=== PATIENT | male | born 1975 | race Caucasian/White ===

== ENCOUNTER 2018-12-12 09:39 | Outpatient (CLI) | payer BC, SELFPAY ==
--- NOTE | 2018-12-12 09:17 | DI.RAD_ITS ---
SYMPTOM/DIAGNOSIS: HAND INJURY RIGHT HAND: Three views. No priors. No acute or healing fracture or dislocation is identified. There is a deformity of the terminal tuft of the right ring finger which appears old. Soft tissues are unremarkable. IMPRESSION: No acute abnormality.
== END 2018-12-12 09:59 ==
PROVIDERS: Visit Provider Physician Assistant
DX: S69.91XA Unspecified injury of right wrist, hand and finger(s), initial encounter (principal)
CPT/HCPCS: 73130

== ENCOUNTER 2020-02-24 11:40 | Emergency (ER) | payer BC, SELFPAY ==
[2020-02-24 11:43] VITALS: BP 135/76; PULSE 77; RESP 20; TEMP 37; O2SAT 98
--- NOTE | 2020-02-24 11:45 | DI.CT_ITS ---
EXAM: CT RENAL COLIC WO CLINICAL HISTORY: L flank pain, hematuria. TECHNIQUE: Imaging Protocol: Axial computed tomography images with coronal and sagittal reformatted images were created and reviewed. CONTRAST MATERIAL: Noncontrast COMPARISON: CT RENAL COLIC WO CONTRAST from 05/07/2014 CT ABD PELVIS WITH CONTRAST from 09/10/2016 CT CTA THORAX from 08/03/2017 FINDINGS: ABDOMEN: Lung Bases: 7 millimeter nodule at the right lung base. This was not present on the previous exams. Liver: Normal density. No measurable mass. Gallbladder and biliary tract: No radiodense calculus or dilation. Pancreas: Normal density, no abnormal calcifications or inflammatory process. Spleen: Normal. Kidneys: Normal size, contour and axis. There is a 4 millimeter calculus in the mid left ureter causi ng moderate hydronephrosis. There is mild perinephric stranding. There is stranding around the left ureter. Additional nonobstructing stones are noted in the mid and lower pole of the left kidney. T iny stones are visible in the right kidney which are nonobstructing. No masses seen. Adrenal glands: No masses seen. Abdominal Aorta: Abdominal portion non-dilated. PELVIS: Bladder: Symmetric distention, no gross wall thickening. Bowel: No obstruction or bowel wall thickening. Diverticulosis of the descending and sigmoid colon. No evidence of diverticulitis. Normal quantity of stool. Peritoneal cavity: No ascites, collection or mesenteric inflammatory response. Bones: Within normal limits. Small bilateral fatty containing inguinal hernias. IMPRESSION: 1. Moderate left hydronephrosis secondary to a 4 millimeter stone in the mid left ureter. There is stranding around the kidney and ureter consistent with forniceal rupture. Additional nonobstructing stones are also seen. 2. 7 millimeter nodule at the right lung base which appears new when compared with the previous exam . A six-month follow-up chest CT is recommended. RADIATION DOSE DELIVERED: 875.04mGy.cm Total DLP DATA REPOSITORY: All CT scans at this facility are submitted to the National Radiology Data Registry (NRDR) Dose Index Registry (DIR) with the [employer] (ACR). RADIATION OPTIMIZATION: All CT scans at this facility use at least one of these dose optimization te chniques: automated exposure control; mA and/or kV adjustment per patient size (includes targeted exa ms where dose is matched to clinical indication); or iterative reconstruction.
--- NOTE | 2020-02-24 11:51 | ED.GENADUL_ITS ---
Discharge Plan Disposition Patient Disposition: HOME Condition: Improving Discharge Details Clinical Impression: Renal colic on left side Primary Care Provider: Mellissa Christine ED Provider: David Copeland Home Meds and New Rx's Prescriptions: New tamsulosin [Flomax] 0.4 mg capsule 0.4 mg PO DAILY 5 Days Qty: 5 RF: 0 oxycodone-acetaminophen [Percocet] 5-325 mg tablet 1 tab PO TID PRN (Reason: pain) Qty: 7 RF: 0 Discharge Instructions Instructions: Renal Colic (ED) Additional Instructions: Tylenol and/or ibuprofen as needed for pain. May use Percocet as prescribed, as needed for severe or breakthrough pain. Do not take additional Tylenol at the same time as this medication as it does contain Tylenol. Take Flomax as prescribed. We have asked care management to arrange a follow-up for you in urology clinic. Strain your urine. Return to develop a fever, intolerable pain, or any other acute concerns. As discussed, your CT did have an incidental finding of a 7 mm right lower lobe nodule of the lungs. This should be followed over time by Dr. Christine, who may access the final radiology reading. Medical Decision Making 44-year-old male states he has had previous kidney stones, awoken at 530 this morning with the abrupt onset of left flank pain and hematuria. No fever. He has been vomiting at home. He arrives afebrile but in distress. Most consistent with renal colic, would also consider pyelonephritis or urinary tract infection. IV access established, urinalysis and blood work obtained. Patient given fluids, antiemetic, ketorolac. He is referred for CT images. Patient improved with medications. CBC shows a white count of 10, hematocrit 44, platelets 267. Chemistries note sodium 135, potassium 4.0, chloride May 9, bicarb 25, BUN 22, creatinine 1.4. Liver functions unremarkable.Note of mild increase in BUN and creatinine. Urinalysis with blood, no evidence of infection. CT reveals 4.2 mm mid left ureteral calculus with proximal dilatation. Note of 7.4 mm nodule in the right lower lung lobe. Patient proved following Flomax, fluids, ketorolac. Will discharge home with small amount of narcotic which he has tolerated in the past and for which he was consented today. We will ask acute care occupational therapist to arrange a follow-up for him in urology clinic. Lab Data Lab results reviewed: Yes I reviewed the patient's lab results. Labs: Laboratory Results - last 24 hr 02/24/20 02/24/20 02/24/20 12:00 12:00 14:10 WBC 10.85 H RBC 5.10 Hgb 14.8 Hct 44.6 MCV 87.5 MCH 29.0 MCHC 33.2 RDW 12.8 Plt Count 267 MPV 10.2 Immature Gran % 0.3 Neutrophils % 91.7 Lymphocytes % 5.2 Monocytes % 2.6 Eosinophils % 0.0 Basophils % 0.2 Nucleated RBC % 0 Absolute Neutrophils 9.95 H Absolute Lymphocytes 0.56 L Absolute Monocytes 0.28 Absolute Eosinophils 0.00 Absolute Basophils 0.02 Sodium 135 L Potassium 4.0 Chloride 99 Carbon Dioxide 25.5 Anion Gap 10.5 BUN 22 H Creatinine 1.47 H Estimated GFR/1.73 m2 51.80 Glucose 132 H Calcium 9.0 Total Bilirubin 0.5 AST 22 ALT 41 Alkaline Phosphatase 77 Total Protein 7.6 Albumin 4.3 Urine Color Yellow Urine Clarity Sl cloudy Urine pH 6.5 Ur Specific [place] 1.015 Urine Protein 30 H Urine Ketones 15 H Urine Blood Large H Urine Nitrite Negative Urine Bilirubin Negative Urine Urobilinogen 0.2 Ur Leukocyte Esterase Negative Urine RBC 10-20 H Urine WBC 0-2 Ur Epithelial Cells Rare Urine Crystals Negative Urine Bacteria Rare Urine Casts Negative Urine Mucus Moderate Ur Culture Indicated? No Urine Glucose Negative HPI General Mode of arrival: ambulatory . Date/Time Provider Initiated Documentation: 02/24/20 11:41 . Limitations to Documentation: no limitations . Information obtained by: patient . History of Present Illness 44 year old M presents to the emergency department with the chief complaint of Left flank pain at 5:30 AM, described as severe and similar to prior episodes, Quality is described as stabbing, and is localized to the back and left. Patient abdomen. Patient started experiencing this hour(s) and it has been constant. No relieving factors improve symptom(s), No exacerbating factors reported . Patient notes other (Hematuria); denies fever/chills. Patient did receive the following treatments prior to arrival, none Related Data Home Medications Medication Instructions Recorded Confirmed oxycodone-acetaminophen [Percocet] 1 tab PO TID PRN #7 tab 02/24/20 tamsulosin [Flomax] 0.4 mg PO DAILY 5 Days #5 cap 02/24/20 Previous Rx's Medication Instructions Recorded oxycodone-acetaminophen [Percocet] 1 tab PO TID PRN #7 tab 02/24/20 tamsulosin [Flomax] 0.4 mg PO DAILY 5 Days #5 cap 02/24/20 Allergies Allergy/AdvReac Type Severity Reaction Status Date / Time hydromorphone [From Dilaudid] Allergy Intermediate Cardiac Unverified 02/24/20 11:46 Dysrythmia General Stated Complaint: FlankPain MARK: 3 Review of Systems Narrative: 6 systems reviewed and otherwise negative [facility] Social History Smoking/Tobacco Use Status: Never Drug use: Never Substance use type: does not use Do you feel safe at home: Yes Do you feel safe in your relationship?: Yes Exam Narrative Exam Narrative: GEN: awake, alert, oriented 3. Pleasant, well groomed, interactive. HEAD: Normocephalic, atraumatic ENT: Mucous membranes moist, oropharynx unremarkable, External ear exam unremarkable EYES: PERRL, EOMI NECK: Full ROM, no RHONDA, no menigismus CHEST/RESP: Nontender, clear to auscultation bilateral, no wheeze/rhonchi/rales CARDIOVASCULAR: RRR, no murmur, rub raven. 2+ Rad pulse bilateral ABDOMEN: Soft, minimal left lower quadrant tenderness, no mass. +Bowel sounds. Left flank minimal tenderness to percussion EXT: Full ROM, no edema, no rash Neuro: Grossly normal neurologic exam, conversant, interactive. Psych: Speech fluent, thoughts congruent, affect normal Course Vital Signs Vital signs: Vital Signs Temperature 37.0 C 02/24/20 11:43 Pulse 77 02/24/20 11:43 Respiratory Rate 02/24/20 11:43 Blood Pressure 135/76 02/24/20 11:43 Pulse Oximetry 98 02/24/20 11:43 Temperature 37.0 C 02/24/20 11:43 Temperature Source Skin 02/24/20 11:43 Pulse 77 02/24/20 11:43 Respiratory Rate 20 02/24/20 11:43 Blood Pressure 135/76 02/24/20 11:43 Blood Pressure Position Sitting 02/24/20 11:43 Pulse Oximetry 98 02/24/20 11:43 Oxygen Delivery Method Room Air 02/24/20 11:43 Oxygen Flow Rate 0 02/24/20 11:43 Pain Level 10 02/24/20 11:43
[2020-02-24] MEDS: Normal Saline 1,000 ML 1000 ML IV (12:08)
[2020-02-24] MEDS: Ondansetron 4 MG/2 ML VIAL IVP (12:08)
[2020-02-24] MEDS: Ketorolac 30 MG/ML VIAL IVP (12:08)
[2020-02-24] MEDS: Normal Saline Flush 10 ML SYR IVP (12:08)
[2020-02-24 12:11] LABS: Abs Immature Grans 0.03 10^3/uL (0.0-0.06); Absolute Basophil Count 0.02 10^3/uL (0.0-0.2); Absolute Lymphocyte Count 0.56 10^3/uL (1.2-3.4); Absolute Monocyte Count 0.28 10^3/uL (0.1-0.8); Basophils % 0.2; HCT 44.6 % (40.0-50.0); HGB 14.8 g/dL (13.5-17.5); Immature Grans % 0.3; Lymphocytes % 5.2; MCHC 33.2 % (32.0-36.0); MCV 87.5 fL (80-95); MPV 10.2 fL (8.0-11.0); Monocytes % 2.6; Neutrophils % 91.7; Nucleated RBC 0 %; Platelet Count 267 10^3/uL (130-400); RDW 12.8 % (11.8-14.1); RDW-SD 40.9 fL; WBC 10.85 10^3/uL (4.4-10.8)
[2020-02-24 12:13] LABS: Absolute Neutrophil Count 9.95 10^3/uL (1.2-6.7)
[2020-02-24 12:26] LABS: ALT 41 U/L (16-63); AST 22 U/L (15-37); Albumin 4.3 g/dL (3.4-5.0); Alkaline Phosphatase 77 U/L (46-116); Anion Gap 10.5 mmol/L (3-11); BUN 22 mg/dL (7-18); Bilirubin, Total 0.5 mg/dL (0.2-1.0); CO2 25.5 mmol/L (21.0-32.0); CREATININE 1.47 mg/dL (0.70-1.30); Chloride 99 mmol/L (98-107); Glucose 132 mg/dL (74-106); Sodium 135 mmol/L (136-145); Total Protein 7.6 g/dL (6.4-8.2)
--- NOTE | 2020-02-24 12:47 | DI.VRAD_ITS ---
PROCEDURE INFORMATION: Exam: CT Abdomen And Pelvis Without Contrast Exam date and time: 02/24/2020 12:23 PM Age: 44 years old Clinical indication: Other: L flank pain, hematuria TECHNIQUE: Imaging protocol: Computed tomography of the abdomen and pelvis without contrast. COMPARISON: CT ABD PELVIS WITH CONTRAST 09/10/2016 8:34 AM FINDINGS: Lungs: 7.4 mm nodule in the right lower lobe was not present on the prior study.. Left basilar atelectasis Liver: Normal. No mass. Gallbladder and bile ducts: Normal. No calcified stones. No ductal dilation. Pancreas: Normal. No ductal dilation. Spleen: Normal. No splenomegaly. Adrenals: Normal. No mass. Kidneys and ureters: 4.2 millimeter mid LEFT ureteral calculus causes dilatation of LEFT collecting system and LEFT ureter. The LEFT kidney is edematous and there is significant LEFT perirenal stranding. Inflammatory changes around the proximal left ureter and in the left perinephric space may indicate ruptured fornix. Nonobstructing left renal calculi Stomach and bowel: posterior gastric diverticulum measures 2.2 cm. Series 2, image 17 Diverticulosis of the rectosigmoid. No jessi diverticulitis. Appendix: Normal appendix Intraperitoneal space: Unremarkable. No free air. No significant fluid collection. Vasculature: Unremarkable. No abdominal aortic aneurysm. Lymph nodes: Unremarkable. No enlarged lymph nodes. Urinary bladder: Unremarkable as visualized. Reproductive: Unremarkable as visualized. Bones/joints: Unremarkable. No acute fracture. Soft tissues: Unremarkable. IMPRESSION: 1. 4.2 millimeter mid LEFT ureteral calculus causes dilatation of LEFT collecting system and LEFT ureter. The LEFT kidney is edematous and there is significant LEFT perirenal stranding. Inflammatory changes around the proximal left ureter and in the left perinephric space may indicate ruptured fornix. 2. 7.4 mm nodule in the right lower lobe was NOT present on the prior study.. Dictated and Authenticated by: Eli An MD. Ordering:CARSON Hernandez MD
[2020-02-24] MEDS: Tamsulosin 0.4 MG CAPCR PO (13:40)
--- NOTE | 2020-02-24 14:10 | NUR.NOTE ---
[facility]erral [facility]Nursing Note:
[2020-02-24 14:18] LABS: Bilirubin Negative (Negative); Blood Large (Negative); Clarity Sl Cloudy (Clear); Glucose Negative (Negative); Ketones 15 mg/dL (Negative); Leukocyte Esterase Negative (Negative); Nitrite Negative (Negative); Specific Gravity 1.015 (1.005-1.025); Urobilinogen 0.2 EU/dL (Up TO 0.2); pH 6.5 (5-8)
[2020-02-24 14:25] LABS: Bacteria Rare HPF (Negative); C & S Indicated? No; Casts Negative LPF (Negative); Crystals Negative HPF (Negative); Epithelial Cells Rare HPF (Negative); Mucus Moderate (Negative); WBC 0-2 HPF (0-5)
== END 2020-02-24 14:38 | disposition home or self-care (01) ==
PROVIDERS: Emergency Provider Emergency Medicine
DX: N23 Unspecified renal colic (principal); N20.2 Calculus of kidney with calculus of ureter; R91.1 Solitary pulmonary nodule; Z87.442 Personal history of urinary calculi
CPT/HCPCS: 36415; 80053; 96361; 96374; 96375; 99284; 74176; 81003; 81015; 85025; J1885; J2405

== ENCOUNTER 2020-03-04 00:44 | Outpatient (CLI) | payer BC, SELFPAY ==
--- NOTE | 2020-03-04 | DI.CT_ITS ---
EXAM: CT CHEST W CLINICAL HISTORY: RLL PULMONARY NODULE ON CT 02/24/20 TECHNIQUE: COMPARISON: CT CTA THORAX from 08/03/[address] RENAL COLIC WO from 02/24/2020 FINDINGS: CT examination of the chest was performed with bolus infusion of 100 cc of Omnipaque 350. Images obt ained through the upper abdomen show unremarkable appearance of visualized portions the liver, spleen , pancreas adrenals, and kidneys. Gallbladder and bile ducts are CT normal. There is no mediastinal or hilar adenopathy. Thoracic aorta and major branches appear intact. No ev idence of pulmonary embolic disease. Tracheobronchial tree appears intact. There are multiple new intrapulmonary nodules which were not present on prior CT of 08/03/2017. A 7 millimeter nodule noted on CT of February 26 2020 is again seen. This measures about 8 millimeter s in diameter on today's examination. The largest intrapulmonary nodule is a 12 millimeter in diamet er nodule of the left upper lobe which appears to have a number of small satellite nodules. No pleur al effusion seen. No focal pulmonary consolidation. IMPRESSION: Multiple new pulmonary nodules, the findings are suspicious for metastatic disease. Other etiologies including infectious process not excluded on the basis of this examination. Please correlate clinic ally. PET/CT or tissue sampling may be considered if there is no obvious clinical explanation for th aline findings. RADIATION DOSE DELIVERED: 618.6mGy.cm Total DLP
[2020-03-04] MEDS: Normal Saline - Diluent 50 ML VIAL IV (13:49)
[2020-03-04] MEDS: Normal Saline Flush 10 ML SYR IVP (13:50)
[2020-03-04] MEDS: Omnipaque 350 MG/ML 100 ML BTL 70 ML IJ (13:50)
== END 2020-03-04 01:04 ==
PROVIDERS: Visit Provider Family Medicine
DX: R91.8 Other nonspecific abnormal finding of lung field (principal)
CPT/HCPCS: 71260; J3490

== ENCOUNTER 2020-05-06 07:51 | Emergency (ER) | payer BC, SELFPAY ==
[2020-05-06 07:55] VITALS: BP 129/89; PULSE 85; RESP 16; TEMP 36.2; O2SAT 96
[2020-05-06 08:01] LABS: Bilirubin Negative (Negative); Blood Large (Negative); Clarity Sl Cloudy (Clear); Glucose Negative (Negative); Ketones Negative (Negative); Leukocyte Esterase Negative (Negative); Nitrite Negative (Negative); Specific Gravity >= 1.030 (1.005-1.025); Urobilinogen 0.2 EU/dL (Up TO 0.2); pH 5.5 (5-8)
--- NOTE | 2020-05-06 08:05 | ED.GENADUL_ITS ---
Discharge Plan Disposition Patient Disposition: HOME Condition: Stable Discharge Details Clinical Impression: Hydronephrosis with ureteral calculus Primary Care Provider: Mellissa Christine ED Provider: Anisa Pool Home Meds and New Rx's Prescriptions: New tamsulosin 0.4 mg capsule 0.4 mg PO DAILY 7 Days Qty: 7 RF: 0 ketorolac 10 mg tablet 10 mg PO TID PRN (Reason: pain) 5 Days Qty: 15 RF: 0 Discharge Instructions Instructions: Kidney Stones (ED) Additional Instructions: Strain all urine. Take medications as directed. Return to the ED for any continued vomiting, fever, inability to urinate or any concerns. Follow-up with urology within 3 to 5 days. Follow up with primary care provider in 3-5 days. Return to ED sooner if any worsening or concerns. Increase oral fluids. Please take Tylenol or Ibuprofen with food every 4-6 hours as needed for pain and swelling. Stand Alone Forms: Work Release Referrals: Alexi Malone MD [ [facility]] - Mellissa Christine MD [Primary Care Provider] - Discharge Data Discharge Date/Time-TO BE ENTERED AT DEPARTURE: 05/06/20 10:14 Medical Decision Making 44-year-old male presents to the ED with complaint of left flank pain. He has known kidney stones states that his pain is gotten worse over the last 1 to 2 weeks. Associated symptoms include vomiting and colicky type pain. He reports urinary hesitancy. He denies any fever or diarrhea. No abdominal pain. Work-up ordered including CBC, CMP, urinalysis, CT renal colic. Exam(s) a CT:CT renal colic wo EXAM: CT RENAL COLIC WO INDICATION: Left flank pain. COMPARISON: CT CT RENAL COLIC WO from 02/24/2020 TECHNIQUE: CT examination was performed without contrast administration. FINDINGS: Images obtained through the lung bases show a 7 millimeter in diameter right lower lobe lung nodule, this was noted on prior CT examinations of January and February 2019, this may be minimally increased in size since the prior examination when it was measured at 6 to 7 millimeters. Visualized portions of the liver and spleen appear intact. Visualized portions of the pancreas are unremarkable. Gallbladder and bile ducts are CT normal. Abdominal aorta is of normal diameter. No significant abdominal wall hernia. No significant abdominal or pelvic adenopathy. There is a subcutaneous gas collection lying along the deep fascia of the left flank, please correlate clinically. No free intraperitoneal air. Adrenals appear normal bilaterally. The kidneys both contain multiple small nonobstructing calculi. No right hydronephrosis or ureterolithiasis. On the left there is moderate hydronephrosis and hydroureter to the level of the distal 3rd of the ureter where there is an obstructing 6 millimeter in diameter calculus. The urinary bladder is nearly empty. IMPRESSION: 6 millimeter in diameter obstructing distal left ureteral stone. Bilateral nonobstructing renal calculi. 7 millimeter right lower lobe lung nodule, indeterminate, please see prior chest CT of February 2019, malignancy not excluded. Unexplained subcutaneous gas collection in the deep subcutaneous fat the left flank. Please correlate clinically. Spoke with patient again patient reports that he had some lung nodules removed approximately 2 weeks ago at [facility] which would explain the subcutaneous tissue noted on the CT exam. Discussed CT results with him he verbalizes understanding. He had been seeing Dr. Rose at [facility] for urology. He is agreeable to try to get an appointment with Dr. Malone. Patient was given a disc of his CT exam in case he has to follow-up with [facility]. Patient was given a strainer, tamsulosin and Toradol was prescribed. Discussed strict return instructions, verbalized understanding. Patient was much more comfortable and hemodynamically stable upon discharge. This text was generated using [employer]asteSpaceation system, please disregard any oddities of phrase or misspellings. HPI General Mode of arrival: ambulatory . Date/Time Provider Initiated Documentation: 05/06/20 08:01 . Limitations to Documentation: no limitations . Information obtained by: patient . HPI Narrative: 44-year-old male presents to the ED with chief complaint of left flank pain. He has known kidney stones. Positive vomiting increased pain. He did take 2 tramadol this morning prior to arrival. He denies any fever or diarrhea. Related Data Home Medications Medication Instructions Recorded Confirmed ketorolac 10 mg PO TID PRN 5 Days #15 tab 05/06/20 tamsulosin 0.4 mg PO DAILY 7 Days #7 cap 05/06/20 Previous Rx's Medication Instructions Recorded ketorolac 10 mg PO TID PRN 5 Days #15 tab 05/06/20 tamsulosin 0.4 mg PO DAILY 7 Days #7 cap 05/06/20 Allergies Allergy/AdvReac Type Severity Reaction Status Date / Time hydromorphone [From Dilaudid] Allergy Intermediate Cardiac Unverified 05/06/20 07:58 Dysrythmia General Stated Complaint: FlankPain MARK: 3 Review of Systems Narrative: Constitutional: Negative for weight loss, alert and oriented, well groomed, normal body habitus, appears comfortable. HEENT: Denies trauma, headaches, blurry vision, nasal discharge, sore throat, trouble swallowing. Chest: Denies chest pain, palpitations, irregular rhythm, hypertension. Respiratory: Denies Shortness of breath, cough, hemoptysis. GI: Denies abdominal pain, diarrhea, constipation. Positive nausea vomiting. : Denies dysuria, hematuria, positive flank pain rectal bleeding. Neuro: Denies dizziness, blurry vision, weakness, syncope, headache or facial numbness. Hematologic: Denies easy bruising, intolerance to heat or cold, hair loss. [facility] Social History Smoking/Tobacco Use Status: Never Smoking risk assessment performed?: Yes Alcohol Intake: never Drug use: Never Substance use type: does not use Do you feel safe at home: Yes Do you feel safe in your relationship?: Yes Exam Narrative Exam Narrative: Constitutional: Alert and oriented x3. Appears stated age. Normal body habitus. Head: Normocephalic, no trauma. Eyes: Pupils PERRLA, Red reflex noted, EOM's intact. Eyelids symmetrical without lesions, discharge, or swelling. ENT: Bilateral TM's WNL, External ear normal to inspection, no mastoid TTP, swelling, or erythema, Nasal turbinates WNL, no nasal discharge. Normal dentition, Posterior pharynx WNL, no exudate. Chest: RRR, Normal S1, S2, distal pulses intact. Resp: Lungs clear to auscultation bilaterally, no wheezes, rales, or rhonchi. Musculoskeletal: Normal gait, 5/5 strength to all four extremities. Skin: No suspicious rashes or lesions. Capillary refill less than 2 sec. Neurologic: Cranial nerves II-XII intact. Alert and oriented x 3. DTR's intact. Hematologic/Lymphatic: No ecchymosis, no lymphadenopathy. Course Vital Signs Vital signs: Vital Signs Temperature 36.2 C L 05/06/20 07:55 Pulse 85 05/06/20 07:55 Respiratory Rate 16 05/06/20 07:55 Blood Pressure 129/89 05/06/20 07:55 Pulse Oximetry 96 05/06/20 07:55 Temperature 36.2 C L 05/06/20 07:55 Pulse 85 05/06/20 07:55 Respiratory Rate 16 05/06/20 07:55 Respiratory Effort Non-Labored 05/06/20 07:55 Blood Pressure 129/89 05/06/20 07:55 Blood Pressure Position Sitting 05/06/20 07:55 Pulse Oximetry 96 05/06/20 07:55 Oxygen Delivery Method Room Air 05/06/20 07:55 Oxygen Flow Rate 0 05/06/20 07:55 Pain Level 10 05/06/20 07:55
[2020-05-06 08:13] LABS: Bacteria Few HPF (Negative); Crystals Few Calcium Oxalate HPF (Negative); Epithelial Cells Negative HPF (Negative); Mucus Negative (Negative); Other Cells Negative (Negative); RBC >50 HPF (0-2); WBC 0-2 HPF (0-5)
[2020-05-06 08:14] LABS: C & S Indicated? No; Casts Negative LPF (Negative)
[2020-05-06] MEDS: Ketorolac 30 MG/ML VIAL IVP (08:16)
[2020-05-06] MEDS: Ondansetron 4 MG/2 ML VIAL IVP (08:16)
[2020-05-06] MEDS: Normal Saline 1,000 ML 1000 ML IV (08:19)
[2020-05-06 08:32] LABS: Abs Immature Grans 0.04 10^3/uL (0.0-0.06); Absolute Basophil Count 0.02 10^3/uL (0.0-0.2); Absolute Eosinophil Count 0.01 10^3/uL (0.0-0.7); Absolute Lymphocyte Count 0.89 10^3/uL (1.2-3.4); Absolute Neutrophil Count 8.72 10^3/uL (1.2-6.7); Basophils % 0.2; Eosinophils % 0.1; HCT 43.2 % (40.0-50.0); HGB 14.4 g/dL (13.5-17.5); Immature Grans % 0.4; Lymphocytes % 8.8; MCH 29.6 pg (27.0-33.0); MCHC 33.3 % (32.0-36.0); MCV 88.7 fL (80-95); Neutrophils % 86.5; Nucleated RBC 0 %; Platelet Count 315 10^3/uL (130-400); RBC 4.87 10^6/uL (4.36-5.78); RDW 12.9 % (11.8-14.1); RDW-SD 42.3 fL; WBC 10.08 10^3/uL (4.4-10.8)
[2020-05-06 08:48] LABS: ALT 60 U/L (16-63); AST 19 U/L (15-37); Albumin 4.2 g/dL (3.4-5.0); Alkaline Phosphatase 146 U/L (46-116); Anion Gap 9.3 mmol/L (3-11); BUN 18 mg/dL (7-18); Bilirubin, Total 0.2 mg/dL (0.2-1.0); CO2 25.7 mmol/L (21.0-32.0); Calcium 9.2 mg/dL (8.5-10.1); Chloride 103 mmol/L (98-107); Glucose 140 mg/dL (74-106); Potassium 4.3 mmol/L (3.5-5.1); Sodium 138 mmol/L (136-145); Total Protein 7.7 g/dL (6.4-8.2)
--- NOTE | 2020-05-06 09:18 | DI.CT_ITS ---
EXAM: CT RENAL COLIC WO INDICATION: Left flank pain. COMPARISON: CT CT RENAL COLIC WO from 02/24/2020 TECHNIQUE: CT examination was performed without contrast administration. FINDINGS: Images obtained through the lung bases show a 7 millimeter in diameter right lower lobe lung nodule, this was noted on prior CT examinations of January and February 2019, this may be minimally increas ed in size since the prior examination when it was measured at 6 to 7 millimeters. Visualized portions of the liver and spleen appear intact. Visualized portions of the pancreas are unremarkable. Gallbladder and bile ducts are CT normal. Abdominal aorta is of normal diameter. No significant abdominal wall hernia. No significant abdominal or pelvic adenopathy. There is a subcutaneous gas collection lying along the deep fascia of the left flank, please correlat e clinically. No free intraperitoneal air. Adrenals appear normal bilaterally. The kidneys both contain multiple small nonobstructing calculi. No right hydronephrosis or ureteroli thiasis. On the left there is moderate hydronephrosis and hydroureter to the level of the distal 3rd of the ur eter where there is an obstructing 6 millimeter in diameter calculus. The urinary bladder is nearly empty. IMPRESSION: 6 millimeter in diameter obstructing distal left ureteral stone. Bilateral nonobstructing renal calculi. 7 millimeter right lower lobe lung nodule, indeterminate, please see prior chest CT of February 2019, malignancy not excluded. Unexplained subcutaneous gas collection in the deep subcutaneous fat the left flank. Please correlat e clinically. RADIATION DOSE DELIVERED: 821.63mGy.cm Total DLP 821.63mGy.cm Total DLP
[2020-05-06 09:54] VITALS: BP 117/74; PULSE 74; RESP 16; TEMP 36.6; O2SAT 96
--- NOTE | 2020-05-06 09:59 | NUR.NOTE ---
Nursing Note: Referral faxed to [facility] for follow up. Naye Dalton
[2020-05-06 10:04] VITALS: BP 117/74; PULSE 74; RESP 16; TEMP 36.6; O2SAT 96
== END 2020-05-06 10:14 | disposition home or self-care (01) ==
PROVIDERS: Emergency Provider Registered Nurse Emergency
DX: N13.2 Hydronephrosis with renal and ureteral calculous obstruction (principal); N13.4 Hydroureter; Z87.442 Personal history of urinary calculi
CPT/HCPCS: 36415; 80053; 96361; 96374; 96375; 99284; 74176; 81003; 81015; 85025; J1885; J2405

== ENCOUNTER 2022-07-05 00:52 | Outpatient (CLI) | payer BC, SELFPAY ==
--- NOTE | 2022-07-05 08:00 | ETT_ITS ---
APPROVED REPORT Exam: Exercise Treadmill Patient Location: Out-Patient Room/Bed: Stress Nurse: Zayda Menezes RN Ordering Provider:CLAYTON BETTE, Contact Number: [phone] BMI: 30.50 Baseline Rhythm: Sinus Rhythm Indications: Atypical chest pain, Family history of CAD Medical History Medical History: hydronephrosis w/ uteral calculi, lung nodule removal, family history of cardiac dis ease Cardiac Medications: None Allergies: Hydromorphone Cardiac Risk Factors: +Family history Previous Cardiac Procedures: None Pretest Chest Pain Characteristics: Baseline - pt reports 1 month of left chest discomfort that feels like a pulled muscle. He states its noticible at times and not at all other times. At worst it i s a 5-6/10 and wakes him at night. Today he said its noticable Exercise History: Indeterminate Physical Disabilities: None Lung Sounds: Clear Heart Sounds: Regular Stress Test Details Test: Exercise stress testing was performed using a Pito protocol. Rest Stress HR Resting HR Supine: 66 bpm Max Heart Rate (APMHR): 173 bpm Resting HR Standin bpm Target HR (85% APMHR): 147 bpm Max HR Achieved: 164 bpm % of APMHR: 95 Recovery HR: 94 bpm HR response to stress: Normal HR response to stress BP Resting BP Supine: 120/78 mmHg Resting BP Standin/82 mmHg Max BP: 172/78 mmHg Recovery BP: 126/68 mmHg BP response to stress: Normal blood pressure response to stress. ECG Resting ECG: Sinus Rhythm Ectopy: None Stress ECG: Sinus Tachycardia ST Change: No significant ST segment changes noted Recovery ECG: Sinus Rhythm Recovery ST Change: No significant ST segment changes noted Recovery Arrhythmia: 1 PVC Clinical Reason for Termination: Fatigue Stress Symptoms: General Fatigue Exercise duration: 9 min39 sec Highest Stage Reached: Stage 4: 4.2 mph at 16% grade. Exercise capacity: 11.24 METs Angina Score: Non-Limiting Jama Treadmill Score: 4.8 Rate Pressure Product: 12112 Stress ECG Conclusion 1. Resting electrocardiogram showed vertical axis, RSR prime V1 and V2 2. Patient exercised on the Pito protocol completed a workload of 11.24 METS 3. Normal heart rate and blood pressure response to exercise. Patient achieved 95% of predicted hear t rate for age 4. There was no electrocardiographic evidence of myocardial ischemia 5. There were no significant dysrhythmias Jama Treadmill Score is 4.8 which is Moderate risk. Stress Test Summary STAGE Time (mins) Speed (mph) Grade (%) HR BP SpO2 SYMPTOMS METS Supine 66 120/78 Standing 81 118/82 1 3 1.7 10 113 138/78 4.5 2 6 2.5 12 128 150/70 7 3 9 3.4 14 145 160/72 10 4 12 4.2 16 162 13 1 min recovery 135 172/78 3 min recovery 102 148/70 6 min recovery 94 126/68 Pt came for stress for atypical chest pain and family history of CAD. Pt appeared somewhate anxious a nd pt reports at baseline hes had 1 month of left chest discomfort that feels like a pulled muscle (this discomfort is on the same side as his lung nodule removal surgery was on). It is under the left breast area and over to the left lateral chest. He states its noticible at times and not at all ot her times. At worst it is a 5-6/10 and wakes him at night. Today he said its noticable but at time of discharge the discomfort was gone.
== END 2022-07-05 01:12 ==
LOC: DI 00:53
PROVIDERS: Visit Provider Physician Assistant
DX: R07.89 Other chest pain (principal); Z82.49 Family history of ischemic heart disease and other diseases of the circulatory system
CPT/HCPCS: 93017

== ENCOUNTER 2022-07-05 16:20 | Outpatient (REF) | payer BC, SELFPAY ==
[2022-07-05 15:43] LABS: HCT 44.7 % (40.0-50.0); HGB 15.3 g/dL (13.5-17.5); MCHC 34.2 % (32.0-36.0); MCV 88 fL (80-95); MPV 11.1 fL (8.0-11.0); Platelet Count 259 10^3/uL (130-400); WBC 4.54 10^3/uL (4.4-10.8)
[2022-07-05 16:05] LABS: ALT 48 U/L (16-63); AST 22 U/L (15-37); Albumin 4.5 g/dL (3.4-5.0); Alkaline Phosphatase 84 U/L (46-116); Anion Gap 7.8 mmol/L (3-11); BUN 20 mg/dL (7-18); Bilirubin, Total 0.4 mg/dL (0.2-1.0); CO2 27.2 mmol/L (21.0-32.0); Calcium 9.5 mg/dL (8.5-10.1); Calculated LDL 133 mg/dL (<100); Chloride 106 mmol/L (98-107); Cholesterol 200 mg/dL (<200); Estimated GFR 93.42 (mL/min/1.73m2); Glucose 106 mg/dL (74-106); HDL Cholesterol 43 mg/dL (40-60); Potassium 4.6 mmol/L (3.5-5.1); Sodium 141 mmol/L (136-145); TSH 1.18 uIU/mL (0.36-3.74); Total Protein 7.4 g/dL (6.4-8.2); Triglyceride 124 mg/dL (<150)
[2022-07-05 16:36] LABS: FREE T4 0.81 ng/dL (0.76-1.46)
== END 2022-07-05 16:21 | disposition home or self-care (01) ==
LOC: NCHCN 16:20
PROVIDERS: Visit Provider Physician Assistant
DX: R07.89 Other chest pain (principal)
CPT/HCPCS: 80053; 80061; 85027; 84439; 84443

== ENCOUNTER 2023-01-05 00:57 | Outpatient (CLI) | payer BC, SELFPAY ==
--- NOTE | 2023-01-05 10:02 | DI.RAD_ITS ---
Exam(s) XR CHEST 2V PA LATERAL EXAM: XR CHEST 2V PA LATERAL CLINICAL HISTORY: COUGH, R05.8 TECHNIQUE: 2D digital imaging was performed. COMPARISON: CT CT CHEST W from 03/04/2020 FINDINGS: HEART: Normal size. Aorta: Not dilated. PULMONARY VASCULATURE: Normal. LUNGS: Clear. PLEURAL SPACE: No pleural effusion or pneumothorax. BONE:Unremarkable for age. Hardware lower cervical spine. IMPRESSION: No acute abnormality. DATA REPOSITORY: RADIATION DOSE DELIVERED:
== END 2023-01-05 01:17 ==
LOC: DI 00:58
PROVIDERS: PCP Physician Assistant; Visit Provider Physician Assistant
DX: R05.8 Other specified cough (principal)
CPT/HCPCS: 71046

== ENCOUNTER 2024-06-07 11:08 | Outpatient (REF) | payer BC, SELFPAY ==
--- OUTSIDE RECORDS SUMMARY | 2024-06-07 11:10 | XMS_ITS | Clinical Summary ---
Author Organization [facility] Address [facility] [place] [address] Care Team Providers Care Training And Development Assistant Name Role Phone Meghana Torres MD Primary Care Provider [phone] Allergies Active Allergy Reactions Criticality Noted Date Comments Hydromorphone 03/19/2020 It stopped my heart at [facility] Vegetable Derived 03/19/2020 Carrots, apples, chick peas, tree nuts Medications Medication Sig Dispensed Refills Start Date End Date Status EPINEPHrine (EPIPEN) 0.3 mg/0.3 mL (1:1,000) Auto-Injector Inject 0.3 mg into the muscle once. Active diphenhydrAMINE (BENADRYL) 25 mg CapsuleIndications :Allergic reaction to food,Oral allergy syndrome, subsequent encounter Take 2 capsules by mouth as needed for Itching. 30 capsule 0 04/22/2015 Active Additional Information Patient not taking.Reported on 05/07/2020 Active Problems Problem Noted Date Diagnosed Date Lung nodule, multiple 04/16/2020 Pulmonary nodules 03/19/2020 Nephrolithiasis 03/19/2020 Testicular mass 03/19/2020 Overview (03/19/2020): Worked up by [facility], s/p biopsy per patient, benign process per patient Colon polyp 03/19/2020 Allergy to food 04/18/2015 Immunizations Name Administration Dates Next Due Influenza Quadrivalent, Preservative Free 2019 Social History Tobacco Use Types Packs/Day Years Used Date Smoking Tobacco: Never Smokeless Tobacco: Never Alcohol Use Standard Drinks/Week Comments Not Currently 0 (1 standard drink = 0.6 oz pur e alcohol) quit drinking 7 years ago Sex and Gender Information Value Date Recorded Sex Assigned at Not on file Gender Identity Not on file Sexual Orientation Not on file Last Filed Vital Signs Vital Sign Reading Time Taken Comments Blood Pressure 144/89 06/10/2021 11:16 AM EST Pulse 70 06/10/2021 11:16 AM EST Temperature 36.1 ??C (97 ??F) 06/10/2021 11:16 AM EST Respiratory Rate 16 06/10/2021 11:16 AM EST Oxygen Saturation 99% 06/10/2021 11:16 AM EST Inhaled Oxygen Concentration - - Weight 87.7 kg (193 lb 6.4 oz) 06/10/2021 11:16 AM EST Height 172 cm (5' 7.72) 06/10/2021 11:16 AM EST Body Mass Index 29.65 06/10/2021 11:16 AM EST Plan of Treatment Health Maintenance Due Date Last Done Comments CT Colonography 1974 Colonoscopy 1974 Colorectal Cancer Screening 1974 FIT DNA 1974 FIT 1974 Sigmoidoscopy (10 year) with FIT yearly 1974 Sigmoidoscopy 1974 Lipid Screening 1992 Hepatitis B vaccine (0-59 yrs) (1) 1993 Tetanus/Diphtheria/Pertussis Vaccines (1 - Tdap) 12/28 Diabetes Screening (HgbA1C or Glucose) 03/19/2023 Covid-19 Vaccine ( - season) 2024 Influenza (Flu) vaccine (1 o f 1 - Influenza standard series) 01/29/2024 03/19/2020 HIV screen Completed 05/07/2020 Hepatitis C Screening Completed 05/07/2020 Procedures Procedure Name Priority Date/Time Associated Diagnosis Comments HC HIV SCREEN, 4TH GENERATION Routine 05/07/2020 10:14 AM EST Lung nodule, multiple HC VENIPUNCTURE Routine 05/07/2020 10:14 AM EST Lung nodule, multiple COMPREHENSIVE METABOLIC PANEL Routine 03/19/2020 5:25 PM EDT Pulmonary nodules from Last 3 Months or Most Recently Relevant to Health Maintenance Results * Hepatitis C Antibody (05/07/2020 10:14 AM EST) Hepatitis C Antibody Negative Negative [facility] Blood specimen (specimen) 05/07/2020 10:14 AM EST 05/07/2020 10:23 AM EST Narrative Resulting Agency Comment Spec In Lab David Kong MD CHEMISTRY ORDERAB LES Performing Organization Address [facility] Co de Phone Number [facility] [place] [address] * HIV Screen, 4th Generation ([facility]/CGP/APD/[facility]) (05/07/2020 10:14 AM EST) HIV Ab/Ag Screen Negative Negative [facility] Comment: This 4th Generation HIV test screens for the presence of the HIV-1 p24 antigen as well as antibodies reactive against HIV-1 and HIV-2. A negative screen does not rule out an acute HIV infection. If acute HIV infection is suspected, testing should be repeated in 2 - 3 weeks or HIV nucleic acid testing performed. Blood specimen (specimen) 05/07/2020 10:14 AM EST 05/07/2020 10:23 AM EST Narrative Resulting Agency Comment Spec In Lab David Kong MD CHEMISTRY ORDERAB LES Performing Organization Address [facility] Co de Phone Number [facility] [place] [address] * Comprehensive metabolic panel (non-fasting) (03/19/2020 5:25 PM EDT) Glucose 96 65 - 199 mg/dL [facility] Comment:Diabetes: >=200 mg/d L plus symptoms Blood Urea Nitrogen 17 10 - 20 mg/dL [facility] Creatinine 1.04 0.80 - 1.50 mg/dL [facility] Sodium 142 135 - 145 mmol/L [facility] Potassium 4.6 3.5 - 5.0 mmol/L [facility] Comment: Please note: ??Patients with WBC >100,000 may have falsely elevated Potassium levels. ??For accurate Potassium quantification in these patients send serum separator tube (gold top) for subsequent determinations. ??Contact the Clinical Chemistry Laboratory if there are any questions. Chloride 105 98 - 107 mmol/L [facility] Carbon Dioxide 26 22 - 31 mmol/L [facility] Anion Gap 11 5 - 15 mmol/L [facility] Calcium 9.8 8.5 - 10.5 mg/dL [facility] Protein, Total 7.0 6.1 - 8.0 gm/dL [facility] Albumin 4.7 3.2 - 5.2 gm/dL [facility] Aspartate Aminotransferase 21 0 - 39 unit/L [facility] Alanine Aminotransferase 29 0 - 55 unit/L [facility] Alkaline Phosphatase 91 40 - 130 unit/L [facility] Bilirubin, Total 0.2 0.2 - 1.3 mg/dL [facility] Est Glomerular Filtration Rate 86 >=60 mL/min/1. 73 m?? [facility] Comment: The eGFR was calculated using the CKD-EPI equation. As with all creatinine based estimates of kidney function, eGFR values calculated with the CKD-EPI equation are not accurate in patients with acute kidney failure, extremes of body mass or the acutely ill. http://[employer]/[facility] eGFR 100 >=60 mL/min/1. 73 m?? [facility] Comment: The eGFR was calculated using the CKD-EPI equation. As with all creatinine based estimates of kidney function, eGFR values calculated with the CKD-EPI equation are not accurate in patients with acute kidney failure, extremes of body mass or the acutely ill. http://[employer]/[facility] Blood specimen (specimen) 03/19/2020 5:25 PM EDT 03/19/2020 5:43 PM EDT Narrative Resulting Agency Comment Spec In Lab García Zamora MD CHEMISTRY ORDERABLES [facility] [place] [place] [address] from Last 3 Months or Most Recently Relevant to Health Maintenance Advance Directives * Attempt Cardiopulmonary Resuscitation - Inpatient (Latest Code Status on File) Date Activated Date Inactivated Comments 04/16/2020 7:15 PM 04/17/2020 8:55 PM Question Answer Comments Code Status decision made by: Patient Care Teams Training And Development Assistant Relationship Specialty Start Date End Date Meghana Torres MD [address] [place] [address] PCP - General Family Medicine 03/04/20
--- OUTSIDE RECORDS SUMMARY | 2024-06-07 11:10 | XMS_ITS | Encounter Summary ---
Author Organization [facility] [place] [address] Care Team Providers Care Chain Person Name Role Phone Meghana Torres MD Primary Care Provider [phone] Reason for Referral * Diagnostic Test (Routine) - Closed Specialty Diagnoses / Procedures Referred By Contnorma watkins Referred To Contact Radiology Diagnoses Histoplasmosis Procedures CT Chest wo Contrast (Generic) Laura Connolly [facility] [place] [address] [facility] [place] [address] Referral ID Status Reason Start Date Expiration Date V isits Requested Visits Authorized [id number] Closed Specialty Service Requested 06/09/2020 08/07/2021 1 1 Reason for Visit * Diagnostic Test (Routine) - Closed Specialty Diagnoses / Procedures Referred By Contnorma watkins Referred To Contact Radiology Diagnoses Histoplasmosis Procedures CT Chest wo Contrast (Generic) Laura Connolly [facility] [place] [address] [facility] [place] [address] Referral ID Status Reason Start Date Expiration Date V isits Requested Visits Authorized [id number] Closed Specialty Service Requested 06/09/2020 08/07/2021 1 1 Encounter Details Date Type Department Care Team (Latest Contact Info) Description 06/10/2021 9:00 AM EST - 06/10/2021 11:59 PM EST Hospital [place] [address] David Kong MD [facility] [place] [address] Histoplasmosis Discharge Disposition: Home Social History Tobacco Use Types Packs/Day Years Used Date Smoking Tobacco: Never Smokeless Tobacco: Never Alcohol Use Standard Drinks/Week Comments Not Currently 0 (1 standard drink = 0.6 oz pur e alcohol) quit drinking 7 years ago Sex and Gender Information Value Date Recorded Sex Assigned at Not on file Gender Identity Not on file Sexual Orientation Not on file documented as of this encounter Medications at Time of Discharge Medication Sig Dispensed Refills Start Date End Date diphenhydrAMINE (BENADRYL) 25 mg CapsuleIndications:Evens rgic reaction to food,Oral allergy syndrome, subsequent encounter Take 2 capsules by mouth as needed for Itching. 30 capsule 0 04/22/2015 EPINEPHrine (EPIPEN) 0.3 mg/0.3 mL (1:1,000) Auto-Injector Inject 0.3 mg into the muscle once. documented as of this encounter Plan of Treatment Not on file documented as of this encounter Procedures Procedure Name Priority Date/Time Associated Diagnosis Comments CT CHEST WO CONTRAST (GENERIC) Routine 06/10/2021 9:13 AM EST Histoplasmosis documented in this encounter Results * CT Chest wo Contrast (Generic) (06/10/2021 9:13 AM EST) Anatomical Region Laterality Modality Chest Computed Tomogra phy 06/10/2021 9:30 AM EST Impressions 06/10/2021 10:54 AM EST 1. ??Stable bilateral pulmonary nodules as described above. No new or enlarging pulmonary nodules. 2. ??Stable postsurgical changes in the left upper lobe at sites of prior wedge resection. I have personally reviewed the image(s) and the resident's interpretation and agree with the findings, Jorge Santana MD at 06/10/2021 10:54 AM Thank you for letting us participate in the care of this patient. ??If you are a health care provider and have any questions regarding this report, please contact the number below. ??For patients who have questions please contact the health caretaker grounds that requested your imaging first. ? Electronically signed by: Jorge Santana MD, [facility] ([phone]), at 06/10/2021 10:54 AM Narrative 06/10/2021 10:54 AM EST EXAMINATION: CT CHEST WO CONTRAST (GENERIC) CLINICAL HISTORY: Histoplasmosis hx of pulmonary Histoplasmosis s/p treatment. Off therapy for 6mo. Please compare lung nodules to prior CT TECHNIQUE: 2.5 mm thick axial contiguous sections were obtained through the chest via helical acquisition without intravenous contrast administration. Thin-section 1.25mm reconstructions as well as coronal and sagittal reformatted images were generated. COMPARISON: Chest CT 09/10/2020 and 06/11/2020 and 03/04/2020 FINDINGS: Pulmonary parenchyma: Status post left upper lobe wedge resection with stable postoperative changes anteriorly and posteriorly along the fissure. Multiple unchanged bilateral pulmonary nodules: * ??Unchanged left upper lobe adjacent small subcentimeter nodules (series 4 images 55 and 56), measuring 7 mm and 8 mm respectively. * ??Unchanged 6 mm right upper lobe pulmonary nodule (series 4 image 22) * ??Unchanged 3 mm right upper lobe pulmonary nodule (series 4 image 36) * ??Unchanged 6 mm right lower lobe pulmonary nodule (series 4 image 108) No new pulmonary nodules or consolidation. Airways: Normal Pleura: No pleural effusion or pneumothorax Lymph nodes: Within limits of noncontrast study, no enlarged lymph nodes. Stable 9 mm short axis lower paratracheal and AP window lymph nodes. Heart, pericardium, and great vessels: The heart is normal in size. No pericardial effusion. Nonaneurysmal thoracic aorta. Other mediastinal structures: No significant findings. Lower neck: No significant findings. Upper abdomen: Unchanged small posterior gastric diverticulum. Body wall soft tissues: No significant findings. Skeletal structures: There is a well-circumscribed lucent lesion along the inferior aspect of the lateral left fifth rib best seen on sagittal series 602 image 1:15), unchanged compared to prior studies, favored to represent reactive osseous changes adjacent to vascular structures. Partial visualized ACDF hardware of the low cervical spine. No suspicious osseous lesions. Procedure Note Jorge Santana MD - 06/10/2021 EXAMINATION: CT CHEST WO CONTRAST (GENERIC) CLINICAL HISTORY: Histoplasmosis hx of pulmonary Histoplasmosis s/p treatment. Off therapy for 6mo.Please compare lung nodules to prior CT TECHNIQUE: 2.5 mm thick axial contiguous sections were obtained throughthe chest via helical acquisition without intravenous contrastadministration. Thin-section 1.25mm reconstructions as well as coronal and sagittalreformatted images were generated. COMPARISON: Chest CT 09/10/2020 and 06/11/2020 and 03/04/2020 FINDINGS: Pulmonary parenchyma: Status post left upper lobe wedge resection withstable postoperative changes anteriorly and posteriorly along the fissure. Multiple unchanged bilateral pulmonary nodules: * Unchanged left upper lobe adjacent small subcentimeter nodules (series4 images 55 and 56), measuring 7 mm and 8 mm respectively. * Unchanged 6 mm right upper lobe pulmonary nodule (series 4 image 22) * Unchanged 3 mm right upper lobe pulmonary nodule (series 4 image 36) * Unchanged 6 mm right lower lobe pulmonary nodule (series 4 image 108) No new pulmonary nodules or consolidation. Airways: Normal Pleura: No pleural effusion or pneumothorax Lymph nodes: Within limits of noncontrast study, no enlarged lymph nodes.Stable 9 mm short axis lower paratracheal and AP window lymph nodes. Heart, pericardium, and great vessels: The heart is normal in size. No pericardial effusion. Nonaneurysmal thoracic aorta. Other mediastinal structures: No significant findings. Lower neck: No significant findings. Upper abdomen: Unchanged small posterior gastric diverticulum. Body wall soft tissues: No significant findings. Skeletal structures: There is a well-circumscribed lucent lesion alongthe inferior aspect of the lateral left fifth rib best seen on sagittal [id number] image 1:15), unchanged compared to prior studies, favored to representreactive osseous changes adjacent to vascular structures. Partial visualized ACDF hardware of the low cervical spine. No suspicious osseous lesions. IMPRESSION 1. Stable bilateral pulmonary nodules as described above. No new orenlarging pulmonary nodules. 2. Stable postsurgical changes in the left upper lobe at sites of priorwedge resection. I have personally reviewed the image(s) and the resident's interpretationand agree with the findings, Jorge Santana MD at 06/10/2021 10:54 AM Thank you for letting us participate in the care of this patient. If youare a health care provider and have any questions regarding this report,please contact the number below. For patients who have questions please contactthe health caretaker grounds that requested your imaging first. Electronically signed by: Jorge Santana MD, [facility]([phone]), at 06/10/2021 10:54 AM David Kong MD IMG CT ORDERABLES documented in this encounter Visit Diagnoses Diagnosis Histoplasmosis Histoplasmosis, unspecified without mention of manifestation documented in this encounter Care Teams Chain Person Relationship Specialty Start Date End Date Meghana Torres MD [address] [place] [id number] PCP - General Family Medicine 03/04/20 documented as of this encounter
--- OUTSIDE RECORDS SUMMARY | 2024-06-07 11:11 | XMS_ITS | Encounter Summary ---
Author Organization [facility] Address [facility] [place] [address] Care Team Providers Care Assembler Musical Instruments Name Role Phone Meghana Torres MD Primary Care Provider [phone] Encounter Details Date Type Department Care Team (Latest Contact Info) Description 05/02/2020 12:52 PM EST - 05/02/2020 11:59 PM [facility] Hospital Encounter XRay at [address] [place] [address] Jim Suarez MD [address] [place] [address] Pulmonary nodules; Lung nodule, multiple Discharge Disposition: Home Social History Tobacco Use [...] Date End Date diphenhydrAMINE (BENADRYL) 25 mg CapsuleIndications:All ergic reaction to food,Oral allergy syndrome, subsequent encounter Take 2 capsules by mouth as needed for Itching. 30 capsule 0 04/22/2015 EPINEPHrine (EPIPEN) 0.3 mg/0.3 mL (1:1,000) Auto-Injector Inject 0.3 mg into the muscle once. oxyCODONE (Roxicodone) 5 mg Tablet Take 1 tablet by mouth every 8 hours as needed for Pain. 7 tablet 04/17/2020 05/07/2020 documented as of this encounter Plan of Treatment Not on file documented as of this encounter Procedures Procedure Name Priority Date/Time Associated Diagnosis Comments XR CHEST PA AND LATERAL Routine 05/02/2020 1:02 PM EST Pulmonary nodules Lung nodule, multiple documented in this encounter Results * XR Chest PA & Lateral (Generic) (05/02/2020 1:02 PM EST) Anatomical Region Laterality Modality Chest N/A Digital Radiogra phy Impressions 05/02/2020 2:55 PM EST Resolved left apical pneumothorax. Decreased subcutaneous emphysema. No new cardiopulmonary findings. Multiple pulmonary nodules are better evaluated on PET/CT 03/19/2020. I have personally reviewed the image(s) and the resident's interpretation and agree with the findings, Magi Dougherty MD at 05/02/2020 2:55 PM Thank you for letting us participate in the care of this patient. For questions regarding this report, please contact the number below. ? Narrative 05/02/2020 2:55 PM EST EXAMINATION: XR CHEST PA AND LATERAL (GENERIC) CLINICAL HISTORY: 2 week f/u for 44 year old male s/p flex bronch, EBUS with biopsy, L VATS, JAIRON wedge resection x2 TECHNIQUE: PA and lateral views of the chest COMPARISON: 04/17/2020 FINDINGS: Stable positioning of cervical spine hardware. Unchanged appearance of left upper lobe suture lines. No pneumothorax. The cardiomediastinal silhouette, pleura, allen and pulmonary vasculature are normal. Decreased subcutaneous emphysema. No interval osseous process. Procedure Note Magi Prather MD - 05/02/2020 EXAMINATION: XR CHEST PA AND LATERAL (GENERIC) CLINICAL HISTORY: 2 week f/u for 44 year old male s/p flex bronch, EBUSwith biopsy, L VATS, JAIRON wedge resection x2 TECHNIQUE: PA and lateral views of the chest COMPARISON: 04/17/2020 FINDINGS: Stable positioning of cervical spine hardware. Unchanged appearance ofleft upper lobe suture lines. No pneumothorax. The cardiomediastinalsilhouette, pleura, allen and pulmonary vasculature are normal. Decreasedsubcutaneous emphysema. No interval osseous process. IMPRESSION Resolved left apical pneumothorax. Decreased subcutaneous emphysema. Nonew cardiopulmonary findings. Multiple pulmonary nodules are better evaluated on PET/CT 03/19/2020. I have personally reviewed the image(s) and the resident's interpretationand agree with the findings, Magi Dougherty MD at 05/02/2020 2:55PM Thank you for letting us participate in the care of this patient. Forquestions regarding this report, please contact the number below. Electronically signed by: Magi Dougherty MD, [facility] ([phone]), at 05/02/2020 2:55 PM Jim Suarez MD IMG DX ORDERABLES documented in this encounter Visit Diagnoses Diagnosis Pulmonary nodules Other nonspecific abnormal finding of lung field Lung nodule, multiple Other nonspecific abnormal finding of lung field documented in this encounter Additional Health Concerns Infection Onset Date Last Indicated Resolved Time Tuberculosis Comment:Per ID Fellow Dr. Connolly, the patient does not have TB. 04/16/2020 04/16/2020 06/12/2020 7:5 7 AM EST documented as of this encounter Care Teams Assembler Musical Instruments Relationship Specialty Start Date End Date Meghana Torres MD [address] [place] [address] PCP - General Family Medicine 03/04/20 documented as of this encounter
--- OUTSIDE RECORDS SUMMARY | 2024-06-07 11:11 | XMS_ITS | Encounter Summary ---
[place] [address] Care Team Providers Care Craniologist Name Role Phone Meghana Torres MD Primary Care Provider [phone] Reason for Referral * Diagnostic Test (Routine) - Closed Specialty Diagnoses / Procedures Referred By Contac t Referred To Contact Radiology Diagnoses Lung nodule, multiple Procedures CT Chest wo Contrast (Generic) David Kong MD [facility] [address] [facility] [place] [address] Referral ID Status Reason Start Date Expiration Date V isits Requested Visits Authorized [id number] Closed Specialty Service Requested 06/10/2020 12/06/2020 1 1 Reason for Visit * Diagnostic Test (Routine) - Closed Specialty Diagnoses / Procedures Referred By Contac t Referred To Contact Radiology Diagnoses Lung nodule, multiple Procedures CT Chest wo Contrast (Generic) David Kong MD [facility] [address] [facility] [place] [address] Referral ID Status Reason Start Date Expiration Date V isits Requested Visits Authorized [id number] Closed Specialty Service Requested 06/10/2020 12/06/2020 1 1 Encounter Details Date Type Department Care Team (Latest Contact Info) Description 06/11/2020 8:45 AM EST - 06/11/2020 11:59 PM EST Hospital Encounter CT Scan at [facility] [place] [address] David Kong MD [facility] [place] [address] Lung nodule, multiple Discharge Disposition: Home Social [...] Inject 0.3 mg into the muscle once. 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 05/06/2020 09/10/2020 ketorolac (Toradol) 10 mg Tablet Take 10 mg by mouth daily as needed. 05/06/2020 09/10/2020 documented as of this encounter Plan of Treatment Not on file documented as of this encounter Procedures Procedure Name Priority Date/Time Associated Diagnosis Comments CT CHEST WO CONTRAST (GENERIC) Routine 06/11/2020 8:57 AM EST Lung nodule, multiple documented in this encounter Results * CT Chest wo Contrast (Generic) (06/11/2020 8:57 AM EST) Anatomical Region Laterality Modality Chest Computed Tomogra phy Impressions 06/11/2020 11:33 AM EST 1. ??Status post left upper lobe wedge resections. 2. ??Stable to slightly decreased size of the remaining pulmonary nodules. No new nodules. I have personally reviewed the image(s) and the resident's interpretation and agree with the findings, Barber Lipscomb MD at 06/11/2020 11:33 AM Thank you for letting us participate in the care of this patient. For questions regarding this report, please contact the number below. ? Narrative 06/11/2020 11:33 AM EST EXAMINATION: CT CHEST WO CONTRAST (GENERIC) CLINICAL HISTORY: Lung nodule, < 6mm, low cancer risk, follow up exam HRCT - low radiation dose f/u lung nodules. Further information obtained from the chart: Biopsy results from left upper lobe wedge resection are consistent with necrotizing and hyalinizing granulomatous inflammation. TECHNIQUE: 2.5mm thick axial contiguous sections were obtained through the chest via helical acquisition without intravenous contrast administration. Thin-section reconstructions as well as coronal and sagittal reformatted images were generated. COMPARISON: CT chest 03/04/2020, PET CT 03/19/2020 FINDINGS: Pulmonary parenchyma: Patient is status post left upper lobe wedge resections with removal of 2 previously seen left upper lobe nodules. Remainder of the recently seen pulmonary nodules are stable to slightly decreased in size; for example a stable 7 mm pulmonary nodules in the right upper and right lower lobes (series 4, image 26 and 114) while adjacent medial left upper lobe nodules have slightly decreased in size now measuring 9 mm and 8 mm (series 4, image 50) from 11 mm and 10 mm previously. No new pulmonary nodules. Airways: Central and segmental airways are patent. Pleura: No effusion or pneumothorax. Lymph nodes: Decreased size of left AP window lymph node, now measuring 8 mm in short axis from 10 mm previously. No pathologically enlarged mediastinal, hilar, or axillary lymph nodes. Heart, pericardium, and great vessels: Normal cardiac size. No pericardial effusion. Nonaneurysmal thoracic aorta. Other mediastinal structures: No significant findings. Lower neck: No significant findings. Upper abdomen: Redemonstrated posterior gastric wall diverticulum (series 3, image 120). There is an incompletely imaged 4 mm left renal calculus. Body wall soft tissues: No significant findings. Skeletal structures: No suspicious osseous lesions. Incompletely imaged ACDF hardware in the lower cervical spine. Procedure Note Barber Lipscomb MD - 06/11/2020 EXAMINATION: CT CHEST WO CONTRAST (GENERIC) CLINICAL HISTORY: Lung nodule, < 6mm, low cancer risk, follow up exam HRCT - low radiation dose f/u lung nodules. Further information obtained from the chart: Biopsy results from leftupper lobe wedge resection are consistent with necrotizing and hyalinizinggranulomatous inflammation. TECHNIQUE: 2.5mm thick axial contiguous sections were obtained through thechest via helical acquisition without intravenous contrast administration. Thin-section reconstructions as well as coronal and sagittal reformattedimages were generated. COMPARISON: CT chest 03/04/2020, PET CT 03/19/2020 FINDINGS: Pulmonary parenchyma: Patient is status post left upper lobe wedgeresections with removal of 2 previously seen left upper lobe nodules. Remainder ofthe recently seen pulmonary nodules are stable to slightly decreased in size;for example a stable 7 mm pulmonary nodules in the right upper and right lowerlobes (series 4, image 26 and 114) while adjacent medial left upper lobe noduleshave slightly decreased in size now measuring 9 mm and 8 mm (series 4, image50) from 11 mm and 10 mm previously. No new pulmonary nodules. Airways: Central and segmental airways are patent. Pleura: No effusion or pneumothorax. Lymph nodes: Decreased size of left AP window lymph node, now measuring 8mm in short axis from 10 mm previously. No pathologically enlarged mediastinal,hilar, or axillary lymph nodes. Heart, pericardium, and great vessels: Normal cardiac size. Nopericardial effusion. Nonaneurysmal thoracic aorta. Other mediastinal structures: No significant findings. Lower neck: No significant findings. Upper abdomen: Redemonstrated posterior gastric wall diverticulum (series3, image 120). There is an incompletely imaged 4 mm left renal calculus. Body wall soft tissues: No significant findings. Skeletal structures: No suspicious osseous lesions. Incompletely imagedACDF hardware in the lower cervical spine. IMPRESSION 1. Status post left upper lobe wedge resections. 2. Stable to slightly decreased size of the remaining pulmonary nodules.No new nodules. I have personally reviewed the image(s) and the resident's interpretationand agree with the findings, Barber Lipscomb MD at 06/11/2020 11:33 AM Thank you for letting us participate in the care of this patient. Forquestions regarding this report, please contact the number below. David Kong MD IMG CT ORDERABLES documented in this encounter Visit Diagnoses Diagnosis Lung nodule, multiple Other nonspecific abnormal finding of lung field documented in this encounter Additional Health Concerns Infection Onset Date Last Indicated Resolved Time Tuberculosis Comment:Per ID Fellow Dr. Connolly, the patient does not have TB. 04/16/2020 04/16/2020 06/12/2020 7:5 7 AM EST documented as of this encounter Care Teams Craniologist Relationship Specialty Start Date End Date Meghana Torres MD [address] [place] [address] PCP - General Family Medicine 03/04/20 documented as of this encounter
--- OUTSIDE RECORDS SUMMARY | 2024-06-07 11:11 | XMS_ITS | Encounter Summary ---
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 He is doing well, no changes. His pain has improved, still intermittent spasms but not anything requiring medication. Heis due to have a CT and ID FU 09/08/2020, I will review that scan and documentation with Dr. Suarez and contact patient if needed. He does not have any issues that need attention at this time. documented in this encounter Plan of Treatment Not on file documented as of this encounter Visit Diagnoses Not on filedocumented in this encounter Care Teams Hospice Art Therapist Relationship Specialty Start Date End Date Meghana Torres MD [address] [place] [address] PCP - General Family Medicine 03/04/20 documented as of this encounter
--- OUTSIDE RECORDS SUMMARY | 2024-06-07 11:11 | XMS_ITS | Encounter Summary ---
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 Role Phone Meghana Torres MD Primary Care Provider [phone] Reason for Visit * Auth/Cert Specialty Diagnoses / Procedures Referred By Stuart watkins Referred To Contact Diagnoses Multiple lung nodules Procedures PRO THORACOSCOPY WITH THERAPEUTIC WEDGE RESECTION INITIAL UNILAT PRO THORACOSCOPY WITH THERAPEUTIC WEDGE RESECTION ADDL RESECTION PRO [facility] EBUS GUIDED SAMPL 3/> NODE STATION/STRUX PRO REMOVE THOR LYMPH NODES RAD REGNL @THORACOSCOPY, SURG; W/THERAPEUTIC WEDGE RESECTION, INIT UNILATERAL (WRVU 14.5) @THORACOSCOPY, SURG; W/THERAPEUTIC WEDGE RESC, EA ADD RESC, IPSILATERAL (WRVU 3) BRONCH, W ENDOBRONCHIAL ULTRASOUND (EBUS) GUIDED SAMPLING, 3+ NODES (WRVU 5.21) @LYMPHADENECTOMY,THORACIC ,REGIONAL,INCL. MEDIASTINAL,PERITRACHEAL NODES (WRVU 4.12) Referral ID Status Reason Start Date Expiration Date Visits Re quested Visits Authorized [id number] 1 1 Encounter Details Date Type Department Care Team (Latest Contact Info) Description 04/16/2020 1:45 PM EST - 04/17/2020 6:15 PM EST Hospital Encounter [place] [id number] Jim Horton MD [address] [place] [id number] Pulmonary nodules; Lung nodule, multiple Discharge Disposition: [...] on file documented as of this encounter Last Filed Vital Signs Vital Sign Reading Time Taken Comments Blood Pressure 124/93 04/17/2020 3:00 PM EST patient moving around Pulse 74 04/17/2020 3:00 PM EST Temperature 36.6 ??C (97.9 ??F) 04/17/2020 3 :00 PM EST Respiratory Rate 17 04/17/2020 3:00 PM EST Oxygen Saturation 97% 04/17/2020 3:0 0 PM EST Inhaled Oxygen Concentration - - Weight 80.3 kg (177 lb 0.5 oz) 04/16/2020 2:07 PM EST Height 168.9 cm (5' 6.5) 04/16/2020 2: 07 PM EST Body Mass Index 28.15 04/16/2020 2:07 PM EST documented in this encounter Discharge Summaries * Cristian Jeffries MD - 04/17/2020 4:56 PM EST Images from the original note were not included. Department of Thoracic Surgery - Discharge Summary Patient Name: Donald Dean Patient Age: 44 y.o. Birthdate: 1975 Admit date: 04/16/2020 Discharge date: 04/17/20 4:56 PM Attending Physician: Jim Horton MD Discharge Diagnoses (Hospital Problems) and Secondary Diagnoses (Chronic Problems): Active Hospital Problems Diagnosis ??? Pulmonary nodules ??? Lung nodule, multiple Resolved Hospital Problems No resolved problems to display. Active Non-Hospital Problems Diagnosis ??? Nephrolithiasis ??? Testicular mass Worked up by [facility], s/p biopsy per patient, benign process per patient ??? Colon polyp ??? Allergy to food Operations/Major Procedures: Operations: Case Date: 04/16/2020 Surgeon: Surgeon(s) and Role: * Jim Horton MD - Primary * Meño Wilson MD - Resident Procedure: Procedure(s) with comments: @THORACOSCOPY, SURG; W/THERAPEUTIC WEDGE RESECTION, INIT UNILATERAL (WRVU 14.5) - JAIRON near fissure @THORACOSCOPY, SURG; W/THERAPEUTIC WEDGE RESC, EA ADD RESC, IPSILATERAL (WRVU 3) - JAIRON near apex BRONCH, W ENDOBRONCHIAL ULTRASOUND (EBUS) GUIDED SAMPLING, 3+ NODES (WRVU 5.21) - Sampling of bilateral hilar nodes @LYMPHADENECTOMY,THORACIC ,REGIONAL,INCL. MEDIASTINAL,PERITRACHEAL NODES (WRVU 4.12) - Paraaortic lymph node NERVE BLOCK, INTERCOSTAL NERVE, MULTIPLE (WRVU 1.68) BRONCHOSCOPY, RIGID OR FLEXIBLE, WITH BRONCHIAL ALVEOLAR LAVAGE (WRVU 2.88) Other Major Procedures: none History of Presentation: Mr. Dean is a 44-year-old male who presents to me with a past medical history of kidney stones and cervical neck fusion who was found to have multiple lung nodules on his CT scan and work-up for his kidney stones. He states that he underwent a CT scan when he had his last kidney stone. This required a CT scan of his lower abdomen which got some cuts of his lung. On the cuts of the lung they did appreciate some lung nodules and he ended up getting a full CT scan of the chest. He then got a PET scan the next week which demonstrated avidity of the nodules and it was in the setting that he wasreferred for consultation. Hospital Course: Donald Dean was admitted to [facility] on 04/16/2020 via the Same Day Program. He was brought to the operating room on 04/16/[address] Jim Hortonperformed surgery as described above. He tolerated the procedure well and was brought to the Post Anesthesia Care Unit for recovery. After a brief period of time he was transferred to the floor for continued rehabilitation. The left chest tube was discontinued on post operative day # 1. A chest Xray after this demonstrated removal of left-sided chest tube and unchanged minimal left apical pneumothorax. Infectious Disease was consulted on postoperative day 1 given the appearance of noncaseating, necrotizing granulomas. His lower respiratory culture initially grew GPRs, GNRs, and GPCs. Infectious Disease recommended obtaining an induced sputum culture to be tested with GenXpert for Mycobacterium, which returned negative. Several serum and urine antigen and antibody tests were also sent including Histoplasma, Blastomyces, Cryptococcus, and Coccidioides. By postoperative day # 1 he had met all criteria for discharge to home. Pain was controlled on oral medications. He had walked 5 minutes. He was tolerating a regular diet. He will follow-up with Dr. Horton in two weeks with a chest X-ray, andwill follow-up as an outpatient in the Infectious Disease clinic. Vital signs: Vital Signs Temp: 36.6 ??C (97.9 ??F) Temp src: Oral Heart Rate from SpO2: 74 bpm Heart Rate: 74 Heart Rate Source: Monitor Resp: 17 BP: (Abnormal) 124/93(patient moving around) MAP (NBP): 71 mmHg BP Method: Automatic Patient Position: Lying SpO2: 97 % O2 Flow Rate (L/min): 0 L/min O2 Device: None (Room air) Admission Wt: 80.3 kg Last Wt: Wt Readings from Last 3 Encounters: 04/16/20 80.3 kg (177 lb 0.5 oz) 04/04/20 80.3 kg (177 lb) 03/19/20 84.2 kg (185 lb 10 oz) Pertinent physical exam findings prior to discharge: General: resting comfortably, no acute distress HEENT: normocephalic, atraumatic CVS: regular rate Pulm: non-labored breathing on RA. Left chest tube dressing site c/d/i without hematoma or strike-through. Multiple left chest and back incisions c/d/i without hematoma or strike-through. Abd: soft, non tender, non distended Ext: warm and well perfused Neuro: no focal deficits Important Lab Data: Lab Results Component Value Date WBC 5.2 03/19/2020 HGB 14.6 03/19/2020 HCT 42.8 03/19/2020 MCV 89.0 03/19/2020 Lab Results Component Value Date NA 142 03/19/2020 K 4.6 03/19/2020 CL 105 03/19/2020 CO2 26 03/19/2020 Lab Results Component Value Date CREATININE 1.04 03/19/2020 Lab Results Component Value Date BUN 17 03/19/2020 No results found for: PREALBUMIN No results for input(s): PT, PTT, INR in the last 168 hours. Studies: CXR 04/17/20 (post pull): Left-sided chest tube removed. Minimal left apical pneumothorax is unchanged. CXR 04/17/20: Small left apical pneumothorax. Pending Studies and Lab Data: The patient will need the following 9 tests completed on: 04/07/2020 1. AFB culture Lymph Node 6. AFB culture Bronchial Alveolar Lavage 2. AFB culture Bronchial Alveolar Lavage 7. AFB culture 3. AFB culture 8. Histoplasma Antigen, Urine 4. Coccidioides Antibodies 9. Blastomyces Antibody 5. AFB culture Diagnosis: Authorizing Provider: Jim Horton MD, Cristian Jeffries MD Discharge Conditions/Prognosis: Stable Discharge to: Home Discharge Medications: Your Medications New Medications Dose Details oxyCODONE 5 mg Tab Commonly known as: Roxicodone Take 1 tablet by mouth every 6 hours as needed for Pain. 5 mg Quantity: 7 tablet Refills: 0 Continued medications, unchanged Dose Details diphenhydrAMINE 25 mg Cap Commonly known as: Benadryl Take 2 capsules by mouth as needed for Itching. 50 mg Quantity: 30 capsule Refills: 0 EPINEPHrine 0.3 mg/0.3 mL Atin Inject 0.3 mg into the muscle once. 0.3 mg Refills: 0 Updated Allergies/ADRs: Allergies Allergen Reactions ??? Dilaudid [Hydromorphone] It stopped my heart at [facility] ??? Vegetable Derived Carrots, apples, chick peas, tree nuts Instructions Given to Patient at Discharge: Patient Instructions Call if you have a fever of greater than 101 degrees, shaking chills, develop redness or drainage from your incision site(s), or if you have questions. During normal business hours, Tuesday- Tuesday 8:00 a.m.-5:00 p.m., please call to speak to a nurse in the Thoracic Clinic at [phone]. After hours or on weekends or holidays please call: [phone] and ask to speak to the Thoracic Surgeon director of special education. Exercise & Activity Level: As you recover from surgery exercise at least 30 minutes a day. Thiscan be broken up into several times a day to achieve this goal at first, but you will be able to work up to doing all 30 minutes at once. Walking, treadmill, stationary bike, elliptical machine or there stationary exercise equipment is appropriate. Take your incentive spirometer home with you. You should use this every hour while awake, 10 times each. This helps you to exercise your respiratory muscles and to breathe deeply. Taking purposeful deep breaths can be just as effective. Do not lift more than 10 pounds for 6-8 weeks (nothing heavier than a gallon of milk). Don???t exhaust yourself. Rest between activities as you recover from your procedure. Diet: You should follow a regular, healthy diet. Driving: No driving for 1 week or while taking narcotic pain medication. Shower/Bath: You may shower daily starting 2 days (Tuesday) after chest tube removal, no bathing or swimming until your follow-up appointment. Incision care: Wash your incision(s) daily with soap and rinse well, pat dry. Assess for any signs of infection such as increased redness, pain, warmth or drainage. If you had a chest tube, you may remove the dressing over the chest tube site in 2 days (Tuesday) after the chest tube was removed and leave it open to the air if it is not draining. Otherwise change the dressing twice a day and as needed. The dressing may remain off once there is no drainage. If you have steri-strips over an incision site, these will remain in place for 7-10 days. You may shower with them, and they will fall off naturally in 7-10 days. If they do not fall off by 10 days, you may remove them. Pain: Pain after surgery is normal. The goal is for you to be able to tolerate pain so you can complete your daily activities. You may notice a burning or numbness on the side of your incision that may include your breast area. This should improve over time but there may be areas that remain numb. You may use a heating pad set on low or medium, over your incision to help relax the muscles in the area and decrease discomfort. Please take your medication as prescribed. If you are not having good pain control, please call and speak to the nurse in the Thoracic Clinic or the Thoracic Surgeon director of special education after hours. Please take over the counter Tylenol (1000 mg) and Ibuprofen (600 mg) together every 6 hours, as instructed, for baseline pain coverage. Do not exceed recommended dosages. Take the Oxycodone, as prescribed, for pain not controlled by the Tylenol and Ibuprofen. We are unable to refill narcotics after 5 pm or on weekends or holidays. If you need more pain medication please call us before you run out of pills. Please allow 3 days for us to mail a refill for pain medication to you. Narcotic medication is intended for your use only. Do not share with others. If you are given a prescription for narcotics please keep these in a safe place and dispose of properly when you no longerneed these pills. No flowsheet data found. Donald Dean is being prescribed a prescription opioid for the treatment of acute post-operativepain related to surgery. Donald Dean has been advised to take the smallest dose possible to control their pain and as their pain improves to take smaller doses and increase the time between doses. In addition to this medication, non-opioid medications have been prescribed for adjunct treatment of their pain. Non-pharmacological treatment such as ice, elevation and activity modification have been recommended as appropriate. The Acute Opioid Therapy Informed Consent form has been completed and sent to medical records for scanning to chart. Please take your medication exactly as prescribed. Read all instructions that come with your medication. ?? Using narcotic pain medication (such as oxycodone, hydromorphone (Dilaudid), morphine, fentanyl,or tramadol) may cause addiction. While addiction is more common in people with a personal or family history of addiction, it can occur in anyone. ?? Taking more than the prescribed amount of medication or using with alcohol or other drugs can cause you to stop breathing resulting in coma, brain damage, or . ?? Opioids (oxycodone, hydromorphone/Dilaudid, morphine, fentanyl, tramadol) can slow reaction time, cause drowsiness, or cloud judgement. It is unsafe for you to drive or operate heavy machinery while taking this medication. ?? Opioids (oxycodone, hydromorphone/Dilaudid, morphine, fentanyl, tramadol) are at risk of being diverted by anyone with access to your home. Opioids should be stored in a safe and secure place, such as a locked cabinet or safe. ?? Unused opioids (oxycodone, hydromorphone/Dilaudid, morphine, fentanyl, tramadol) should be disposed of according to the label or patient information. If there are no specific instructions, medications may be returned to a take- back location or mixed with a small amount of water and an undesirable waste substance such as coffee grounds or cat litter. Sleep: Try to establish normal sleep patterns. Long naps during the day may make it hard for you tosleep at night. Use the pain medication at bedtime for the first week at home if needed. Bowel Movements: After surgery, your bowel movements may not be regular for you, but you should be able to get back to your daily routine quickly. Please make sure to take the stool softeners or mildlaxatives as prescribed to get back to your normal routine. If you do not have a bowel movement formore than 2 days, please call the office. Follow up appointments: You will see Dr Horton in 2 weeks with a chest Xray within one hour of the appointment. A letter will be mailed to you confirming your appointment information. No future appointments. General Instructions None Opioid PDMP 04/07/2020 [place] PDMP Query Date 04/17/2020 [place] PDMP Query Date 04/17/2020 [place] PDMP Query Date 04/17/2020 Donald Dean is being prescribed a prescription opioid for the treatment of acute post-operativepain related to surgery. Donald Dean has been advised to take the smallest dose possible to control their pain and as their pain improves to take smaller doses and increase the time between doses. In addition to this medication, non-opioid medications have been prescribed for adjunct treatment of their pain. Non-pharmacological treatment such as ice, elevation and activity modification have been recommended as appropriate. The Acute Opioid Therapy Informed Consent form has been completed and sent to medical records for scanning to chart. Future Appointments and Orders Future Orders Complete By Expires XR Chest PA & Lateral (Generic) [[id number] Custom] 05/01/2020 05/17/2020 Process Instructions: Scheduling Instructions: Questions: Where will study be performed?: [facility] Radiology Portable exam?: Reason for exam and clinical history: 2 week f/u for 44 year old male s/p flex bronch, EBUS with biopsy, L VATS, JAIRON wedge resection x2 Clinical information / yanez questions: Stat read required?: Date of injury if applicable: Requested Time: Provider Contact Information: Primary Care Provider: Meghana Torres MD [phone] Discharge References/Attachments: Discharge References/Attachments None For questions regarding this document or issues relating to this hospitalization on the Thoracic Surgery Service, please contact Dr. Horton's office at . Signed: Cristian Jeffries MD 04/17/2020 Thoracic Surgery [facility] CC: PCP: Meghana Torres MD Referring: Meghana Torres Md [address] [place] [id number] Associated attestation - Jim Horton MD - 04/20/2020 10:49 PM EST I have seen the patient and reviewed the resident's above history and I agree with the details as written. The assessment and plan were formulated in discussion with me and I agree with them as documented. Plan: Seen by me. Will follow-up with ID with antibiotic plan pending results. Jim Horton MD Thoracic Surgery documented in this encounter Discharge Instructions * Patient Instructions* PushmatahaJen moscosoraTACOS - 04/17/2020 8:33 AM EST Call if you have a fever of greater than 101 degrees, shaking chills, develop redness or drainage from your incision site(s), or if you have questions. During normal business hours, Tuesday- Tuesday 8:00 a.m.-5:00 p.m., please call to speak to a nurse in the Thoracic Clinic at [phone]. After hours or on weekends or holidays please call: [phone] and ask to speak to the Thoracic Surgeon on c all. Exercise & Activity Level: As you recover from surgery exercise at least 30 minutes a day. Thiscan be broken up into several times a day to achieve this goal at first, but you will be able to work up to doing all 30 minutes at once. Walking, treadmill, stationary bike, elliptical machine or there stationary exercise equipment is appropriate. Take your incentive spirometer home with you. You should use this every hour while awake, 10 times each. This helps you to exercise your respiratory muscles and to breathe deeply. Taking purposeful deep breaths can be just as effective. Do not lift more than 10 pounds for 6-8 weeks (nothing heavier than a gallon of milk). Don???t exhaust yourself. Rest between activities as you recover from your procedure. Diet: You should follow a regular, healthy diet. Driving: No driving for 1 week or while taking narcotic pain medication. Shower/Bath: You may shower daily starting 2 days (Tuesday) after chest tube removal, no bathing or swimming until your follow-up appointment. Incision care: Wash your incision(s) daily with soap and rinse well, pat dry. Assess for any signs of infection such as increased redness, pain, warmth or drainage. If you had a chest tube, you may remove the dressing over the chest tube site in 2 days (Tuesday) after the chest tube was removed and leave it open to the air if it is not draining. Otherwise change the dressing twice a day and as needed. The dressing may remain off once there is no drainage. If you have steri-strips over an incision site, these will remain in place for 7-10 days. You may shower with them, and they will fall off naturally in 7-10 days. If they do not fall off by 10 days, you may remove them. Pain: Pain after surgery is normal. The goal is for you to be able to tolerate pain so you can complete your daily activities. You may notice a burning or numbness on the side of your incision that may include your breast area. This should improve over time but there may be areas that remain numb. You may use a heating pad set on low or medium, over your incision to help relax the muscles in the area and decrease discomfort. Please take your medication as prescribed. If you are not having good pain control, please call and speak to the nurse in the Thoracic Clinic or the Thoracic Surgeon director of special education after hours. Please take over the counter Tylenol (1000 mg) and Ibuprofen (600 mg) together every 6 hours, as instructed, for baseline pain coverage. Do not exceed recommended dosages. Take the Oxycodone, as prescribed, for pain not controlled by the Tylenol and Ibuprofen. We are unable to refill narcotics after 5 pm or on weekends or holidays. If you need more pain medication please call us before you run out of pills. Please allow 3 days for us to mail a refill for pain medication to you. Narcotic medication is intended for your use only. Do not share with others. If you are given a prescription for narcotics please keep these in a safe place and dispose of properly when you no longerneed these pills. No flowsheet data found. Donald Dean is being prescribed a prescription opioid for the treatment of acute post-operativepain related to surgery. Donald Dean has been advised to take the smallest dose possible to control their pain and as their pain improves to take smaller doses and increase the time between doses. In addition to this medication, non-opioid medications have been prescribed for adjunct treatment of their pain. Non-pharmacological treatment such as ice, elevation and activity modification have been recommended as appropriate. The Acute Opioid Therapy Informed Consent form has been completed and sent to medical records for scanning to chart. Please take your medication exactly as prescribed. Read all instructions that come with your medication. ?? Using narcotic pain medication (such as oxycodone, hydromorphone (Dilaudid), morphine, fentanyl,or tramadol) may cause addiction. While addiction is more common in people with a personal or family history of addiction, it can occur in anyone. ?? Taking more than the prescribed amount of medication or using with alcohol or other drugs can cause you to stop breathing resulting in coma, brain damage, or . ?? Opioids (oxycodone, hydromorphone/Dilaudid, morphine, fentanyl, tramadol) can slow reaction time, cause drowsiness, or cloud judgement. It is unsafe for you to drive or operate heavy machinery while taking this medication. ?? Opioids (oxycodone, hydromorphone/Dilaudid, morphine, fentanyl, tramadol) are at risk of being diverted by anyone with access to your home. Opioids should be stored in a safe and secure place, such as a locked cabinet or safe. ?? Unused opioids (oxycodone, hydromorphone/Dilaudid, morphine, fentanyl, tramadol) should be disposed of according to the label or patient information. If there are no specific instructions, medications may be returned to a take- back location or mixed with a small amount of water and an undesirable waste substance such as coffee grounds or cat litter. Sleep: Try to establish normal sleep patterns. Long naps during the day may make it hard for you tosleep at night. Use the pain medication at bedtime for the first week at home if needed. Bowel Movements: After surgery, your bowel movements may not be regular for you, but you should be able to get back to your daily routine quickly. Please make sure to take the stool softeners or mildlaxatives as prescribed to get back to your normal routine. If you do not have a bowel movement formore than 2 days, please call the office. Follow up appointments: You will see Dr Horton in 2 weeks with a chest Xray within one hour of the appointment. A letter will be mailed to you confirming your appointment information. No future appointments. documented in this encounter Medications at Time of Discharge [...] 04/17/2020 05/07/2020 documented as of this encounter Progress Notes * Janice Bear RN - 04/17/2020 5:14 PM EST Patient Name: Donald Dean Patient Age: 44 y.o. Birthdate: 1975 Admit date: 04/16/2020 Attending Physician: Jim Horton MD Donald Dean is a 44 y.o. male pt AXOX4 w/ VSS on RA. Pt had CT removed at start of shift and went to chest Xray. Pt had c/o pain in left back and around CT insertion site. Pt treated w/ scheduledmeds. MD aware. MD at bedside to assess. Dressing all remained CDI. Pt able to make needs known. Pt ambulating independently. Pt tolerating meals. Meds given per JUL. Assessment as documented. Sputum, urine and blood samples sent to lab. No other acute changes. IVs removed prior to d/c. Pt d/c'dto home w/ all personal belongings via private vehicle w/ significant other. AVS reviewed at bedside w/ no further changes. * Alvarez Aleman, - 04/17/2020 12:01 AM EST Surgery Post Op Check Donald Dean is a 44 y.o. male status post bronch with bilateral BAL, EBUS, L VATS wedge resection. Subjective: No nausea/vomiting, chest pain, SOB, pain well controlled, offers no complaints Objective: Temp: [36.2 ??C (97.2 ??F)-36.7 ??C (98.1 ??F)] Heart Rate: [63-89] Resp: [14-20] BP: (114-164)/(62-87) SpO2: [93 %-100 %] Heart Rate from SpO2: [64 bpm-90 bpm] I/O last 3 completed shifts: In: 1100 [I.V.:1100] Out: 50 [Blood:50] I/O this shift: In: 300 [P.O.:300] Out: 1377 [Urine:1350; Other:27] Physical Exam General: resting comfortably, no acute distress HEENT: normocephalic, atraumatic CVS: regular rate Pulm: non-labored breathing on RA, L CT to -20 suction, ss output, no airleak noted, multiple incisions noted in the L chest cdi. Abd: soft, non tender, non distended Ext: warm and well perfused Neuro: no focal deficits Assessment/Plan: Donald Dean is a 44 y.o. male status post bilateral BAL, EBUS, L VATS wedge resection. He is currently in stable condition and recovering well. The incisions is cdi - pain well controlled - hemodynamically stable - patient going to void soon, follow up Alvarez Aleman DO, PGY-1 04/17/20 documented in this encounter H&P Notes * Cristian Jeffries MD - 04/16/2020 10:58 AM EST Thoracic Surgery Preop NAME: Donald Dean DATE: 04/16/20 SURGEON: JIM HORTON PROCEDURE: Flexible bronchoscopy, endobronchial ultrasound with biopsy, left VATS, left upper lobe wedge resection x2, possible lower lobe resection, and mediastinal lymph node dissection BRIEF HISTORY: Donald Dean is a 44 y.o. male never smoker with a history of kidney stones and cervical neck fusion found to have multiple lung nodules on CT chest in February 2020. These lung nodules were noted during a CT scan obtained for workup of nephrolithiasis. PET scan was significant formultiple pulmonary nodules, several of which are mildly hypermetabolic, and increased activity in mediastinal and hilar lymph nodes. He reports occasional issues with shortness of breath and weight loss (8 pounds down to 177 lbs), and has not had any nausea, vomiting, and night sweats. The patient reports no interval change. There has been no interval medical illness or hospitalizations. Questions have been addressed. Smoking HX: Social History Tobacco Use Smoking Status Never Smoker Smokeless Tobacco Never Used PMH: Patient Active Problem List Diagnosis Date Noted ??? Pulmonary nodules 03/19/2020 ??? Nephrolithiasis 03/19/2020 ??? Testicular mass 03/19/2020 ??? Colon polyp 03/19/2020 ??? Allergy to food 04/18/2015 PSH: History reviewed. No pertinent surgical history. Colonoscopy performed in [facility]. Neck fusion. MEDS: No current facility-administered medications on file prior to encounter. Current Outpatient Medications on File Prior to Encounter Medication Sig Dispense Refill ??? diphenhydrAMINE (BENADRYL) 25 mg Capsule Take 2 capsules by mouth as needed for Itching. 30 capsule 0 ??? EPINEPHrine (EPIPEN) 0.3 mg/0.3 mL (1:1,000) Auto-Injector Inject 0.3 mg into the muscle once. ALL: Allergies Allergen Reactions ??? Dilaudid [Hydromorphone] It stopped my heart at [facility] ??? Vegetable Derived Carrots, apples, chick peas, tree nuts Physical Exam Patient Vitals for the past 24 hrs: Temp Pulse Resp BP SpO2 O2 Device 04/16/20 1413 37.8 ??C (100 ??F) 70 16 137/81 99 % RA General Appearance: Alert, cooperative, no distress, appears stated age HEENT: PERRL, MMM, non-icteric Neck: Supple, symmetrical, trachea midline, no adenopathy; thyroid: not enlarged, symmetric, no tenderness/mass/nodules; no carotid bruit or JVD Lungs: Clear to auscultation bilaterally, respirations unlabored, no appreciable wheezes, crackles or ronchi. Heart: Regular rate and rhythm, S1 and S2 normal, No appreciable murmurs, rub, or gallop Abdomen: Soft, non-tender, bowel sounds normo-active in all four quadrants, no masses, no organomegaly Extremities: Extremities normal, no cyanosis, clubbing. No obvious edema Neurologic: A+Ox3, cranial nerves II-XII grossly intact Musculoskeletal: 5/5 throughout with normal gait LABS: Lab Results Component Value Date WBC 5.2 03/19/2020 RBC 4.81 03/19/2020 HGB 14.6 03/19/2020 HCT 42.8 03/19/2020 MCV 89.0 03/19/2020 MCH 30.4 03/19/2020 MCHC 34.1 03/19/2020 PLATELET 274 03/19/2020 RDWCV 13.1 03/19/2020 Lab Results Component Value Date/Time NA 142 03/19/2020 05:25 PM K 4.6 03/19/2020 05:25 PM CL 105 03/19/2020 05:25 PM CO2 26 03/19/2020 05:25 PM BUN 17 03/19/2020 05:25 PM CREATININE 1.04 03/19/2020 05:25 PM EKG: (04/04/2020): Sinus bradycardia. AR 138, QRS 102, QT 416. CT: (03/04/2020): Multiple new pulmonary nodule, the findings are suspicious for metastatic disease. Other etiologiesincluding infectious process are not excluded on the basis of this examination. Please correlate clinically. PET: (04/06/2020): Multiple pulmonary nodules are present, several of which are mildly hypermetabolic. There is also increased activity in lymph nodes in the mediastinum and allen. Although metastatic disease is possible, an inflammatory process such as granulomatous disease should also be considered. PFTs: (03/19/2020): FVC 5.28 (117%); FEV1 4.10 (113%); DLCO 26.86 (99%); DLCO/VA 4.06 (88%) MED/CARD CLEARANCE/MIBI/VQ SCAN CONSENT: Yes/EMR - Yes Assessment/Plan: Donald Dean is a 44 y.o. male presenting today for planned flexible bronchoscopy, endobronchial ultrasound with biopsy, left VATS, left upper lobe wedge resection x2, possible lower lobe resection, and mediastinal lymph node dissection, due to multiple hypermetabolic pulmonary nodules on PET, the larges of which is seen in the left upper lobe. Consent signed and confirmed in chart. Questions addressed. Will proceed with planned surgery. Cristian Jeffries MD 04/16/2020 Thoracic Surgery Service Pager [phone] Associated attestation - Jim Horton MD - 04/20/2020 10:48 PM EST I have seen the patient and reviewed the resident's above history and I agree with the details as written. The assessment and plan were formulated in discussion with me and I agree with them as documented. Pertinent History: 44y/o male with multiple lung nodules concerning for an inflammatory condition vs malignancy Pertinent Exam: Young male, slightly nervous, Breathing non-labored, RRR. Major issues addressed: Operative plan: EBUS and JAIRON Wedge resection x 2. Plan: Will proceed to OR. Consent signed. Jim Horton MD Thoracic Surgery documented in this encounter Miscellaneous Notes * Op Note - Jim Horton MD - 04/17/2020 6:15 PM EST [facility] Operative Note Patient Name: Donald Dean : [id number] MR#: [id number] Case Date: 04/16/2020 Surgeon: Surgeon(s) and Role: * Jim Horton MD - Primary * Meño Wilson MD - Resident Preoperative diagnosis: Multiple lung nodules Postoperative diagnosis: Multiple lung nodules Procedure(s) (LRB): @THORACOSCOPY, SURG; W/THERAPEUTIC WEDGE RESECTION, INIT UNILATERAL (WRVU 14.5) (Left) @THORACOSCOPY, SURG; W/THERAPEUTIC WEDGE RESC, EA ADD RESC, IPSILATERAL (WRVU 3) (Left) BRONCH, W ENDOBRONCHIAL ULTRASOUND (EBUS) GUIDED SAMPLING, 3+ NODES (WRVU 5.21) (N/A) @LYMPHADENECTOMY,THORACIC ,REGIONAL,INCL. MEDIASTINAL,PERITRACHEAL NODES (WRVU 4.12) (Left) NERVE BLOCK, INTERCOSTAL NERVE, MULTIPLE (WRVU 1.68) (Left) BRONCHOSCOPY, RIGID OR FLEXIBLE, WITH BRONCHIAL ALVEOLAR LAVAGE (WRVU 2.88) (N/A) Anesthesia: General Estimated Blood Loss: 50 mL Specimens removed during surgery: Order Name Source Comment Collection Info Order Time CYTOPATHOLOGY NON-GYNECOLOGICAL Level 10L OR 22 [id number] 04/16/2020 3:50 PM Pertinent clinical data and significant therapy: Multiple lung nodules Clinical impression: Multiple lung nodules Procedure Type: EBUS guided FNA Specimen Type: Lymph Node Description and source of specimen: Level 10L CYTOPATHOLOGY NON-GYNECOLOGICAL Level 10R OR 22 [id number] 04/16/2020 4:17 PM Pertinent clinical data and significant therapy: Multiple lung nodules Clinical impression: Multiple lung nodules Procedure Type: EBUS guided FNA Specimen Type: Lymph Node Description and source of specimen: Level 10R CYTOPATHOLOGY NON-GYNECOLOGICAL Level 7 OR 22 [id number] 04/16/2020 4:44 PM Pertinent clinical data and significant therapy: Multiple lung nodules Clinical impression: Multiple lung nodules Procedure Type: EBUS guided FNA Specimen Type: Lymph Node Description and source of specimen: Level 7 CYTOPATHOLOGY NON-GYNECOLOGICAL Level 4L OR 22 [id number] 04/16/2020 4:59 PM Pertinent clinical data and significant therapy: Multiple lung nodules Clinical impression: Multiple lung nodules Procedure Type: EBUS guided FNA Specimen Type: Lymph Node Description and source of specimen: Level 4L SPECIMEN TO PATHOLOGY Left upper lobe wedge - Diagnosis of lesion and margin- FROZEN OR 22 [id number] Multiple lung nodules Left upper lobe wedge- diagnosis of lesion and margin- FROZEN excision YES, Please perform frozen section No 04/16/2020 5:54 PM Number of tissue samples (in container) 1 Time specimen removed from patient: 5:53 PM SPECIMEN TO PATHOLOGY Left Upper Lobe resection #2 posterior region. for diagnosis lesion and margin Multiple lung nodules Left Upper Lobe resection #2 posterior region. for diagnosis lesion and margin excision YES, Please perform frozen section No 04/16/2020 6:17 PM Number of tissue samples (in container) 1 Time specimen removed from patient: 6:16 PM Biospecimen to store? No SPECIMEN TO PATHOLOGY AP WINDOW LYMPH NODE Multiple lung nodules AP Window Lymph Node excision YES, Please perform frozen section No 04/16/2020 6:34 PM Number of tissue samples (in container) 1 Time specimen removed from patient: 6:32 PM Drains: * No LDAs found * Surgical Closure: Primary Closure - skin incision is closed but with open spaces for wires, linnette, drains or other devices Disposition: awakened from anesthesia, extubated and taken to the recovery room in a stable condition, having suffered no apparent untoward event. Condition: doing well without problems (Please see the Surgical Encounter Summary for any Implant and Specimen details pertinent to this patient.) HPI/Surgical Indications: Donald Dean is a 44 y.o. male never smoker with a history of kidney stones and cervical neck fusion found to have multiple lung nodules on CT chest in February 2020. These lung nodules were noted during a CT scan obtained for workup of nephrolithiasis. PET scan was significant for multiple pulmonary nodules, several of which are mildly hypermetabolic, and increased activity in mediastinal and hilar lymph nodes. He reports occasional issues with shortness of breath and weight loss (8 pounds down to 177 lbs), and has not had any nausea, vomiting, and night sweats. ?? The patient reports no interval change. There has been no interval medical illness or hospitalizations. Questions have been addressed. Risks, benefits, and alternatives were explained. He agreed to proceed. Findings: Normal bronch, Bilateral BAL performed. Full staging of mediastinum performed (5 stations), sent for flow, culture and cytology. Two nodules on CT appreciated in JAIRON, prelim path, necrotizing granulomas. Procedure Description: Following informed consent, the patient was brought into the operating room and anesthesia pause was performed. After induction of general anesthesia and endotracheal intubation the patient was appropriately positioned. Following surgical pause I started with a diagnostic bronchoscopy. I achieved this by inserting the bronchoscope into the endotracheal tube. I first started by examining the distal trachea as well as the lisa and then started on the left side; there were no abnormalities appreciated. I explored the left upper lobe and the left lower lobe down to the subsegmental bronchi. I did not appreciate any abnormalities. There was a small amount of mucus which was suctioned out. I then turned my attention back to the lisa, examined this again thoroughly, and then examined the right upper lobe, right middle lobe, and right lower lobe, again all the way down to the subsegmental bronchi. Again we noticed a small amount of mucus in the middle and lower lobes which was suctioned through the bronchoscope revealing clean airways without any abnormalities. Once completing this Bilateral BALs were performed by instilling 100cc of saline into each lung and procuring the return in aLeukins trap. I removed the diagnostic bronchoscope and started the endobronchial ultrasound. The endoscopic bronchoscope was inserted first into the trachea and then down into the subsegmentalbronchi at station 10L. We were able to appreciate some large lymph nodes (i.e. they were greater than 1 cm in short axis). Once we were able to appreciate the node, using Doppler assistance to ensure that we were not looking at a vessel, we then inserted the covered needle into the bronchoscope once we were sure of our position and that we were indeed visualizing a lymph node we inserted the 22-gauge needle into the lymph node using ultrasound guidance. The stylet was removed, a pressurized syringe was placed with a stopcock, and I then proceeded with slow ultrasound-guided passes into the lymph node to obtain lymphoid tissue. I passed the needle approximately 10 times into the specimen. Once I was happy with the passes, I then turned off the suction, fully retracted the needle into the bronchoscope, and then remove the endoscopic bronchoscope and prepared to provide a specimen to pathology. Specifically in getting a specimen to pathology, the stylet was reinserted to create a slide for visualization, the remaining material in the needle was expressed with saline into a collection chamber, as well as the needle was aspirated with air to clean out any remaining contents. We then obtained a total of 4 more needle biopsies, one more to provide a slide for cytologic interpretation,one to provide direct material to the collection chamber for further cytology, one more for flow cytometry, and the last to create a third slide for cytologic interpretation as well as send specimen for microbiology and culture. This process was subsequently completed at the 4L station, station 7, station 4R, and station 10R. Again a total of approximately 5 biopsies were taken at each station with approximately 10 needle passes per station to appreciate the appropriate number of specimens for flow cytometry, microbiology,cytology, and collection solution to further spin down for further cytology analysis. While obtaining biopsies of each of the stations, I closely monitored the pressurized syringe to monitor for any aspiration of blood which was not appreciated. I also continued to closely monitor the bronchoscopicvisualization of the airways during the procedure and did not appreciate any significant intrabronchial bleeding. Note, none of the specimens revealed atypical cells consistent with carcinoma. All ofthese stations revealed lymphoid tissue. We elected to stop there and await results of pathology. We then took out the endoscopic bronchoscope, replaced the diagnostic bronchoscope and thoroughly evaluated all the bronchi of both the left and right lungs down to the subsegmental bronchi. I suctioned out any remaining mucus as well as any visible blood which there was scant presence in the bilateral segmental bronchi. I checked all of the puncture sites and did not appreciate any bleeding. We surveyed the lungs once again and found excellent hemostasis. At this point the bronchoscope was removed and the procedure concluded. We then moved onto the VATS portion. The patient was placed in the right lateral decubitus position with his left arm up. Following prepping and draping the patient in sterile fashion, a surgical pause was performed which confirmed the SCD prophylaxis, antibiotic plan, planned procedure, and expected needs. I then made a 1 cm incision1 cm inferior and 2 cm posterior to the tip of the clavicle. I dissected through the skin subcutaneous tissue and muscle until I was able to enter the chest. After achieving hemostasis a 10 mm camerawas inserted through the lateral port. We had good deflation of the lung. I could see the 2 nodulesof interest after I thoroughly examined the chest. The first nodule located posteriorly was resected using 3 staple fires of the Endo stapler. I was careful to make this a therapeutic wedge resectionto the best of my abilities in the case that if this was a cancer we would have sufficient margins.This was sent to pathology for frozen section. While that was being read, I then proceeded to examine the nodule appreciated at the fissure. Of note this nodule had multiple components that extended well beyond what we saw on the CT scan. I took a health and safety representative portion of this using the JAROD stapler and also sent this for frozen section. While I was waiting I then proceeded to perform the intercostal muscle blocks using 20 cc of Exparel and 2 cc aliquots to rib spaces 2 through 10. I then continue to look around the chest and I appreciated the AP window node also appreciated on the CT scan and PET scan. I proceeded to carefully remove this being careful to avoid the phrenic nerve along with the recurrent laryngeal nerve. I divided this in 2 separate portions of sending some of that for permanent sending some of it for flow cytometry and sending some of it for microbiology. Once we heard back from frozen section that these appear to be necrotizing granulomas, we then confirmed hemostasis at all of the port sites, placed 128 Mont[place]atian chest tube in the posterior position, watch the lung reexpand, and then closed each of the incisions using 0-Vicryl, 2-Vicryl, 4-Monocryl, Steri-Strips, gauze, and Medipore tape. The patient was then extubated in the operating room after emergence from general anesthesia, was transferred to a stretcher and taken to the recovery room in stable condition. There were no complications and the sponge and lap counts were correct ??2. Estimated blood loss was minimal. Infection Bundle used? N/A Attestation: Case Date: 04/16/2020 I was present and I participated during the entire procedure (does not need to include opening and closing). Jim Horton MD 04/20/2020 * Consult Note - Matthew Escobedo - 04/17/2020 9:13 AM EST Images from the original note were not included. INFECTIOUS DISEASE CONSULTATION NOTE Patient ID: Donald Dean Room: [address] Reason for Consult: Diagnostic Work-up Consulting Service: Thoracic Surgery Consulting Attending: Jim Horton MD Admission Date: 04/16/2020 History of Present Illness: Donald Dean is a 44-year-old male never-smoker with a past medical history of renal calculi and cervical neck fusion who recently underwent evaluation and treatment of new lung lesions that werenoted on the patient's CT A/P w/ contrast while undergoing evaluation for hematuria and flank pain suspicious for a renal calculi. The patient was originally evaluated for a suspected renal calculus 02/24/20 that demonstrated a 7.4mm RLL nodule. On recommended further work-up for this nodule the patient underwent a formal CT Chest w/ contrast 03/04/20 which demonstrated a growth of the identified nodule compared with previous scans (08/03/17) as well as the presence of new bilateral pulmonary nodules. The patient also received a PET/CT scan which demonstrated hypermetabolic lesions with increased activity in the mediastinum and allen suspicious for an inflammatory process more so than metastatic disease. The patient was then referred to Thoracic Surgery to obtain a more definitive diagnosis via lung biopsy. The patient was admitted to [facility] on 04[place]16 for his planned procedure with Thoracic Surgery. Of note the patient has only had a symptom of decreased exercise tolerance in the months preceding this hospitalization but had no productive cough, dyspnea at rest, or fevers/chills/night sweats. Following ad mission the patient received a lung biopsy that revealed necrotizing granulomas as well as a bronchoscopy with multiple cultures taken that have yet to show any growth to date. ID has been consulted for assistance with diagnostic work-up. Review of Systems: Pertinent positives and negatives noted in HPI. 14 point ROS otherwise negative Past Medical History: Past Medical History: Diagnosis Date ??? Motion sickness Past Surgical History: Past Surgical History: Procedure Laterality Date ? ? PRO [facility] EBUS GUIDED SAMPL 3/> NODE STATION/STRUX N/A 04/16/2020 BRONCH, W ENDOBRONCHIAL ULTRASOUND (EBUS) GUIDED SAMPLING, 3+ NODES (WRVU 5.21) performed by Jim Horton MD at [facility] MAIN OR ??? PRO BRONCHOSCOPY, DIAGNOSTIC W LAVAGE N/A 04/16/2020 BRONCHOSCOPY, RIGID OR FLEXIBLE, WITH BRONCHIAL ALVEOLAR LAVAGE (WRVU 2.88) performed by Jim Horton MD at [facility] MAIN OR ? ? PRO INJECTION ANES AGENT &/ STEROID INTERCOSTAL NERVE EA ADDL LEVEL Left 04/16/2020 NERVE BLOCK, INTERCOSTAL NERVE, MULTIPLE (WRVU 1.68) performed by Jim Horton MD at [facility] MAIN OR ??? PRO REMOVE THOR LYMPH NODES RAD REGNL Left 04/16/2020 @LYMPHADENECTOMY,THORACIC ,REGIONAL,INCL. MEDIASTINAL,PERITRACHEAL NODES (WRVU 4.12) performed by Jim Horton MD at [facility] MAIN OR ??? PRO THORACOSCOPY WITH THERAPEUTIC WEDGE RESECTION ADDL RESECTION Left 04/16/2020 @THORACOSCOPY, SURG; W/THERAPEUTIC WEDGE RESC, EA ADD RESC, IPSILATERAL (WRVU 3) performed by Jim Horton MD at [facility] MAIN OR ??? PRO THORACOSCOPY WITH THERAPEUTIC WEDGE RESECTION INITIAL UNILAT Left 04/16/2020 @THORACOSCOPY, SURG; W/THERAPEUTIC WEDGE RESECTION, INIT UNILATERAL (WRVU 14.5) performed by Jim Horton MD at [facility] MAIN OR Medications: ??? [] Sputum induction AND sodium chloride 3 % nebulizer solution 4 mL AND albuteroL (PROVENTIL) nebulizer solution 2.5 mg ??? sodium chloride 0.9 % (flush) flush 5 mL ??? sodium chloride 0.9 % (flush) flush 5-20 mL ??? EPINEPHrine injection solution ??? BUpivacaine (PF) (Marcaine) 0.5 % (5 mg/mL) injection ??? BUpivacaine liposome (PF) (EXPAREL) 1.3 % (13.3 mg/mL) injection for infiltration ??? sodium chloride 0.9 % (flush) flush 5 mL ??? sodium chloride 0.9 % (flush) flush 5-20 mL ??? lidocaine (XYLOCAINE) 10 mg/mL (1 %) injection 3 mg ??? senna (Senokot) tablet 17.2 mg ??? docusate sodium (Colace) capsule 100 mg ??? heparin (Porcine) subcutaneous injection 5,000 Units ??? acetaminophen (Tylenol) tablet 1,000 mg ??? oxyCODONE (Roxicodone) tablet 5 mg ??? ketorolac (Toradol) (15 mg/mL) injection 15 mg ??? ondansetron (ZOFRAN) injection 4 mg ??? amoxicillin-clavulanate (Augmentin) 875-125 mg per tablet 1 tablet ??? azithromycin (Zithromax) tablet 250 mg Allergies: Allergies Allergen Reactions ??? Dilaudid [Hydromorphone] It stopped my heart at [facility] ??? Vegetable Derived Carrots, apples, chick peas, tree nuts Immunizations: Current Immunizations Name Date INFLUENZA 03/19/2020 Family History: Non-contributory. Social History: Lives in [place], [place]. 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 Has been around [employer] for his entire life. No recent travel in the past 6 months or so, he has been working from home since January with consideration of the pandemic and a new lung pathology. 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 Traveled in June to [place] and experienced a flu-like illness upon his return. Travels yearly to [place] to [facility] hospital [facility] but abstained this year because of the pandemic. Has never travelled abroad to endemic TB areas. Has never been homeless or experienced incarceration.Denies tobacco and drug use, history of alcohol use. Physical Exam: Last value Range last 24 hrs Temperature Temp: 36.7 ??C (98.1 ??F) Temp: [36.2 ??C (97.2 ??F)-37.8 ??C (100 ??F)] Heart Rate Heart Rate: 71 Heart Rate: [63-89] Blood Pressure BP: 120/70 BP: (101-164)/(58-87) Respiratory Rate Resp: 16 Resp: [14-20] SpO2 SpO2: 95 % SpO2: [92 %-100 %] General appearance: Patient is alert oriented x3. No acute distress. Appropriate mood and affect. HEENT: Normal oral mucosa. No cervical lymphadenopathy. No jaundice. Trachea midline Lungs: Rhonchi auscultated in the left lower lung base. Otherwise no wheezing or stridor. Heart: Normal S1-S2. No rubs or gallops. No murmurs. Abdomen: Nontender .No guarding. No rigidity. Bowel sounds positive. Extremities: No pitting edema. Neuro: No focal neurological deficit. Cranial nerves grossly intact. Moves all limbs spontaneously. Lines/Tubes/Drains: PIV x1 Laboratory: No results for input(s): WBC, HGB, HCT, PLATELET in the last 168 hours. No results for input(s): NA, K, CL, CO2, BUN, CREATININE in the last 168 hours. No results for input(s): AST, ALT, ALKPHOS, BILITOT, BILIDIR in the last 168 hours. No results found for: CRP No results found for: SEDRATE No results found for: SPGRAVITYUA, PHUADIP, PROTEINUADIP, GLUCOSEU, KETONESUA, UROBILIUADIP, BLOODUADIP, NITRATEUA, LEUKOESTERUA, WBCUA, RBCUA, BILIRUBINUA Microbiology: Microbiology Results (Last 30 days) Procedure Component Value Units Date/Time Fungus culture [[id number]] Collected: 04/16/202018 Lab Status: Preliminary result Specimen: Lung Updated: 04/17/20 0811 Fungus Culture No Fungus isolated to date Calcofluor White Stain [[id number]] Collected: 04/16/202018 Lab Status: Final result Specimen: Lung Updated: 04/16/202324 Calcofluor Stain Calcofluor White Preparation: Negative Tissue culture [[id number]] Collected: 04/16/201914 Lab Status: Preliminary result Specimen: Lung Updated: 04/17/20 0836 Tissue Culture No growth to date. Gram Stain -- Moderate Neutrophils No microorganisms seen. Fungus culture [[id number]] Collected: 04/16/201914 Lab Status: Preliminary result Specimen: Lung Updated: 04/17/20 0811 Fungus Culture No Fungus isolated to date Tissue culture [[id number]] Collected: 04/16/201914 Lab Status: Preliminary result Specimen: Lung Updated: 04/17/20 0836 Tissue Culture No growth to date. Gram Stain -- Moderate Neutrophils No microorganisms seen. Fungus culture [[id number]] Collected: 04/16/201914 Lab Status: Preliminary result Specimen: Lung Updated: 04/17/20 0811 Fungus Culture No Fungus isolated to date Tissue Culture, Aerobic & Anaerobic Lung [[id number]] Collected: 04/16/201838 Lab Status: In process Specimen: Lung Updated: 04/17/20 0842 Tissue culture [[id number]] Collected: 04/16/201838 Lab Status: Preliminary result Specimen: Lung Updated: 04/17/20 0842 Tissue Culture No growth to date. Gram Stain -- Few Neutrophils seen No microorganisms seen. Lower Respiratory Culture Bronchial Alveolar Lavage [[id number]] (Abnormal) Collected: 04/16/201734 Lab Status: Preliminary result Specimen: Bronchial Alveolar Lavage Updated: 04/16/202010 Gram Stain -- Few squamous epithelial cells seen Few Neutrophils seen Few Gram Positive Rods seen Rare Gram Negative Rods seen Rare Gram Positive Cocci seen Results called to and read back by [employer] Fungus culture Bronchial Alveolar Lavage [[id number]] Collected: 04/16/201734 Lab Status: Preliminary result Specimen: Bronchial Alveolar Lavage Updated: 04/17/20 0810 Fungus Culture No Fungus isolated to date Lower Respiratory Culture Bronchial Alveolar Lavage [[id number]] (Abnormal) Collected: 04/16/201734 Lab Status: Preliminary result Specimen: Bronchial Alveolar Lavage Updated: 04/16/202011 Gram Stain -- Few squamous epithelial cells seen Moderate Neutrophils Moderate Gram Positive Rods Few Gram Positive Cocci seen Few Gram Negative Rods seen Results called to and read back by [employer] Fungus culture Bronchial Alveolar Lavage [[id number]] Collected: 04/16/201734 Lab Status: Preliminary result Specimen: Bronchial Alveolar Lavage Updated: 04/17/20 0810 Fungus Culture No Fungus isolated to date Tissue Culture, Aerobic & Anaerobic Lymph Node [[id number]] Collected: 04/16/201614 Lab Status: In process Specimen: Lymph Node Updated: 04/17/20 0813 Fungus culture Lymph Node [[id number]] Collected: 04/16/201614 Lab Status: Preliminary result Specimen: Lymph Node Updated: 04/17/20 0810 Fungus Culture No Fungus isolated to date Tissue culture [[id number]] Collected: 04/16/201614 Lab Status: Preliminary result Specimen: Lymph Node Updated: 04/17/20 0813 Tissue Culture No growth to date. Gram Stain -- Few Neutrophils seen No microorganisms seen. COVID-19 PCR [[id number]] Collected: 04/13/20 1341 Lab Status: Final result Specimen: Nasopharyngeal Swab Updated: 04/13/202020 SARS-CoV-2 RNA Not Detected Comment: This result should be interpreted in combination with the clinical observations, patient history and epidemiological information in making a final diagnosis. For testing of asymptomatic individuals, assay performance characteristics and clinical utility have not been evaluated. Testing for SARS-CoV-2 (Severe acute respiratory syndrome coronavirus 2, formerly known as 2019 novel coronavirus or 2019-nCoV) to aid in the diagnosis of COVID-19 is performed using the Interventional Imaging m SARS-CoV-2 Assay as authorized by the FDA Emergency Use Authorization (EUA). This EUA assay is intended for In-vitro Diagnostic (IVD) use with respiratory specimens such as nasopharyngeal swabs collected from individuals during the acute phase of infection. This assay is performed based on the instructions for use provided by [employer] and additional guidance provided by CDC and FDA. Testing is performed in the [facility] within the Department of Pathology and Laboratory Medicine at [facility], certified under the Clinical Laboratory Improvement Amendments of 1988 (CLIA), 42 U.S.C. 263a, to perform high complexity tests. Assay performance has been verified according to clinical laboratory regulatory requirements for use with specimens collected from individuals suspected of COVID-19. Test results are provided above. A result of ???Not Detected?? indicates that the viral RNA target is not present above the limit of detection, but does not preclude SARS-CoV-2 infection. False negative results may occur if a specimen is improperly collected, transported or handled; if amplification inhibitors are present; or if inadequate numbers of viral particles are present in the specimen. When a diagnostic test is negative, the possibility of a false negative result should be considered in the context of a patient???s recent exposures and the presence of clinical signs and symptoms consistent with COVID-19. A result of ???Detected?? indicates that RNA from SARS-CoV-2 was detected and the patient is infected. As required or requested by public health authorities, positive specimens may be sent for additional testing. Positive and negative predictive values for this test are highly dependent on disease prevalence. A result of ???Invalid?? indicates that neither the viral RNA targets nor the internal control target was detected. An invalid result suggests the presence of inhibitors. Recollection and re-testing is recommended in the case of an invalid result. CDC COVID-19 criteria for testing on human specimens and clinical management guidance information are available at the CDC Coronavirus Disease 2019 (COVID-19) webpage under ???Information for Healthcare Professionals?? (https://www.cdc.gov/coronavirus/2019-ncov/hcp/index.html) Additional information about this and other EUA tests can be found in provider and patient fact sheets at the following FDA website: https://www.fda.gov/medical-devices/nykuhiyhvlq-gvtkewp-7144-ufvdz-01-gdydrsigl- gxt-hfhsrzeielkyxj-secganp-devices/frywo-abqyvqybnnl-fzrl SARS-Cov-2 RNA Source [employer] DEVELOPER Swab Current Antimicrobial Therapy: Augmentin 875-125mg BID Past Antimicrobial Therapies (during this admission): Azithromycin Cefazolin Radiology/Studies/Procedures: Results for orders placed or performed during the hospital encounter of 04/16/20 XR Chest PA & Lateral (Generic) (Exam End: 04/17/2020 4:45 AM) Narrative EXAMINATION: XR CHEST PA AND LATERAL (GENERIC) CLINICAL HISTORY: POD1 JAIRON wedge resection x2 TECHNIQUE: PA and lateral views of the chest COMPARISON: Chest CT 03/04/2020 FINDINGS: Left chest tube tip projects over the left lung apex. There are faint streaky opacities which project over the left midlung. Surgical chain suture projects over the left mid to upper lung. No focal consolidation. The pulmonary vascular markings are normal. There is a small left apical pneumothorax. No right-sided pneumothorax. No pleural effusions. Normal size of the cardiomediastinal silhouette and bilateral allen. ACDF hardware projects over the low cervical spine. There is subcutaneous gas within the left chest wall. Impression Small left apical pneumothorax. Thank you for letting us participate in the care of this patient. For questions regarding this report, please contact the number below. Electronically signed by: Jorge Santana MD, [facility] ([phone]), at 04/17/2020 6:12 AM XR Chest PA & Lateral (Generic) (Exam End: 04/17/2020 9:36 AM) Narrative EXAMINATION: XR CHEST PA AND LATERAL (GENERIC) CLINICAL HISTORY: s/p Left VATs, wedge resction, CT removal, please eval for changes/ptx/effusion TECHNIQUE: PA and lateral views of the chest COMPARISON: April 17, 2020 4:42 AM FINDINGS: The previously present left-sided chest tube has been removed. There is a minimal left apical pneumothorax. Left-sided subcutaneous emphysema is present. The heart is normal in size and mediastinum has normal contour. Both costophrenic angles are sharp. No acute osseous pathology is seen. There is a fixation plate in the lower cervical spine. Impression Left-sided chest tube removed. Minimal left apical pneumothorax is unchanged. Thank you for letting us participate in the care of this patient. For questions regarding this report, please contact the number below. 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 So far cultures following bronchoscopy are NGTD. Differential is broad at this time but infectious causes include histoplasmosis, blastomycosis, coccidiomycosis or a fast-growing mycobacterium. Our suspicion for tuberculosis at this time is low with consideration of the patient's lack of TB risk factors. However, a sputum sample evaluated by GeneXpert would be able to rule out this possibility. Otherwise, please consider non-infectious causes of necrotizing granulomas including sarcoidsosis, silicosis, etc. Recommendations: - Induced sputum sample to send for GeneXpert immediately. Please send before 1pm for results todayby 3pm. - No need for Airborne precautions at this time. This was confirmed with both the public health department as well as our departmental mycobacterial expert. He has no TB risk factors. - Further work-up including: Histoplasma urine antigen, Blastomyces urine antigen, Cryptococcus serum antigen, and Coccidioides serum complement fixation antibody. - No antibiotics needed at this time. Please f/u cultures and path and we recommend culture-directed antibiotics depending on growth. - No need to limit exposures once home beyond the standing [id number]-mgmc orders due to COVID-19. This patient was discussed with ID attending Dr. Kong. Recommendations discussed with primary treating team. Thank you very much for this interesting consult and allowing me to participate in this patient's care. The Infectious Disease consult service will continue to follow patient. Do not hesitate to page with any further questions or concerns. Matthew Escobedo M.D. Internal Medicine PGY-1 Pager: [phone] 04/17/2020 11:08 AM Associated attestation - David Kong MD - 04/17/2020 7:51 PM EST Attending Addendum: I have seen and examined the patient, reviewed the data and agree with the note by Dr. Connolly. Interesting finding of necrotizing granuloma on frozen section after surgery. No tuberculosis risk factors, but he does have some risk for either endemic fungal infection or nontuberculous mycobacterial infection. At this point we will need more information and he is clinically well and stable. I would like to have him follow-up in the infectious disease clinic so that we can discuss the findings after the cultures have time to cook and we await formal histopathology. * Plan of Care - Bethel Zhu RN - 04/17/2020 5:51 AM EST OUTCOME EVALUATION NOTE: OUTCOME SUMMARY: Pt A+Ox4. VSS, on RA. Pt came from PACU with CT to -20 low cont suction, no air leak present. 7cc total in CT atrium overnight, sanguinous fluid. Pt has intermittent cough, nonprod (covid neg). Pain controlled, up to BR with x1 assist. Xray complete for this morning (PA+Lat). Pt states he feels fairly well, walked several times around unit. PLAN MOVING FORWARD: Pain control. Mobilize. D/C planning. INDIVIDUALIZED FALL PREVENTION INTERVENTIONS: Patient-specific fall risk factors per assessment: [current deficits]: Post op. CT. Assistance [level of assistance required for transfers and ambulation]: SBA. Supervision [direct monitoring required during toileting and ADLs]: SBA. Surveillance [continuous indirect monitoring]: Hourly rounding. Patient-specific fall prevention interventions for sensory deficits provided, if applicable: Yes. Assistance with ADLs. CPG GOAL OUTCOME EVALUATION: * Brief Op Note - Meño Wilson - 04/16/2020 7:08 PM EST Brief Operative Note Patient Name: Donald Dean : [id number] MR#: [id number] Case Date: 04/16/2020 Surgeon: Surgeon(s) and Role: * Jim Horton MD - Primary * Meño Wilson MD - Resident Preoperative diagnosis: Multiple lung nodules Postoperative diagnosis: Multiple lung nodules Procedure(s) (LRB): @THORACOSCOPY, SURG; W/THERAPEUTIC WEDGE RESECTION, INIT UNILATERAL (WRVU 14.5) (Left) @THORACOSCOPY, SURG; W/THERAPEUTIC WEDGE RESC, EA ADD RESC, IPSILATERAL (WRVU 3) (Left) BRONCH, W ENDOBRONCHIAL ULTRASOUND (EBUS) GUIDED SAMPLING, 3+ NODES (WRVU 5.21) (N/A) @LYMPHADENECTOMY,THORACIC ,REGIONAL,INCL. MEDIASTINAL,PERITRACHEAL NODES (WRVU 4.12) (Left) NERVE BLOCK, INTERCOSTAL NERVE, MULTIPLE (WRVU 1.68) (Left) BRONCHOSCOPY, RIGID OR FLEXIBLE, WITH BRONCHIAL ALVEOLAR LAVAGE (WRVU 2.88) (N/A) Anesthesia: General Findings: Bronch with bilateral BAL, EBUS and bx 4L, 7, 10L, 10R stations with + lymph node samples. Left VATS wedge resection x2 of anterior and posterior RUL nodules -- frozen with necrotizing granulomas. AP window lymph node sent fresh. Complications: None apparent Estimated Blood Loss: 50 mL Specimens removed during surgery: Order Name Source Comment Collection Info Order Time CYTOPATHOLOGY NON-GYNECOLOGICAL Level 10L OR 22 [id number] 04/16/2020 3:50 PM Pertinent clinical data and significant therapy: Multiple lung nodules Clinical impression: Multiple lung nodules Procedure Type: EBUS guided FNA Specimen Type: Lymph Node Description and source of specimen: Level 10L CYTOPATHOLOGY NON-GYNECOLOGICAL Level 10R OR 22 [id number] 04/16/2020 4:17 PM Pertinent clinical data and significant therapy: Multiple lung nodules Clinical impression: Multiple lung nodules Procedure Type: EBUS guided FNA Specimen Type: Lymph Node Description and source of specimen: Level 10R CYTOPATHOLOGY NON-GYNECOLOGICAL Level 7 OR 04/16/2020 4:44 PM Pertinent clinical data and significant therapy: Multiple lung nodules Clinical impression: Multiple lung nodules Procedure Type: EBUS guided FNA Specimen Type: Lymph Node Description and source of specimen: Level 7 CYTOPATHOLOGY NON-GYNECOLOGICAL Level 4L OR 04/16/2020 4:59 PM Pertinent clinical data and significant therapy: Multiple lung nodules Clinical impression: Multiple lung nodules Procedure Type: EBUS guided FNA Specimen Type: Lymph Node Description and source of specimen: Level 4L SPECIMEN TO PATHOLOGY Left upper lobe wedge - Diagnosis of lesion and margin- FROZEN OR Multiple lung nodules Left upper lobe wedge- diagnosis of lesion and margin- FROZEN excision YES, Please perform frozen section No 04/16/2020 5:54 PM Number of tissue samples (in container) 1 Time specimen removed from patient: 5:53 PM SPECIMEN TO PATHOLOGY Left Upper Lobe resection #2 posterior region. for diagnosis lesion and margin Multiple lung nodules Left Upper Lobe resection #2 posterior region. for diagnosis lesion and margin excision YES, Please perform frozen section No 04/16/2020 6:17 PM Number of tissue samples (in container) 1 Time specimen removed from patient: 6:16 PM Biospecimen to store? No SPECIMEN TO PATHOLOGY AP WINDOW LYMPH NODE Multiple lung nodules AP Window Lymph Node excision YES, Please perform frozen section No 04/16/2020 6:34 PM Number of tissue samples (in container) 1 Time specimen removed from patient: 6:32 PM PATHOLOGY ORDER UPDATE 04/16/2020 7:03 PM Additional information: Correction Enter requested changes: does not want a frozen eD-H Order Id number [id number] Fluids: Intraprocedure Crystalloid Total None PRBCs: none (See Anesthesia Record/Report for Other Blood Products) Urine Output: (no urine output recorded) Drains: Left 28 [place]ian chest tube x1, - 20 suction, intermittent bubble air leak Disposition: awakened from anesthesia, extubated and taken to the recovery room in a stable condition, having suffered no apparent untoward event. Condition: doing well without problems (Please see the Surgical Encounter Summary for any Implant and Specimen details pertinent to this patient.) Infection Bundle used? No documented in this encounter Plan of Treatment Not on file documented as of this encounter Procedures Procedure Name Priority Date/Time Associated Diagnosis Comments HC PCH COCCIDIODES AB COMPF/IMMDIFF, RSCOC STAT 04/17/2020 12:34 PM EST HC PC BLASTOMYCES AB STAT 04/17/2020 12:34 PM EST HC VENIPUNCTURE STAT 04/17/2020 12:34 PM EST MISCELLANEOUS LAB REQUEST STAT 2019 11:45 AM EST [facility] TEST-[facility] Routine 04/17/2020 1 1:[address] [facility] HISTOPLASMA ANTIGEN STAT 04/17/2020 11:45 AM EST XM. TUBERCULOSIS COMPLEX/RIFAMPIN PCR Routine 04/17/2020 11:30 AM EST MISCELLANEOUS LAB REQUEST STAT 2019 11:30 AM EST AFB CULTURE Routine 04/17/2020 11:30 AM EST XR CHEST PA AND LATERAL Routine 04/17/20 20 9:36 AM EST XR CHEST PA AND LATERAL Routine 04/17/20 20 4:45 AM EST FUNGAL STAIN Routine 04/16/2020 8:19 PM EST FUNGUS CULTURE Routine 04/16/2020 8:19 PM EST AFB CULTURE Routine 04/16/2020 7:15 PM EST AFB CULTURE Routine 04/16/2020 7:15 PM EST TISSUE CULTURE Routine 04/16/2020 7:15 PM EST TISSUE CULTURE Routine 04/16/2020 7:15 PM EST FUNGUS CULTURE Routine 04/16/2020 7:15 PM EST FUNGUS CULTURE Routine 04/16/2020 7:15 PM EST IMMUNOPHENOTYPING FLOW CYTOMETRY (BLOOD) Routine 04/16/2020 6:39 PM EST FLOW CYTOMETRY REPORT Routine 04/16/2020 6:39 PM EST ANAEROBIC CULTURE Routine 04/16/2020 6:3 9 PM EST HC TISSUE CULTURE Routine 04/16/2020 6:3 9 PM EST TISSUE CULTURE Routine 04/16/2020 6:39 PM EST SPECIMEN TO PATHOLOGY STAT 04/16/2020 6:34 PM EST SPECIMEN TO PATHOLOGY STAT 04/16/2020 6:17 PM EST SURGICAL PATHOLOGY REPORT Routine 2019 5:54 PM EST SPECIMEN TO PATHOLOGY STAT 04/16/2020 5:54 PM EST BRONCHOSCOPY,RIGID OR FLEXIBLE,WITH BRONCHIAL ALVEOLAR LAVAGE Routine 04/16/2020 5:51 PM EST Pulmonary nodules NERVE BLOCK, INTERCOSTAL NERVE, MULTIPLE Routine 04/16/2020 5:51 PM EST Pulmonary nodules HC MYCOBACTERIA CULTURE Routine 04/16/20 20 5:35 PM EST HC MYCOBACTERIA CULTURE Routine 04/16/20 20 5:35 PM EST HC GRAM STAIN FOR BACTERIA Routine 04/16/2020 5:35 PM EST HC SPUTUM CULTURE Routine 04/16/2020 5:3 5 PM EST HC FUNGUS CULTURE, MISC SOURCE Routine 04/16/2020 5:35 PM EST HC FUNGUS CULTURE, MISC SOURCE Routine 04/16/2020 5:35 PM EST NON-PIPE OUT WORKER FINAL REPORT Routine 04/16/2020 4:59 PM EST CYTOPATHOLOGY NON-GYNECOLOGICAL Routine 04/16/2020 4:59 PM EST IMMUNOPHENOTYPING FLOW CYTOMETRY (BLOOD) Routine 04/16/2020 4:44 PM EST NON-PIPE OUT WORKER FINAL REPORT Routine 04/16/2020 4:44 PM EST CYTOPATHOLOGY NON-GYNECOLOGICAL Routine 04/16/2020 4:44 PM EST NON-PIPE OUT WORKER FINAL REPORT Routine 04/16/2020 4:17 PM EST CYTOPATHOLOGY NON-GYNECOLOGICAL Routine 04/16/2020 4:17 PM EST ANAEROBIC CULTURE Routine 04/16/2020 4:1 5 PM EST HC TISSUE CULTURE Routine 04/16/2020 4:1 5 PM EST HC MYCOBACTERIA CULTURE Routine 04/16/20 20 4:15 PM EST TISSUE CULTURE Routine 04/16/2020 4:15 PM EST HC FUNGUS CULTURE, MISC SOURCE Routine 04/16/2020 4:15 PM EST NON-PIPE OUT WORKER FINAL REPORT Routine 04/16/2020 3:51 PM EST CYTOPATHOLOGY NON-GYNECOLOGICAL Routine 04/16/2020 3:51 PM EST IMMUNOPHENOTYPING FLOW CYTOMETRY (BLOOD) Routine 04/16/2020 3:50 PM EST Bronchoscopy, Diagnostic W Lavage ([id number]) 04/16/2020 3:25 PM EST Pulmonary nodules Injection Anes Agent &/ Steroid Intercostal Nerve Ea Addl Level ([id number]) 04/16/2020 3:25 PM EST Pulmonary nodules Remove Thor Lymph Nodes Rad Regnl ([id number]) 04/16/2020 3:25 PM EST Pulmonary nodules [facility] Ebus Guided Sampl 3/> Node Station/Strux ([id number]) 04/16/2020 3:25 PM EST Pulmonary nodules Thoracoscopy With Therapeutic Wedge Resection Addl Resection 04/16/2020 3:25 PM EST Pulmonary nodules Thoracoscopy With Therapeutic Wedge Resection Initial Unilat 04/16/2020 3:25 PM EST Pulmonary nodules THORACOSCOPY, SURG; W/THERAPEUTIC WEDGE RESC, EA ADD RESC, IPSILATERAL Routine 04/16/2020 1:56 PM EST Pulmonary nodules THORACOSCOPY, SURG; W/THERAPEUTIC WEDGE RESECTION, INIT UNILATERAL Routine 04/16/2020 1:56 PM EST Pulmonary nodules BRONCH, W ENDOBRONCHIAL ULTRASOUND (EBUS) GUIDED SAMPLING, 3+ NODES Routine 04/16/2020 1:56 PM EST Pulmonary nodules LYMPHADENECTOMY,THORACIC ,REGIONAL,INCL MEDIASTINAL,PERITRACHEAL NODES Routine 04/16/2020 1:56 PM EST Pulmonary nodules documented in this encounter Results * XR [...] below. Electronically signed by: Magi Dougherty MD, [facility] ([phone]), at 05/02/2020 2:55 PM Jim Horton MD IMG DX ORDERABLES * Blastomyces Antibody (04/17/2020 12:34 PM EST) Blastomyces Immunodiffusion (MAY) Negative Negative [facility] Comment: A single negative immunodiffusion (ID) result does not exclude the diagnosis of blastomycosis. ??Repeat testing on a new sample in 7-14 days if clinically indicated. Test Performed by: [facility] [address] [place] [address] Junction Maker: Shekhar Beckham M.D. Ph.D.; CLIA# [id number] Blood specimen (specimen) 04/17/2020 12:34 PM EST 04/17/2020 2:19 PM EST Narrative Resulting Agency Comment Spec In Lab Jim Horton MD LAB SEND OUT ORDERAB LES [facility] [place] [address] * Coccidioides Antibodies (04/17/2020 12:34 PM EST) Coccidioides Ab Test ?Result ? Flag ??Unit ??RefValue ------- Coccidioides Ab, CompF/ImmDiff, S ??Coccidioides Ab, CompF, S ? Negative ? Negative ??Coccidioides, IgG, ImmDiff, S ? Negative ? Negative ??Coccidioides, IgM, ImmDiff, S ? Negative ? Negative ?A negative complement fixation and immunodiffusion ?(CompF/ImmDiff) result does not exclude the diagnosis of ?coccidioidomycos is. ??Repeat testing by CompF/ImmDiff in 2-3 ?weeks if clinically indicated. ?Test Performed by: ?[facility] ?[address] [place] [address] ?Junction Maker: Shekhar Beckham M.D. Ph.D.; IA# [id number] [facility] Blood specimen (specimen) 04/17/2020 12:34 PM EST 04/17/2020 2:19 PM EST Narrative Resulting Agency Comment Spec In Lab Jim Horton MD LAB SEND OUT ORDERAB LES Performing Organization Address [facility]/ZIP Co de Phone Number [facility] [place] [address] * Cryptococcal Antigen, Serum ([facility]/CGP/APD/NLH) (04/17/2020 12:34 PM EST) Cryptococcal Antigen Negative Negative [facility] Blood specimen (specimen) 04/17/2020 12:34 PM EST 04/17/2020 3:02 PM EST Narrative Resulting Agency Comment Spec In Lab Jim Horton MD IMMUNOLOGY ORDERABLE S Performing Organization Address [facility] Co de Phone Number [facility] [place] [address] * [facility] Holley Test-Holley (04/17/2020 11:45 AM EST) [facility] [facility] Test ?Result ?Flag ??Unit ?? RefValue --- MVista Blastomyces Ag, Urine ??Result: ? None Detected ? ng/mL ??Interpretation ?Negative ? --ADDITIONAL INFORMATION-------- ?Reference interval: None Detected ?Results reported as ng/mL in 0.2 - 14.7 ng/mL range ?Results above the limit of detection but below 0.2 ng/mL are ?reported as 'Positive, Below the Limit of Quantification' ?Results above 14.7 ng/mL are reported as 'Positive, Above ?the Limit of Quantification' ?This test was developed and its performance characteristics ?determined by [facility]. It has not been ?cleared or approved by the FDA; however, FDA clearance or ?approval is not currently required for clinical use. The ?results are not intended to be used as the sole means for ?clinical diagnosis or patient management decisions. ?Test Performed by: ?[facility] ?[address] ?[place] [address] [facility] Urine specimen (specimen) Urine / Unknown 04/17/2020 11:45 AM EST 04/18/2020 4:23 PM EST Narrative Resulting Agency Comment Spec In Lab Cristian Jeffries MD LAB SEND OUT ORD ERABLES [facility] [place] [address] * Miscellaneous Lab request (04/17/2020 11:45 AM EST) Label Request received in lab. [facility] Urine specimen (specimen) 04/17/2020 11:45 AM EST 04/17/2020 12:38 PM EST Narrative Resulting Agency Comment Spec In Lab Jim Horton MD LAB SEND OUT ORDERAB LES [facility] [place] [address] * Histoplasma Antigen, Urine (04/17/2020 11:45 AM EST) U Histoplasma Ag (MAY) Test ?Result ?Flag ??Unit ?? RefValue ------- Histoplasma Ag, U ??Histoplasma Ag Result ? Negative ? Negative ?No Histoplasma antigen detected. Repeat testing on a new ?sample if clinically indicated. ?This test was performed using the TrivieY Histoplasma ?capsulatum galactomannan EIA. ??Histoplasma Ag Value ?0.00 ?ng/mL ? ---REFERENCE VALUE ?0.00 - 0.10 = Negative ?0.11 - 1.10 = Indeterminate ?>=1.11 = Positive ? ---ADDITIONAL INFORMATION------- ?This test was developed and its performance characteristics ?determined by [facility] in a manner consistent with ?CLIA requirements. This test has not been cleared or ?approved by the U.S. Food and Drug Administration. ?Test Performed by: ?[facility] ?[address] [place] [address] ?Junction Maker: Shekhar Beckham M.D. Ph.D.; CLIA# [id number] [facility] Urine specimen (specimen) 04/17/2020 11:45 AM EST 04/18/2020 9:37 AM EST Narrative Resulting Agency Comment Spec In Lab Jim Horton MD LAB SEND OUT ORDERAB LES Performing Organization Address City/[facility] Co de Phone Number [facility] [place] [address] * AFB culture (04/17/2020 11:30 AM EST) Acid Fast Bacilli Culture No Acid Fast Bacilli isolated If active tuberculosis is suspected, the patient should be on AIRBORNE PRECAUTIONS. Call Infection Prevention for assistance if needed. [facility] Acid Fast Stain No Acid Fast Bacilli seen [facility] Sputum specimen obtained by sputum induction (specimen) 04/17/2020 11:30 AM EST 04/17/2020 12:39 PM EST Narrative Resulting Agency Comment Spec In Lab Cristian Jeffries MD MICROBIOLOGY - [facility] ORDERABLES Performing Organization Address [facility]/ZIP Co de Phone Number [facility] [place] [address] * M. tuberculosis complex/Rifampin PCR (04/17/2020 11:30 AM EST) MTBC PCR Not Detected Not Detected [facility] Rifampin PCR Not Applicable Not Detected [facility] MTBC/Rif PCR Interp The specimen did not contain M. tuberculosis complex (MTBC) organism or did not contain sufficient numbers of MTBC organisms for successful amplification. A negative test does not exclude the possibility of isolating MTBC from the respiratory sample. ??Assay must be used in conjunction with mycobacterial culture for maximum sensitivity and to recover the organism for further characterization and susceptibility testing. If you suspect pulmonary or laryngeal tuberculosis, then AIRBORNE PRECAUTIONS are required. Please consult with infection control prior to discontinuing precautions. No M. tuberculosis complex organism detected, therefore no results for rifampin resistance obtained. [facility] Sputum specimen obtained by sputum induction (specimen) Other / Unknown 04/17/2020 11:30 AM EST 04/17/2020 12:39 PM EST Narrative Resulting Agency Comment Spec In Lab Cristian Jeffries MD MICROBIOLOGY - G ENER[facility] ORDERABLES Performing Organization Address [facility] Co de Phone Number [facility] [place] [address] * Miscellaneous Lab request (04/17/2020 11:30 AM EST) Label Request received in lab. [facility] Specimen of unknown material (specimen) 04/17/2020 11:30 AM EST 04/17/2020 11:35 AM EST Narrative Resulting Agency Comment Spec In Lab Jim Horton MD LAB SEND OUT ORDERAB LES Performing Organization Address [facility] Co de Phone Number [facility] [place] [address] * XR Chest PA & Lateral (Generic) (04/17/2020 9:36 AM EST) Anatomical Region Laterality Modality Chest N/A Digital Radiogra phy Impressions 04/17/2020 9:42 AM EST Left-sided chest tube removed. Minimal left apical pneumothorax is unchanged. Thank you for letting us participate in the care of this patient. For questions regarding this report, please contact the number below. ? Electronically signed by: Elias Rodriguez MD, [facility] ([phone]), at 04/17/2020 9:42 AM Narrative 04/17/2020 9:42 AM EST EXAMINATION: XR CHEST PA AND LATERAL (GENERIC) CLINICAL HISTORY: s/p Left VATs, wedge resction, CT removal, please eval for changes/ptx/effusion TECHNIQUE: PA and lateral views of the chest COMPARISON: April 17, 2020 4:42 AM FINDINGS: The previously present left-sided chest tube has been removed. There is a minimal left apical pneumothorax. Left-sided subcutaneous emphysema is present. The heart is normal in size and mediastinum has normal contour. Both costophrenic angles are sharp. No acute osseous pathology is seen. There is a fixation plate in the lower cervical spine. Procedure Note Elias Rodriguez MD - 04/17/2020 EXAMINATION: XR CHEST PA AND LATERAL (GENERIC) CLINICAL HISTORY: s/p Left VATs, wedge resction, CT removal, please evalfor changes/ptx/effusion TECHNIQUE: PA and lateral views of the chest COMPARISON: April 17, 2020 4:42 AM FINDINGS: The previously present left-sided chest tube has been removed. There gisel minimal left apical pneumothorax. Left-sided subcutaneous emphysema ispresent. The heart is normal in size and mediastinum has normal contour. Both costophrenic angles are sharp. No acute osseous pathology is seen. Thereis a fixation plate in the lower cervical spine. IMPRESSION Left-sided chest tube removed. Minimal left apical pneumothorax is unchanged. Thank you for letting us participate in the care of this patient. Forquestions regarding this report, please contact the number below. Electronically signed by: Elias Rodriguez MD, [facility]([phone]), at 04/17/2020 9:42 AM Montse Soler APRN IMG DX ORDERABL ES * XR Chest PA & Lateral (Generic) (04/17/2020 4:45 AM EST) Anatomical Region Laterality Modality Chest N/A Digital Radiogra phy Impressions 04/17/2020 6:12 AM EST Small left apical pneumothorax. Thank you for letting us participate in the care of this patient. For questions regarding this report, please contact the number below. ? Electronically signed by: Jorge Santana MD, [facility] ([phone]), at 04/17/2020 6:12 AM Narrative 04/17/2020 6:12 AM EST EXAMINATION: XR CHEST PA AND LATERAL (GENERIC) CLINICAL HISTORY: POD1 JAIRON wedge resection x2 TECHNIQUE: PA and lateral views of the chest COMPARISON: Chest CT 03/04/2020 FINDINGS: Left chest tube tip projects over the left lung apex. There are faint streaky opacities which project over the left midlung. Surgical chain suture projects over the left mid to upper lung. No focal consolidation. The pulmonary vascular markings are normal. There is a small left apical pneumothorax. No right-sided pneumothorax. No pleural effusions. Normal size of the cardiomediastinal silhouette and bilateral allen. ACDF hardware projects over the low cervical spine. There is subcutaneous gas within the left chest wall. Procedure Note Jorge Santana MD - 04/17/2020 EXAMINATION: XR CHEST PA AND LATERAL (GENERIC) CLINICAL HISTORY: POD1 JAIRON wedge resection x2 TECHNIQUE: PA and lateral views of the chest COMPARISON: Chest CT 03/04/2020 FINDINGS: Left chest tube tip projects over the left lung apex. There are faintstreaky opacities which project over the left midlung. Surgical chain sutureprojects over the left mid to upper lung. No focal consolidation. The pulmonaryvascular markings are normal. There is a small left apical pneumothorax. Noright-sided pneumothorax. No pleural effusions. Normal size of the cardiomediastinal silhouette and bilateral allen. ACDF hardware projects over the lowcervical spine. There is subcutaneous gas within the left chest wall. IMPRESSION Small left apical pneumothorax. Thank you for letting us participate in the care of this patient. Forquestions regarding this report, please contact the number below. Electronically signed by: Jorge Santana MD, [facility]([phone]), at 04/17/2020 6:12 AM Jim Horton MD IMG DX ORDERABLES * Calcofluor White Stain (04/16/2020 8:19 PM EST) Calcofluor Stain Calcofluor White Preparation: Negative [facility] Specimen from lung (specimen) LUNG STRUCTURE / Unknown 04/16/2020 8:19 PM EST 04/16/2020 8:19 PM EST Comment:AP WINDOW LYMPH NODE Narrative Resulting Agency Comment Spec In Lab Jim Horton MD MICROBIOLOGY - GENER AL ORDERABLES Performing Organization Address [facility] Co de Phone Number [facility] [place] [address] * Fungus culture (04/16/2020 8:19 PM EST) Fungus Culture No Fungus isolated [facility] Specimen from lung (specimen) LUNG STRUCTURE / Unknown 04/16/2020 8:19 PM EST 04/16/2020 8:19 PM EST Comment:AP WINDOW LYMPH NODE Narrative Resulting Agency Comment Spec In Lab Jim Horton MD MICROBIOLOGY - GENER AL ORDERABLES Performing Organization Address [facility]/ZIP Co de Phone Number [facility] [place] [address] * Fungus culture (04/16/2020 7:15 PM EST) Fungus Culture No Fungus isolated [facility] Specimen from lung (specimen) 04/16/2020 7:15 PM EST 04/16/2020 7:22 PM EST Comment:#2 Narrative Resulting Agency Comment Spec In Lab Jim Horton MD MICROBIOLOGY - GENER AL ORDERABLES Performing Organization Address City/[facility] Co de Phone Number [facility] [place] [address] * Tissue culture (04/16/2020 7:15 PM EST) Tissue Culture No growth [facility] Gram Stain Moderate Neutrophils No microorganisms seen. [facility] Specimen from lung (specimen) 04/16/2020 7:15 PM EST 04/16/2020 7:22 PM EST Comment:#2 Narrative Resulting Agency Comment Spec In Lab Jim Horton MD MICROBIOLOGY - GENER AL ORDERABLES Performing Organization Address [facility] Co de Phone Number [facility] [place] [address] * AFB culture (04/16/2020 7:15 PM EST) Acid Fast Bacilli Culture No Acid Fast Bacilli isolated If active tuberculosis is suspected, the patient should be on AIRBORNE PRECAUTIONS. Call Infection Prevention for assistance if needed. [facility] Acid Fast Stain No Acid Fast Bacilli seen [facility] Specimen from lung (specimen) 04/16/2020 7:15 PM EST 04/16/2020 7:20 PM EST Comment:#2 Narrative Resulting Agency Comment Spec In Lab Jim Horton MD MICROBIOLOGY - GENER AL ORDERABLES Performing Organization Address City/[facility] Co de Phone Number [facility] [place] [address] * AFB culture (04/16/2020 7:15 PM EST) Acid Fast Bacilli Culture No Acid Fast Bacilli isolated If active tuberculosis is suspected, the patient should be on AIRBORNE PRECAUTIONS. Call Infection Prevention for assistance if needed. [facility] Acid Fast Stain No Acid Fast Bacilli seen [facility] Specimen from lung (specimen) 04/16/2020 7:15 PM EST 04/16/2020 7:18 PM EST Comment:#1 Narrative Resulting Agency Comment Spec In Lab Jim Horton MD MICROBIOLOGY - GENER AL ORDERABLES Performing Organization Address [facility] Co de Phone Number [facility] [place] [address] * Fungus culture (04/16/2020 7:15 PM EST) Fungus Culture No Fungus isolated [facility] Specimen from lung (specimen) 04/16/2020 7:15 PM EST 04/16/2020 7:16 PM EST Comment:#1 Narrative Resulting Agency Comment Spec In Lab Jim Horton MD MICROBIOLOGY - GENER AL ORDERABLES Performing Organization Address [facility] Co de Phone Number [facility] [place] [address] * Tissue culture (04/16/2020 7:15 PM EST) Tissue Culture No growth [facility] Gram Stain Moderate Neutrophils No microorganisms seen. [facility] Specimen from lung (specimen) 04/16/2020 7:15 PM EST 04/16/2020 7:15 PM EST Comment:#1 Narrative Resulting Agency Comment Spec In Lab Jim Horton MD MICROBIOLOGY - GENER AL ORDERABLES Performing Organization Address [facility] Co de Phone Number [facility] [place] [address] * Flow Cytometry Report (04/16/2020 6:39 PM EST) Flow Cytometry Report [id number] ? Location: [facility]; SS02; A The signing pathologist has (i) examined the relevant preparation(s) for the specimen(s) and (ii) rendered or confirmed the diagnosis(es). . ?Flow Cytometry DIAGNOSIS Lymph node, AP window, biopsy, flow cytometry: 1. No immunophenotypically abnormal T-cell or monoclonal B-cell population ?? identified. 2. No increased blast population present (see Discussion). PRELIMINARY FLOW CYTOMETRY REPORT; MORPHOLOGIC REVIEW PENDING. SEE SEPARATE REPORT FOR FINAL DIAGNOSIS. Electronically signed by: ??Jony ABRAHAM, Regi Spangler Verified: ??04/17/2020 ?Hematopathologist Performed at: ??-[facility] Dept. of Pathology, [place], [place] DISCUSSION The viability of cells in this lymph node biopsy specimen as assessed by 7-AAD exclusion is approximately 73%. The majority of lymphocytes in the specimen are CD3+ T-cells (64% of lymphocytes; 60% of total cells) with an appropriate mixture of mature CD4+ and CD8+ forms (CD4:CD8 ratio approximately 3.4) without aberrant loss or altered expression of carlos T-cell antigens. CD3-/CD56+ NK cells constitute 2% of lymphocytes (1% of total cells). CD19+ B-cells account for 38% of lymphocytes (36% of total cells) and express surface light chains in a polytypic pattern (kappa:lambda approximately 1.5), thus there is no jessi immunophenotypic evidence for involvement of the lymph node by a monoclonal B-cell lymphoproliferative neoplasm. No increased blast population is identified by CD45/ right angle light scatter gating, thus there is no evidence for acute leukemia. Although no immunophenotypically abnormal lymphocyte populations are identified, flow cytometry will not routinely identify non-hematopoietic cells, monoclonal T-cell populations or Hodgkin lymphoma and may miss some B-cell lymphomas, thus correlation with morphologic review, which is currently in progress and the results of which will be reported separately when available, will be required for definitive diagnosis. Flow analysis is an ancillary study. A definite diagnosis requires correlation with the morphologic features of this process and if necessary, correlation with other ancillary studies like immunohistochemistry, enzyme cytochemistry and/or cyto/ molecular genetics. This test was developed and its performance characteristics determined by the Clinical Flow Cytometry Laboratory at [facility]. It has not been cleared or approved by the U.S. Food and Drug Administration. ??The FDA has determined that such clearance or approval is not necessary. ??This test is used for clinical purposes. ??It should not be regarded as investigational or for research. This laboratory is certified under the Clinical Laboratory Improvement Act of 1988 (CLIA) as qualified to perform high complexity clinical laboratory testing. SPECIMEN PROCESSING [id number] Cells for immunophenotypic analysis were derived from lymph node. CD45 vs side scatter gating was utilized to identify a lymphoid analysis region that comprises approximately 95% of all cells. The following markers were assessed: CD2, CD3, CD4, CD5, CD7, CD8, CD10, CD19, CD45, CD56, kappa light chain, and lambda light chain. . CLINICAL INFORMATION 44 yo man with lung nodules, lymphadenopathy. Lymphoma panel requested. [facility] 04/16/2020 6:39 PM EST Jim Horton MD PATHOLOGY/CYTOLOGY O RDERABLES Performing Organization Address City/[facility]/ZIP Co de Phone Number [facility] [place] [address] * Immunophenotyping Flow Cytometry (04/16/2020 6:39 PM EST) Immunophenotyping Flow See Comment [facility] Comment: When completed by the Pathologist, the Flow Cytometry Report ([id number]) will display under the Pathology Results section within [facility]. Specimen of unknown material (specimen) 04/16/2020 6:39 PM EST 04/16/2020 7:46 PM EST Narrative Resulting Agency Comment Spec In Lab Jim Horton MD HEMATOLOGY ORDERABLE S Performing Organization Address City/[facility]/ZIP Co de Phone Number [facility] [place] [address] * Anaerobic Culture (04/16/2020 6:39 PM EST) Anaerobic Culture No anaerobic organisms isolated [facility] Specimen from lung (specimen) 04/16/2020 6:39 PM EST 04/16/2020 8:16 PM EST Comment:AP WINDOW LYMPH NODE Narrative Resulting Agency Comment Spec In Lab Jim Horton MD MICROBIOLOGY - GENER AL ORDERABLES Performing Organization Address [facility] Co de Phone Number [facility] [place] [address] * Tissue culture (04/16/2020 6:39 PM EST) Tissue Culture No growth [facility] Gram Stain Few Neutrophils seen No microorganisms seen. [facility] Specimen from lung (specimen) 04/16/2020 6:39 PM EST 04/16/2020 8:16 PM EST Comment:AP WINDOW LYMPH NODE Narrative Resulting Agency Comment Spec In Lab Jim Horton MD MICROBIOLOGY - GENER AL ORDERABLES Performing Organization Address [facility] Co de Phone Number [facility] [place] [address] * Specimen to Pathology (04/16/2020 6:34 PM EST) AP Specimen 04/16/2020 6:34 PM EST 04/16/2020 6:34 PM EST Narrative [facility] - 04/16/2020 6:34 PM EST Specimen requisition ordered. ??Separate Pathology report to follow Jim Horton MD PATHOLOGY/CYTOLOGY O RDERABLES Performing Organization Address [facility] Co de Phone Number [facility] [place] [address] * Specimen to Pathology (04/16/2020 6:17 PM EST) AP Specimen 04/16/2020 6:17 PM EST 04/16/2020 6:17 PM EST Narrative [facility] - 04/16/2020 6:17 PM EST Specimen requisition ordered. ??Separate Pathology report to follow Jim Horton MD PATHOLOGY/CYTOLOGY O RDERAODALYS [facility] [place] [address] * Surgical Pathology Report (04/16/2020 5:54 PM EST) Final Diagnosis [id number] ? Location: [facility]; The signing pathologist has (i) examined the relevant preparation(s) for the specimen(s) and (ii) rendered or confirmed the diagnosis(es). . ? Addendum ADDENDUM DISCUSSION The GMS slides are reviewed with Dr. Danya Sutton, clinical microbiology, who favors that the years forms are most compatible with histoplasma. 04/28/20 10:50 Electronically signed by: ??Esperanza Hayes MD Verified: ??04/28/2020 ?Pathologist Performed at: ??-[facility] Dept. of Pathology, [place], [place] ?Surgical Pathology DIAGNOSIS Corrected report A - Left upper lobe wedge, excision: Nodular necrotizing and hyalinizing granulomatous inflammation. (see Discussion) B - Left upper lobe wedge #2, posterior region, excision: Nodular necrotizing and hyalinizing granulomatous inflammation. (see Discussion) C - AP window lymph node, excision: Nodular necrotizing and hyalinizing granulomatous inflammation. (see Discussion) Electronically signed by: ??Esperanza Hayes MD Verified: ??04/28/2020 ?Pathologist Performed at: ??-[facility] Dept. of Pathology, [place], [place] DISCUSSION Corrected report The specialization of the yeast forms is removed from the discussion. ??No changes are made to the diagnosis. GMS positive round-oval yeast forms are identified with then necrotizing granulomas in the lung and AP window lymph node. Correlation with clinical microbiology studies is recommended. ADDITIONAL STUDIES Special stains are performed. ?? Block ? Stain ?Result ( Positive / Negative ) ??A2/B2/C1 ? GMS ? Positive for yeast forms (see Discussion) ? AFB ? Negative ??B1 ? GMS ? Negative ? AFB ? Negative SPECIMEN(S) SUBMITTED A - Left upper lobe wedge- diagnosis of lesion and margin- FROZEN, excision (1) B - Left Upper Lobe resection #2 posterior region. for diagnosis lesion and margin ??for frozen section , excision (1) c - AP ??Window Lymph Node, excision (1) CLINICAL INFORMATION Multiple lung nodules . SPECIMEN PROCESSING A - Labeled/Fixative: Left upper lobe wedge, fresh. Quantity/Size: ??Single, 4.5 x 1.3 x 0.6 cm. Tissue Description: Intact, wedge resection of lung. Pleural Surface: ??Purple and smooth. LESION ??Description: Solid round nodule. ??Size: 0.5 x 0.5 x 0.5 cm. ??Color: White. ??Consistency: Firm. ??Location: Parenchymal. ??Closest parenchymal margin: ??< 1 mm to staple line. Parenchyma: Brown and soft with no additional lesions identified. Sections/Processi ng: A portion of the nodule is submitted for culture. [employer] sections in 4 cassettes as follows: ?A1: ??En face margin for frozen section ?A2: ??Nodule for frozen section ?A3: ??Additional nodule ?A4: ??Rep. uninvolved parenchyma B - Labeled/Fixative: Left upper lobe resection #2 posterior region, fresh. Quantity/Size: ??Single, 7.5 x 1.7 x 1.4 cm. Tissue Description: Intact, wedge resection of lung. Pleural Surface: ??Purple and smooth with 8 mm focus of white polypoid distortion over the lesion. LESION ??Description: Solid irregular nodule. ??Size: 2.0 x 1.3 x 0.8 cm. ??Color: Silvestre-white. ??Consistency: Firm. ??Location: Parenchymal. ??Closest parenchymal margin: ??<1 mm to staple line. Parenchyma: Brown and soft. Sections/Processi ng: A portion of the nodule is submitted for culture. [employer] sections in 4 cassettes as follows: ?B1: ??En face margin for frozen section ?B2: ??Nodule for frozen section ?B3: ??Nodule with overlying white ovoid pleura, inked blue ?B4: ??[employer]ister uninvolved parenchyma C - Labeled/Fixative: AP window lymph node, fresh. Quantity/Size: Single, 1.3 x 1.0 x 0.4 cm. Tissue Description: Fragment of nhi tissue Sections/Processi ng: Submitted en toto ??in 1 cassette labeled C1. ??rlr ?Frozen Section FROZEN SECTION DIAGNOSIS _AFS1 Left upper lobe wedge ?Necrotizing granuloma. ?Margin is involved by granuloma ?Tissue submitted to Microbiology for TB, fungal and bacterial cultures 04/16/20 18:46 BFS1 Left upper lobe wedge #2; posterior region ?Necrotizing granuloma. ?Margin is involved by granuloma ?Tissue submitted to Microbiology for TB, fungal and bacterial cultures . FROZEN SECTION DIAGNOSIS 04/16/20 18:57 Electronically signed by: ??Joel Lim MD Verified: ??04/16/2020 ?Pathologist Performed at: ??-[facility] Dept. of Pathology, [place], [place] This intraoperative consultation should be interpreted as a preliminary diagnosis pending review of the entire specimen and special studies, if any. 04/28/2020 10:50 AM EST [facility] LYMPH NODE SPECIMEN / Unknown 04/16/2020 5:54 PM EST 04/16/2020 5:54 PM EST Frozen Specimen 04/16/2020 5 :54 PM EST 04/16/2020 5:54 PM EST LYMPH NODE SPECIMEN / Unknown 04/16/2020 5:54 PM EST 04/16/2020 5:54 PM EST Jim Horton MD PATHOLOGY/CYTOLOGY O RDERABLES Performing Organization Address [facility] [place] [address] * Specimen to Pathology (04/16/2020 5:54 PM EST) AP Specimen 04/16/2020 5:54 PM EST 04/16/2020 5:54 PM EST Narrative [facility] - 04/16/2020 5:54 PM EST Specimen requisition ordered. ??Separate Pathology report to follow Jim Horton MD PATHOLOGY/CYTOLOGY O RDERABLES Performing Organization Address [facility] de Phone Number [facility] [place] [address] * Fungus culture Bronchial Alveolar Lavage (04/16/2020 5:35 PM EST) Fungus Culture No Fungus isolated [facility] Bronchoalveolar lavage fluid specimen (specimen) 04/16/2020 5:35 PM EST 04/16/2020 6:17 PM EST Comment:LEFT LUNG BAL Narrative Resulting Agency Comment Spec In Lab Jim Horton MD MICROBIOLOGY - GENER AL ORDERABLES Performing Organization Address [facility] Co de Phone Number [facility] [place] [address] * (ABNORMAL) AFB culture Bronchial Alveolar Lavage (04/16/2020 5:35 PM EST) Acid Fast Bacilli Culture Mycobacteria engbaekii isolated after 10 days Identification performed by [facility] [place], [place]. (A) [facility] Acid Fast Stain No Acid Fast Bacilli seen(A) [facility] Organism Mycobacteria(A) [facility] Bronchoalveolar lavage fluid specimen (specimen) 04/16/2020 5:35 PM EST 04/16/2020 6:17 PM EST Comment:LEFT LUNG BAL Narrative Resulting Agency Comment Spec In Lab Jim Horton MD MICROBIOLOGY - GENER AL ORDERABLES Performing Organization Address [facility] [place] [address] * (ABNORMAL) Lower Respiratory Culture Bronchial Alveolar Lavage (04/16/2020 5:35 PM EST) Lower Respiratory Culture Many mixed bacterial morphotypes suggestive of normal upper respiratory sarai(A) [facility] Gram Stain Few squamous epithelial cells seen Moderate Neutrophils Moderate Gram Positive Rods Few Gram Positive Cocci seen Few Gram Negative Rods seen Results called to and read back by Ottoniel De Guzman (A) [facility] Organism Gram Positive Cocci(A) [facility] Organism Gram Negative Rods(A) [facility] Organism Gram Positive Rods(A) [facility] Bronchoalveolar lavage fluid specimen (specimen) 04/16/2020 5:35 PM EST 04/16/2020 6:17 PM EST Comment:LEFT LUNG BAL Narrative Resulting Agency Comment Spec In Lab Jim Horton MD MICROBIOLOGY - GENER AL ORDERABLES Performing Organization Address [facility] de Phone Number [facility] [place] [address] * AFB culture Bronchial Alveolar Lavage (04/16/2020 5:35 PM EST) Acid Fast Bacilli Culture No Acid Fast Bacilli isolated If active tuberculosis is suspected, the patient should be on [employer]. Call Infection Prevention for assistance if needed. [facility] Acid Fast Stain No Acid Fast Bacilli seen [facility] Bronchoalveolar lavage fluid specimen (specimen) 04/16/2020 5:35 PM EST 04/16/2020 6:18 PM EST Comment:RIGHT LUNG BAL Narrative Resulting Agency Comment Spec In Lab Jim Horton MD MICROBIOLOGY - GENER AL ORDERABLES Performing Organization Address City/[facility]/ZIP Co de Phone Number [facility] [place] [address] * (ABNORMAL) Fungus culture Bronchial Alveolar Lavage (04/16/2020 5:35 PM EST) Fungus Culture Rare Aspergillus glaucus(A) [facility] Organism Aspergillus glaucus(A) [facility] Bronchoalveolar lavage fluid specimen (specimen) 04/16/2020 5:35 PM EST 04/16/2020 6:18 PM EST Comment:RIGHT LUNG BAL Narrative Resulting Agency Comment Spec In Lab Jim Horton MD MICROBIOLOGY - GENER AL ORDERABLES Performing Organization Address [facility]/ZIP Co de Phone Number [facility] [place] [address] * (ABNORMAL) Lower Respiratory Culture Bronchial Alveolar Lavage (04/16/2020 5:35 PM EST) Lower Respiratory Culture Few mixed bacterial morphotypes suggestive of normal upper respiratory sarai(A) [facility] Gram Stain Few squamous epithelial cells seen Few Neutrophils seen Few Gram Positive Rods seen Rare Gram Negative Rods seen Rare Gram Positive Cocci seen Results called to and read back by Ottoniel De Guzman (A) [facility] Organism Gram Positive Rods(A) [facility] Organism Gram Negative Rods(A) [facility] Organism Gram Positive Cocci(A) [facility] Bronchoalveolar lavage fluid specimen (specimen) 04/16/2020 5:35 PM EST 04/16/2020 6:18 PM EST Comment:RIGHT LUNG BAL Narrative Resulting Agency Comment Spec In Lab Jim Horton MD MICROBIOLOGY - GENER AL ORDERABLES Performing Organization Address City/[facility]/ZIP Co de Phone Number [facility] [place] [address] * Non-Fire Crew Worker Final Report (04/16/2020 4:59 PM EST) Diagnosis Discussion [id number] ? Location: [facility]; 02; A The signing pathologist has (i) examined the relevant preparation(s) for the specimen(s) and (ii) rendered or confirmed the diagnosis(es). . ? Non-Fire Crew Worker Final DIAGNOSIS See Discussion Electronically signed by: ??Yogi ABRAHAM, Maciel Verified: ??04/18/2020 ?Pathologist Performed at: ??-[facility] Dept. of Pathology, [place], [place] DISCUSSION Lymph node, 4L (EBUS-guided FNA): Lymphoid tissue, predominantly small lymphocytes, consistent with focal lymph node sampling. Jewell respiratory epithelial cells and cartilage ?(likely procedural contaminant), are seen. No definite metastatic carcinoma seen. Clinical and radiologic correlation is recommended. CLINICAL INFORMATION Specimen Source : Lymph node, 4L (EBUS-guided FNA, assisted) Pertinent Clinical Data and Significant Therapy: Multiple lung nodules Clinical Impression : Multiple lung nodules Pertinent Radiologic Findings ??: (not provided) Gross Description: Received ??in Formalin approximately 50 mL total volume of ?? cloudy, red fluid, with clots. Total Preparation: Diff Quik 1; Pap Stain 1; Cell Block 1. 04/18/2020 9:03 AM EST [facility] LYMPH NODE SPECIMEN / Unknown 04/16/2020 4:59 PM EST 04/16/2020 4:59 PM EST Jim Horton MD PATHOLOGY/CYTOLOGY O RDERABLES [facility] [place] [address] * Cytopathology Non-Gynecological (04/16/2020 4:59 PM EST) AP Specimen 04/16/2020 4:59 PM EST 04/16/2020 4:59 PM EST Narrative [facility] - 04/16/2020 4:59 PM EST Specimen requisition ordered. ??Separate Pathology report to follow Jim Horton MD PATHOLOGY/CYTOLOGY O MONALISA [facility] [place] [address] * Non-Fire Crew Worker Final Report (04/16/2020 4:44 PM EST) Diagnosis Discussion [id number] ? Location: [facility]; The signing pathologist has (i) examined the relevant preparation(s) for the specimen(s) and (ii) rendered or confirmed the diagnosis(es). . ? Non-Fire Crew Worker Final DIAGNOSIS See Discussion Electronically signed by: ??Yogi ABRAHAM, Maciel Verified: ??04/18/2020 ?Pathologist Performed at: ??-[facility] Dept. of Pathology, [place], [place] DISCUSSION Lymph node, level 7 (EBUS-guided FNA): Lymphoid tissue, predominantly small lymphocytes, consistent with lymph node sampling. Jewell respiratory epithelial cells ?? (likely procedural contaminant), are seen. No definite metastatic carcinoma seen. Clinical and radiologic correlation is recommended. --- Immunohistochemistry Studies --- Interpretation: Immunostain for synaptophysin is negative. ? Immunohistochemical assays were performed (on paraffin-embedded cell block sections fixed in 10% neutral buffered formalin for 6-72 hours) using the polymer technique with appropriate controls. The sections are studied for synaptophysin. These immunohistochemical studies provide ancillary information and are used only in conjunction with standard diagnostic procedures. CLINICAL INFORMATION Specimen Source : Lymph node, level 7 (EBUS-guided FNA, assisted) Pertinent Clinical Data and Significant Therapy: Multiple lung nodules Clinical Impression : Multiple lung nodules Pertinent Radiologic Findings ??: (not provided) Gross Description: Received ??in Formalin approximately 50 mL total volume of ?? cloudy, pink fluid, with clots. Total Preparation: Diff Quik 1; Pap Stain 1; ??Cell Block 1. ?Flow Cytometry DIAGNOSIS Lymph node, level 7, FNA, flow cytometry: 1. No immunophenotypically abnormal T-cell or monoclonal B-cell population ?? identified. . DIAGNOSIS 2. No increased blast population present (see Discussion). PRELIMINARY FLOW CYTOMETRY REPORT; MORPHOLOGIC REVIEW PENDING. SEE SEPARATE REPORT FOR FINAL DIAGNOSIS. Electronically signed by: ??Jony ABRAHAM, Regi Spangler Verified: ??04/17/2020 ?Hematopathologist Performed at: ??-[facility] Dept. of Pathology, [place], [place] DISCUSSION The viability of cells in this lymph node FNA specimen as assessed by 7-AAD exclusion is approximately 37%. The majority of lymphocytes in the specimen are CD3+ T-cells (85% of lymphocytes; 22% of total cells) with a mixture of mature CD4+ and CD8+ forms (CD4:CD8 ratio approximately 5.5) without aberrant loss or altered expression of carlos T-cell antigens. CD3-/CD56+ NK cells constitute 1% of lymphocytes (<1% of total cells). Few CD19+ B-cells are present, accounting for 14% of lymphocytes (4% of total cells) but appear to express surface light chains in a polytypic pattern (kappa:lambda approximately 1.5), thus there is no jessi immunophenotypic evidence for involvement of the lymph node by a monoclonal B-cell lymphoproliferative neoplasm. No increased blast population is identified by CD45/ right angle light scatter gating, thus there is no evidence for acute leukemia. Although no immunophenotypically abnormal lymphocyte populations are identified, flow cytometry will not routinely identify non-hematopoietic cells, monoclonal T-cell populations or Hodgkin lymphoma and may miss some B-cell lymphomas, thus correlation with morphologic review, which is currently in progress and the results of which will be reported separately when available, will be required for definitive diagnosis. Flow analysis is an ancillary study. A definite diagnosis requires correlation with the morphologic features of this process and if necessary, correlation with other ancillary studies like immunohistochemistry, enzyme cytochemistry and/or cyto/ molecular genetics. This test was developed and its performance characteristics determined by the Clinical Flow Cytometry Laboratory at [facility]. It has not been cleared or approved by the U.S. Food and Drug Administration. ??The FDA has determined that such clearance or approval is not necessary. ??This test is used for clinical purposes. ??It should not be regarded as investigational or for research. This laboratory is certified under the Clinical Laboratory Improvement Act of 1988 (CLIA) as qualified to perform high complexity clinical laboratory testing. SPECIMEN PROCESSING [id number] Cells for immunophenotypic analysis were derived from level 7 lymph node. CD45 vs side scatter gating was utilized to identify a lymphoid analysis region that comprises approximately 26-37% of all cells. The following markers were assessed: CD2, CD3, CD4, CD5, CD7, CD8, CD10, CD19, CD45, CD56, kappa light chain, and lambda light chain. CLINICAL INFORMATION 44 yo man with multiple lung nodules, lymphadenopathy, lymphocytosis. 04/18/2020 8:56 AM EST [facility] LYMPH NODE SPECIMEN / Unknown 04/16/2020 4:44 PM EST 04/16/2020 4:44 PM EST Jim Horton MD PATHOLOGY/CYTOLOGY O RDERABLES Performing Organization Address City/[facility]/ZIP Co de Phone Number [facility] [place] [address] * Immunophenotyping Flow Cytometry (04/16/2020 4:44 PM EST) Immunophenotyping Flow See Comment [facility] Comment: When completed by the Pathologist, the Flow Cytometry Report ([id number]) will display under the Pathology Results section within [facility]. Specimen of unknown material (specimen) Other / Unknown 04/16/2020 4:44 PM EST 04/16/2020 6:18 PM EST Narrative Resulting Agency Comment Spec In Lab Jim Horton MD HEMATOLOGY ORDERABLE S Performing Organization Address City/[facility]/ZIP Co de Phone Number [facility] [place] [address] * Cytopathology Non-Gynecological (04/16/2020 4:44 PM EST) AP Specimen 04/16/2020 4:44 PM EST 04/16/2020 4:44 PM EST Narrative [facility] - 04/16/2020 4:44 PM EST Specimen requisition ordered. ??Separate Pathology report to follow Jim Horton MD PATHOLOGY/CYTOLOGY O RDERAODALYS [facility] [place] [address] * Non-Fire Crew Worker Final Report (04/16/2020 4:17 PM EST) Diagnosis Discussion [id number] ? Location: [facility]; The signing pathologist has (i) examined the relevant preparation(s) for the specimen(s) and (ii) rendered or confirmed the diagnosis(es). . ? Non-Fire Crew Worker Final DIAGNOSIS See Discussion Electronically signed by: ??Maciel Calix MD Verified: ??04/17/2020 ?Pathologist Performed at: ??-[facility] Dept. of Pathology, [place], [place] DISCUSSION Lymph node, 10R (EBUS-guided FNA): Scant lymphoid tissue, predominantly small lymphocytes, consistent with focal lymph node sampling. Jewell respiratory epithelial cells ?? (likely procedural contaminant), are seen. No definite metastatic carcinoma seen. Clinical and radiologic correlation is recommended. CLINICAL INFORMATION Specimen Source : Lymph node, 10R (EBUS-guided FNA, assisted) Pertinent Clinical Data and Significant Therapy: Multiple lung nodules Clinical Impression : Multiple lung nodules Pertinent Radiologic Findings ??: (not provided) Gross Description: Received ??in Formalin approximately 50 mL total volume of ?? cloudy, pink fluid, with clots. Total Preparation: Diff Quik 1; Pap Stain 1; Cell Block 1. 04/17/2020 4:12 PM EST [facility] LYMPH NODE SPECIMEN / Unknown 04/16/2020 4:17 PM EST 04/16/2020 4:17 PM EST Jim Horton MD PATHOLOGY/CYTOLOGY O RDERAODALYS Performing Organization Address [facility] Co de Phone Number [facility] [place] [address] * Cytopathology Non-Gynecological (04/16/2020 4:17 PM EST) AP Specimen 04/16/2020 4:17 PM EST 04/16/2020 4:17 PM EST Narrative [facility] - 04/16/2020 4:17 PM EST Specimen requisition ordered. ??Separate Pathology report to follow Jim Horton MD PATHOLOGY/CYTOLOGY O RDERAODALYS Performing Organization Address [facility] Co de Phone Number [facility] [place] [address] * Anaerobic Culture (04/16/2020 4:15 PM EST) Anaerobic Culture No anaerobic organisms isolated [facility] Lymph node tissue specimen (specimen) 04/16/2020 4:15 PM EST 04/16/2020 4:59 PM EST Comment:LEVEL 10L LYMPH NODE Narrative Resulting Agency Comment Spec In Lab Jim Horton MD MICROBIOLOGY - GENER AL ORDERABLES Performing Organization Address [facility] Co de Phone Number [facility] [place] [address] * (ABNORMAL) Tissue culture (04/16/2020 4:15 PM EST) Tissue Culture One colony of Streptococcus mitis group Streptococcus salivarius group isolated from broth culture. (A) [facility] Gram Stain Few Neutrophils seen No microorganisms seen. (A) [facility] Organism Streptococcus mitis group(A) [facility] Organism Streptococcus salivarius group(A) [facility] Lymph node tissue specimen (specimen) 04/16/2020 4:15 PM EST 04/16/2020 4:59 PM EST Comment:LEVEL 10L LYMPH NODE Narrative Resulting Agency Comment Spec In Lab Organism Antibiotic Method Susceptibility Streptococcus mitis group Ceftriaxone MINIMUM INHIBITORY CONCENTRATION 0.032: Sensitive Streptococcus mitis group Levofloxacin MINIMUM INHIBITORY CONCENTRATION 1: Sensitive Streptococcus mitis group Penicillin MINIMUM INHIBITORY CONCENTRATION 0.032: Sensitive Comment: Penicillin susceptible Streptococci species can be considered susceptible to Ampicillin, Ampicillin-Sulbactam, Amoxicillin, Amoxicillin-Clavulanate, Ceftriaxone and Meropenem. Streptococcus salivarius group Ceftriaxone MINIMUM INHIBITORY CONCENTRATION 0.032: Sensitive Streptococcus salivarius group Levofloxacin MINIMUM INHIBITORY CONCENTRATION 1: Sensitive Streptococcus salivarius group Penicillin MINIMUM INHIBITORY CONCENTRATION 0.064: Sensitive Comment: Penicillin susceptible Streptococci species can be considered susceptible to Ampicillin, Ampicillin-Sulbactam, Amoxicillin, Amoxicillin-Clavulanate, Ceftriaxone and Meropenem. Jim Horton MD MICROBIOLOGY - GENER AL ORDERABLES Performing Organization Address [facility]/ZIP Co de Phone Number [facility] [place] [address] * AFB culture Lymph Node (04/16/2020 4:15 PM EST) Acid Fast Bacilli Culture No Acid Fast Bacilli isolated [facility] Acid Fast Stain No Acid Fast Bacilli seen [facility] Lymph node tissue specimen (specimen) 04/16/2020 4:15 PM EST 04/16/2020 4:59 PM EST Comment:LEVEL 10L LYMPH NODE Narrative Resulting Agency Comment Spec In Lab Jim Horton MD MICROBIOLOGY - GENER AL ORDERABLES Performing Organization Address City/[facility]/ZIP Co de Phone Number [facility] [place] [address] * Fungus culture Lymph Node (04/16/2020 4:15 PM EST) Fungus Culture No Fungus isolated [facility] Lymph node tissue specimen (specimen) 04/16/2020 4:15 PM EST 04/16/2020 4:59 PM EST Comment:LEVEL 10L LYMPH NODE Narrative Resulting Agency Comment Spec In Lab Jim Horton MD MICROBIOLOGY - GENER AL ORDERABLES [facility] [place] [address] * Non-Fire Crew Worker Final Report (04/16/2020 3:51 PM EST) Diagnosis Discussion [id number] ? Location: [facility]; 02; The signing pathologist has (i) examined the relevant preparation(s) for the specimen(s) and (ii) rendered or confirmed the diagnosis(es). . ?Flow Cytometry DIAGNOSIS Lymph node, level 10L, FNA, flow cytometry: 1. No immunophenotypically abnormal T-cell population delineated. 2. Too few B-cells present for adequate assessment of clonality. 3. No increased blast population present (see Discussion). PRELIMINARY FLOW CYTOMETRY REPORT; MORPHOLOGIC REVIEW PENDING. SEE SEPARATE REPORT FOR FINAL DIAGNOSIS. Electronically signed by: ??Jony ABRAHAM, Regi Spangler Verified: ??04/17/2020 ?Hematopathologist Performed at: ??-[facility] Dept. of Pathology, [place], [place] DISCUSSION The viability of cells in this lymph node FNA specimen as assessed by 7-AAD exclusion is approximately 10%. The majority of viable lymphocytes in the specimen are CD3+ T- cells (91% of lymphocytes; 37% of total nucleated cells) with an appropriate mixture of mature CD4+ and CD8+ forms (CD4:CD8 ratio approximately 4.7) without aberrant antigen loss or expression. CD3-/CD56+ NK cells constitute 2% of lymphocytes (1% of total cells), but there are too few analyzable CD19+ B-cell events available for reliable assessment of clonality. ??Accordingly, correlation with morphologic review, the results of are reported separately, will be required for definitive diagnosis. Flow analysis is an ancillary study. A definite diagnosis requires correlation with the morphologic features of this process and if necessary, correlation with other ancillary studies like immunohistochemistry, enzyme cytochemistry and/or cyto/ molecular genetics. This test was developed and its performance characteristics determined by the Clinical Flow Cytometry Laboratory at [facility]. It has not been cleared or approved by the U.S. Food and Drug Administration. ??The FDA has determined that such clearance or approval is not necessary. ??This test is used for clinical purposes. ??It should not be regarded as investigational or for research. This laboratory is certified under the Clinical Laboratory Improvement Act of 1988 (CLIA) as qualified to perform high complexity clinical laboratory testing. SPECIMEN PROCESSING [id number] Cells for immunophenotypic analysis were derived from level 10L lymph node. CD45 vs side scatter gating was utilized to identify a lymphoid analysis region that comprises approximately 40-47% of all cells. The following markers were assessed: CD2, CD3, CD4, CD5, CD7, CD8, CD10, CD19, CD45, CD56, kappa light chain, and lambda light chain. CLINICAL INFORMATION 44 yo man with lung nodules, lymphadenopathy, lymphocytosis. . ? Non-Fire Crew Worker Final DIAGNOSIS See Discussion Electronically signed by: ??Maciel Calix MD Verified: ??04/17/2020 ?Pathologist Performed at: ??-[facility] Dept. of Pathology, [place], [place] DISCUSSION Lymph node, 10L (EBUS-guided FNA): Lymphoid tissue, predominantly small lymphocytes, ?consistent with l ymph node sampling. Jewell respiratory epithelial cells ?? (likely procedural contaminant), are seen. Negative for carcinoma. Please see also the concurrent flow cytometry analysis results. Clinical and radiologic correlation is recommended. CLINICAL INFORMATION Specimen Source : Lymph node, 10L (EBUS-guided FNA, assisted) Pertinent Clinical Data and Significant Therapy: Multiple lung nodules Clinical Impression : Multiple lung nodules Pertinent Radiologic Findings ??: (not provided) Gross Description: Received in Formalin approximately 50 mL total volume of cloudy, red fluid, with clots. Total Preparation: Diff Quik 1; Pap Stain 1; Cell Block 1. 04/17/2020 4:13 PM EST [facility] LYMPH NODE SPECIMEN / Unknown 04/16/2020 3:51 PM EST 04/16/2020 3:51 PM EST Jim Horton MD PATHOLOGY/CYTOLOGY O RDERAODALYS Performing Organization Address City/[facility]/ZIP Co de Phone Number [facility] [place] [address] * Cytopathology Non-Gynecological (04/16/2020 3:51 PM EST) AP Specimen 04/16/2020 3:51 PM EST 04/16/2020 3:51 PM EST Narrative [facility] - 04/16/2020 3:51 PM EST Specimen requisition ordered. ??Separate Pathology report to follow Jim Horton MD PATHOLOGY/CYTOLOGY O RDERABLES Performing Organization Address [facility] [place] Co de Phone Number [facility] [place] [address] * Immunophenotyping Flow Cytometry (04/16/2020 3:50 PM EST) Immunophenotyping Flow See Comment [facility] Comment: When completed by the Pathologist, the Flow Cytometry Report ([id number]) will display under the Pathology Results section within [facility]. Specimen of unknown material (specimen) Other / Unknown 04/16/2020 3:50 PM EST 04/16/2020 6:19 PM EST Narrative Resulting Agency Comment Spec In Lab Jim Horton MD HEMATOLOGY ORDERABLE S Performing Organization Address [facility]/ZIP Co de Phone Number [facility] [place] [address] documented in this encounter Visit Diagnoses Diagnosis Pulmonary nodules- Primary Other nonspecific abnormal finding of lung field Pulmonary nodules Other nonspecific abnormal finding of lung field Lung nodule, multiple Other nonspecific abnormal finding of lung field Lung nodule, multiple Other nonspecific abnormal finding of lung field Pulmonary nodules Other nonspecific abnormal finding of lung field Lung nodule, multiple Other nonspecific abnormal finding of lung field documented in this encounter Admitting Diagnoses Diagnosis Pulmonary nodules Other nonspecific abnormal finding of lung field Lung nodule, multiple Other nonspecific abnormal finding of lung field documented in this encounter Administered Medications Inactive Administered Medications - up to 3 most recent administrations Medication Order MAR Action Action Date Dose Rate Site acetaminophen (Tylenol) tablet 1,000 mg 1,000 mg, Oral, EVERY 6 HOURS SCHEDULED, First dose on Tue04/16/20 at 1945, Until Discontinued, Maximum dose of acetaminophen is 4000 mg from all sources in 24 hours. When ordered for pain, acetaminophen should be given even when other ordered pain medications are indicated., Recovery (Recovery-Hospital Unit), Routine Given 04/17/2020 5:54 PM EST 1,000 mg Given 04/17/2020 12:39 PM EST 1,000 mg Given 04/17/2020 5:09 AM EST 1,000 mg albuteroL (PROVENTIL) nebulizer solution 2.5 mg 2.5 mg, Nebulization, 2 TIMES DAILY PRN, Starting on Francisca 04/17/20 at 1033, Until Francisca 04/17/20 at 2050, Wheezing, Routine Given 04/17/2020 11:20 AM EST 2.5 mg amoxicillin-clavulanate (Augmentin) 875-125 mg per tablet 1 tablet 1 tablet, Oral, 2 TIMES DAILY, 14 doses, First dose on Tue04/16/20 at 2130, Last dose on Tue04/23/20 at 0900, Routine, Indication for (Active or Suspected): Pneumonia (Community) Given 04/17/2020 9:00 AM EST 1 tablet Given 04/16/2020 10:13 PM EST 1 tablet azithromycin (Zithromax) tablet 250 mg 250 mg, Oral, DAILY, 5 doses, First dose on Francisca 04/17/20 at 0900, Last dose on Tue04/21/20 at 0900, Routine, Indication for (Active or Suspected): Pneumonia (Community) Given 04/17/2020 8:57 AM EST 250 mg azithromycin (Zithromax) tablet 500 mg 500 mg, Oral, DAILY, 1 dose, First dose on Tue04/16/20 at 2130, Routine, Indication for (Active or Suspected): Pneumonia (Community) Given 04/16/2020 10:13 PM EST 500 mg docusate sodium (Colace) capsule 100 mg 100 mg, Oral, 3 TIMES DAILY, First dose on Tue04/16/20 at 2215, Until Discontinued, Routine Given 04/17/2020 3:00 PM EST 100 mg Given 04/17/2020 8:56 AM EST 100 mg Given 04/16/2020 10:13 PM EST 100 mg fentaNYL 50 mcg/mL multi-dose injection 12.5-25 mcg, Intravenous, EVERY 5 MIN PRN, Starting on Tue04/16/20 at 1906, Until Tue04/16/20 at 2117, Pain, Give 12.5 mcg every 5 minutes PRN for mild to moderate pain (1-5) Give 25 mcg every 5 minutes PRN for moderate to severe pain (6-10). Hold for respiratory rate less than 10 per minute. Maximum dose 250 mcg over one hour. If ordered with hydromorphone or morphine, give hydromorphone or morphine first and use fentanyl for breakthrough pain., PACU Recovery, Routine Given 04/16/2020 8:25 PM EST 2 5 mcg Given 04/16/2020 8:15 PM EST 25 mcg heparin (Porcine) subcutaneous injection 5,000 Units 5,000 Units, Subcutaneous, ONCE, 1 dose, On Tue04/16/20 at 1500, Routine Given 04/16/2020 2:43 PM EST 5,000 Units Right Lower Quadrant heparin (Porcine) subcutaneous injection 5,000 Units 5,000 Units, Subcutaneous, EVERY 8 HOURS SCHEDULED, First dose on Tue04/16/20 at 2215, Until Discontinued, Routine Given 04/17/2020 2:00 PM EST 5,000 Units Given 04/17/2020 5:10 AM EST 5,000 Units Given 04/16/2020 10:19 PM EST 5,000 Units ketorolac (Toradol) (15 mg/mL) injection 15 mg 15 mg, Intravenous, EVERY 8 HOURS SCHEDULED, 6 doses, First dose on Tue04/16/20 at 2200, Last dose on Tue04/18/20 at 1400, Recovery (Recovery-Hospital Unit), Routine Given 04/17/2020 1:28 PM EST 15 mg Given 04/17/2020 5:09 AM EST 15 mg Given 04/16/2020 10:19 PM EST 15 mg lactated ringers infusion 100 mL/hr, Intravenous, CONTINUOUS, Starting on Tue04/16/20 at 1500, Until Tue04/16/20 at 2118 New Bag 04/16/2020 3:00 PM EST 100 mL/hr 100 mL/hr lactated ringers infusion 1,000 mL, at 100 mL/hr, Intravenous, CONTINUOUS, Starting on Tue04/16/20 at 1945, Until Francisca 04/17/20 at 0544, Recovery (Recovery-Hospital Unit) [facility] 04/16/2020 8:19 PM EST 1,000 mLs 100 mL /hr lidocaine (XYLOCAINE) 10 mg/mL (1 %) injection 3 mg 3 mg (0.3 mL), Subcutaneous, ONCE PRN, 1 dose, Starting on Tue04/16/20 at 1437, Until Tue04/16/20 at 1500, for discomfort with PIV insertion, Routine Given 04/16/2020 3:00 PM EST 3 mg oxyCODONE (Roxicodone) tablet 5 mg 5 mg, Oral, EVERY 4 HOURS PRN, Starting on Tue04/16/20 at 1922, Until Francisca 04/17/20 at 2050, Pain, severe breaktghrough pain 5+, Recovery (Recovery-Hospital Unit), Routine Given 04/17/2020 12:08 AM EST 5 mg Given 04/16/2020 8:49 PM EST 5 mg sodium chloride 0.9 % (flush) flush 5 mL 5 mL, Intravenous, 2 TIMES DAILY, First dose on Tue04/16/20 at 2100, Until Discontinued, Routine sodium chloride 0.9 % (flush) flush 5 mL 5 mL, Intravenous, 2 TIMES DAILY, First dose on Tue04/16/20 at 2215, Until Discontinued, Recovery (Recovery-Hospital Unit), Routine Given 04/17/2020 9:00 AM EST 5 mLs sodium chloride 0.9 % (flush) flush 5-20 mL 5-20 mL, Intravenous, EVERY 1 MIN PRN, Starting on Tue04/16/20 at 1437, Until Francisca 04/17/20 at 205, flush, Flush pertains to all indwelling lines. Flush per protocol found in the job aid using the link provided on this medication record., Routine sodium chloride 3 % nebulizer solution 4 mL 4 mL, Nebulization, 2 TIMES DAILY, First dose on Tue04/17/20 at 1130, Until Discontinued, Routine documented in this encounter Active and Recently Administered Medications Times are shown in EST. Scheduled Medication Order 04/15/2020 04/16/2020 04/17/2020 acetaminophen (Tylenol) tablet 1,000 mg 1,000 mg, Oral, EVERY 6 HOURS SCHEDULED, First dose on Tue04/16/20 at 1945, Until Discontinued, Maximum dose of acetaminophen is 4000 mg from all sources in 24 hours. When ordered for pain, acetaminophen should be given even when other ordered pain medications are indicated., Recovery (Recovery-Hospital Unit), Routine 2049 (Given - Provider: Rhina Salamanca RN) 0008 (Given - Provider: Bethel Zhu RN)0509 (Given - Provider: Bethel Zhu RN)1239 (Given - Provider: Tata Batista LPN)1754 (Given - Provider: Tata Batista LPN) amoxicillin-clavulanate (Augmentin) 875-125 mg per tablet 1 tablet 1 tablet, Oral, 2 TIMES DAILY, 14 doses, First dose on Tue04/16/20 at 2130, Last dose on Tue04/23/20 at 0900, Routine, Indication for (Active or Suspected): Pneumonia (Community) 2213 (Given - Provider: Bethel Zhu RN) 0900 (Given - Provider: Tata Batista LPN) azithromycin (Zithromax) tablet 250 mg 250 mg, Oral, DAILY, 5 doses, First dose on Francisca 04/17/20 at 0900, Last dose on Tue04/21/20 at 0900, Routine, Indication for (Active or Suspected): Pneumonia (Community) 0857 (Given - Provid er: Tata Batista LPN) azithromycin (Zithromax) tablet 500 mg (COMPLETED) 500 mg, Oral, DAILY, 1 dose, First dose on Tue04/16/20 at 2130, Routine, Indication for (Active or Suspected): Pneumonia (Community) 2213 (Given - Provider: Bethel Zhu RN) ceFAZolin (Ancef) 2 g in dextrose 5% 100 mL infusion (COMPLETED) 2 g, Intravenous, ONCE, 1 dose, On Tue04/16/20 at 1500, Administer over 30 Minutes, Indication for (Active or Suspected): Skin/Skin Structure 1741 (Given - Provider: Nelia Hurtado CRNA) docusate sodium (Colace) capsule 100 mg 100 mg, Oral, 3 TIMES DAILY, First dose on Tue04/16/20 at 2215, Until Discontinued, Routine 2213 (Given - Provider: Bethel Zhu RN) 0856 (Given - Provider: Tata Batista LPN)1500 (Given - Provider: Tata Batista LPN) heparin (Porcine) subcutaneous injection 5,000 Units (COMPLETED) 5,000 Units, Subcutaneous, ONCE, 1 dose, On Tue04/16/20 at 1500, Routine 1443 (Given - Provider: Nishi Shepard RN) heparin (Porcine) subcutaneous injection 5,000 Units 5,000 Units, Subcutaneous, EVERY 8 HOURS SCHEDULED, First dose on Tue04/16/20 at 2215, Until Discontinued, Routine 2219 (Given - Provider: Bethel Zhu RN) 0510 (Given - Provider: Bethel Zhu RN)1400 (Given - Provider: Tata Batista LPN) ketorolac (Toradol) (15 mg/mL) injection 15 mg 15 mg, Intravenous, EVERY 8 HOURS SCHEDULED, 6 doses, First dose on Tue04/16/20 at 2200, Last dose on Tue04/18/20 at 1400, Recovery (Recovery-Hospital Unit), Routine 221 (Given - Provider: Bethel Zhu RN) 0509 (Given - Provider: Bethel Zhu RN)1328 (Given - Provider: Janice Bear, JESSICA) senna (Senokot) tablet 17.2 mg 17.2 mg, Oral, EVERY EVENING, First dose on Tue04/17/20 at 1700, Until Discontinued, Routine 1700 (Due) sodium chloride 0.9 % (flush) flush 5 mL 5 mL, Intravenous, 2 TIMES DAILY, First dose on Tue04/16/20 at 2100, Until Discontinued, Routine 2100 (Not Given - Provider: Bethel Zhu RN - Reason: See comment - Comment: already infusing) 0900 (Not Given - Provider: Janice Bear RN - Reason: Patient/family refused) sodium chloride 0.9 % (flush) flush 5 mL 5 mL, Intravenous, 2 TIMES DAILY, First dose on Tue04/16/20 at 2215, Until Discontinued, Recovery (Recovery-Hospital Unit), Routine 2215 (Not Given - Provider: Bethel Zhu RN - Reason: See comment - Comment: already infusing) 0900 (Given - Provider: Janice Bear, JESSICA) sodium chloride 3 % nebulizer solution 4 mL(Linked Group 1) 4 mL, Nebulization, 2 TIMES DAILY, First dose on Francisca 04/17/20 at 1130, Until Discontinued, Routine 1130 (Not Given - Provider: Janice Bear, JESSICA - Reason: See comment - Comment: not needed at this time) Continuous Medication Order 04/15/2020 04/16/2020 04/17/2020 lactated ringers infusion (CANCELED) 100 mL/hr, Intravenous, CONTINUOUS, Starting on Tue04/16/20 at 1500, Until Tue04/16/20 at 2118 1500 (New Bag - Provider: Nishi Shepard, JESSICA)2017 (Not Given - Provider: Rhina Salamanca RN - Reason: See comment - Comment: see other administration) lactated ringers infusion 1,000 mL, at 100 mL/hr, Intravenous, CONTINUOUS, Starting on Tue04/16/20 at 1945, Until Tue04/17/20 at 0544, Recovery (Recovery-Hospital Unit) 2019 (New Bag - Provider: Rhina Salamanca RN) 0500 (Stopped - Provider: Bethel Zhu RN) PRN Medication Order 04/15/2020 04/16/2020 04/17/2020 albuteroL (PROVENTIL) nebulizer solution 2.5 mg(Linked Group 1) 2.5 mg, Nebulization, 2 TIMES DAILY PRN, Starting on Tue04/17/20 at 1033, Until Tue04/17/20 at 2050, Wheezing, Routine 1120 (Given - Provid er: Tata Adler RCP) BUpivacaine (PF) (Marcaine) 0.5 % (5 mg/mL) injection (CANCELED) ONCE PRN, Starting on Tue04/16/20 at 1856, Until Tue04/17/20 at 2049, Intra-Operative (Intra-Procedure), Routine 1856 (Given - Provider: Jim Horton MD - Comment: surgical site) BUpivacaine liposome (PF) (EXPAREL) 1.3 % (13.3 mg/mL) injection for infiltration (CANCELED) ONCE PRN, Starting on Tue04/16/20 at 1857, Until Francisca 04/17/20 at 2049, Intra-Operative (Intra-Procedure) 185 (Given - Provider: Jim Horton MD - Comment: surgical site) EPINEPHrine injection solution (CANCELED) ONCE PRN, Starting on Tue04/16/20 at 1714, Until Francisca 04/17/20 at 2049, Intra-Operative (Intra-Procedure), Routine 171 (Given - Provider: Jim Horton MD) fentaNYL 50 mcg/mL multi-dose injection (CANCELED) 12.5-25 mcg, Intravenous, EVERY 5 MIN PRN, Starting on Tue04/16/20 at 1906, Until Tue04/16/20 at 2116, Pain, Give 12.5 mcg every 5 minutes PRN for mild to moderate pain (1-5) Give 25 mcg every 5 minutes PRN for moderate to severe pain (6-10). Hold for respiratory rate less than 10 per minute. Maximum dose 250 mcg over one hour. If ordered with hydromorphone or morphine, give hydromorphone or morphine first and use fentanyl for breakthrough pain., PACU Recovery, Routine 2014 (Given - Provider: Rhina Salamanca, JESSICA)2024 (Given - Provider: Rhina Salamanca RN) lidocaine (XYLOCAINE) 10 mg/mL (1 %) injection 3 mg (COMPLETED) 3 mg (0.3 mL), Subcutaneous, ONCE PRN, 1 dose, Starting on Tue04/16/20 at 1437, Until Tue04/16/20 at 1500, for discomfort with PIV insertion, Routine 1500 (Given - Provider: Nishi Shepard RN) lidocaine (XYLOCAINE) 10 mg/mL (1 %) injection 3 mg 3 mg (0.3 mL), Subcutaneous, ONCE PRN, 1 dose, Starting on Tue04/16/20 at 2118, Until Francisca 04/17/20 at 2049, for discomfort with PIV insertion, Recovery (Recovery-Hospital Unit), Routine ondansetron (ZOFRAN) injection 4 mg 4 mg, Intravenous, EVERY 8 HOURS PRN, Starting on Tue04/16/20 at 2118, Until Francisca 04/17/20 at 2049, Nausea oxyCODONE (Roxicodone) tablet 5 mg 5 mg, Oral, EVERY 4 HOURS PRN, Starting on Tue04/16/20 at 1922, Until Tue04/17/20 at 2049, Pain, severe breaktghrough pain 5+, Recovery (Recovery-Hospital Unit), Routine 2048 (Given - Provider: Rhina Salamanca, RN) 0008 (Given - Provider: Bethel Zhu RN) sodium chloride 0.9 % (flush) flush 5-20 mL 5-20 mL, Intravenous, EVERY 1 MIN PRN, Starting on Tue04/16/20 at 1437, Until Tue04/17/20 at 2049, flush, Flush pertains to all indwelling lines. Flush per protocol found in the job aid using the link provided on this medication record., Routine sodium chloride 0.9 % (flush) flush 5-20 mL 5-20 mL, Intravenous, EVERY 1 MIN PRN, Starting on Tue04/16/20 at 2118, Until Tue04/17/20 at 2049, flush, Flush pertains to all indwelling lines. Flush per protocol found in the job aid using the link provided on this medication record., Recovery (Recovery-Hospital Unit), Routine Linked Groups Order Group 1: Sputum induction (CANCELED) STAT, DAILY, First occurrence on Tue04/17/20 at 1040, For 1 occurrence, Concern for tuberculosis, This order needs to include a medication order for Albuterol with a frequency of Q2 PRN and a sodium chloride 3% nebulizer solution order., Indications: Acid Fast Bacilli (AFB) And sodium chloride 3 % nebulizer solution 4 mLJump to med 4 mL, Nebulization, 2 TIMES DAILY, First dose on Tue04/17/20 at 1130, Until Discontinued, Routine And albuteroL (PROVENTIL) nebulizer solution 2.5 mgJump to med 2.5 mg, Nebulization, 2 TIMES DAILY PRN, Starting on Tue04/17/20 at 1033, Until Tue04/17/20 at 2049, Wheezing, Routine documented in this encounter Additional Health Concerns Infection Onset Date Last Indicated Resolved Time Rule Out Tuberculosis 04/17/2020 04/17/20202019 4:09 PM EST documented as of this encounter Care Teams [employer] Relationship Specialty Start Date End Date Brian, Meghana, MD [address] [place] [address] PCP - General Family Medicine 03/04/20 documented as of this encounter
--- OUTSIDE RECORDS SUMMARY | 2024-06-07 11:11 | XMS_ITS | Encounter Summary ---
[place] [address] Care Team Providers Care Dialer Name Role Phone Meghana Torres MD Primary Care Provider [phone] Reason for Visit * Auth/Cert Specialty Diagnoses / Procedures Referred By Stuart watkins Referred To Contact Diagnoses Multiple lung nodules Procedures PRO THORACOSCOPY WITH THERAPEUTIC WEDGE RESECTION INITIAL UNILAT PRO THORACOSCOPY WITH THERAPEUTIC WEDGE RESECTION ADDL RESECTION PRO [facility] EBUS GUIDED SAMPL 3/> NODE [...] Expiration Date Visits Re quested Visits Authorized [id number] 1 1 Encounter Details Date Type Department Care Team (Late st Contact Info) Description 04/16/2020 3:26 PM EST - 04/16/2020 5:54 PM EST Surgery [place] [id number] Jim Horton MD [address] [place] [phone] @THORACOSCOPY, SURG; W/THERAPEUTIC WEDGE RESECTION, INIT UNILATERAL (WRVU 14.5) Social History Tobacco Use Types Packs/Day Years [...] Sign Reading Time Taken Comments Blood Pressure 137/81 04/16/2020 2:13 PM EST Pulse 70 04/16/2020 2:13 PM EST Temperature 37.8 ??C (100 ??F) 04/16/2020 2:13 PM EST Respiratory Rate 16 04/16/2020 2:13 PM EST Oxygen Saturation 99% 04/16/2020 2:13 PM EST Inhaled Oxygen Concentration - - Weight 80.3 kg (177 lb 0.5 oz) 04/16/2020 2:07 P M EST Height 168.9 cm (5' 6.5) 04/16/2020 2:07 PM EST Body Mass Index 28.15 04/16/2020 [...] Nephrolithiasis ??? Testicular mass Worked up by [facility], s/p biopsy per patient, benign process [...] Hospital Course: Donald Dean was admitted to [facility] on 04/16/2020 via the Same Day Program. [...] Dilaudid [Hydromorphone] It stopped my heart at [facility] ??? Vegetable Derived Carrots, apples, chick peas, [...] a nurse in the Thoracic Clinic at [phone]. After hours or on weekends or holidays please call: [phone] and ask to speak to the Thoracic Surgeon data governance consultant. Exercise & Activity Level: As you recover [...] the Thoracic Clinic or the Thoracic Surgeon data governance consultant after hours. Please take over the counter [...] Expires XR Chest PA & Lateral (Generic) [[id number] Custom] 05/01/2020 05/17/2020 Process Instructions: Scheduling Instructions: Questions: Where will study be performed?: [facility] Radiology Portable exam?: Reason for exam and clinical history: 2 week f/u for 44 year old male s/p flex bronch, EBUS with biopsy, L VATS, JAIRON wedge resection x2 Clinical information / yanez questions: Stat read required?: Date of injury if applicable: Requested Time: Provider Contact Information: Primary Care Provider: Meghana Torres MD [phone] Discharge References/Attachments: Discharge References/Attachments None For questions regarding this document or issues relating to this hospitalization on the Thoracic Surgery Service, please contact Dr. Horton's office at . Signed: Cristian Jeffries MD 04/17/2020 Thoracic Surgery [facility] CC: PCP: Meghana Torres MD Referring: Meghana Torres Md [address] [place] [phone] Associated attestation - Jim Horton MD - [...] this encounter Discharge Instructions * Patient Instructions* Montse MontgomeryTACOS - 04/17/2020 8:33 AM EST Call if you have a fever of greater than 101 degrees, shaking chills, develop redness or drainage from your incision site(s), or if you have questions. During normal business hours, Tuesday- Tuesday 8:00 a.m.-5:00 p.m., please call to speak to a nurse in the Thoracic Clinic at [phone]. After hours or on weekends or holidays please call: [phone] and ask to speak to the Thoracic [...] the Thoracic Clinic or the Thoracic Surgeon data governance consultant after hours. Please take over the counter [...] No pertinent surgical history. Colonoscopy performed in [facility]. Neck fusion. MEDS: No current facility-administered [...] Dilaudid [Hydromorphone] It stopped my heart at [facility] ??? Vegetable Derived Carrots, apples, chick peas, [...] 03/19/2020 05:25 PM EKG: (04/04/2020): Sinus bradycardia. VT 138, QRS 102, QT 416. CT: (03/04/2020): [...] Jeffries MD 04/16/2020 Thoracic Surgery Service Pager [phone] Associated attestation - Jim Horton MD - [...] Horton MD - 04/17/2020 6:15 PM EST [facility] Operative Note Patient Name: Donald Dean : [id number] MR#: [id number] Case Date: 04/16/2020 Surgeon: Surgeon(s) and Role: [...] Time CYTOPATHOLOGY NON-GYNECOLOGICAL Level 10L OR 22 [id number] 04/16/2020 3:50 PM Pertinent clinical data and significant therapy: Multiple lung nodules Clinical impression: Multiple lung nodules Procedure Type: EBUS guided FNA Specimen Type: Lymph Node Description and source of specimen: Level 10L CYTOPATHOLOGY NON-GYNECOLOGICAL Level 10R OR 22 [id number] 04/16/2020 4:17 PM Pertinent clinical data and significant therapy: Multiple lung nodules Clinical impression: Multiple lung nodules Procedure Type: EBUS guided FNA Specimen Type: Lymph Node Description and source of specimen: Level 10R CYTOPATHOLOGY NON-GYNECOLOGICAL Level 7 OR 22 [id number] 04/16/2020 4:44 PM Pertinent clinical data and significant therapy: Multiple lung nodules Clinical impression: Multiple lung nodules Procedure Type: EBUS guided FNA Specimen Type: Lymph Node Description and source of specimen: Level 7 CYTOPATHOLOGY NON-GYNECOLOGICAL Level 4L OR 22 [id number] 04/16/2020 4:59 PM Pertinent clinical data and significant therapy: Multiple lung nodules Clinical impression: Multiple lung nodules Procedure Type: EBUS guided FNA Specimen Type: Lymph Node Description and source of specimen: Level 4L SPECIMEN TO PATHOLOGY Left upper lobe wedge - Diagnosis of lesion and margin- FROZEN OR 22 00412 Multiple lung nodules Left upper lobe wedge- [...] on the CT scan. I took a liability claims representative portion of this using the JAROD [...] all of the port sites, placed 128 Armenian chest tube in the posterior position, watch [...] CONSULTATION NOTE Patient ID: Donald Dean Room: [address] Reason for Consult: Diagnostic Work-up Consulting [...] lung biopsy. The patient was admitted to [facility] on 04/16 for his planned procedure with [...] History: Procedure Laterality Date ? ? PRO [facility] EBUS GUIDED SAMPL 3/> NODE STATION/STRUX N/A 04/16/2020 BRONCH, W ENDOBRONCHIAL ULTRASOUND (EBUS) GUIDED SAMPLING, 3+ NODES (WRVU 5.21) performed by Jim Horton MD at [facility] MAIN OR ??? PRO BRONCHOSCOPY, DIAGNOSTIC W LAVAGE N/A 04/16/2020 BRONCHOSCOPY, RIGID OR FLEXIBLE, WITH BRONCHIAL ALVEOLAR LAVAGE (WRVU 2.88) performed by Jim Horton MD at [facility] MAIN OR ? ? PRO INJECTION ANES AGENT &/ STEROID INTERCOSTAL NERVE EA ADDL LEVEL Left 04/16/2020 NERVE BLOCK, INTERCOSTAL NERVE, MULTIPLE (WRVU 1.68) performed by Jim Horton MD at [facility] MAIN OR ??? PRO REMOVE THOR LYMPH NODES RAD REGNL Left 04/16/2020 @LYMPHADENECTOMY,THORACIC ,REGIONAL,INCL. MEDIASTINAL,PERITRACHEAL NODES (WRVU 4.12) performed by Jim Horton MD at [facility] MAIN OR ??? PRO THORACOSCOPY WITH THERAPEUTIC WEDGE RESECTION ADDL RESECTION Left 04/16/2020 @THORACOSCOPY, SURG; W/THERAPEUTIC WEDGE RESC, EA ADD RESC, IPSILATERAL (WRVU 3) performed by Jim Horton MD at [facility] MAIN OR ??? PRO THORACOSCOPY WITH THERAPEUTIC WEDGE RESECTION INITIAL UNILAT Left 04/16/2020 @THORACOSCOPY, SURG; W/THERAPEUTIC WEDGE RESECTION, INIT UNILATERAL (WRVU 14.5) performed by Jim Horton MD at [facility] MAIN OR Medications: ??? [] Sputum induction [...] Dilaudid [Hydromorphone] It stopped my heart at [facility] ??? Vegetable Derived Carrots, apples, chick peas, tree nuts Immunizations: Current Immunizations Name Date INFLUENZA 03/19/2020 Family History: Non-contributory. Social History: Lives in [place], [place]. 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 Has been around [employer] for his entire life. No recent travel in the past 6 months or so, he has been working from home since January with consideration of the pandemic and a new lung pathology. 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 Traveled in June to [place] and experienced a flu-like illness upon his return. Travels yearly to [place] to [facility] but abstained this year because of the [...] Procedure Component Value Units Date/Time Fungus culture [[id number]] Collected: 04/16/202018 Lab Status: Preliminary result Specimen: Lung Updated: 04/17/20 0811 Fungus Culture No Fungus isolated to date Calcofluor White Stain [[id number]] Collected: 04/16/202018 Lab Status: Final result Specimen: Lung Updated: 04/16/202324 Calcofluor Stain Calcofluor White Preparation: Negative Tissue culture [[id number]] Collected: 04/16/201914 Lab Status: Preliminary result Specimen: Lung Updated: 04/17/20 0836 Tissue Culture No growth to date. Gram Stain -- Moderate Neutrophils No microorganisms seen. Fungus culture [[id number]] Collected: 04/16/201914 Lab Status: Preliminary result Specimen: Lung Updated: 04/17/20 0811 Fungus Culture No Fungus isolated to date Tissue culture [[id number]] Collected: 04/16/201914 Lab Status: Preliminary result Specimen: Lung Updated: 04/17/20 0836 Tissue Culture No growth to date. Gram Stain -- Moderate Neutrophils No microorganisms seen. Fungus culture [[id number]] Collected: 04/16/201914 Lab Status: Preliminary result Specimen: Lung Updated: 04/17/20 0811 Fungus Culture No Fungus isolated to date Tissue Culture, Aerobic & Anaerobic Lung [[id number]] Collected: 04/16/201838 Lab Status: In process Specimen: Lung Updated: 04/17/20 0842 Tissue culture [[id number]] Collected: 04/16/201838 Lab Status: Preliminary result Specimen: Lung Updated: 04/17/20 0842 Tissue Culture No growth to date. Gram Stain -- Few Neutrophils seen No microorganisms seen. Lower Respiratory Culture Bronchial Alveolar Lavage [[id number]] (Abnormal) Collected: 04/16/201734 Lab Status: Preliminary result Specimen: Bronchial Alveolar Lavage Updated: 04/16/202010 Gram Stain -- Few squamous epithelial cells seen Few Neutrophils seen Few Gram Positive Rods seen Rare Gram Negative Rods seen Rare Gram Positive Cocci seen Results called to and read back by CPM Braxis Fungus culture Bronchial Alveolar Lavage [[id number]] Collected: 04/16/201734 Lab Status: Preliminary result Specimen: Bronchial Alveolar Lavage Updated: 04/17/20 0810 Fungus Culture No Fungus isolated to date Lower Respiratory Culture Bronchial Alveolar Lavage [[id number]] (Abnormal) Collected: 04/16/201734 Lab Status: Preliminary result Specimen: Bronchial Alveolar Lavage Updated: 04/16/202011 Gram Stain -- Few squamous epithelial cells seen Moderate Neutrophils Moderate Gram Positive Rods Few Gram Positive Cocci seen Few Gram Negative Rods seen Results called to and read back by CPM Braxis Fungus culture Bronchial Alveolar Lavage [[id number]] Collected: 04/16/201734 Lab Status: Preliminary result Specimen: Bronchial Alveolar Lavage Updated: 04/17/20 0810 Fungus Culture No Fungus isolated to date Tissue Culture, Aerobic & Anaerobic Lymph Node [[id number]] Collected: 04/16/201614 Lab Status: In process Specimen: Lymph Node Updated: 04/17/20 0813 Fungus culture Lymph Node [[id number]] Collected: 04/16/201614 Lab Status: Preliminary result Specimen: Lymph Node Updated: 04/17/20 0810 Fungus Culture No Fungus isolated to date Tissue culture [[id number]] Collected: 04/16/201614 Lab Status: Preliminary result Specimen: Lymph Node Updated: 04/17/20 0813 Tissue Culture No growth to date. Gram Stain -- Few Neutrophils seen No microorganisms seen. COVID-19 PCR [[id number]] Collected: 04/13/20 1341 Lab Status: Final result [...] diagnosis of COVID-19 is performed using the [employer] SARS-CoV-2 Assay as authorized by the FDA Emergency Use Authorization (EUA). This EUA assay is intended for In-vitro Diagnostic (IVD) use with respiratory specimens such as nasopharyngeal swabs collected from individuals during the acute phase of infection. This assay is performed based on the instructions for use provided by [employer] and additional guidance provided by CDC and FDA. Testing is performed in the [facility] Laboratory within the Department of Pathology and Laboratory Medicine at [facility], certified under the Clinical Laboratory Improvement Amendments [...] fact sheets at the following FDA website: https://www.fda.gov/medical-devices/puvqidrzmhf-skusigh-7633-srbmm-09-ejtpgoszg- hzb-zutdtyhezpfwaf-tgxbbvr-devices/veaxw-qcvuvlprvho-ywwa SARS-Cov-2 RNA Source FITTER'S ASSISTANT Swab Current Antimicrobial Therapy: Augmentin 875-125mg BID [...] below. Electronically signed by: Jorge Santana MD, [facility] ([phone]), at 04/17/2020 6:12 AM XR Chest PA [...] below. Electronically signed by: Elias Rodriguez MD, [facility] ([phone]), at 04/17/2020 9:42 AM Impression: Donald Dean is a 44-year-old male who presented to [facility] w/ new lung lesions identified as necrotizing [...] limit exposures once home beyond the standing [id number] orders due to COVID-19. This patient was [...] Matthew Escobedo M.D. Internal Medicine PGY-1 Pager: [phone] 04/17/2020 11:08 AM Associated attestation - David [...] Operative Note Patient Name: Donald Dean : [id number] MR#: [id number] Case Date: 04/16/2020 Surgeon: Surgeon(s) and Role: [...] Time CYTOPATHOLOGY NON-GYNECOLOGICAL Level 10L OR 22 [id number] 04/16/2020 3:50 PM Pertinent clinical data and significant therapy: Multiple lung nodules Clinical impression: Multiple lung nodules Procedure Type: EBUS guided FNA Specimen Type: Lymph Node Description and source of specimen: Level 10L CYTOPATHOLOGY NON-GYNECOLOGICAL Level 10R OR 22 [id number] 04/16/2020 4:17 PM Pertinent clinical data and significant therapy: Multiple lung nodules Clinical impression: Multiple lung nodules Procedure Type: EBUS guided FNA Specimen Type: Lymph Node Description and source of specimen: Level 10R CYTOPATHOLOGY NON-GYNECOLOGICAL Level 7 OR 22 [id number] 04/16/2020 4:44 PM Pertinent clinical data and [...] want a frozen eD-H Order Id number [id number] Fluids: Intraprocedure Crystalloid Total None PRBCs: none (See Anesthesia Record/Report for Other Blood Products) Urine Output: (no urine output recorded) Drains: Left 28 Armenian chest tube x1, - 20 suction, intermittent [...] Name Priority Date/Time Associated Diagnosis Comments HC [facility] COCCIDIODES AB COMPF/IMMDIFF, RSCOC STAT 04/17/2020 12:34 PM EST HC [facility] BLASTOMYCES AB STAT 04/17/2020 12:34 PM EST HC VENIPUNCTURE STAT 04/17/2020 12:34 PM EST MISCELLANEOUS LAB REQUEST STAT 2019 11:45 AM EST [facility] HOLLEY TEST-HOLLEY Routine 04/17/2020 1 1:45 AM EST HC PC HISTOPLASMA ANTIGEN STAT 04/17/2020 11:45 AM EST XM. TUBERCULOSIS COMPLEX/RIFAMPIN PCR Routine 04/17/2020 11:30 AM EST MISCELLANEOUS LAB REQUEST STAT 2019 11:30 AM EST AFB CULTURE Routine 04/17/2020 11:30 AM EST XR CHEST PA AND LATERAL Routine 04/17/20 9:36 AM EST XR CHEST PA AND LATERAL Routine 04/17/20 4:45 AM EST FUNGAL STAIN Routine 04/16/2020 [...] MISC SOURCE Routine 04/16/2020 5:35 PM EST NON-SHINGLE WEAVER FINAL REPORT Routine 04/16/2020 4:59 PM EST CYTOPATHOLOGY NON-GYNECOLOGICAL Routine 04/16/2020 4:59 PM EST IMMUNOPHENOTYPING FLOW CYTOMETRY (BLOOD) Routine 04/16/2020 4:44 PM EST NON-SHINGLE WEAVER FINAL REPORT Routine 04/16/2020 4:44 PM EST CYTOPATHOLOGY NON-GYNECOLOGICAL Routine 04/16/2020 4:44 PM EST NON-SHINGLE WEAVER FINAL REPORT Routine 04/16/2020 4:17 PM EST CYTOPATHOLOGY NON-GYNECOLOGICAL Routine 04/16/2020 4:17 PM EST ANAEROBIC CULTURE Routine 04/16/2020 4:1 5 PM EST HC TISSUE CULTURE Routine 04/16/2020 4:1 5 PM EST HC MYCOBACTERIA CULTURE Routine 04/16/20 20 4:15 PM EST TISSUE CULTURE Routine 04/16/2020 4:15 PM EST HC FUNGUS CULTURE, MISC SOURCE Routine 04/16/2020 4:15 PM EST NON-SHINGLE WEAVER FINAL REPORT Routine 04/16/2020 3:51 PM EST CYTOPATHOLOGY NON-GYNECOLOGICAL Routine 04/16/2020 3:51 PM EST IMMUNOPHENOTYPING FLOW CYTOMETRY (BLOOD) Routine 04/16/2020 3:50 PM EST Bronchoscopy, Diagnostic W Lavage ([id number]) 04/16/2020 3:25 PM EST Pulmonary nodules Injection Anes Agent &/ Steroid Intercostal Nerve Ea Addl Level ([id number]) 04/16/2020 3:25 PM EST Pulmonary nodules Remove Thor Lymph Nodes Rad Regnl ([id number]) 04/16/2020 3:25 PM EST Pulmonary nodules [facility] Ebus Guided Sampl 3/> Node Station/Strux (26178) 04/16/2020 3:25 PM EST Pulmonary nodules Thoracoscopy [...] this report, please contact the number below. Jim Horton MD IMG DX ORDERABLES * Blastomyces Antibody (04/17/2020 12:34 PM EST) Blastomyces Immunodiffusion (MAY) Negative Negative [facility] Comment: A single negative immunodiffusion (ID) result does not exclude the diagnosis of blastomycosis. ??Repeat testing on a new sample in 7-14 days if clinically indicated. Test Performed by: [facility] [address] [place] [address] Assistant Professor Of Radiology: Shekhar Beckham M.D. Ph.D.; CLIA# [id number] Blood specimen (specimen) 04/17/2020 12:34 PM EST 04/17/2020 2:19 PM EST Narrative Resulting Agency Comment Spec In Lab Jim Horton MD LAB SEND OUT ORDERAB LES Performing Organization Address City/State/[facility] Co de Phone Number [facility] [place] [address] * Coccidioides Antibodies (04/17/2020 12:34 PM EST) [...] ?weeks if clinically indicated. ?Test Performed by: ?[facility] ?[address] [place] [address] ?Assistant Professor Of Radiology: Shekhar Beckham M.D. Ph.D.; CLIA# [id number] [facility] Blood specimen (specimen) 04/17/2020 12:34 PM EST 04/17/2020 2:19 PM EST Narrative Resulting Agency Comment Spec In Lab Jim Horton MD LAB SEND OUT ORDERAB LES Performing Organization Address [facility] Co de Phone Number [facility] [place] [phone] * Cryptococcal Antigen, Serum ([facility]/CGP/APD/NLH) (04/17/2020 12:34 PM EST) Cryptococcal Antigen Negative Negative [facility] Blood specimen (specimen) 04/17/2020 12:34 PM EST 04/17/2020 3:02 PM EST Narrative Resulting Agency Comment Spec In Lab Jim Horton MD IMMUNOLOGY ORDERABLE S Performing Organization Address [facility] de Phone Number [facility] [place] [address] * [facility] [place] Test-[place] (04/17/2020 11:45 AM EST) [facility] Test ?Result ?Flag ??Unit ?? RefValue --- [...] developed and its performance characteristics ?determined by [employer]. It has not been ?cleared or approved by the FDA; however, FDA clearance or ?approval is not currently required for clinical use. The ?results are not intended to be used as the sole means for ?clinical diagnosis or patient management decisions. ?Test Performed by: ?[employer] ?[address] ?[place] [address] [facility] Urine specimen (specimen) Urine / Unknown 04/17/2020 11:45 AM EST 04/18/2020 4:23 PM EST Narrative Resulting Agency Comment Spec In Lab Cristian Jeffries MD LAB SEND OUT ORD ERABLES [facility] [place] [address] * Miscellaneous Lab request (04/17/2020 11:45 AM EST) Label Request received in lab. [facility] Urine specimen (specimen) 04/17/2020 11:45 AM EST 04/17/2020 12:38 PM EST Narrative Resulting Agency Comment Spec In Lab Jim Horton MD LAB SEND OUT ORDERAB LES [facility] [place] [address] * Histoplasma Antigen, Urine (04/17/2020 11:45 AM EST) U Histoplasma Ag (MAY) Test ?Result ?Flag ??Unit ?? RefValue ------- Histoplasma Ag, U ??Histoplasma Ag Result ? Negative ? Negative ?No Histoplasma antigen detected. Repeat testing on a new ?sample if clinically indicated. ?This test was performed using the [employer] Histoplasma ?capsulatum galactomannan EIA. ??Histoplasma Ag Value ?0.00 ?ng/mL ? ---REFERENCE VALUE ?0.00 - 0.10 = Negative ?0.11 - 1.10 = Indeterminate ?>=1.11 = Positive ? ---ADDITIONAL INFORMATION------- ?This test was developed and its performance characteristics ?determined by [facility] in a manner consistent with ?CLIA requirements. This test has not been cleared or ?approved by the U.S. Food and Drug Administration. ?Test Performed by: ?[facility] [place] ?[address] [place] [address] ?Assistant Professor Of Radiology: Shekhar Beckham M.D. Ph.D.; CLIA# [id number] [facility] Urine specimen (specimen) 04/17/2020 11:45 AM EST 04/18/2020 9:37 AM EST Narrative Resulting Agency Comment Spec In Lab Jim Horton MD LAB SEND OUT ORDERAB LES Performing Organization Address [facility] Co de Phone Number [facility] [place] [address] * AFB culture (04/17/2020 11:30 AM EST) Acid Fast Bacilli Culture No Acid Fast Bacilli isolated If active tuberculosis is suspected, the patient should be on [employer]. Call Infection Prevention for assistance if needed. [facility] Acid Fast Stain No Acid Fast Bacilli seen [facility] Sputum specimen obtained by sputum induction (specimen) 04/17/2020 11:30 AM EST 04/17/2020 12:39 PM EST Narrative Resulting Agency Comment Spec In Lab Cristian Jeffries MD MICROBIOLOGY - G ENERAL ORDERABLES Performing Organization Address [facility] Co de Phone Number [facility] [place] [address] * M. tuberculosis complex/Rifampin PCR (04/17/2020 11:30 AM EST) MTBC PCR Not Detected Not Detected [facility] Rifampin PCR Not Applicable Not Detected [facility] MTBC/Rif PCR Interp The [...] therefore no results for rifampin resistance obtained. [facility] Sputum specimen obtained by sputum induction (specimen) Other / Unknown 04/17/2020 11:30 AM EST 04/17/2020 12:39 PM EST Narrative Resulting Agency Comment Spec In Lab Cristian Jeffries MD MICROBIOLOGY - G ENERAL ORDERABLES Performing Organization Address [facility] Co de Phone Number [facility] [place] [address] * Miscellaneous Lab request (04/17/2020 11:30 AM EST) Label Request received in lab. [facility] Specimen of unknown material (specimen) 04/17/2020 11:30 AM EST 04/17/2020 11:35 AM EST Narrative Resulting Agency Comment Spec In Lab Jim Horton MD LAB SEND OUT ORDERAB LES Performing Organization Address [facility] Co de Phone Number [facility] [place] [address] * XR Chest PA & Lateral (Generic) [...] ? Electronically signed by: Elias Rodriguez MD, [facility] ([phone]), at 04/17/2020 9:42 AM Narrative 04/17/2020 9:42 [...] below. Electronically signed by: Elias Rodriguez MD, [facility]([phone]), at 04/17/2020 9:42 AM Montse Valentina V, SOUND EFFECTS MANAGER IMG DX ORDERABL ES * XR Chest PA & Lateral (Generic) (04/17/2020 4:45 AM EST) Anatomical Region Laterality Modality Chest N/A Digital Radiogra phy Impressions 04/17/2020 6:12 AM EST Small left apical pneumothorax. Thank you for letting us participate in the care of this patient. For questions regarding this report, please contact the number below. ? Electronically signed by: Jorge Santana MD, [facility] ([phone]), at 04/17/2020 6:12 AM Narrative 04/17/2020 6:12 [...] below. Electronically signed by: Jorge Santana MD, [facility]([phone]), at 04/17/2020 6:12 AM Jim Horton MD IMG DX ORDERABLES * Calcofluor White Stain (04/16/2020 8:19 PM EST) Calcofluor Stain Calcofluor White Preparation: Negative [facility] Specimen from lung (specimen) LUNG STRUCTURE / Unknown 04/16/2020 8:19 PM EST 04/16/2020 8:19 PM EST Comment:AP WINDOW LYMPH NODE Narrative Resulting Agency Comment Spec In Lab Jim Horton MD MICROBIOLOGY - GENER AL ORDERABLES Performing Organization Address [facility] Co de Phone Number [facility] [place] [address] * Fungus culture (04/16/2020 8:19 PM EST) Fungus Culture No Fungus isolated [facility] Specimen from lung (specimen) LUNG STRUCTURE / Unknown 04/16/2020 8:19 PM EST 04/16/2020 8:19 PM EST Comment:AP WINDOW LYMPH NODE Narrative Resulting Agency Comment Spec In Lab Jim Horton MD MICROBIOLOGY - GENER AL ORDERABLES Performing Organization Address [facility]/ZIP Co de Phone Number [facility] [place] [address] * Fungus culture (04/16/2020 7:15 PM EST) Fungus Culture No Fungus isolated [facility] Specimen from lung (specimen) 04/16/2020 7:15 PM EST 04/16/2020 7:22 PM EST Comment:#2 Narrative Resulting Agency Comment Spec In Lab Jim Horton MD MICROBIOLOGY - GENER AL ORDERABLES Performing Organization Address City/[facility]/ZIP Co de Phone Number [facility] [place] [address] * Tissue culture (04/16/2020 7:15 PM EST) Tissue Culture No growth [facility] Gram Stain Moderate Neutrophils No microorganisms seen. [facility] Specimen from lung (specimen) 04/16/2020 7:15 PM EST 04/16/2020 7:22 PM EST Comment:#2 Narrative Resulting Agency Comment Spec In Lab Jim Horton MD MICROBIOLOGY - GENER AL ORDERABLES Performing Organization Address [facility] Co de Phone Number [facility] [place] [address] * AFB culture (04/16/2020 7:15 PM EST) Acid Fast Bacilli Culture No Acid Fast Bacilli isolated If active tuberculosis is suspected, the patient should be on AIRBORNE PRECAUTIONS. Call Infection Prevention for assistance if needed. [facility] Acid Fast Stain No Acid Fast Bacilli seen [facility] Specimen from lung (specimen) 04/16/2020 7:15 PM EST 04/16/2020 7:20 PM EST Comment:#2 Narrative Resulting Agency Comment Spec In Lab Jim Horton MD MICROBIOLOGY - GENER AL ORDERABLES Performing Organization Address City/[facility] Co de Phone Number [facility] [place] [address] * AFB culture (04/16/2020 7:15 PM EST) Acid Fast Bacilli Culture No Acid Fast Bacilli isolated If active tuberculosis is suspected, the patient should be on AIRBORNE PRECAUTIONS. Call Infection Prevention for assistance if needed. [facility] Acid Fast Stain No Acid Fast Bacilli seen [facility] Specimen from lung (specimen) 04/16/2020 7:15 PM EST 04/16/2020 7:18 PM EST Comment:#1 Narrative Resulting Agency Comment Spec In Lab Jim Horton MD MICROBIOLOGY - GENER AL ORDERABLES Performing Organization Address [facility] Co de Phone Number [facility] [place] [address] * Fungus culture (04/16/2020 7:15 PM EST) Fungus Culture No Fungus isolated [facility] Specimen from lung (specimen) 04/16/2020 7:15 PM EST 04/16/2020 7:16 PM EST Comment:#1 Narrative Resulting Agency Comment Spec In Lab Jim Horton MD MICROBIOLOGY - GENER AL ORDERABLES Performing Organization Address [facility] de Phone Number [facility] [place] [address] * Tissue culture (04/16/2020 7:15 PM EST) Tissue Culture No growth [facility] Gram Stain Moderate Neutrophils No microorganisms seen. [facility] Specimen from lung (specimen) 04/16/2020 7:15 PM EST 04/16/2020 7:15 PM EST Comment:#1 Narrative Resulting Agency Comment Spec In Lab Jim Horton MD MICROBIOLOGY - GENER AL ORDERABLES Performing Organization Address [facility] Co de Phone Number [facility] [place] [address] * Flow Cytometry Report (04/16/2020 6:39 PM EST) Flow Cytometry Report [id number] ? Location: [facility]; 02; A The signing pathologist [...] Regi Spangler Verified: ??04/17/2020 ?Hematopathologist Performed at: ??-[facility] Dept. of Pathology, [place], [place] DISCUSSION The viability of cells in [...] by the Clinical Flow Cytometry Laboratory at [facility]. It has not been cleared or approved [...] high complexity clinical laboratory testing. SPECIMEN PROCESSING [id number] Cells for immunophenotypic analysis were derived from [...] with lung nodules, lymphadenopathy. Lymphoma panel requested. [facility] 04/16/2020 6:39 PM EST Jim Horton MD PATHOLOGY/CYTOLOGY O RDERABLES Performing Organization Address City/[facility]/ZIP Co de Phone Number [facility] [place] [address] * Immunophenotyping Flow Cytometry (04/16/2020 6:39 PM EST) Immunophenotyping Flow See Comment [facility] Comment: When completed by the Pathologist, the Flow Cytometry Report ([id number]) will display under the Pathology Results section within [facility]. Specimen of unknown material (specimen) 04/16/2020 6:39 PM EST 04/16/2020 7:46 PM EST Narrative Resulting Agency Comment Spec In Lab Jim Horton MD HEMATOLOGY ORDERABLE S Performing Organization Address City/[facility]/ZIP Co de Phone Number [facility] [place] [address] * Anaerobic Culture (04/16/2020 6:39 PM EST) Anaerobic Culture No anaerobic organisms isolated [facility] Specimen from lung (specimen) 04/16/2020 6:39 PM EST 04/16/2020 8:16 PM EST Comment:AP WINDOW LYMPH NODE Narrative Resulting Agency Comment Spec In Lab Jim Horton MD MICROBIOLOGY - GENER AL ORDERABLES Performing Organization Address [facility]/ZIP Co de Phone Number [facility] [place] [address] * Tissue culture (04/16/2020 6:39 PM EST) Tissue Culture No growth [facility] Gram Stain Few Neutrophils seen No microorganisms seen. [facility] Specimen from lung (specimen) 04/16/2020 6:39 PM EST 04/16/2020 8:16 PM EST Comment:AP WINDOW LYMPH NODE Narrative Resulting Agency Comment Spec In Lab Jim Horton MD MICROBIOLOGY - GENER AL ORDERABLES Performing Organization Address [facility]/ZIP Co de Phone Number [facility] [place] [address] * Specimen to Pathology (04/16/2020 6:34 PM EST) AP Specimen 04/16/2020 6:34 PM EST 04/16/2020 6:34 PM EST Narrative [facility] - 04/16/2020 6:34 PM EST Specimen requisition ordered. ??Separate Pathology report to follow Jim Horton MD PATHOLOGY/CYTOLOGY O RDERABLES Performing Organization Address City/[facility]/ZIP Co de Phone Number [facility] [place] [address] * Specimen to Pathology (04/16/2020 6:17 PM EST) AP Specimen 04/16/2020 6:17 PM EST 04/16/2020 6:17 PM EST Narrative [facility] - 04/16/2020 6:17 PM EST Specimen requisition ordered. ??Separate Pathology report to follow Jim Horton MD PATHOLOGY/CYTOLOGY O RDERABLES [facility] [place] [address] * Surgical Pathology Report (04/16/2020 5:54 PM EST) Final Diagnosis [id number] ? Location: [facility]; [facility]; The signing pathologist has (i) examined the relevant preparation(s) for the specimen(s) and (ii) rendered or confirmed the diagnosis(es). . ? Addendum ADDENDUM DISCUSSION The GMS slides are reviewed with Dr. Danya Sutton, clinical microbiology, who favors that the years forms are most compatible with histoplasma. 04/28/20 10:50 Electronically signed by: ??Esperanza Hayes MD Verified: ??04/28/2020 ?Pathologist Performed at: ??-[facility] Dept. of Pathology, [place], [place] ?Surgical Pathology DIAGNOSIS Corrected report A [...] Hayes MD Verified: ??04/28/2020 ?Pathologist Performed at: ??-[facility] Dept. of Pathology, [place], [place] DISCUSSION Corrected report The specialization of [...] of the nodule is submitted for culture. Alarm Mechanic sections in 4 cassettes as follows: ?A1: [...] of the nodule is submitted for culture. Alarm Mechanic sections in 4 cassettes as follows: ?B1: ??En face margin for frozen section ?B2: ??Nodule for frozen section ?B3: ??Nodule with overlying white ovoid pleura, inked blue ?B4: ??Alarm Mechanic uninvolved parenchyma C - Labeled/Fixative: AP window [...] Lim MD Verified: ??04/16/2020 ?Pathologist Performed at: ??-[facility] Dept. of Pathology, [place], [place] This intraoperative consultation should be interpreted as a preliminary diagnosis pending review of the entire specimen and special studies, if any. 04/28/2020 10:50 AM [facility] LYMPH NODE SPECIMEN / Unknown 04/16/2020 5:54 PM EST 04/16/2020 5:54 PM EST Frozen Specimen 04/16/2020 5 :54 PM EST 04/16/2020 5:54 PM EST LYMPH NODE SPECIMEN / Unknown 04/16/2020 5:54 PM EST 04/16/2020 5:54 PM EST Jim Horton MD PATHOLOGY/CYTOLOGY O RDERABLES Performing Organization Address [facility] [place] [address] * Specimen to Pathology (04/16/2020 5:54 PM EST) AP Specimen 04/16/2020 5:54 PM EST 04/16/2020 5:54 PM EST Narrative [facility] - 04/16/2020 5:54 PM EST Specimen requisition ordered. ??Separate Pathology report to follow Jim Horton MD PATHOLOGY/CYTOLOGY O RDERABLES Performing Organization Address [facility] Co de Phone Number [facility] [place] [address] * Fungus culture Bronchial Alveolar Lavage (04/16/2020 5:35 PM EST) Fungus Culture No Fungus isolated [facility] Bronchoalveolar lavage fluid specimen (specimen) 04/16/2020 5:35 PM EST 04/16/2020 6:17 PM EST Comment:LEFT LUNG BAL Narrative Resulting Agency Comment Spec In Lab Jim Horton MD MICROBIOLOGY - GENER AL ORDERABLES Performing Organization Address [facility] Co de Phone Number [facility] [place] [address] * (ABNORMAL) AFB culture Bronchial Alveolar Lavage (04/16/2020 5:35 PM EST) Acid Fast Bacilli Culture Mycobacteria engbaekii isolated after 10 days Identification performed by [facility], [place], [place]. (A) [facility] Acid Fast Stain No Acid Fast Bacilli seen(A) [facility] Organism Mycobacteria(A) [facility] Bronchoalveolar lavage fluid specimen (specimen) 04/16/2020 5:35 PM EST 04/16/2020 6:17 PM EST Comment:LEFT LUNG BAL Narrative Resulting Agency Comment Spec In Lab Jim Horton MD MICROBIOLOGY - GENER AL ORDERABLES Performing Organization Address [facility] de Phone Number [facility] [place] [address] * (ABNORMAL) Lower Respiratory Culture Bronchial Alveolar Lavage (04/16/2020 5:35 PM EST) Lower Respiratory Culture Many mixed bacterial morphotypes suggestive of normal upper respiratory sarai(A) [facility] Gram Stain Few squamous epithelial cells seen Moderate Neutrophils Moderate Gram Positive Rods Few Gram Positive Cocci seen Few Gram Negative Rods seen Results called to and read back by Ottoniel De Guzman (A) [facility] Organism Gram Positive Cocci(A) [facility] Organism Gram Negative Rods(A) [facility] Organism Gram Positive Rods(A) [facility] Bronchoalveolar lavage fluid specimen (specimen) 04/16/2020 5:35 PM EST 04/16/2020 6:17 PM EST Comment:LEFT LUNG BAL Narrative Resulting Agency Comment Spec In Lab Jim Horton MD MICROBIOLOGY - GENER AL ORDERABLES Performing Organization Address [facility] de Phone Number [facility] [place] [address] * AFB culture Bronchial Alveolar Lavage (04/16/2020 5:35 PM EST) Acid Fast Bacilli Culture No Acid Fast Bacilli isolated If active tuberculosis is suspected, the patient should be on AIRBORNE PRECAUTIONS. Call Infection Prevention for assistance if needed. [facility] Acid Fast Stain No Acid Fast Bacilli seen [facility] Bronchoalveolar lavage fluid specimen (specimen) 04/16/2020 5:35 PM EST 04/16/2020 6:18 PM EST Comment:RIGHT LUNG BAL Narrative Resulting Agency Comment Spec In Lab Jim Horton MD MICROBIOLOGY - GENER AL ORDERABLES Performing Organization Address City/[facility]/ZIP Co de Phone Number [facility] [place] [address] * (ABNORMAL) Fungus culture Bronchial Alveolar Lavage (04/16/2020 5:35 PM EST) Fungus Culture Rare Aspergillus glaucus(A) [facility] Organism Aspergillus glaucus(A) [facility] Bronchoalveolar lavage fluid specimen (specimen) 04/16/2020 5:35 PM EST 04/16/2020 6:18 PM EST Comment:RIGHT LUNG BAL Narrative Resulting Agency Comment Spec In Lab Jim Horton MD MICROBIOLOGY - GENER AL ORDERABLES Performing Organization Address [facility]/ZIP Co de Phone Number [facility] [place] [address] * (ABNORMAL) Lower Respiratory Culture Bronchial Alveolar Lavage (04/16/2020 5:35 PM EST) Lower Respiratory Culture Few mixed bacterial morphotypes suggestive of normal upper respiratory sarai(A) [facility] Gram Stain Few squamous epithelial cells seen Few Neutrophils seen Few Gram Positive Rods seen Rare Gram Negative Rods seen Rare Gram Positive Cocci seen Results called to and read back by Ottoniel De Guzman (A) [facility] Organism Gram Positive Rods(A) [facility] Organism Gram Negative Rods(A) [facility] Organism Gram Positive Cocci(A) [facility] Bronchoalveolar lavage fluid specimen (specimen) 04/16/2020 5:35 PM EST 04/16/2020 6:18 PM EST Comment:RIGHT LUNG BAL Narrative Resulting Agency Comment Spec In Lab Jim Horton MD MICROBIOLOGY - GENER AL ORDERABLES Performing Organization Address City/[facility]/ZIP Co de Phone Number [facility] [place] [address] * Non-District Superintendent Final Report (04/16/2020 4:59 PM EST) Diagnosis Discussion [id number] ? Location: [facility]; 02; A The signing pathologist has (i) examined the relevant preparation(s) for the specimen(s) and (ii) rendered or confirmed the diagnosis(es). . ? Non-District Superintendent Final DIAGNOSIS See Discussion Electronically signed by: ??Yogi ABRAHAM, Maciel Verified: ??04/18/2020 ?Pathologist Performed at: ??-[facility] Dept. of Pathology, [place], [place] DISCUSSION Lymph node, 4L (EBUS-guided FNA): Lymphoid tissue, predominantly small lymphocytes, consistent with focal lymph node sampling. Mohawk respiratory epithelial cells and cartilage ?(likely procedural [...] Cell Block 1. 04/18/2020 9:03 AM EST [facility] LYMPH NODE SPECIMEN / Unknown 04/16/2020 4:59 PM EST 04/16/2020 4:59 PM EST Jim Horton MD PATHOLOGY/CYTOLOGY O RDERAODALYS [facility] [place] [address] * Cytopathology Non-Gynecological (04/16/2020 4:59 PM EST) AP Specimen 04/16/2020 4:59 PM EST 04/16/2020 4:59 PM EST Narrative [facility] - 04/16/2020 4:59 PM EST Specimen requisition ordered. ??Separate Pathology report to follow Jim Horton MD PATHOLOGY/CYTOLOGY Georgette SHELDON [facility] [place] [address] * Non-District Superintendent Final Report (04/16/2020 4:44 PM EST) Diagnosis Discussion [id number] ? Location: [facility]; [facility]; The signing pathologist has (i) examined the relevant preparation(s) for the specimen(s) and (ii) rendered or confirmed the diagnosis(es). . ? Non-District Superintendent Final DIAGNOSIS See Discussion Electronically signed by: ??Yogi ABRAHAM, Maciel Verified: ??04/18/2020 ?Pathologist Performed at: ??-[facility] Dept. of Pathology, [place], [place] DISCUSSION Lymph node, level 7 (EBUS-guided FNA): Lymphoid tissue, predominantly small lymphocytes, consistent with lymph node sampling. [place] respiratory epithelial cells ?? (likely procedural contaminant), [...] Regi Spangler Verified: ??04/17/2020 ?Hematopathologist Performed at: ??-[facility] Dept. of Pathology, [place], [place] DISCUSSION The viability of cells in [...] by the Clinical Flow Cytometry Laboratory at [facility]. It has not been cleared or approved [...] high complexity clinical laboratory testing. SPECIMEN PROCESSING [id number] Cells for immunophenotypic analysis were derived from [...] nodules, lymphadenopathy, lymphocytosis. 04/18/2020 8:56 AM EST [facility] LYMPH NODE SPECIMEN / Unknown 04/16/2020 4:44 PM EST 04/16/2020 4:44 PM EST Jim Horton MD PATHOLOGY/CYTOLOGY O RDERABLES Performing Organization Address City/[facility]/ZIP Co de Phone Number [facility] [place] [address] * Immunophenotyping Flow Cytometry (04/16/2020 4:44 PM EST) Immunophenotyping Flow See Comment [facility] Comment: When completed by the Pathologist, the Flow Cytometry Report ([id number]) will display under the Pathology Results section within [facility]. Specimen of unknown material (specimen) Other / Unknown 04/16/2020 4:44 PM EST 04/16/2020 6:18 PM EST Narrative Resulting Agency Comment Spec In Lab Jim Horton MD HEMATOLOGY ORDERABLE S Performing Organization Address City/[facility]/ZIP Co de Phone Number [facility] [place] [address] * Cytopathology Non-Gynecological (04/16/2020 4:44 PM EST) AP Specimen 04/16/2020 4:44 PM EST 04/16/2020 4:44 PM EST Narrative [facility] - 04/16/2020 4:44 PM EST Specimen requisition ordered. ??Separate Pathology report to follow Jim Horton MD PATHOLOGY/CYTOLOGY O RDERAODALYS [facility] [place] [address] * Non-District Superintendent Final Report (04/16/2020 4:17 PM EST) Diagnosis Discussion [id number] ? Location: [facility]; [facility]; The signing pathologist has (i) examined the relevant preparation(s) for the specimen(s) and (ii) rendered or confirmed the diagnosis(es). . ? Non-District Superintendent Final DIAGNOSIS See Discussion Electronically signed by: ??Yogi ABRAHAM, Maciel Verified: ??04/17/2020 ?Pathologist Performed at: ??-[facility] Dept. of Pathology, [place], [place] DISCUSSION Lymph node, 10R (EBUS-guided FNA): Scant lymphoid tissue, predominantly small lymphocytes, consistent with focal lymph node sampling. [place] respiratory epithelial cells ?? (likely procedural contaminant), [...] Cell Block 1. 04/17/2020 4:12 PM EST [facility] LYMPH NODE SPECIMEN / Unknown 04/16/2020 4:17 PM EST 04/16/2020 4:17 PM EST Jim Horton MD PATHOLOGY/CYTOLOGY O RDERABLES Performing Organization Address [facility] Co de Phone Number [facility] [place] [address] * Cytopathology Non-Gynecological (04/16/2020 4:17 PM EST) AP Specimen 04/16/2020 4:17 PM EST 04/16/2020 4:17 PM EST Narrative [facility] - 04/16/2020 4:17 PM EST Specimen requisition ordered. ??Separate Pathology report to follow Jim Horton MD PATHOLOGY/CYTOLOGY O RDERABLES Performing Organization Address [facility] Co de Phone Number [facility] [place] [address] * Anaerobic Culture (04/16/2020 4:15 PM EST) Anaerobic Culture No anaerobic organisms isolated [facility] Lymph node tissue specimen (specimen) 04/16/2020 4:15 PM EST 04/16/2020 4:59 PM EST Comment:LEVEL 10L LYMPH NODE Narrative Resulting Agency Comment Spec In Lab Jim Horton MD MICROBIOLOGY - GENER AL ORDERABLES Performing Organization Address [facility] Co de Phone Number [facility] [place] [address] * (ABNORMAL) Tissue culture (04/16/2020 4:15 PM EST) Tissue Culture One colony of Streptococcus mitis group Streptococcus salivarius group isolated from broth culture. (A) [facility] Gram Stain Few Neutrophils seen No microorganisms seen. (A) [facility] Organism Streptococcus mitis group(A) [facility] Organism Streptococcus salivarius group(A) [facility] Lymph node tissue specimen [...] - GENER AL ORDERABLES Performing Organization Address City/[facility]/ZIP Co de Phone Number [facility] [place] [address] * AFB culture Lymph Node (04/16/2020 4:15 PM EST) Acid Fast Bacilli Culture No Acid Fast Bacilli isolated [facility] Acid Fast Stain No Acid Fast Bacilli seen [facility] Lymph node tissue specimen (specimen) 04/16/2020 4:15 PM EST 04/16/2020 4:59 PM EST Comment:LEVEL 10L LYMPH NODE Narrative Resulting Agency Comment Spec In Lab Jim Horton MD MICROBIOLOGY - GENER AL ORDERABLES Performing Organization Address City/[facility]/ZIP Co de Phone Number [facility] [place] [address] * Fungus culture Lymph Node (04/16/2020 4:15 PM EST) Fungus Culture No Fungus isolated [facility] Lymph node tissue specimen (specimen) 04/16/2020 4:15 PM EST 04/16/2020 4:59 PM EST Comment:LEVEL 10L LYMPH NODE Narrative Resulting Agency Comment Spec In Lab Jim Horton MD MICROBIOLOGY - GENER AL ORDERABLES [facility] [place] [address] * Non-District Superintendent Final Report (04/16/2020 3:51 PM EST) Diagnosis Discussion [id number] ? Location: [facility]; [facility]; The signing pathologist has (i) examined the [...] Regi Spangler Verified: ??04/17/2020 ?Hematopathologist Performed at: ??-[facility] Dept. of Pathology, [place], [place] DISCUSSION The viability of cells in [...] by the Clinical Flow Cytometry Laboratory at [facility]. It has not been cleared or approved [...] high complexity clinical laboratory testing. SPECIMEN PROCESSING [id number] Cells for immunophenotypic analysis were derived from [...] with lung nodules, lymphadenopathy, lymphocytosis. . ? Non-District Superintendent Final DIAGNOSIS See Discussion Electronically signed by: ??Yogi ABRAHAM, Maciel Verified: ??04/17/2020 ?Pathologist Performed at: ??-[facility] Dept. of Pathology, [place], [place] DISCUSSION Lymph node, 10L (EBUS-guided FNA): Lymphoid tissue, predominantly small lymphocytes, ?consistent with l ymph node sampling. Mohawk respiratory epithelial cells ?? (likely procedural contaminant), [...] Cell Block 1. 04/17/2020 4:13 PM EST [facility] LYMPH NODE SPECIMEN / Unknown 04/16/2020 3:51 PM EST 04/16/2020 3:51 PM EST Jim Horton MD PATHOLOGY/CYTOLOGY O RDERAODALYS Performing Organization Address [facility]/ZIP Co de Phone Number [facility] [place] [address] * Cytopathology Non-Gynecological (04/16/2020 3:51 PM EST) AP Specimen 04/16/2020 3:51 PM EST 04/16/2020 3:51 PM EST Narrative [facility] - 04/16/2020 3:51 PM EST Specimen requisition ordered. ??Separate Pathology report to follow Jim Horton MD PATHOLOGY/CYTOLOGY O RDERABLES Performing Organization Address [facility] Co de Phone Number [facility] [place] [address] * Immunophenotyping Flow Cytometry (04/16/2020 3:50 PM EST) Immunophenotyping Flow See Comment [facility] Comment: When completed by the Pathologist, the Flow Cytometry Report ([id number]) will display under the Pathology Results section within [facility]. Specimen of unknown material (specimen) Other / Unknown 04/16/2020 3:50 PM EST 04/16/2020 6:19 PM EST Narrative Resulting Agency Comment Spec In Lab Jim Horton MD HEMATOLOGY ORDERABLE S Performing Organization Address City/[facility]/ZIP Co de Phone Number [facility] [place] [address] documented in this encounter Visit Diagnoses Diagnosis [...] 04/17/20 at 1033, Until Francisca 04/17/20 at 2049, Wheezing, Routine Given 04/17/2020 11:20 AM EST [...] Oral, DAILY, 5 doses, First dose on Tue04/17/20 at 0900, Last dose on Tue04/21/20 at 0900, Routine, Indication for (Active or Suspected): Pneumonia (Community) Given 04/17/2020 8:57 AM EST 250 mg BUpivacaine (PF) (Marcaine) 0.5 % (5 mg/mL) injection ONCE PRN, Starting on Tue04/16/20 at 1856, Until Francisca 04/17/20 at 2049, Intra-Operative (Intra-Procedure), Routine Given 04/16/2020 6:56 PM EST 30 mLs BUpivacaine liposome (PF) (EXPAREL) 1.3 % (13.3 mg/mL) injection for infiltration ONCE PRN, Starting on Tue04/16/20 at 1857, Until Tue04/17/20 at 205, Intra-Operative (Intra-Procedure) Given 04/16/2020 6:57 PM EST 20 mLs docusate sodium (Colace) capsule 100 mg 100 mg, Oral, 3 TIMES DAILY, First dose on Tue04/16/20 at 2215, Until Discontinued, Routine Given 04/17/2020 3:00 PM EST 100 mg Given 04/17/2020 8:56 AM EST 100 mg Given 04/16/2020 10:13 PM EST 100 mg EPINEPHrine injection solution ONCE PRN, Starting on Tue04/16/20 at 1714, Until Tue04/17/20 at 2049, Intra-Operative (Intra-Procedure), Routine Given 04/16/2020 5:14 PM EST 0.2 mg 19- Surgical Site heparin (Porcine) subcutaneous injection 5,000 Units 5,000 [...] Given 04/16/2020 10:19 PM EST 15 mg oxyCODONE (Roxicodone) tablet 5 mg 5 mg, Oral, EVERY 4 HOURS PRN, Starting on Tue04/16/20 at 1922, Until Francisca 04/17/20 at 2049, Pain, severe breaktghrough pain 5+, [...] Tue04/16/20 at 1437, Until Francisca 04/17/20 at 2050, flush, Flush pertains to all indwelling lines. [...] Indication for (Active or Suspected): Pneumonia (Community) 221 (Given - Provider: Bethel Zhu RN) ceFAZolin [...] on Tue04/16/20 at 2215, Until Discontinued, Routine 221 (Given - Provider: Bethel Zhu RN) 0856 [...] on Tue04/16/20 at 2215, Until Discontinued, Routine 221 (Given - Provider: Bethel Zhu RN) 0510 (Given - Provider: Bethel Zhu RN)1400 (Given - Provider: Tata Batista LPN) ketorolac (Toradol) (15 mg/mL) injection 15 mg 15 mg, Intravenous, EVERY 8 HOURS SCHEDULED, 6 doses, First dose on Tue04/16/20 at 2200, Last dose on Tue04/18/20 at 1400, Recovery (Recovery-Hospital Unit), Routine 2218 (Given - Provider: Bethel Zhu RN) 0509 (Given - Provider: Bethel Zhu RN)1328 (Given - Provider: Janice Bear, JESSICA) senna (Senokot) tablet 17.2 mg 17.2 mg, Oral, EVERY EVENING, First dose on Francisca 04/17/20 at 1700, Until Discontinued, Routine 1700 (Due) [...] already infusing) 0900 (Given - Provider: Janice Bear RN) sodium chloride 3 % nebulizer solution 4 mL(Linked Group 1) 4 mL, Nebulization, 2 TIMES DAILY, First dose on Tue04/17/20 at 1130, Until Discontinued, Routine 1130 (Not Given - Provider: Janice Bear RN - Reason: See comment - Comment: not needed at this time) Continuous Medication Order 04/15/2020 04/16/2020 04/17/2020 lactated ringers infusion (CANCELED) 100 mL/hr, Intravenous, CONTINUOUS, Starting on Tue04/16/20 at 1500, Until Tue04/16/20 at 2118 1500 (New Bag - Provider: Nishi Shepard RN)2017 (Not Given - Provider: Rhina Salamanca RN - Reason: See comment - Comment: see other administration) lactated ringers infusion 1,000 mL, at 100 mL/hr, Intravenous, CONTINUOUS, Starting on Tue04/16/20 at 1945, Until Francisca 04/17/20 at 0544, Recovery (Recovery-Hospital Unit) 2019 (New Bag - Provider: Rhina Salamanca RN) 0500 (Stopped - Provider: Bethel Zhu RN) PRN Medication Order 04/15/2020 04/16/2020 04/17/2020 albuteroL (PROVENTIL) nebulizer solution 2.5 mg(Linked Group 1) 2.5 mg, Nebulization, 2 TIMES DAILY PRN, Starting on Francisca 04/17/20 at 1033, Until Francisca 04/17/20 at 2050, Wheezing, Routine 1120 (Given - Provid er: Tata Adler RCP) BUpivacaine (PF) (Marcaine) 0.5 % (5 mg/mL) injection (CANCELED) ONCE PRN, Starting on Tue04/16/20 at 1856, Until Francisca 04/17/20 at 2049, Intra-Operative (Intra-Procedure), Routine 185 (Given - Provider: Jim Horton MD - Comment: surgical site) BUpivacaine liposome (PF) (EXPAREL) 1.3 % (13.3 mg/mL) injection for infiltration (CANCELED) ONCE PRN, Starting on Tue04/16/20 at 1857, Until Tue04/17/20 at 2049, Intra-Operative (Intra-Procedure) 185 (Given - Provider: Jim Horton MD - Comment: surgical site) EPINEPHrine injection solution (CANCELED) ONCE PRN, Starting on Tue04/16/20 at 1714, Until Tue04/17/20 at 2049, Intra-Operative (Intra-Procedure), Routine 171 (Given - Provider: Jim Horton MD) fentaNYL 50 mcg/mL multi-dose injection (CANCELED) 12.5-25 mcg, Intravenous, EVERY 5 MIN PRN, Starting on Tue04/16/20 at 1906, Until Tue04/16/20 at 211, Pain, Give 12.5 mcg every 5 minutes [...] Recovery, Routine 2014 (Given - Provider: Rhina Salamanca RN)2024 (Given - Provider: Rhina Salamanca RN) lidocaine [...] Tue04/16/20 at 1922, Until Francisca 04/17/20 at 2049, Pain, severe breaktghrough pain 5+, Recovery (Recovery-Hospital Unit), Routine 2048 (Given - Provider: Rhina Salamanca RN) 0008 (Given - Provider: Bethel Zhu RN) sodium chloride 0.9 % (flush) flush 5-20 mL 5-20 mL, Intravenous, EVERY 1 MIN PRN, Starting on Tue04/16/20 at 1437, Until Francisca 04/17/20 at 2049, flush, Flush pertains to all indwelling lines. Flush per protocol found in the job aid using the link provided on this medication record., Routine sodium chloride 0.9 % (flush) flush 5-20 mL 5-20 mL, Intravenous, EVERY 1 MIN PRN, Starting on Tue04/16/20 at 2118, Until Francisca 04/17/20 at 2049, flush, Flush pertains to all indwelling lines. Flush per protocol found in the job aid using the link provided on this medication record., Recovery (Recovery-Hospital Unit), Routine Linked Groups Order Group 1: Sputum induction (CANCELED) STAT, DAILY, First occurrence on Francisca 04/17/20 at 1040, For 1 occurrence, Concern for [...] Francisca 04/17/20 at 1130, Until Discontinued, Routine And albuteroL (PROVENTIL) nebulizer solution 2.5 mgJump to med 2.5 mg, Nebulization, 2 TIMES DAILY PRN, Starting on Francisca 04/17/20 at 1033, Until Francisca 04/17/20 at 2050, Wheezing, Routine documented in this encounter Additional Health Concerns Infection Onset Date Last Indicated Resolved Time Rule Out Tuberculosis 04/17/2020 04/17/20202019 4:09 PM EST documented as of this encounter Care Teams Dialer Relationship Specialty Start Date End Date Meghana Torres MD [address] [place] [address] PCP - General Family Medicine 03/04/20 documented as of this encounter
--- OUTSIDE RECORDS SUMMARY | 2024-06-07 11:11 | XMS_ITS | Encounter Summary ---
[place] [address] Care Team Providers Care Upholsterer Assembly Line Name Role Phone Meghana Torres MD Primary Care Provider [phone] Reason for Visit * Reason Comments Medication Refill Encounter Details Date Type Department Care Team (Late st Contact Info) Description 09/10/2020 Refill [place] [address] Laura Connolly, DO Histoplasmosis Social History Tobacco Use Types Packs/Day Years [...] on file documented as of this encounter Plan of Treatment Not on file documented as of this encounter Visit Diagnoses Diagnosis Histoplasmosis Histoplasmosis, unspecified without mention of manifestation documented in this encounter Care Teams Upholsterer Assembly Line Relationship Specialty Start Date End Date Meghana Torres MD [address] [place] [address] PCP - General Family Medicine 03/04/20 documented as of this encounter
--- OUTSIDE RECORDS SUMMARY | 2024-06-07 11:11 | XMS_ITS | Encounter Summary ---
Author Organization [facility] Address [facility] [place] [address] Care Team Providers Care Cigar Head Holer Name Role Phone Meghana Torres MD Primary Care Provider [phone] Encounter Details Date Type Department Care Team (Late st Contact Info) Description 04/18/2020 Notes [place] [address] Cristian Jeffries MD [facility] [place] [address] Social History Tobacco Use Types Packs/Day Years [...] on file documented as of this encounter Progress Notes * Cristian Jeffries MD - 04/18/2020 6:32 PM EST I spoke with Donald today and updated him on the laboratory results that have returned thus far fromhis infectious work-up. His cultures have remained with no growth to date after the bronchoscopy, and per the Infectious Disease recommendation on 04/17 there are no antibiotics needed at this time (with negative cultures). He continues to have left sided, dull chest pain exacerbated by cough that is moderately well-controlled on acetaminophen and oxycodone PRN. Donald notes that the oxycodone does make him drowsy. He also reports ongoing productive cough with sputum but denies SOB or limitation in activity. I advised him to call if his chest pain does not improve within 1-2 days. He is scheduled to follow-up in Thoracic Surgery clinic (Dr. Suarez) on 05/02 and in the Infectious Disease clinic (Dr. Kong) on 05/07. Cristian Jeffries MD documented in this encounter Plan of Treatment Not on file documented as of this encounter Visit Diagnoses Not on filedocumented in this encounter Care Teams Cigar Head Holer Relationship Specialty Start Date End Date Meghana Torres MD [address] [place] [address] PCP - General Family Medicine 03/04/20 documented as of this encounter
--- OUTSIDE RECORDS SUMMARY | 2024-06-07 11:11 | XMS_ITS | Encounter Summary ---
Author Organization [facility] [place] [address] Care Team Providers Care Atg Architect Name Role Phone Meghana Torres MD Primary Care Provider [phone] Encounter Details Date Type Department Care Team (Late st Contact Info) Description 04/21/2020 Notes [place] [address] Carolyn Duran PA [facility] [place] [address] Social History Tobacco Use Types Packs/Day Years [...] as of this encounter Progress Notes * Carolyn Duran PA - 04/21/2020 1:48 PM EST Donald Dean is a 44 y.o. male status post bilateral BAL, EBUS, L VATS wedge resection for b/l lung nodules, found to have necrotizing granulomas and, as of today, microbiology updated results of 10L LN to contain 1 colony of strep mitis and BAL with strep salivarius. Results discussed with ID, Dr. Laura Connolly with recommendations to hold off on abx treatment until he his seen in ID clinic (scheduled for 05/07/2020) or unless clinically indicated. Carolyn Duran PA-C 04/21/[address] [facility] documented in this encounter Plan of Treatment Not on file documented as of this encounter Visit Diagnoses Not on filedocumented in this encounter Care Teams Atg Architect Relationship Specialty Start Date End Date Meghana Torres MD [address] [place] [id number] PCP - General Family Medicine 03/04/20 documented as of this encounter
--- OUTSIDE RECORDS SUMMARY | 2024-06-07 11:11 | XMS_ITS | Encounter Summary ---
[place] [address] Care Team Providers Care Locate Technician Name Role Phone Meghana Torres MD Primary Care Provider [phone] Encounter Details Date Type Department Care Team (Late st Contact Info) Description 06/10/2021 11:30 AM EST Office [place] [id number] Laura Connolly, Histoplasmosis; Lung nodule, multiple; Granuloma present on biopsy of lung Social History Tobacco Use Types Packs/Day Years [...] Mass Index 29.65 06/10/2021 11:16 AM EST documented in this encounter Patient Instructions * Patient Instructions* Laura Connolly DO - 06/10/2021 11:30 AM EST Patients can schedule their COVID-19 vaccination and booster appointments using their [employer] (deja mi) account. Simply select Schedule an appointment from the menu, and then click the box that says COVID-19 Vaccine. If you do not have a [employer] account, you can call [phone]. Visit this website for more information: [email or web address] documented in this encounter Progress Notes * Laura Connolly DO - 06/10/2021 11:30 AM EST Images from the original note were not included. Subjective: Patient ID: Donald Dean is a 45 y.o. male here for follow-up of lung granuloma. He was last seen by Dr. Kong and I in 08/2020 where he completed 3 months of itraconazole for pulmonary histoplasmosis. He has been off therapy since then and is here for Follow Up visit and imaging HPI Donald Dean is a 44-year-old male who was incidentally found to have new lung lesions on CT A/P w/ contrast while undergoing evaluation for hematuria and flank pain suspicious for a renal calculi. The patient also received a PET/CT scan which demonstrated hypermetabolic lesions with increased activity in the mediastinum and allen.The patient was then referred to Thoracic Surgery to obtain a more definitive diagnosis via lung biopsy. He had a JAIRON wedge resection and LN biopsy done on 04/17/20. We were consulted after pathology noted necrotizing granuloma. GeneXpert was negative for TB and he was discharged. On previous ID clinic visit, it was noted that GMS stains positive for yeast, but cultures not growing any yeast and cryptococcal, Coccidioides, histoplasma studies were all negative. BAL noted some mixed sarai and AFB positive for Mycobacteria engbaekii. Final pathology was consistent with Histoplasmosis. He remained largely asymptomatic, however Follow Up CT scan showed persistent nodules and some PET evidence of increased activity in mediastinum and allen so we opted to initiate treatment with Itraconazole 200mg PO bid. He remained asymptomatic and clinically was doing well with CT chest showing stable pulmonary nodules with no evidence of cavitation or new lesions after 3 months of therapy so wedecided to discontinue itraconazole at that time and monitor clinically. He is got a repeat CT chest today to monitor the pulmonary nodules. He notes he has gained about 30 pounds in the past year, and has been having some shortness of breath with exertion. He also occasionally reports some central chest wall pain when seated but notes that this pain is not associated with exertion. 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 He traveled in August/September to [facility] went hunting in [place] in the fall, and also traveled to [place]. His shortness of breath started before these trips. He notes his father from a heart attack in his 60s, his mother had lung cancer diagnosed in her 60s, and his sister has had asthma her whole life. He has not had a general checkup with his primary care provider since before his surgery. Denies any new rashes, fevers, night sweats, cough, new neck stiffness, intractable headaches, nausea vomiting or diarrhea. He had an initial COVID vaccination with J&J, but has not yet received a booster shot. Review of Systems As in HPI, remainder systems are reviewed and are negative. Objective: Physical Exam In general: No acute distress Sclera anicteric Chest clear to auscultation bilaterally without rales rhonchi or wheeze Cardiovascular S1, S2, no murmurs rubs or gallops Abdomen: Bowel sounds present, soft nontender nondistended Extremities without significant cyanosis clubbing or edema Skin no rashes BAL culture is growing Mycobacteria engbaekii. Lymph Node tissue culture grew one coloy of Streptococcus mitis and Streptococcus salivarius from broth culture CT chest no contrast 06/10/21: IMPRESSION 1. Stable bilateral pulmonary nodules as described above. No new or enlarging pulmonary nodules. 2. Stable postsurgical changes in the left upper lobe at sites of prior wedge resection. CT chest no contrast 06/11/20 : IMPRESSION ?? 1. Status post left upper lobe wedge resections. 2. Stable to slightly decreased size of the remaining pulmonary nodules. No new Nodules. CT chest no contrast 09/10/20: 1. Stable bilateral scattered pulmonary nodules. 2. Stable subcentimeter short axis mediastinal lymph nodes. 3. No new pulmonary nodule or lymphadenopathy. 4. Stable morphology of left upper lobe wedge resection margins. 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 Cultures and serologic testing was negative for cryptcoccus, coccidioides, and histoplasma (indicating no disseminated disease). AFB culture. BAL noted AFB culture growing Mycobacteria engbaekii and normal respiratory sarai. One colony of Streptococcus mitis and Streptococcus salivarius from broth culture indicate likely contaminants. He completed 3 months of Itraconazole treatment in 08/2020. His repeat CT chest today reveals stable bilateral pulmonary nodules with no new or enlarging lesions. He does not display any clinical symptoms consistent with active histoplasma infection, and doesnot need to continue antifungal treatment at this time. He should follow-up with his primary care provider for work-up of noninfectious etiologies to his shortness of breath on exertion and intermittent chest wall pain. P: -No need for further antifungal treatment at this time. -Counseled on importance of COVID booster vaccination and provided information on how to schedule abooster shot. -He should follow-up with his primary care provider as needed All questions were answered and Patient is in agreement with the plan. Discussed case with Attending Physician, Dr. Dilan Connolly DO Infectious Diseases Fellow * David Kong MD - 06/10/2021 11:30 AM EST Attending Addendum: I have seen and examined the patient, reviewed the data and agree with the note by Dr. Connolly. documented in this encounter Plan of Treatment Not on file documented as of this encounter Visit Diagnoses Diagnosis Histoplasmosis Histoplasmosis, unspecified without mention of manifestation Lung nodule, multiple Other nonspecific abnormal finding of lung field Granuloma present on biopsy of lung documented in this encounter Care Teams Locate Technician Relationship Specialty Start Date End Date Meghana Torres MD [address] [place] [address] PCP - General Family Medicine 03/04/20 documented as of this encounter
--- OUTSIDE RECORDS SUMMARY | 2024-06-07 11:11 | XMS_ITS | Encounter Summary ---
[place] [address] Care Team Providers Care Manager Fire Name Role Phone Meghana Torres MD Primary Care Provider [phone] Reason for Referral * Diagnostic Test (Routine) - Closed Specialty Diagnoses / Procedures Referred By Stuart watkins Referred To Contact Radiology Diagnoses Histoplasmosis Procedures CT Chest wo Contrast (Generic) Laura Connolly DO [facility] [place] [address] [facility] [place] [address] Referral ID Status Reason Start Date Expiration Date V isits Requested Visits Authorized [id number] Closed Specialty Service Requested 06/09/2020 08/07/2021 1 1 Encounter Details Date Type Department Care Team (Late st Contact Info) Description 09/10/2020 11:30 AM EDT Office Visit [place] [address] Laura Connolly DO Histoplasmosis; Lung nodule, multiple; Granuloma present on biopsy of lung; Pulmonary mycobacteria Social History Tobacco Use Types Packs/Day Years [...] Sign Reading Time Taken Comments Blood Pressure 120/89 09/10/2020 11:20 AM EDT Pulse 56 09/10/2020 11:20 AM EDT Temperature 36.2 ??C (97.1 ??F) 09/10/2020 1 1:20 AM EDT Respiratory Rate 18 09/10/2020 11:2 0 AM EDT Oxygen Saturation 99% 09/10/2020 11: 20 AM EDT Inhaled Oxygen Concentration - - Weight 84.8 kg (186 lb 14.4 oz) 021 11:20 AM EDT Height 172 cm (5' 7.72) 09/10/2020 11: 20 AM EDT Body Mass Index 28.66 09/10/2020 11:20 AM EDT documented in this encounter Progress Notes * Laura Connolly, DO - 09/10/2020 11:30 AM EDT Images from the original note were not included. Subjective: Patient ID: Donald Dean is a 44 y.o. male here for follow-up of lung granuloma. He was last seen by Dr. Kong and I on 06/11/2020 where we initiated Itraconazole therapy for pulmonary histoplasmosis. He is here today for his 3 month Follow Up following repeat CT chest. HPI Donald Dean is a 44-year-old male [...] treatment with Itraconazole 200mg PO bid. He is now 3 months into therapy and he completed a Follow Up CT scan this AM. He denies any issues with taking the Itraconazole (aside from unfortunately, it's high cost). Denies nausea, vomiting, or diarrhea. Has not been having any bothersome pulmonary symptoms. No cough, congestion, hemoptysis, or pleuritic chest pain. Denies nay new rashes. He does not that sometimes he will get occasional raspiness or wheezing that self resolves. He notes he has been having this sincehis lung surgery. He has been able to keep up with his regular physical activities. He got the J&J vaccine this past Tuesday (the day before administration was halted). Denies any adverse events aside from sore arm and mild headache the following day which has now resolved. Review of Systems As in HPI, remainder [...] from broth culture CT chest no contrast 06/11/20 : IMPRESSION [...] from broth culture indicate likely contaminants. He currently remains asymptomatic and clinically is doing well. CT chest shows stable pulmonary nodules with no evidence of cavitation or new lesions. He is now 3 months into Itraconazole treatment. Considering he is largely asymptomatic with no new or worsening CT chest findings, can stop Itraconazole therapy now. Should there be any evidence or worsening disease in the future, he should be re-evaluated by ID. I communicated our plan with Thoracic Surgery RN P: - Stop Itraconazole - repeat CT ordered in 6 mo to monitor nodules while off treatment. I will cc Dr. Suarez on the results of the repeat scan. - Follow Up after CT scan to review findings. I provided him with a copy of his recent CT scan findings today. All questions were answered and Patient is in agreement with the plan. Discussed case with Attending Physician, Dr. iDlan Watkins. DO Cathleen Infectious Diseases Fellow * Janet Kong MD - 09/10/2020 11:30 AM EDT Attending Addendum: I have seen and examined the patient, reviewed the data and agree with the note by Dr. Connolly. documented in this encounter Miscellaneous Notes * Addendum Note - Janet Kong MD - 09/10/2020 11:30 AM EDTAddended by: JANET KONG on: 09/15/2020 12:34 PM Modules accepted: Level of Service documented in this encounter Plan of Treatment Not on file documented as of this encounter Results * CT Chest wo [...] who have questions please contact the health home care specialist that requested your imaging first. ? Narrative 06/10/2021 10:54 AM EST EXAMINATION: CT [...] left fifth rib best seen on sagittal [id number] image 1:15), unchanged compared to prior studies, [...] patients who have questions please contactthe health home care specialist that requested your imaging first. Janet Kong MD IMG CT ORDERABLES documented in this encounter Visit Diagnoses Diagnosis Histoplasmosis Histoplasmosis, unspecified without mention of manifestation Lung nodule, multiple Other nonspecific abnormal finding of lung field Granuloma present on biopsy of lung Pulmonary mycobacteria Pulmonary diseases due to other mycobacteria Histoplasmosis Histoplasmosis, unspecified without mention of manifestation documented in this encounter Care Teams Manager Fire Relationship Specialty Start Date End Date Meghana Torres MD [address] [place] [address] PCP - General Family Medicine 03/04/20 documented as of this encounter
--- OUTSIDE RECORDS SUMMARY | 2024-06-07 11:11 | XMS_ITS | Encounter Summary ---
[place] [address] Care Team Providers Care Box Person Name Role Phone Meghana Torres MD Primary Care Provider [phone] Encounter Details Date Type Department Care Team (Latest Contact Info) Description 07/22/2020 10:15 AM EST Laboratory Appointment Lab [address] [place] [id number] Granuloma present on biopsy of lung; Histoplasmosis Social History Tobacco Use Types Packs/Day [...] Procedure Name Priority Date/Time Associated Diagnosis Comments ITRACONAZOLE LEVEL Routine 07/22/2020 10 :30 AM EST MISCELLANEOUS LAB REQUEST Routine 07/22/2020 10:30 AM EST Granuloma present on biopsy of lung Histoplasmosis documented in this encounter Results * Itraconazole Level (07/22/2020 10:30 AM EST) Itraconazole Level (SEPTEMBER) 2.3 mcg/mL [facility] Comment: REFERENCE VALUE >0.5 (localized infection), >1.0 (systemic infection) Test Performed by: [facility] [place] [address] Lithographers Printer: Shekhar Beckham M.D. Ph.D.; CLIA# [id number] Hydroxyitraconazole Level (SEPTEMBER) 3.1 mcg/mL [facility] Comment: REFERENCE VALUE No therapeutic range established; activity and serum concentration are similar to parent drug. ADDITIONAL INFORMATION This test was developed and its performance characteristics determined by [facility] in a manner consistent with CLIA requirements. This test has not been cleared or approved by the U.S. Food and Drug Administration. Test Performed by: [facility] [place] [address] [employer] Printer: Shekhar Beckham M.D. Ph.D.; CLIA# [id number] Blood specimen (specimen) No Charge / Unknown 07/22/2020 10:30 AM EST 07/22/2020 12:47 PM EST Narrative Resulting Agency Comment Spec In Lab Laura Connolly DO LAB SEND OUT ORDERAB LES [facility] [address] [place] [address] * Miscellaneous Lab request (07/22/2020 10:30 AM EST) Label Request received in lab. [facility] Blood specimen (specimen) 07/22/2020 10:30 AM EST 07/22/2020 11:01 AM EST Narrative Resulting Agency Comment Spec In Lab David Kong MD LAB SEND OUT JEIMY GUTIERREZ [facility] [place] [address] documented in this encounter Visit Diagnoses Diagnosis Granuloma present on biopsy of lung Histoplasmosis Histoplasmosis, unspecified without mention of manifestation documented in this encounter Care Teams Box Person Relationship Specialty Start Date End Date Meghana Torres MD [address] [place] [address] PCP - General Family Medicine 03/04/20 documented as of this encounter
--- OUTSIDE RECORDS SUMMARY | 2024-06-07 11:11 | XMS_ITS | Encounter Summary ---
Author Organization [facility] [place] [address] Care Team Providers Care Career Developer Name Role Phone Meghana Torres MD Primary Care Provider [phone] Reason for Referral * Diagnostic Test (Routine) - Closed Specialty Diagnoses / Procedures Referred By Stuart watkins Referred To Contact Radiology Diagnoses Lung nodule, multiple Procedures CT Chest wo Contrast (Generic) Laura Connolly DO [facility] [place] [address] [facility] [place] [address] Referral ID Status Reason Start Date Expiration Date V isits Requested Visits Authorized [id number] Closed Specialty Service Requested 09/05/2020 03/03/2021 1 1 Encounter Details Date Type Department Care Team (Late st Contact Info) Description 06/11/2020 10:30 AM EST Office [place] [address] Laura Connolly DO Lung nodule, multiple; Granuloma present on biopsy of lung; Mycobacterial infection, non-TB; Pulmonary mycobacteria; Histoplasmosis Social History Tobacco Use Types Packs/Day [...] Sign Reading Time Taken Comments Blood Pressure 116/69 06/11/2020 10:20 AM EST Pulse 71 06/11/2020 10:20 AM EST Temperature 36.2 ??C (97.1 ??F) 06/11/2020 1 0:20 AM EST Respiratory Rate 18 06/11/2020 10:2 0 AM EST Oxygen Saturation 99% 06/11/2020 10: 20 AM EST Inhaled Oxygen Concentration - - Weight 84.2 kg (185 lb 11.2 oz) 021 10:20 AM EST Height 172 cm (5' 7.72) 06/11/2020 10: 20 AM EST Body Mass Index 28.47 06/11/2020 10:20 AM EST documented in this encounter Progress Notes * Laura Connolly, DO - 06/11/2020 10:30 AM EST Images from the original note were not included. Subjective: Patient ID: Donald Dean is a 44 y.o. male here for follow-up of lung granuloma. He was last seen by Dr. Kong on 05/07/20 HPI Donald Dean is a 44-year-old male [...] for TB and he was discharged. On last ID clinic visit, it was noted that GMS stains positive for yeast, but cultures not growing any yeast and cryptococcal, Coccidioides, histoplasma studies were all negative. BAL noted some mixed sarai and AFB positive for Mycobacteria engbaekii. Final pathology was consistent with Histoplasmosis. Since his last visit he notes no new symptoms. Denies cough, hemoptysis, SOB, fevers, night sweats,nausea, vomiting, or diarrhea. CT scan was repeated this AM Review of Systems As in HPI, remainder systems are reviewed and are negative. Objective: Physical Exam In general: No acute distress Sclera anicteric No palpable cervical lymphadenopathy Chest clear to auscultation bilaterally without rales rhonchi or wheeze Cardiovascular S1, S2, no murmurs rubs or gallops Abdomen: Bowel sounds present, soft nontender nondistended Extremities without significant cyanosis clubbing or edema Skin no rash, surgical scar is healing well. BAL culture is growing Mycobacteria engbaekii. Lymph Node tissue culture grew one coloy of Streptococcus mitis and Streptococcus salivarius from broth culture CT chest no contrast 06/11/20 : IMPRESSION ?? 1. Status post left upper lobe wedge resections. 2. Stable to slightly decreased size of the remaining pulmonary nodules. No new nodules. Assessment and Plan: # Necrotizing Pulmonary Granulomas [...] is doing well. CT chest shows stable to slightly decreased pulmonary nodules. Considering the nodules are persistent and there is some PET evidence of increased activity in mediastinum and allen, would recommend antifunal treatment targeted at Histoplasmosis. P: - treat with Itraconazole 200mg liquid PO q8h x 3 days (loading dose) then 200mg PO bid. Liquid formulatin should be taken on an empty stomach to maximize absorbtion. If need to switch to capsule, will need to take with full meal or with acidic beverage like soda and avoid acid suppressants to maximize absorbtion. - itraconazole level ordered to be done in one week - repeat CT ordered in 3 mo to monitor nodules while on treatment - Follow Up telehealth in 1-2mo to see if he is tolerating treatment well and if any symptoms arise Discussed case with Attending Physician, Dr. Dilan Connolly DO Infectious Diseases Fellow * David Kong MD - 06/11/2020 10:30 AM EST Attending Addendum: I have seen and examined the patient, reviewed the data and agree with the note by Dr. Connolly. Clinically and pathologically looks like histoplasma. Epi fits as well. Negative Ag and other testing are not inconsistent. Most immune competent persons will clear this, but given what PET looked like and that some lesions did not change. Would like to treat. Also, not clear if this could progressto fibrosing mediastinitis. We don;t know if treatment this early could prevent that outcome, but given low toxicity of treatment, may be worth it. Finding of aspergillus and mycobacteria from bronchonly likely represents contamination/colonization. We will follow. documented in this encounter Plan of Treatment Not on file documented as of this encounter Results * CT Chest wo Contrast (Generic) (09/10/2020 9:48 AM EDT) Anatomical Region Laterality Modality Chest Computed Tomogra phy Impressions 09/10/2020 10:28 AM EDT 1. ??Stable bilateral scattered pulmonary nodules. 2. ??Stable subcentimeter short axis mediastinal lymph nodes. 3. ??No new pulmonary nodule or lymphadenopathy. 4. ??Stable morphology of left upper lobe wedge resection margins. I have personally reviewed the image(s) and the resident's interpretation and agree with the findings, Candace Collado MD at 09/10/2020 10:28 AM Thank you for letting us participate in the care of this patient. ??If you are a health care provider and have any questions regarding this report, please contact the number below. ??For patients who have questions please contact the health family day carer that requested your imaging first. ? Narrative 09/10/2020 10:28 AM EDT EXAMINATION: CT CHEST WO CONTRAST (GENERIC) CLINICAL HISTORY: Histoplasmosis hx of pulmonary Histoplasmosis now on treatment. Please compare lung nodules to prior CT scan TECHNIQUE: 3.75mm thick axial contiguous sections were obtained through the chest via helical acquisition without intravenous contrast administration. Thin-section reconstructions as well as coronal and sagittal reformatted images were generated. COMPARISON: CT chest 06/11/2020 FINDINGS: Pulmonary parenchyma: Status post left upper lobe wedge resection with stable morphology at the resection margins. Stable size and number of scattered noncalcified solid pulmonary nodules in the left upper lobe (series 4 image 37), right upper lobe (series 4 image 16, 25), and right lower lobe (series 4 image 72). No new pulmonary nodules or consolidation. Airways: The large central airways are patent. There is unchanged mild bronchial wall thickening. Pleura: No pleural effusion. Lymph nodes:Stable paratracheal prevascular and AP window lymph nodes measuring up to 9 mm short axis. Heart, pericardium, and great vessels: Normal heart size. No pericardial effusion. Minimal coronary artery calcifications. Other mediastinal structures: Small amount of residual thymic tissue is present in the anterior mediastinum. Small left greater than right Bochdalek hernias. Lower neck: Symmetric thyroid lobes. Upper abdomen: Gastric fundal diverticulum with hyperdense material likely representing ingested contents2. Nonobstructing 6 mm left interpolar renal calculus. Body wall soft tissues: No significant findings. Skeletal structures: No acute fracture. No suspicious lesion. Anterior cervical fusion hardware is partially visualized in the lower cervical spine. Procedure Note Candace Collado MD - 09/10/2020 EXAMINATION: CT CHEST WO CONTRAST (GENERIC) CLINICAL HISTORY: Histoplasmosis hx of pulmonary Histoplasmosis now on treatment. Please compare lungnodules to prior CT scan TECHNIQUE: 3.75mm thick axial contiguous sections were obtained throughthe chest via helical acquisition without intravenous contrastadministration. Thin-section reconstructions as well as coronal and sagittal reformattedimages were generated. COMPARISON: CT chest 06/11/2020 FINDINGS: Pulmonary parenchyma: Status post left upper lobe wedge resection withstable morphology at the resection margins. Stable size and number of scattered noncalcified solid pulmonary nodules in the left upper lobe (series 4image 37), right upper lobe (series 4 image 16, 25), and right lower lobe (series 4image 72). No new pulmonary nodules or consolidation. Airways: The large central airways are patent. There is unchanged mildbronchial wall thickening. Pleura: No pleural effusion. Lymph nodes:Stable paratracheal prevascular and AP window lymph nodesmeasuring up to 9 mm short axis. Heart, pericardium, and great vessels: Normal heart size. No pericardial effusion. Minimal coronary artery calcifications. Other mediastinal structures: Small amount of residual thymic tissue ispresent in the anterior mediastinum. Small left greater than right Bochdalekhernias. Lower neck: Symmetric thyroid lobes. Upper abdomen: Gastric fundal diverticulum with hyperdense materiallikely representing ingested contents2. Nonobstructing 6 mm left interpolarrenal calculus. Body wall soft tissues: No significant findings. Skeletal structures: No acute fracture. No suspicious lesion. Anteriorcervical fusion hardware is partially visualized in the lower cervical spine. IMPRESSION 1. Stable bilateral scattered pulmonary nodules. 2. Stable subcentimeter short axis mediastinal lymph nodes. 3. No new pulmonary nodule or lymphadenopathy. 4. Stable morphology of left upper lobe wedge resection margins. I have personally reviewed the image(s) and the resident's interpretationand agree with the findings, Candace Collado MD at 09/10/2020 10:28 AM Thank you for letting us participate in the care of this patient. If youare a health care provider and have any questions regarding this report,please contact the number below. For patients who have questions please contactthe health family day carer that requested your imaging first. David Kong MD IMG CT ORDERABLES * Miscellaneous Lab request (07/22/2020 10:30 AM EST) Label Request received in lab. [facility] Blood specimen (specimen) 07/22/2020 10:30 AM EST 07/22/2020 11:01 AM EST Narrative Resulting Agency Comment Spec In Lab David Kong MD LAB SEND OUT JEIMY Maddox Organization Address City/State/ZIP Co de Phone Number [facility] [place] [address] documented in this encounter Visit Diagnoses Diagnosis Lung nodule, multiple Other nonspecific abnormal finding of lung field Granuloma present on biopsy of lung Mycobacterial infection, non-TB Unspecified diseases due to mycobacteria Pulmonary mycobacteria Pulmonary diseases due to other [...] documented as of this encounter Care Teams Career Developer Relationship Specialty Start Date End Date Meghana Torres MD [address] [place] [id number] PCP - General Family Medicine 03/04/20 documented as of this encounter
--- OUTSIDE RECORDS SUMMARY | 2024-06-07 11:11 | XMS_ITS | Encounter Summary ---
[place] [address] Care Team Providers Care Porcelain Finish Sprayer Name Role Phone Meghana Torres MD Primary Care Provider [phone] Reason for Visit * Reason Comments Follow-up Encounter Details Date Type Department Care Team (Late st Contact Info) Description 05/02/2020 1:30 PM EST Office Visit [place] [address] Jim Suarez MD [address] [place] [address] Pulmonary nodules Social History Tobacco Use Types Packs/Day Years [...] Sign Reading Time Taken Comments Blood Pressure 115/71 05/02/2020 1:14 PM EST Pulse 59 05/02/2020 1:14 PM EST Temperature 36.2 ??C (97.2 ??F) 05/02/2020 1 :14 PM EST Respiratory Rate 18 05/02/2020 1:14 PM EST Oxygen Saturation 99% 05/02/2020 1:1 4 PM EST Inhaled Oxygen Concentration - - Weight 81.9 kg (180 lb 9.6 oz) 05/02/20 20 1:14 PM EST With shoes Height 172 cm (5' 7.72) 05/02/2020 1:1 4 PM EST With shoes Body Mass Index 27.69 05/02/2020 1:14 PM EST documented in this encounter Patient Instructions * Patient Instructions* Марина Rodney RN - 05/02/2020 1:30 PM EST Thank you for visiting Dr. Suarez in clinic 05/02/20 We will call you in 3 months to check in on your status. Start gabapentin as discussed in clinic. ?? Exercise each day for 30 minutes or longer. Daily aerobic exercise for at least 30 minutes will help improve your endurance and improve the breathing capacity of your lungs. This means that you are breathing hard, your heart is beating fast and that you are sweating. Examples of this include walking, biking, swimming, and using a treadmill or stationary bike. Please call Thoracic surgery at with any questions or concerns. documented in this encounter Progress Notes * Montse Montgomery APRN - 05/02/2020 1:30 PM EST Thoracic Surgery Attending Outpatient Follow Up Note Jim Suarez MD [place] [address] FAX: Chief Complaint: Follow up bronch/EBUS, Left VATs wedge resection for necrotizing granuloma HPI: Donald Dean is a 44 y.o. male who is s/p bronch/EBUS, Left VATs wedge resection for necrotizing granuloma on 04/16/20. He presents today in follow up and reports soreness at his incision sites and skin sensitivity and pressure on his left anterior chest. He is not taking any medication forpain at this time. He has tried sleeping in his bed but coughs more with laying down so he has mostly been sleeping on the couch. He denies f/c/n/v/SOB/CP and is not smoking. He has been walking for exercise without feeling short of breath. Medications: Current Outpatient Medications on File Prior to Visit Medication Sig Dispense Refill ??? oxyCODONE (Roxicodone) 5 mg Tablet Take 1 tablet by mouth every 8 hours as needed for Pain. 7 tablet 0 ??? diphenhydrAMINE (BENADRYL) 25 mg Capsule Take 2 capsules by mouth as needed for Itching. 30 capsule 0 ??? EPINEPHrine (EPIPEN) 0.3 mg/0.3 mL (1:1,000) Auto-Injector Inject 0.3 mg into the muscle once. No current facility-administered medications on file prior to visit. Physical Exam: BP 115/71 (Patient Position: Sitting) Pulse 59 Temp 36.2 ??C (97.2 ??F) (Temporal) Resp 18 Ht 172 cm (5' 7.72) Comment: With shoes Wt 81.9 kg (180 lb 9.6 oz) Comment: With shoes SpO2 99% BMI 27.69 kg/m?? General Appearance: Alert, cooperative, no distress, appears stated age Nk: Supple, symmetrical, trachea midline, no adenopathy; thyroid: not enlarged, symmetric, no tenderness/mass/nodules Lungs: Clear to auscultation bilaterally, respirations unlabored, wheezes, crackles or ronchi. Heart: Regular rate and rhythm, S1 and S2 normal, murmur, rub, or gallop Abdomen: Soft, non-tender, bowel sounds active all four quadrants, no masses, no organomegaly Extremities: Extremities normal, atraumatic, no cyanosis or edema Wound/Incision: Well healing Left VATs Incisions without redness, swelling, or drainage Imaging: I have independently visualized the following studies: CXR (05/02/20): Resolved left apical pneumothorax. Decreased subcutaneous emphysema. No new cardiopulmonary findings. Multiple pulmonary nodules are better evaluated on PET/CT 03/19/2020. Micro: Level 10 LN aerobic/anaerobic culture (04/16/20): - One colony of Streptococcus mitis group, Streptococcus salivarius group isolated from broth culture. Left BAL AFB (04/16/20): Mycobacterium sp., not Mycobacterium tuberculosis isolated after 10 days. Identification to follow. Right BAL fungus culture (04/16/20): Rare Aspergillus glaucus Assessment: Donald Dean is a 44 y.o. male s/p bronchoscopy/EBUS and Left VATs wedge resection for necrotizing granulomas. He is currently recovering well with some post-operative nerve pain. Plan: 1. Follow up with ID as scheduled 2. 30 minutes of exercise daily at a minimum 3. Trial gabapentin 100 mg PO TID for neuropathic pain 4. RTC in 3 months for a status check 5. Call with any questions or concerns Montse Montgomery APRN 05/02/[address] [facility] * Jim Suarez MD - 05/02/2020 1:30 PM EST Thoracic Surgery Attending Outpatient Follow Up Note Jim Suarez MD [place] [address] FAX: Chief Complaint: Follow up bronch/EBUS, Left VATs wedge resection for necrotizing granuloma HPI: Donald Dean is a 44 y.o. male who is s/p bronch/EBUS, Left VATs wedge resection for necrotizing granuloma on 04/16/20. He presents today in follow up and reports soreness at his incision sites and skin sensitivity and pressure on his left anterior chest. He is not taking any medication forpain at this time. He has tried sleeping in his bed but coughs more with laying down so he has mostly been sleeping on the couch. He denies f/c/n/v/SOB/CP and is not smoking. He has been walking for exercise without feeling short of breath. Medications: Current Outpatient Medications on File Prior to Visit Medication Sig Dispense Refill ??? oxyCODONE (Roxicodone) 5 mg Tablet Take 1 tablet by mouth every 8 hours as needed for Pain. 7 tablet 0 ??? diphenhydrAMINE (BENADRYL) 25 mg Capsule Take 2 capsules by mouth as needed for Itching. 30 capsule 0 ??? EPINEPHrine (EPIPEN) 0.3 mg/0.3 mL (1:1,000) Auto-Injector Inject 0.3 mg into the muscle once. No current facility-administered medications on file prior to visit. Physical Exam: BP 115/71 (Patient Position: Sitting) Pulse 59 Temp 36.2 ??C (97.2 ??F) (Temporal) Resp 18 Ht 172 cm (5' 7.72) Comment: With shoes Wt 81.9 kg (180 lb 9.6 oz) Comment: With shoes SpO2 99% BMI 27.69 kg/m?? General Appearance: Alert, cooperative, no distress, appears stated age Nk: Supple, symmetrical, trachea midline, no adenopathy; thyroid: not enlarged, symmetric, no tenderness/mass/nodules Lungs: Clear to auscultation bilaterally, respirations unlabored, wheezes, crackles or ronchi. Heart: Regular rate and rhythm, S1 and S2 normal, no murmur, rub, or gallop Abdomen: Soft, non-tender, bowel sounds active all four quadrants, no masses, no organomegaly Extremities: Extremities normal, atraumatic, no cyanosis or edema Wound/Incision: Well healing Left VATs Incisions without redness, swelling, or drainage Imaging: I have independently visualized the following studies: CXR (05/02/20): Resolved left apical pneumothorax. Decreased subcutaneous emphysema. No new cardiopulmonary findings. Multiple pulmonary nodules are better evaluated on PET/CT 03/19/2020. Micro: Level 10 LN aerobic/anaerobic culture (04/16/20): - One colony of Streptococcus mitis group, Streptococcus salivarius group isolated from broth culture. Left BAL AFB (04/16/20): Mycobacterium sp., not Mycobacterium tuberculosis isolated after 10 days. Identification to follow. Right BAL fungus culture (04/16/20): Rare Aspergillus glaucus Assessment: Donald Dean is a 44 y.o. male s/p bronchoscopy/EBUS and Left VATs wedge resection for necrotizing granulomas. He is currently recovering well with some post-operative nerve pain. Plan: 1. Follow up with ID as scheduled 2. 30 minutes of exercise daily at a minimum 3. Trial gabapentin 100 mg PO TID for neuropathic pain 4. RTC in 3 months for a status check 5. Call with any questions or concerns Montse Montgomery APRN 05/02/[address] [facility] Attending Assessment: I have seen the patient and reviewed the resident's above history and I agree with the details as written. The assessment and plan were formulated in discussion with me and I agree with them as documented. Pertinent History: 44y/o male with a history of bilateral lung nodules s/p L VATS and wedge resection x 2 along with bilateral BALS growing mycobacterium (not tuberculosis). Pertinent Exam: Middle aged male in NAD. Breathing non-labored. Wounds healing nicely. No pedal edema. Alert and oriented. Major issues addressed: Pending ID results Plan: Mr. Dean presents to me is a 44-year-old male who is status post [facility] end[facility]ronch[facility] and left VATS wedge resection for necrotizing granuloma on 04/12/2020. His cultures have come back with growing Mycobacterium that is not a tuberculosis species. Overall he feels that he is doing well. He does have some mild pain which appears to be neuropathic. He is willing to try some gabbap entin and we will provide a prescription. He has not had any fevers or night sweats. His wounds arehealing well. He is set to follow-up with ID next week. We will proceed with following up these cultures and see what our ID colleagues have to say about treatment. I will plan to check in with him in 3 months time to see how he is doing with answering his questions and concerns. I am pleased with his progress and look forward to the recommendations from our infectious disease colleagues. I sincerely appreciate the opportunity to participate in his care. Plan: 1. Follow up with ID as scheduled 2. 30 minutes of exercise daily at a minimum 3. Trial gabapentin 100 mg PO TID for neuropathic pain 4. RTC in 3 months for a status check 5. Call with any questions or concerns Jim Suarez MD Thoracic Surgery documented in this encounter Plan of Treatment Not on file documented as of this encounter Visit Diagnoses Diagnosis Pulmonary nodules Other nonspecific abnormal finding of lung field documented in this encounter Additional Health Concerns Infection Onset Date Last Indicated Resolved Time Tuberculosis Comment:Per ID Fellow Dr. Connolly, the patient does not have TB. 04/16/2020 04/16/2020 06/12/2020 7:5 7 AM EST documented as of this encounter Care Teams Porcelain Finish Sprayer Relationship Specialty Start Date End Date Meghana Torres MD [address] [place] [id number] PCP - General Family Medicine 03/04/20 documented as of this encounter
--- OUTSIDE RECORDS SUMMARY | 2024-06-07 11:11 | XMS_ITS | Encounter Summary ---
[place] [address] Care Team Providers Care Site Identification Specialist Name Role Phone Meghana Torres MD Primary Care Provider [phone] Reason for Referral * Diagnostic Test (Routine) - Closed Specialty Diagnoses / Procedures [facility]erred To Contact Radiology Diagnoses Lung nodule, multiple Procedures CT Chest wo Contrast (Generic) Laura Connolly [facility] [place] [address] [facility] [place] [address] Referral ID Status Reason Start Date Expiration Date V isits Requested Visits Authorized [id number] Closed Specialty Service Requested 09/05/2020 03/03/2021 1 1 Reason for Visit * Diagnostic Test (Routine) - Closed Specialty Diagnoses / Procedures [facility] Referred To Contact Radiology Diagnoses Lung nodule, multiple Procedures CT Chest wo Contrast (Generic) Laura Connolly [facility] [place] [address] [facility] [place] [address] Referral ID Status Reason Start Date Expiration Date V isits Requested Visits Authorized [id number] Closed Specialty Service Requested 09/05/2020 03/03/2021 1 1 Encounter Details Date Type Department Care Team (Latest Contact Info) Description 09/10/2020 9:36 AM EDT - 09/10/2020 11:59 PM EDT Hospital Encounter CT Scan at [facility] [place] [address] David Kong MD [facility] [place] [address] Lung nodule, multiple Discharge Disposition: Home Social [...] Comments CT CHEST WO CONTRAST (GENERIC) Routine 09/10/2020 9:48 AM EDT Lung nodule, multiple documented in this encounter [...] who have questions please contact the health day care home provider that requested your imaging first. ? Electronically signed by: Candace Collado MD, [facility] ([phone]), at 09/10/2020 10:28 AM Narrative 09/10/2020 10:28 AM EDT EXAMINATION: CT [...] patients who have questions please contactthe health day care home provider that requested your imaging first. Electronically signed by: Candace Collado MD, [facility]([phone]), at 09/10/2020 10:28 AM David Kong MD IMG CT ORDERABLES documented in this encounter Visit Diagnoses Diagnosis Lung nodule, multiple Other nonspecific abnormal finding of lung field documented in this encounter Care Teams Site Identification Specialist Relationship Specialty Start Date End Date Meghana Torres MD [address] [place] [address] PCP - General Family Medicine 03/04/20 documented as of this encounter
--- OUTSIDE RECORDS SUMMARY | 2024-06-07 11:11 | XMS_ITS | Encounter Summary ---
[place] [address] Care Team Providers Care Correspondence School Instructor Name Role Phone Meghana Torres MD Primary Care Provider [phone] Reason for Referral * Diagnostic Test (Routine) - Closed Specialty Diagnoses / Procedures Referred By Stuart watkins Referred To Contact Radiology Diagnoses Lung nodule, multiple Procedures CT Chest wo Contrast (Generic) David Kong MD [facility] [place] [address] [facility] [place] [address] Referral ID Status Reason Start Date Expiration Date V isits Requested Visits Authorized [id number] Closed Specialty Service Requested 06/10/2020 12/06/2020 1 1 Encounter Details Date Type Department Care Team (Late st Contact Info) Description 05/07/2020 9:00 AM EST Office [place] [address] David Kong MD [facility] [place] [address] Lung nodule, multiple; Granuloma present on biopsy [...] Sign Reading Time Taken Comments Blood Pressure 130/70 05/07/2020 8:49 AM EST Pulse 76 05/07/2020 8:49 AM EST Temperature 36.3 ??C (97.3 ??F) 05/07/2020 8:49 AM ES T Respiratory Rate 18 05/07/2020 8:49 AM EST Oxygen Saturation 99% 05/07/2020 8:49 AM EST Inhaled Oxygen Concentration - - Weight 84.8 kg (186 lb 14.4 oz) 05/07/2020 8:49 AM EST Height 172 cm (5' 7.72) 05/07/2020 8:49 AM EST Body Mass Index 28.66 05/07/2020 8:49 AM EST documented in this encounter Progress Notes * David Kong MD - 05/07/2020 9:00 AM EST Subjective: Patient ID: Donald Dean is a 44 y.o. male here for follow-up of lung granuloma HPI Patient was seen as an inpatient after a lung biopsy showed necrotizing granuloma. He had a negative gene expert and was sent home. He is here for follow-up of that visit to review his results and hehas been doing well. The only major issue that he is had is he had another kidney stone and was in the hospital emergency room yesterday in [place]. His pain is managed, he is taking Flomax and Toradol. He is planning to follow-up regarding that. With regard to his pulmonary issues, he denies any problems after the surgery. He is healed well hedenies any chest pain or shortness of breath any cough fevers chills or night sweats. We obtained afull epidemiologic history on him while he was here previously. He denies significant HIV risk. Review of Systems As in HPI, remainder systems are reviewed and are negative. Objective: Physical Exam In general: No acute distress Sclera anicteric Chest clear to auscultation bilaterally without rales rhonchi or wheeze Cardiovascular S1, S2, no murmurs rubs or gallops Abdomen: Bowel sounds present, soft nontender nondistended Extremities without significant cyanosis clubbing or edema Skin no rash, surgical scar is healing well. 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 GMS stains positive for yeast, but cultures not growing any yeast and cryptococcal, Coccidioides, histoplasma studies were all negative. Cultures are growing AFB, identification not yet completed. It is a bit puzzling here with going on with the microbiology. My suspicion is that the patient might ofhad acute cryptococcal disease but also colonization with AFB. Clinically, he is doing quite well without any evidence of pneumonitis. Hard pressed to treat him right now until we have additional information. I would like to repeat a CT scan down the line and see what happening is with his nodular lung disease. He has no obvious immunocompromising conditions, had not has an HIV test, which was done today and was negative. I spoke at length with him about my thoughts and findings. I will follow up with him as additional microbiology comes in and also to repeat imaging. documented in this encounter Plan of Treatment Not on file documented as of this encounter Procedures Procedure Name Priority Date/Time Associated Diagnosis Comments HC VENIPUNCTURE Routine 05/07/2020 10:14 AM EST Lung nodule, multiple HC HIV SCREEN, 4TH GENERATION Routine 05/07/2020 10:14 AM EST Lung nodule, multiple documented in [...] the number below. ? Electronically signed by: Barber Lipscomb MD, [facility] ([phone]), at 06/11/2020 11:33 AM Narrative 06/11/2020 11:33 AM EST EXAMINATION: CT [...] contact the number below. Electronically signed by: Barber Lipscomb MD, [facility]([phone]), at 06/11/2020 11:33 AM David Kong MD IMG CT ORDERABLES * Hepatitis C Antibody (05/07/2020 10:14 AM EST) Hepatitis C Antibody Negative Negative [facility] Blood specimen (specimen) 05/07/2020 10:14 AM EST 05/07/2020 10:23 AM EST Narrative Resulting Agency Comment Spec In Lab David Kong MD CHEMISTRY ORDERAB LES Performing Organization Address [facility] Co de Phone Number [facility] [place] [address] * HIV Screen, 4th Generation ([facility]/CGP/APD/NLH) (05/07/2020 10:14 AM EST) HIV Ab/Ag Screen Negative Negative [facility] Comment: This 4th [...] MD CHEMISTRY ORDERAB LES Performing Organization Address City/[facility]/ZIP Co de Phone Number [facility] [place] [address] documented in this encounter Visit Diagnoses Diagnosis Lung nodule, multiple Other nonspecific abnormal finding of lung field Granuloma present on biopsy of lung Lung nodule, multiple Other nonspecific abnormal finding of lung field documented in this encounter Additional Health Concerns Infection Onset Date Last Indicated Resolved Time Tuberculosis Comment:Per ID Fellow Dr. Connolly, the patient does not have TB. 04/16/2020 04/16/2020 06/12/2020 7:5 7 AM EST documented as of this encounter Care Teams Correspondence School Instructor Relationship Specialty Start Date End Date Meghana Torres MD [address] [place] [id number] PCP - General Family Medicine 03/04/20 documented as of this encounter
--- OUTSIDE RECORDS SUMMARY | 2024-06-07 11:11 | XMS_ITS | Encounter Summary ---
Author Organization [facility] [place] [address] Care Team Providers Care Manager Automotive Name Role Phone Meghana Torers MD Primary Care Provider [phone] Encounter Details Date Type Department Care Team (Late st Contact Info) Description 04/18/2020 Telephone [place] [address] Cristian Jeffries MD [facility] [place] [address] Social History Tobacco Use Types Packs/Day Years [...] on filedocumented in this encounter Care Teams Manager Automotive Relationship Specialty Start Date End Date Meghana Torres MD [address] [place] [address] PCP - General Family Medicine 03/04/20 documented as of this encounter
--- OUTSIDE RECORDS SUMMARY | 2024-06-07 11:11 | XMS_ITS | Encounter Summary ---
[place] [address] Care Team Providers Care Risk Compliance Manager Name Role Phone Meghana Torres MD Primary Care Provider [phone] Encounter Details Date Type Department Care Team (Late st Contact Info) Description 06/10/2020 Notes Only Infect[place] [id number] Jarvis Tolentino, RN Social History Tobacco Use Types Packs/Day [...] as of this encounter Progress Notes * Jarvis Tolentino, RN - 06/10/2020 9:04 AM EST Donald Dean ( ) ??is currently scheduled for a CT CHEST WO CONTRAST ??on 06/11/2020 at 09:00 AM at [facility]. We have received notification from their insurance that our authorization request has been denied. Per [facility] (through [facility]) criteria not met. And the Ct is not Authorized. If the provider would like to do a P2P please call [phone]. Telephone number called, message left, currently on hold to speak with public health representative from department. This is follow-up of surgery and infection-This is absolutely necessary per Infectious Disease provider Dr. David Kong. Associated diagnosis and/or clinical indications for CT Chest wo Contrast (Generic): Dx: Lung nodule, multiple [R91.8 (ICD-10-CM)] Lung nodule, < 6mm, low cancer risk, follow up exam Surgical history: Left VATs (video-assisted thoracoscopic) wedge resection for necrotizing granuloma on 04/16/20. FAX# [phone]; Attn appeals team (marked urgent) * Jarvis Tolentino RN - 06/10/2020 9:04 AM EST Outgoing telephone call to [facility]: Provider curtesy review (PCR): okay to immediately start a new case if this is not done (as there is no written denial) Or, can start a new case (Ammy the public health representative from [facility] states, both other CT requests wherecanceled?) for more immediate turn around time. New case started. Date of Service scheduled for: 06/11/2020 9:00 AM [facility] CT [facility] Rad Cat Scan Arrive at: [facility] Next steps: [phone] (peer to peer review), RN can call due to an open case. Peer to peer called: [facility] doctor will be reviewing case, URGENT review requested. Community Liaison Officer reports will get a fax notification. Can also [phone] to check in on status. Case # (is the patient's own insurance number). * Jarvis Tolentino RN - 06/10/2020 9:04 AM EST Prior Authorization approval for CT scan Approval number # [id number] (valid 06/10/2020-12/16/2020) documented in this encounter Plan of Treatment Not on file documented as of this encounter Visit Diagnoses Not on filedocumented in this encounter Additional Health Concerns Infection Onset Date Last Indicated Resolved Time Tuberculosis Comment:Per ID Fellow Dr. Connolly, the patient does not have TB. 04/16/2020 04/16/2020 06/12/2020 7:5 7 AM EST documented as of this encounter Care Teams Risk Compliance Manager Relationship Specialty Start Date End Date Meghana Torres MD [address] [place] [address] PCP - General Family Medicine 03/04/20 documented as of this encounter
--- OUTSIDE RECORDS SUMMARY | 2024-06-07 11:11 | XMS_ITS | Encounter Summary ---
[place] [address] Care Team Providers Care Solar Hot Water Installer Name Role Phone Meghana Torres MD Primary Care Provider [phone] Encounter Details Date Type Department Care Team (Late st Contact Info) Description 04/18/2020 Telephone [place] [id number] Марина Rodney, RN Social History Tobacco Use [...] Telephone Encounter - Марина Rodney RN - 04/18/2020 10:52 AM ESTSummary: Hospital F/U Call Thoracic Surgery Nursing Post-operative Follow up: Hx: s/p bronchoscopy, bilateral BAL, EBUS and biopsy, and L VATS wedge resection x2 POD#: 2 General statement: A little sore, stiff but ok Patient is most concerned about cultures and samples done by ID. He was under the assumption that he was supposed to go on an oral ABX, but was not sent home with one. Spoke to discharging help desk internship andhe will call the patient directly to discuss. Pain: OTCs only Extra strength tylenol 1000 mg alternate with ibuprofen 200 mg (2-3 tabs) every 3 hours : ex. Schedule - Extra strength Tylenol 1000 mg at 8am, ibuprofen 200 mg (2-3 tabs) at 11 am, then Extra strength tylenol 1000 mg at 2 pm, then ibuprofen 200 mg (2-3 tabs) at 5 pm. Do not exceed more than 4000 mg of Extra strength tylenol in 24 hour period. GI: appetite: good Diet: regular Hydration: good Voiding: without any difficulty BM: small amount today, taking Dulcolax and Miralax - What is the Bowel regimen: taking Respiratory: using IS as directed up to 1250 SOB: denies Difficulty breathing: denies Coughing with or without sputum: denies Activity: up and about without any difficulty Integumentary: Incisions without any redness, swelling, drainage, fevers, chills, sweats, site hot to touch, bruising and bleeding Chest tube site: dressing off tomorrow and he has appropriate instruction Plan: RTC on 05/02 3PM at 3K CXR 2:15PM at 3L Dr. Suarez 05/07 Infectious Disease 8:45AM at 5C [facility] is aware of appointments and know to call with any questions or concerns. documented in this encounter Plan of Treatment Not on file documented as of this encounter Visit Diagnoses Not on filedocumented in this encounter Care Teams Solar Hot Water Installer Relationship Specialty Start Date End Date Meghana Torres MD [address] [place] [address] PCP - General Family Medicine 03/04/20 documented as of this encounter
--- OUTSIDE RECORDS SUMMARY | 2024-06-07 11:11 | XMS_ITS | Encounter Summary ---
[place] [address] Care Team Providers Care Wet Process Operator Name Role Phone Meghana Torres MD Primary Care Provider [phone] Encounter Details Date Type Department Care Team (Late st Contact Info) Description 06/20/2020 Orders [place] [address] Laura Connolly, DO Histoplasmosis Social History Tobacco [...] manifestation documented in this encounter Care Teams Wet Process Operator Relationship Specialty Start Date End Date Meghana Torres MD [address] [place] [address] PCP - General Family Medicine 03/04/20 documented as of this encounter
--- OUTSIDE RECORDS SUMMARY | 2024-06-07 11:11 | XMS_ITS | Encounter Summary ---
[place] [address] Care Team Providers Care Periodicals Clerk Name Role Phone Meghana Torres MD Primary Care Provider [phone] Encounter Details Date Type Department Care Team (Late st Contact Info) Description 07/03/2020 Notes [place] [id number] Jarvis Tolentino, RN Social History Tobacco Use [...] Progress Notes * Jarvis Tolentino, RN - 07/03/2020 10:54 AM EST Prior Authorization Donald S 1975 [employer] Prior Authorization needed for: Itraconazole 100 mg capsules. 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 Transferred (# [phone]) to PA department of [facility], Itraconazole 100 mg capsules. Take 2 capsules by mouth every 8 hours for 3 days, then 2 capsules twice daily, take with food. Approval # [id number], start date 06/03/2020-07/03/2021, notification will be sent to patient and office,test claim displays paid claim. RN called patient's pharmacy: [id number] [place], [place] - [address] [place] [address] AT [facility] [phone] (Phone) Per pharmacist $146 (#70 capusules) but going towards deductible. Of note he did upper marker liquid form on 06/16/2020. He has been off medication for x1 week now. Confirmed with Dr. Connolly, yes start with loading dose with capsule form as prescribed, and then after one week due for an Itraconazole level (active order in [facility]). Next ID FUV 08/06/2020. documented in this encounter Plan of Treatment Not on file documented as of this encounter Visit Diagnoses Not on filedocumented in this encounter Care Teams Periodicals Clerk Relationship Specialty Start Date End Date Meghana Torres MD [address] [place] [address] PCP - General Family Medicine 03/04/20 documented as of this encounter
--- OUTSIDE RECORDS SUMMARY | 2024-06-07 11:12 | XMS_ITS | Encounter Summary ---
Author Organization [facility] Address [facility] [place] [address] Care Team Providers Care Air And Water Filler Name Role Phone Meghana Torres MD Primary Care Provider Reason for Visit * Auth/Cert Specialty Diagnoses / Procedures Referred By Stuart watkins Referred To Contact Diagnoses Multiple lung nodules Procedures PRO THORACOSCOPY WITH THERAPEUTIC WEDGE RESECTION INITIAL UNILAT PRO THORACOSCOPY WITH THERAPEUTIC WEDGE RESECTION ADDL RESECTION PRO [facility] EBUS GUIDED SAMPL 3/> NODE STATION/STRUX [...] Expiration Date Visits Re quested Visits Authorized [id number] 1 1 Encounter Details Date Type Department Care Team (Late st Contact Info) Description 04/16/2020 3:22 PM EST Anesthesia [place] [phone] Fernandez Herndon MD [facility] [place] [address] Madina Abel CRNA [facility] [place] [address] Anesthesia Record Procedure Summary Procedure Name Responsible Anesthesiologist Anesthesia Start Time Anesthesia Stop Time @THORACOSCOPY, SURG; W/THERAPEUTIC WEDGE RESECTION, INIT UNILATERAL (WRVU 14.5) (Left: Chest) Fernandez Herndon MD 04/16/20 1522 04/16/20 1940 Events Date Time Event Comment 04/16/2020 1445 1522 AN Verify 1522 Start 1525 An Start Data 1532 An Intubation 1535 An Induction Abx held PSR. 1535 Anesthesia Ready 1539 Procedure Start 1720 Extubation/LMA Out 1722 An Intubation 1729 An one lung vent 1752 Procedure Start VATS 1844 An Dual Lung Vent 191 Quick Note Straight cath p atient 192 Extubation/LMA Out 192 an stop data 194 Recovery or ICU Handoff Mady ent care was transferred to the destination unit staff after review of the patient's medical history, current anesthetic/surgical status and plan, according to the Provider Handoff Checklist. 1939 Stop Meds Name Total Midazolam 2 mg fentaNYL 200 mcg IV Lidocaine 100 mg Propofol 200 mg Propofol INF 2,375.27 mg Rocuronium 120 mg PHENYLephrine 80 mcg Ondansetron 4 mg Dexamethasone 4 mg Dexmedetomidine 28 mcg ceFAZolin (Ancef) 2 g in dextrose 5% 100 mL infusion 2 g Sugammadex 200 mg Lactated Ringers 800 mL Lactated Ringers 300 mL * Agents Name O2 Air N2O Sevoflurane (et) * Blood No blood administrations on file. Lines, Drains, and Airways Type Details Placement Removal Chest Tube 04/16/20; Left; late ral; 04/17/20; 0830 04/16/20 0000 by Rhina Beverly RN 04/17/20 0830 by Janice Patel, JESSICA (RETIRED) Peripheral IV Line - Single Lumen 04/16/20; 1430; metacarpal vein (top of hand), right; eyvc-rhx-bdqtty catheter system; 20 gauge, 1 in length; Nishi Shepard RN; distraction, intradermal injection, tolerated well, appears comfortable, age-appropriate response; removed per patient, removed inadvertently, catheter/device intact; 04/16/20; 199904/16/20 1430 by Nishi Shepard RN 04/16/201999 by Rhina Beverly RN ETT Mask Ventilation: Ea sy (1); ETT Type: Cuffed; ETT Size: 9 mm; Mac Blade: 3; Attempts: 1; Laryngoscopy Grade: 1; ETT Placement Verified By: Auscultation, Capnometry, Visual; Secured at Teeth: 22 cm; Inserted by: kobe vora ; Removal Date: 04/16/20; Removal Time: 172204/16/20 153 by Madina Abel 04/16/201722 by Kobe Vora CRNA ETT ETT Type: Cuffed; Do uble Lumen: 39 Fr; Notes: Asleep, Pre-O2, Stylette; Attempts: 1; Laryngoscopy Grade: 1; ETT Placement Verified By: Visual, Capnometry, Auscultation; Removal Date: 04/16/20; Removal Time: 192804/16/201721 by Kobe Vora CRNA 04/16/201928 by Fernandez Hernández CRNA (RETIRED) Peripheral IV Line - Single Lumen 04/16/20; 1724; basilic vein (medial side of arm), left; fkka-nva-qxrkvx catheter system; 18 gauge; 04/17/20; 1735 04/16/20 1724 by Kobe Vora CRNA 04/17/20 1735 by Tata Batista RN Incision 04/16/20; 1828; ruby felix; laparoscopic puncture; 01/25/22 (LDA cleanup utility RA#[id number]); 1715 (LDA cleanup utility RA#[id number]) 04/16/20 1828 by Natacha Love RN 01/25/22 171 by Curry Peraza documented in this encounter Social History Tobacco Use Types Packs/Day Years [...] on file documented as of this encounter OR Notes * Anesthesia Postprocedure Evaluation - Fernandez Herndon MD - 04/16/2020 9:00 PM EST Department of Anesthesiology Post-procedure Note Patient: Donald Dean Procedure Summary Date: 04/16/20 Room / Location: [facility] OR [address] [place] [address] MAIN OR Anesthesia Start: 1521 Anesthesia Stop: 1939 Procedures: @THORACOSCOPY, SURG; W/THERAPEUTIC WEDGE RESECTION, INIT UNILATERAL (WRVU 14.5) (Left Chest) @THORACOSCOPY, SURG; W/THERAPEUTIC WEDGE RESC, EA ADD RESC, IPSILATERAL (WRVU 3) (Left Chest) BRONCH, W ENDOBRONCHIAL ULTRASOUND (EBUS) GUIDED SAMPLING, 3+ NODES (WRVU 5.21) (N/A Chest) @LYMPHADENECTOMY,THORACIC ,REGIONAL,INCL. MEDIASTINAL,PERITRACHEAL NODES (WRVU 4.12) (Left Chest) NERVE BLOCK, INTERCOSTAL NERVE, MULTIPLE (WRVU 1.68) (Left Chest) BRONCHOSCOPY, RIGID OR FLEXIBLE, WITH BRONCHIAL ALVEOLAR LAVAGE (WRVU 2.88) (N/A Bronchus) Diagnosis: Pulmonary nodules (Multiple lung nodules) Surgeon: Jim Suarez MD Responsible Provider: Fernandez Herndon MD Anesthesia Type: general ASA Status: 2 All Anesthesia Providers: Anesthesiologist: Morenita Matthew MD; Fernandez Herndon MD FAMILY PRESERVATION WORKER: Fernandez Hernández CRNA; Kobe Vora CRNA Student Nurse Marketing Communications Leader: Madina Muse Vitals Value Taken Time BP 146/81 04/16/202044 Temp 36.3 ??C (97.3 ??F) 04/16/202029 Pulse 79 04/16/202057 Resp 13 04/16/202057 SpO2 95 % 04/16/202058 Pain Level 8 04/16/202048 Vitals shown include unvalidated device data. Patient Location: PACU/[facility] Level of Consciousness: Awake and Alert Pain Management: Satisfactory Analgesia PONV: None Cardiovascular Status: At Baseline and Hemodynamically Stable Respiratory Status: At Baseline and Room Air Postoperative Fluid Status: Intravascular EUvolemia Possible Anesthetic Complications: NONE apparent at time of evaluation Final Primary Anesthesia Type: General (The anesthetic type performed was the same as planned.) Comments: FERNANDEZ HERNDON MD * Anesthesia Preprocedure Evaluation - Geovanny Morley MD - 04/16/2020 2:39 PM EST Pre-Anesthesia Evaluation for: Donald Dean a 44 y.o. male. Procedure(s): @THORACOSCOPY, SURG; W/THERAPEUTIC WEDGE RESECTION, INIT UNILATERAL (WRVU 14.5) @THORACOSCOPY, SURG; W/THERAPEUTIC WEDGE RESC, EA ADD RESC, IPSILATERAL (WRVU 3) BRONCH, W ENDOBRONCHIAL ULTRASOUND (EBUS) GUIDED SAMPLING, 3+ NODES (WRVU 5.21) @LYMPHADENECTOMY,THORACIC ,REGIONAL,INCL. MEDIASTINAL,PERITRACHEAL NODES (WRVU 4.12) Patient Active Problem List Diagnosis ??? Pulmonary nodules ??? Nephrolithiasis ??? Testicular mass Worked up by [facility], s/p biopsy per patient, benign process per patient ??? Colon polyp ??? Allergy to food Past Medical History: Diagnosis Date ??? Motion sickness History reviewed. No pertinent surgical history. Social History Tobacco Use ??? Smoking status: Never Smoker ??? Smokeless tobacco: Never Used Substance Use Topics ??? Alcohol use: Not Currently Comment: quit drinking 7 years ago Social History Substance and Sexual Activity Drug Use Not Currently ??? Types: Marijuana Allergies Allergen Reactions ??? Dilaudid [Hydromorphone] It stopped my heart at [facility] ??? Vegetable Derived Carrots, apples, chick peas, tree nuts Medications: MAR and/or home medications have been reviewed. Physical Exam: Patient Vitals for the past 24 hrs: Temp Pulse Resp BP SpO2 O2 Device 04/16/20 1413 37.8 ??C (100 ??F) 70 16 137/81 99 % RA Body mass index is 28.15 kg/m??. Height: 168.9 cm (5' 6.5) Weight: 80.3 kg (177 lb 0.5 oz) Airway Assessment: Mallampati: II TM distance: >3 FB Neck ROM: full Cardiovascular Assessment: Rhythm: regular Rate: normal Pulmonary Assessment: unlabored breathing Dental Assessment: - normal exam Misc Assessment: Anesthesia Plan: ASA 2 general, with a(n) intravenous induction 44 yo nonsmoker presents with incidental finding multiple lung nodules and hilar lymphadenopathy for diagnostic bronch/EBUS/possible VATS. Notes that he was told his heart stopped after receiving dilaudid at an OSH during care for nephrolithiasis; details unclear. Discussed risks/benefits GAETT. Informed Consent: Anesthetic plan and risks discussed with patient. Use of blood products discussed with patient who. Plan discussed with FAMILY PRESERVATION WORKER. PAT Clinic Note documented in this encounter Plan of Treatment Not on file documented as of this encounter Visit Diagnoses Not on filedocumented in this encounter Administered Medications Inactive Administered Medications - up to 3 most recent administrations Medication Order MAR Action Action Date Dose Rate Site ceFAZolin (Ancef) 2 g in dextrose 5% 100 mL infusion 2 g, Intravenous, ONCE, 1 dose, On Tue04/16/20 at 1500, Administer over 30 Minutes, Indication for (Active or Suspected): Skin/Skin Structure Given 04/16/2020 5:41 PM EST 2 g dexamethasone (Decadron) injection PRN, Starting on Tue04/16/20 at 1540, Until Tue04/16/20 at 1940, Anesthesia Intra-op, Routine Given 04/16/2020 3:40 PM EST 4 mg dexmedetomidine (PRECEDEX) injection PRN, Starting on Tue04/16/20 at 1540, Until Tue04/16/20 at 1940, Anesthesia Intra-op, Routine Given 04/16/2020 4:14 PM EST 8 mcg Given 04/16/2020 3:45 PM EST 4 mcg Given 04/16/2020 3:42 PM EST 8 mcg fentaNYL 50 mcg/mL multi-dose injection PRN, Starting on Tue04/16/20 at 1535, Until Tue04/16/20 at 1940, Anesthesia Intra-op, Routine Given 04/16/2020 6:56 PM EST 50 mcg Given 04/16/2020 6:19 PM EST 50 mcg Given 04/16/2020 3:39 PM EST 50 mcg lactated ringers infusion CONTINUOUS PRN, Starting on Tue04/16/20 at 1524, Until Tue04/16/20 at 1940, Anesthesia Intra-op New Bag 04/16/2020 3:24 PM EST lactated ringers infusion CONTINUOUS PRN, Starting on Tue04/16/20 at 1725, Until Tue04/16/20 at 1940, Anesthesia Intra-op New Bag 04/16/2020 5:25 PM EST lidocaine (PF) (XYLOCAINE) 100 mg/5 mL (2 %) injection PRN, Starting on Tue04/16/20 at 1530, Until Tue04/16/20 at 1940, Anesthesia Intra-op, Routine Given 04/16/2020 3:30 PM EST 100 mg midazolam (PF) (VERSED) multi-dose injection PRN, Starting on Tue04/16/20 at 1524, Until Tue04/16/20 at 1940, Anesthesia Intra-op, Routine Given 04/16/2020 3:22 PM EST 2 mg ondansetron (ZOFRAN) injection PRN, Starting on Tue04/16/20 at 1844, Until Tue04/16/20 at 1940, Anesthesia Intra-op, Routine Given 04/16/2020 6:44 PM EST 4 mg PHENYLephrine in NS (PF) (LIANNE-SYNEPHRINE) 0.8 mg/10 mL (80 mcg/mL) multi-dose injection Syrg PRN, Starting on Tue04/16/20 at 1819, Until Tue04/16/20 at 1940, Anesthesia Intra-op, Routine Given 04/16/2020 6:19 PM EST 80 mcg propofoL (Diprivan) 10 mg/mL bolus injection (Anesthesia) PRN, Starting on Tue04/16/20 at 1530, Until Tue04/16/20 at 1940, Anesthesia Intra-op Given 04/16/2020 3:30 PM EST 200 mg propofoL (Diprivan) infusion CONTINUOUS PRN, Starting on Tue04/16/20 at 1533, Until Tue04/16/20 at 1940, Anesthesia Intra-op, Routine Rate/Dose Change 04/16/2020 6:16 PM EST 50 mcg/kg/min 24.1 mL/hr Rate/Dose Change 04/16/2020 5:35 PM EST 30 mcg/kg/min 14.5 mL/hr Rate/Dose Change 04/16/2020 4:29 PM EST 200 mcg/kg/min 96. 4 mL/hr rocuronium (ZEMURON) multi-dose injection PRN, Starting on Tue04/16/20 at 1530, Until Tue04/16/20 at 1940, Anesthesia Intra-op, Routine Given 04/16/2020 5:49 PM EST 20 mg Given 04/16/2020 4:43 PM EST 30 mg Given 04/16/2020 3:30 PM EST 70 mg sugammadex (BRIDION) 100 mg/mL injection PRN, Starting on Tue04/16/20 at 1911, Until Tue04/16/20 at 1940, Anesthesia Intra-op, Routine Given 04/16/2020 7:11 PM EST 200 mg documented in this encounter Care Teams Air And Water Filler Relationship Specialty Start Date End Date Meghana Torres MD [address] [place] [id number] PCP - General Family Medicine 03/04/20 documented as of this encounter
--- OUTSIDE RECORDS SUMMARY | 2024-06-07 11:12 | XMS_ITS | Clinical Summary ---
Author Organization [facility] Address [address] [place] [address] Care Team Providers Care Trial Lawyer Name Role Phone Unknown, Provider Primary Care Provider Unava ilable Social History Tobacco Use Types Packs/Day Years Used Date Smoking Tobacco: Never Assessed Sex and Gender Information Value Date Recorded Sex Assigned at Not on file Legal Sex Male 18:07 EST Gender Identity Not on file Sexual Orientation Not on file Plan of Treatment Health Maintenance Due Date Last Done Comments Hepatitis C Screen 1975 Hepatitis B Vaccine (1 of 3 - 19+ 3-dose series) 12/28 COVID-19 Vaccine (2023- season) 2024 Care Teams Trial Lawyer Relationship Specialty Start Date End Date Unknown, Provider, PCP - General 10/28/14
--- OUTSIDE RECORDS SUMMARY | 2024-06-07 11:12 | XMS_ITS | Encounter Summary ---
Author Organization [facility] Address [facility] [place] [address] Care Team Providers Care Scale Assembly Set Up Worker Name Role Phone Meghana Torres MD Primary Care Provider [phone] Reason for Visit * Reason Comments Referral Nodule * Consultation (JULY) - Closed Specialty Diagnoses / Procedures Referred By Contac t Referred To Contact Pulmonology Diagnoses Solitary pulmonary nodule Meghana Torres MD [address] [place] [address] [facility] Pulmonology [address] [place] [phone] Referral ID Status Reason Start Date Expiration Date V isits Requested Visits Authorized [id number] Closed Consult, Test & Treat Connection Center PCP Updated and/or Approved 03/04/2020 03/04/2021 12 12 Encounter Details Date Type Department Care Team (Late st Contact Info) Description 03/19/2020 4:00 PM EDT Office [place] [address] García Zamora MD [facility] [address] Pulmonary nodules; Flu vaccine need; Testicular mass Social History Tobacco Use Types Packs/Day Years Used Date Smoking Tobacco: Never Smokeless Tobacco: Never Sex and Gender Information Value Date Recorded Sex Assigned at Not on file Gender Identity Not on file Sexual Orientation Not on file documented as of this encounter Last Filed Vital Signs Vital Sign Reading Time Taken Comments Blood Pressure 115/70 03/19/2020 3:38 PM EDT Pulse 80 03/19/2020 3:38 PM EDT Temperature 36.8 ??C (98.3 ??F) 03/19/2020 3:38 PM ED T Respiratory Rate 16 03/19/2020 3:38 PM EDT Oxygen Saturation 100% 03/19/2020 3:38 PM EDT Inhaled Oxygen Concentration - - Weight 84.2 kg (185 lb 10 oz) 03/19/2020 3:38 PM EDT Height 169 cm (5' 6.54) 03/19/2020 3:38 PM EDT Body Mass Index 29.48 03/19/2020 3:38 PM EDT documented in this encounter Progress Notes * García Zamora MD - 03/19/2020 4:00 PM EDT Images from the original note were not included. INTERVENTIONAL PULMONOLOGY OUTPATIENT CONSULT NOTE SECTION OF PULMONARY & CRITICAL CARE MEDICINE PATIENT NAME: Donald Dean : 1975 MEDICAL RECORD: [id number] DATE OF SERVICE: 03/19/2020 REFERRING PHYSICIAN: Meghana Torres MD PRIMARY CARE PHYSICIAN: Meghana Torres MD Reason for Consultation: pulmonary nodule, right lower lobe Chief Complaint: I know I have some nodules in my lung History of Present Illness: Mr. Donald Dean is a 44 y.o. never-smoker who is referred to Interventional Pulmonology for initial evaluation of a solitary pulmonary nodule This patient underwent a CT abdomen/pelvis at [facility] on 02/24/20 for left flank pain and hematuria. This demonstrated a 7.4 mm RLL nodule as well as a left ureteral calculus with stranding and question of rupture fornix. He then undergoes a formal CT chest on 03/04/20 (ordered w/ contrast) which was compared to the recent abdominal imaging as well as a prior CT chest from 08/03/17 (this CT was obtaineddue to a respirator illness in 2018; neither the report or imaging was sent from 2018 for my review). The previously identified RLL nodule (now measured as 8 mm) is again noted, as well as new, bilateral pulmonary nodules not seen back in 2018. The most dominant lesion is a 12 mm nodule in the LB2 s egment (luis-fissural) with small adjacent, luis-fissural satellite nodules and a sub-pleural nodule in the same lobe. No adenopathy identified. No pleural disease seen. He then had a PET/CT today which shows mild avidity of the JAIRON nodule(s), an avid/non-enlarged 10R and avid AP window node. No findings below the diaphragm. No new skin lesions that he reports. He had a left testicular nodule worked-up a few years ago for which he saw a Urologist at [facility]. It was thought at the time this may have been related to his vasectomy. It was thought to represent a benign process. He thinks it has stayed the same size in the last 3 years but his girlfriend tells me it has gotten bigger. He tells me he's had serial imagin g over the years including what he thinks was a FNA biopsy and was told it was a benign process. His last US was in 2017 at [facility]. He had a fatty tissue or polyp removed from his colon and bladder about 5-7 years ago at [facility]. He was told these were benign lesions and not pre-cancerous. He wasnot scheduled for any f/u CLN. Other medical history includes recurrent nephrolithiasis. His motherhad lung cancer and social/exposure history is noted below. He tells me he does have mild dyspnea when walking up a flight of stairs which he thinks is new forhim in the last year but he attributes this to 20 lbs weight gain and being out of shape.. No cough. Rare sputum production. No fevers or night sweats. He does have some blurry vision at night but no visual changes noted during the day. No rash or pain of LE. No neuropathy like symptoms. No headaches. Review of Systems: A 12 point ROS was negative aside from as listed in the HPI. Past Medical/Surgical History: Patient Active Problem List Diagnosis Code ??? Allergy to food Z91.018 ??? Pulmonary nodules R91.8 ??? Nephrolithiasis N20.0 ??? Testicular mass N50.89 ??? Colon polyp K63.5 Medications: Prior to Admission medications Medication Sig Start Date End Date Taking? Authorizing Provider diphenhydrAMINE (BENADRYL) 25 mg Capsule Take 2 capsules by mouth as needed for Itching. 04/22/15 Michelle Haro MD EPINEPHrine (EPIPEN) 0.3 mg/0.3 mL (1:1,000) Auto-Injector Inject 0.3 mg into the muscle once. PROVIDER, HISTORICAL Allergies: Allergies Allergen Reactions ??? Dilaudid [Hydromorphone] It stopped my heart at [facility] ??? 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 Objective: Patient Vitals for the past 24 hrs: Temp Pulse Resp BP SpO2 03/19/20 1538 36.8 ??C (98.3 ??F) 80 16 115/70 100 % General: This is a 44 y.o. male, NAD, appears anxious HEENT: Moist mucous membranes, sclera are white Neck: Supple, trachea midline Lymphatics: No obvious cervical or inguinal lymphadenopathy. Cardiovascular: Nl s1/s2, rrr, no murmurs, no gallops Respiratory: Clear to auscultation bilaterally, no adventitious LS GI: soft, nt, nd, +bs : non-tender fullness of left testicle without inguinal adenopathy Musculoskeletal: Normal bulk and tone Extremities: no LE edema noted, no cyanosis, no clubbing Integument: No rash, exposed skin appears grossly normal. Neurologic: Alert and oriented, moves all extremities appropriately, no obvious focal deficits Psychologic: Normal mood and affect. Labs: None recent to review PFTS: None on file Imaging: (Images personally reviewed) 03/04/20 CT Chest: Bilateral pulmonary nodules with dominant 12 mm posterior JAIRON nodule RLL nodule seen 03/19/20 PET/CT: Multiple pulmonary nodules are present, several of which are mildly hypermetabolic. There is also increased activity in lymph nodes in the mediastinum and allen. Although metastatic disease is possible, an inflammatory process such as granulomatous disease should also be considered. Assessment: Donald Dean is a 44 y.o. gentleman (never-smoker with possible remote asbestos exposure) who isreferred to me for evaluation of incidentally discovered bilateral pulmonary nodules; the most dominant lesion is a 12 mm round nodule in the posterior JAIRON which is luis-fissural with some smaller sat ellite nodules. Many of the other nodules are sub-pleural or luis-fissural as well. There is no mediastinal or hilar lymphadenopathy. The PET/CT shows mild avidity of the JAIRON nodule(s) and an avid station 10R and AP window node. No abnormal PET findings outside of the chest. He is generally asymptomatic. Malignant risk factors include primary family member with lung CA. He does have a known testicular nodule/mass which is apparently benign (2017 work-up at [facility]) but his girlfriend questions if it's enlarging in the last year, as well as a history of colon and bladder lesions which were removed 5-7 years ago and apparently were benign. He denies new/known skin lesions of concern. No personal history of cancer otherwise. We reviewed his imaging together in detail and discussed thedifferential diagnosis. He understands a non-malignant process such as Sarcoidosis is certainly possible (and I favor at this time until proven otherwise), however an underlying malignant process is not excluded. His risk of malignancy using the Junior prediction model is around 5% (10% when using the [facility] prediction model which includes his PET/CT findings of faint uptake). We discussed bronchoscopy with EBUS of 10R which was non-enlarged but FDG avid, but that it's unclear how likely weare to get a definitive answer from this node alone. I explained that this was the most least invasive first step but could mean he needs a subsequent procedure if sampling is non-diagnostic. We alsodiscussed the role of VATS with simultaneous lymph node sampling of the AP window node, how this would be more definitve but a technically more invasive approach. I would not pursue a CT guided approach. He tells me he is anxious about getting a diagnosis as fast as possible and would be interestedin meeting with the surgeons if they felt that was the next best step. I reached out to my ThoracicSurgery colleagues who agree and would be happy to meet with Donald in consultation. Recommendations: ?? Thoracic surgery referral for wedge and +/- AP window sampling ?? If non-caseating granuloma foud, I'd be happy to see Donald back and come up with plan for serialimaging and possible steroids ?? Check CBC, BMP, AFP, B-HCG, and LDH today ?? Note to be sent to Meghana Torres MD ?? Follow-up with Thoracic Surgery; back to IP clinic PRN based on results Problems addressed: ?? Bilateral pulmonary nodules ?? FDG avidity of mediastinal and hilar lymph nodes ?? Testicular mass ?? Polyp of colon ?? Polyp of bladder García Zamora MD, 03/19/2020, 10:47 AM Interventional Pulmonology Section of Pulmonary & Critical Care Pager: [phone] documented in this encounter Plan of Treatment Not on file documented as of this encounter Procedures Procedure Name Priority Date/Time Associated Diagnosis Comments HEMOGRAM Routine 03/19/2020 5:25 PM EDT Pulmonary nodules DIFFERENTIAL, AUTOMATED Routine 03/19/2020 5:25 PM EDT Pulmonary nodules HC ALPHA FETOPROTEIN TUMOR MARKER Routine 03/19/2020 5:25 PM EDT Pulmonary nodules HC CBC,PLT & AUTO DIFF Routine 0 5:25 PM EDT Pulmonary nodules ANGIOTENSIN CONVERTING ENZYME Routine 03/19/2020 5:25 PM EDT HC VENIPUNCTURE Routine 03/19/2020 5:25 PM EDT Pulmonary nodules HC LACTIC DEHYDROGENASE Routine 03/19/2020 5:25 PM EDT Pulmonary nodules COMPREHENSIVE METABOLIC PANEL Routine 03/19/2020 5:25 PM EDT Pulmonary nodules documented in this encounter Results * Angiotensin Converting Enzyme (03/19/2020 5:25 PM EDT) Pathologist [facility] Iain (SEPTEMBER) 42 16 - 85 unit/L [facility] Comment: Test Performed by: [address] [address] Carriage Operator: Shekhar Beckham M.D. Ph.D.; CLIA# [id number] Blood specimen (specimen) Venous Draw / Unknown 03/19/2020 5:25 PM EDT 03/20/2020 10:26 AM EDT Narrative Resulting Agency Comment Spec In Lab García Zamora MD LAB SEND OUT ORDERAB LES [facility] [place] [address] * Differential, Automated (03/19/2020 5:25 PM EDT) [facility] Neutrophil % 60.6 % [facility] Neutrophil Absolute 3.14 1.70 - 6.10 x10(3)/[facility] LABORAT[facility] Lymph % 27.6 % [facility] Lymphocytes Abs 1.4 0.9 - 3.2 x10(3)/[facility] Monocyte % 9.8 % [facility] Monocyte Abs 0.5 0.3 - 0.9 x10(3)/[facility] Eos % 1.0 % [facility] Eosinophils Abs 0.0 0.0 - 0.4 x10(3)/[facility] Basophil % 0.8 % [facility] Baso Absolute 0.0 0.0 - 0.1 x10(3)/[facility] Immature Gran % 0.20 % [facility] Comment: Immature granulocytes(IG's)percentage and absolute count will include metamyelocytes, myelocytes, and promyelocytes. Blood smears from CBCs yielding IG's will be scanned manually for concordance. If this scan disagrees with the automated IG or if promyelocytes are noted, a manual differential will be performed. Immature Gran Absolute 0.01 0.00 - 0.04 x10(3)/[facility] Blood specimen (specimen) 03/19/2020 5:25 PM EDT 03/19/2020 5:43 PM EDT Narrative Resulting Agency Comment Spec In Lab García Zamora MD HEMATOLOGY ORDERABLE S [facility] [place] [address] * Hemogram (03/19/2020 5:25 PM EDT) White Blood Cell 5.2 4.0 - 9.5 x10(3)/[facility] Red Blood Cell 4.81 4.58 - 5.54 x10(6)/[facility] Hemoglobin 14.6 13.7 - 16.5 gm/dL [facility] Hematocrit 42.8 40.5 - 48.5 % [facility] Mean Cell Volume 89.0 82.9 - 93.1 [facility] Mean Cell Hemoglobin 30.4 27.5 - 32.1 pg [facility] Mean Cell Hemoglobin Concentration 34.1 32.0 - 35.7 gm/dL [facility] Platelet 274 145 - 357 x10(3)/[facility] RDW Standard Deviation 42.8 36.0 - 45.0 [facility] RDW coefficient of variation 13.1 11.4 - 13.8 % [facility] Mean Platelet Volume 10.1 7.6 - 12.9 [facility] NRBC% auto 0.0 % [facility] NRBC Absolute 0.000 0.000 - 0.000 x10(3)/[facility] Blood specimen (specimen) 03/19/2020 5:25 PM EDT 03/19/2020 5:43 PM EDT Narrative Resulting Agency Comment Spec In Lab García Zamora MD HEMATOLOGY ORDERABLE S [facility] [place] [address] * Beta HCG, quantitative (03/19/2020 5:25 PM EDT) Beta Human Chorionic Gonadotropin, Quantitative <1 0 - 2 mlU/ML [facility] Comment: REFERENCE RANGES NON- FEMALE: ??Less than 5 mIU/mL POSTMENOPAUSAL FEMALE: ??Less than 8 mIU/mL ? -- FEMALES -- Weeks of ? HCG range ??(mIU/mL) ? 3 weeks ? 5.8 - 71.2 ? 4 weeks ? 9.5 - 750 ? 5 weeks ? 217 - 7,138 ? 6 weeks ? 158 - 31,795 ? 7 weeks ? 3,697 - 163,563 ? 8 weeks ? 32,065 - 149,571 ? 9 weeks ? 63,803 - 151,410 ?10 weeks ? 46,509 - 186,977 ?12 weeks ? 27,832 - 210,612 ?14 weeks ? 13,950 - 62,530 ?15 weeks ? 12,039 - 70,971 ?16 weeks ? 9,040 - 56,451 ?17 weeks ? 8,175 - 55,868 ?18 weeks ? 8,099 - 58,176 Blood specimen (specimen) 03/19/2020 5:25 PM EDT 03/19/2020 5:43 PM EDT Narrative Resulting Agency Comment Spec In Lab García Zamora MD CHEMISTRY ORDERABLES [facility] [place] [address] * Lactate Dehydrogenase (03/19/2020 5:25 PM EDT) Lactate Dehydrogenase 173 110 - 220 unit/L [facility] Blood specimen (specimen) 03/19/2020 5:25 PM EDT 03/19/2020 5:43 PM EDT Narrative Resulting Agency Comment Spec In Lab García Zamora MD CHEMISTRY ORDERABLES [facility] [place] [address] * AFP tumor marker (03/19/2020 5:25 PM EDT) Pathologist [facility] Alpha Fetoprotein 1.9 <=8.3 ng/mL [facility] Blood specimen (specimen) 03/19/2020 5:25 PM EDT 03/19/2020 5:43 PM EDT Narrative Resulting Agency Comment Spec In Lab García Zamora MD CHEMISTRY ORDERABLES Performing Organization Address [facility] Co de Phone Number [facility] [place] [address] * Comprehensive metabolic panel (non-fasting) (03/19/2020 5:25 PM EDT) Pathologist [facility] Glucose 96 65 - 199 mg/dL [facility] Comment:Diabetes: >=200 mg/d L plus symptoms Blood Urea Nitrogen 17 10 - 20 mg/dL [facility] Creatinine 1.04 0.80 - 1.50 mg/dL [facility] Sodium 142 135 - 145 mmol/L [facility] Potassium 4.6 3.5 - 5.0 mmol/L [facility] Comment: Please note: ??Patients with WBC >100,000 may have falsely elevated Potassium levels. ??For accurate Potassium quantification in these patients send serum separator tube (gold top) for subsequent determinations. ??Contact the Clinical Chemistry Laboratory if there are any questions. Chloride 105 98 - 107 mmol/L [facility] Carbon Dioxide 26 22 - 31 mmol/L [facility] Anion Gap 11 5 - 15 mmol/L [facility] Calcium 9.8 8.5 - 10.5 mg/dL [facility] Protein, Total 7.0 6.1 - 8.0 gm/dL [facility] Albumin 4.7 3.2 - 5.2 gm/dL [facility] Aspartate Aminotransferase 21 0 - 39 unit/L [facility] Alanine Aminotransferase 29 0 - 55 unit/L [facility] Alkaline Phosphatase 91 40 - 130 unit/L [facility] Bilirubin, Total 0.2 0.2 - 1.3 mg/dL [facility] Est Glomerular Filtration Rate 86 >=60 mL/min/1. 73 m?? [facility] Comment: The eGFR was calculated using the CKD-EPI equation. As with all creatinine based estimates of kidney function, eGFR values calculated with the CKD-EPI equation are not accurate in patients with acute kidney failure, extremes of body mass or the acutely ill. [email or web address] eGFR 100 >=60 mL/min/1. 73 m?? [facility] Comment: The eGFR was calculated using the CKD-EPI equation. As with all creatinine based estimates of kidney function, eGFR values calculated with the CKD-EPI equation are not accurate in patients with acute kidney failure, extremes of body mass or the acutely ill. [email or web address] Blood specimen (specimen) 03/19/2020 5:25 PM EDT 03/19/2020 5:43 PM EDT Narrative Resulting Agency Comment Spec In Lab García Zamora MD CHEMISTRY ORDERABLES [facility] [place] [address] documented in this encounter Visit Diagnoses Diagnosis Pulmonary nodules Other nonspecific abnormal finding of lung field Flu vaccine need Need for prophylactic vaccination and inoculation against influenza Testicular mass Other specified disorder of male genital organs documented in this encounter Care Teams Scale Assembly Set Up Worker Relationship Specialty Start Date End Date Meghana Torres MD [address] [place] [address] PCP - General Family Medicine 03/04/20 documented as of this encounter
--- OUTSIDE RECORDS SUMMARY | 2024-06-07 11:12 | XMS_ITS | Encounter Summary ---
[place] [address] Care Team Providers Care Residential Youth Counselor Name Role Phone Meghana Torres MD Primary Care Provider [phone] Encounter Details Date Type Department Care Team (Late st Contact Info) Description 04/06/2020 Orders [place] [address] Jim Suarez MD [address] [place] [id number] Pulmonary nodules Social History Tobacco Use Types [...] field documented in this encounter Care Teams Residential Youth Counselor Relationship Specialty Start Date End Date Meghana Torres MD [address] [place] [address] PCP - General Family Medicine 03/04/20 documented as of this encounter
--- OUTSIDE RECORDS SUMMARY | 2024-06-07 11:12 | XMS_ITS | Referral Summary ---
Author Organization [facility] Address [address] [place] [address] Care Team Providers Care Manager Pet Name Role Phone Unknown, Provider Primary Care Provider Unava ilable Social History Tobacco Use Types Packs/Day Years Used Date Smoking Tobacco: Never Assessed Sex and Gender Information Value Date Recorded Sex Assigned at Not on file Legal Sex Male 18:07 EST Gender Identity Not on file Sexual Orientation Not on file Plan of Treatment Not on file Care Teams Manager Pet Relationship Specialty Start Date End Date Unknown, Provider, PCP - General 10/28/14
--- OUTSIDE RECORDS SUMMARY | 2024-06-07 11:12 | XMS_ITS | Encounter Summary ---
Author Organization [facility] [place] [address] Care Team Providers Care Glass Bulb Machine Adjuster Name Role Phone Meghana Torres MD Primary Care Provider [phone] Reason for Visit * Diagnostic Test (Routine) - Closed Specialty Diagnoses / Procedures Referred By Stuart watkins Referred To Contact Radiology Diagnoses Pulmonary nodules Procedures NM PET CT Skull Base to Mid-thigh García aZmora MD [facility] [place] [address] [place] [address] Referral ID Status Reason Start Date Expiration Date V isits Requested Visits Authorized [id number] Closed Specialty Service Requested 03/06/2020 09/01/2020 1 1 Encounter Details Date Type Department Care Team (Latest Contact Info) Description 03/19/2020 11:18 AM EDT - 03/19/2020 1:58 PM EDT Hospital Encounter [place] [address] García Zamora MD [facility] [place] [address] Discharge Disposition: Home Social History Tobacco Use [...] Procedure Name Priority Date/Time Associated Diagnosis Comments NM PET CT SKULL BASE TO MID-THIGH ([facility]) Routine 03/19/2020 1:01 PM EDT Pulmonary nodules POCT GLUCOSE Routine 03/19/2020 11:37 AM EDT documented in this encounter Results * POCT Glucose (03/19/2020 11:37 AM EDT) Glucose, POC 100 65 - 199 mg/dL [facility] Comment: Supplemental ranges: <140 mg/dL before meals <180 mg/dL all other times of the day Blood specimen (specimen) 03/19/2020 11:37 AM EDT 03/19/2020 11:37 AM EDT García Zamora MD POINT OF CARE TEST O RDERABLES [facility] [place] [address] documented in this encounter Visit Diagnoses Not on filedocumented in this encounter Care Teams Glass Bulb Machine Adjuster Relationship Specialty Start Date End Date Meghana Torres MD [address] [place] [address] PCP - General Family Medicine 03/04/20 documented as of this encounter
--- OUTSIDE RECORDS SUMMARY | 2024-06-07 11:12 | XMS_ITS | Encounter Summary ---
Author Organization [facility] Address [facility] [place] [address] Care Team Providers Care Button Sewing Machine Operator Name Role Phone Mellissa Christine MD Primary Care Provider [phone] Encounter Details Date Type Department Care Team (Late st Contact Info) Description 04/30/2014 Interpretation Only Radiology [address] [place] [address] [place] [address] Unknown None Social History Tobacco Use Types Packs/Day Years Used Date Smoking Tobacco: Never Assessed Sex and Gender Information Value Date Recorded Sex Assigned at Not on file Gender Identity Not on file Sexual Orientation Not on file documented as of this encounter Plan of Treatment Not on file documented as of this encounter Procedures Procedure Name Priority Date/Time Associated Diagnosis Comments XR CERVICAL SPINE 2 OR 3 VIEWS Routine 04/30/2014 10:55 AM EST documented in this encounter Results * XR Cervical Spine 2 Or 3 Views (04/30/2014 10:55 AM EST) Anatomical Region Laterality Modality C-spine N/A Radiographic Ede ging 04/30/2014 10:5 5 AM EST Narrative 04/30/2014 10:55 AM EST APD Historical Result Principal Cash Teller: ??HOLLY ??SHIPMAN CERVICAL SPINE - THREE VIEWS: HISTORY: ??Status post ACDF, C6-7. TECHNIQUE: ??Lateral views of the cervical spine are obtained with flexion, extension, and neutral positioning. FINDINGS: Patient is status post fusion of the C6-7 level with anterior plate, screws, and interbody bony fusion. ??The C6-7 spinous processes appear stable with flexion, extension, and neutral positioning. There is no discernible motion of the posterior spinous processes of C6-7. Interbody bony fusion does not appear to be completely incorporated at this time. ??The upper cervical spine demonstrates appropriate motion with flexion and extension. ??Degenerative change is demonstrated at the C4-5 and C5-6 levels. IMPRESSION: Stable fusion at C6-7. Holly Shipman MD Sondra [id number] CC: Procedure Note Unknown - 11/27/2018 APD Historical Result Principal Cash Teller: HOLLY SHIPMAN CERVICAL SPINE - THREE VIEWS: HISTORY: Status post ACDF, C6-7. TECHNIQUE: Lateral views of the cervical spine are obtained with flexion,extension, and neutral positioning. FINDINGS: Patient is status post fusion of the C6-7 level with anterior plate,screws, and interbody bony fusion. The C6-7 spinous processes appear stable with flexion,extension, and neutral positioning. There is no discernible motion of the posterior spinous processes of C6- 7.Interbody bony fusion does not appear to be completely incorporated at this time. Theupper cervical spine demonstrates appropriate motion with flexion and extension. Degenerative change isdemonstrated at the C4-5 and C5-6 levels. IMPRESSION: Stable fusion at C6-7. Holly Shipman MD Sondra [id number] CC: Unknown IMG DX ORDERABLES documented in this encounter Visit Diagnoses Not on filedocumented in this encounter Care Teams Button Sewing Machine Operator Relationship Specialty Start Date End Date Mellissa Christine MD [address] [place] [id number] PCP - General 01/20/15 03/03/20 documented as of this encounter
--- OUTSIDE RECORDS SUMMARY | 2024-06-07 11:12 | XMS_ITS | Encounter Summary ---
Author Organization [facility] [place] [address] Care Team Providers Care Hand Slitter Name Role Phone Meghana Torres MD Primary Care Provider Reason for Referral * Diagnostic Test (Routine) - Closed Specialty Diagnoses / Procedures Referred By Contac t Referred To Contact Radiology Diagnoses Pulmonary nodules Procedures NM PET CT Skull Base to Mid-thigh García Zamora MD [facility] [place] [address] [place] [address] Referral ID Status Reason Start Date Expiration Date V isits Requested Visits Authorized [id number] Closed Specialty Service Requested 03/06/2020 09/01/2020 1 1 Reason for Visit * Diagnostic Test (Routine) - Closed Specialty Diagnoses / Procedures Referred By Contac t Referred To Contact Radiology Diagnoses Pulmonary nodules Procedures NM PET CT Skull Base to Mid-thigh García Zamora MD [facility] PULMON[place] [address] [place] [address] Referral ID Status Reason Start Date Expiration Date V isits Requested Visits Authorized [id number] Closed Specialty Service Requested 03/06/2020 09/01/2020 1 1 Encounter Details Date Type Department Care Team (Latest Contact Info) Description 03/19/2020 11:17 AM EDT Hospital Encounter Nuclear Medicine at [facility] [place] [address] García Zamora MD [facility] DR PULMONARY [place] [address] Pulmonary nodules Discharge Disposition: Home Social History Tobacco Use [...] Routine 03/19/2020 1:01 PM EDT Pulmonary nodules documented in this encounter Results * NM PET CT Skull Base to Mid-thigh (03/19/2020 1:01 PM EDT) Anatomical Region Laterality Modality Positron Emissio n Tomography (PET) Impressions 03/19/2020 1:53 PM EDT Multiple pulmonary nodules are present, several of which are mildly hypermetabolic. There is also increased activity in lymph nodes in the mediastinum and allen. Although metastatic disease is possible, an inflammatory process such as granulomatous disease should also be considered. Thank you for letting us participate in the care of this patient. For questions regarding this report, please contact the number below. ? Electronically signed by: Elias Rodriguez MD, [facility] ([phone]), at 03/19/2020 1:53 PM Narrative 03/19/2020 1:53 PM EDT EXAMINATION: NM PET CT SKULL BASE TO MID-THIGH ? CLINICAL HISTORY: Metastatic disease evaluation - Include more detail below enlarging JAIRON nodule with numerous other nodules- differential broad, metastatic process to lung raised as possibility TECHNIQUE: Following IV injection of 29-hwmddt-5-deoxyglucose (FDG) a standard uptake of approximately 60 minutes, a noncontrast CT scan followed by a PET scan were acquired from the base of the skull to mid thighs. The noncontrast CT was used for anatomic localization and photon attenuation correction of the PET scan. Blood glucose level: 100 (mg/dL) FDG dose: 11.5 mCi COMPARISON: Chest CT March 04, [address] February 24, 2020 FINDINGS: HEAD/NECK: Normal activity in all soft tissue regions of the neck and visualized lower head. CHEST: Mildly increased FDG activity is located in nodules in the left upper lobe (image 67, 68, 84). These nodules are not changed in appearance since the prior study. Multiple other pulmonary nodules are present and do not demonstrate abnormal FDG activity though they may be too small to be characterized. There is a hypermetabolic left para-aortic lymph node (image 71). There are mildly hypermetabolic nodes in the allen bilaterally. There is a small amount of coronary artery calcification. No pleural effusion is seen. ABDOMEN/PELVIS: Normal activity in all soft tissue regions. An unchanged gastric diverticulum is present. There are small calcified stones in both kidneys. SKELETON/EXTREMITIES: Normal activity in all regions of the axial and visualized appendicular skeleton. There is a fixation plate in the cervical spine. Procedure Note Elias Rodriguez MD - 03/19/2020 EXAMINATION: NM PET CT SKULL BASE TO MID-THIGH CLINICAL HISTORY: Metastatic disease evaluation - Include more detailbelow enlarging JAIRON nodule with numerous other nodules- differential broad,metastatic process to lung raised as possibility TECHNIQUE: Following IV injection of 27-uvmleg-4-deoxyglucose (FDG) astandard uptake of approximately 60 minutes, a noncontrast CT scan followed by aPET scan were acquired from the base of the skull to mid thighs. The noncontrast CTwas used for anatomic localization and photon attenuation correction of thePET scan. Blood glucose level: 100 (mg/dL) FDG dose: 11.5 mCi COMPARISON: Chest CT March 04, [address] February 24, 2020 FINDINGS: HEAD/NECK: Normal activity in all soft tissue regions of the neck and visualizedlower head. CHEST: Mildly increased FDG activity is located in nodules in the left upperlobe (image 67, 68, 84). These nodules are not changed in appearance since theprior study. Multiple other pulmonary nodules are present and do notdemonstrate abnormal FDG activity though they may be too small to be characterized. There is a hypermetabolic left para-aortic lymph node (image 71). Thereare mildly hypermetabolic nodes in the allen bilaterally. There is a small amount of coronary artery calcification. No pleuraleffusion is seen. ABDOMEN/PELVIS: Normal activity in all soft tissue regions. An unchanged gastric diverticulum is present. There are small calcifiedstones in both kidneys. SKELETON/EXTREMITIES: Normal activity in all regions of the axial and visualized appendicular skeleton. There is a fixation plate in the cervical spine. IMPRESSION Multiple pulmonary nodules are present, several of which are mildly hypermetabolic. There is also increased activity in lymph nodes in the mediastinum and allen. Although metastatic disease is possible, aninflammatory process such as granulomatous disease should also be considered. Thank you for letting us participate in the care of this patient. Forquestions regarding this report, please contact the number below. García Zamora MD IMG PET ORDERABLES documented in this encounter Visit Diagnoses Diagnosis Pulmonary nodules Other nonspecific abnormal finding of lung field documented in this encounter Administered Medications Inactive Administered Medications - up to 3 most recent administrations Medication Order MAR Action Action Date Dose Rate Site fludeoxyglucose (F-18) FDG injection 0-20 mCi 0-20 mCi, Intravenous, ONCE PRN, 1 dose, Starting on Tue03/19/20 at 1154, Until Tue03/19/20 at 1146, Per Protocol, Radiology Contrast, Routine Given 03/19/2020 11:46 AM EDT 11.5 mCi Left Arm documented in this encounter Care Teams Hand Slitter Relationship Specialty Start Date End Date Meghana Torres MD [address] [place] [address] PCP - General Family Medicine 03/04/20 documented as of this encounter
--- OUTSIDE RECORDS SUMMARY | 2024-06-07 11:12 | XMS_ITS | Encounter Summary ---
[facility] Address [facility] [place] [address] Care Team Providers Care Solar Installation Foreman Name Role Phone Meghana Torres MD Primary Care Provider [phone] Reason for Visit * Reason Comments Advice Only * Consultation (Routine) - Closed Specialty Diagnoses / Procedures Referred By Stuart watkins Referred To Contact Thoracic Surgery Diagnoses Pulmonary nodules Pulmonary nodules García Zamora MD [facility] [place] [address] [facility] [address] [place] [phone] Referral ID Status Reason Start Date Expiration Date V isits Requested Visits Authorized [id number] Closed Consult, Test & Treat 03/19/2020 03/19/2021 1 1 Encounter Details Date Type Department Care Team (Late st Contact Info) Description 04/04/2020 10:00 AM EST Office Visit [place] [address] Jim Suarez MD [address] [place] [id number] Pulmonary nodules; Pre-op evaluation Social History Tobacco Use Types Packs/Day Years [...] Sign Reading Time Taken Comments Blood Pressure 124/78 04/04/2020 9:56 AM EST Pulse 63 04/04/2020 9:56 AM EST Temperature 36.3 ??C (97.3 ??F) 04/04/2020 9:56 AM ES T Respiratory Rate 18 04/04/2020 9:56 AM EST Oxygen Saturation 99% 04/04/2020 9:56 AM EST Inhaled Oxygen Concentration - - Weight 80.3 kg (177 lb) 04/04/2020 9:56 AM EST Height 168.9 cm (5' 6.5) 04/04/2020 9:56 AM EST Body Mass Index 28.14 04/04/2020 9:56 AM EST documented in this encounter Patient Instructions * Patient Instructions* Марина Rodney RN - 04/04/2020 10:00 AM EST Thank you for visiting Dr. Suarez in clinic 04/04/[address] Suarez has recommended you have a Lobectomy. ?? Prior to this surgery you will need completed. ?? The Thoracic Surgery [facility] will contact you to set up these appointments. Your procedure is scheduled for TBD. You will receive a phone call from the OR nurses on TBD after 2pm through 6 pm. They will confirm your arrival time, review what medications to take and when to stop eating and drinking. You will arrive to aboriginal education teacher area 4W for your surgery. Bronchoscopy is the term for a procedure in which a scope (thin tube with a light source on the end), is placed through your mouth or nose and into your trachea and large airways. A small amount of tissue from the surface of the area is removed. The removal of the tissue is called a biopsy. A wedge is the removal of a small part of the lobe of the lung. A lobectomy is when a surgeon removed a lobe of your lung. A video-assisted thoracoscopic surgery, or VATS, involves a range of technologies to enable the removal of tissue through several small cutsin the chest. A tiny camera, light supply and surgical tools are inserted in the incisions and through the body to the surgical site. A thoracotomy is a 3 to 8 inch incision made on your chest. It can extend to your back. Some muscle is cut and the ribs are spread apart. The size and location of the incision depends on the part of the lung being removed. Thoracoscopy. Thoracoscopy allows the surgeon to see inside your chest. In this procedure, the surgeon makes one or more small incisions between your ribs. A tube with a tiny video camera is then inserted into your chest cavity -- a procedure sometimes called video-assisted thoracoscopic surgery (VATS). Special surgical tools allow your surgeon to cut away small pieces of tissue for testing Before your Surgery: PLEASE WASH WITH EITHER DIAL SOAP or the HIBICLENS SOAP included in this package. Please wash your chest, sides and back. You may shower either the night before or the morning of surgery and please place clean clothes on after your shower. ?? Exercise: Daily aerobic exercise for at least 30 minutes will help improve your endurance and improve the breathing capacity of your lungs. This means that you are breathing hard, your heart is beating fast and that you are sweating. Examples of this include walking, biking, swimming, and using a treadmill or stationary bike. You will be expected to exercise after surgery as well. ?? Incentive Spirometer: Use your incentive spirometer as you were shown in clinic: 6 times daily/10 breaths each time. It is a sucking motion when you take a slow deep breath in, DO NOT BLOW INTO THIS MACHINE You may also bundle the use of the incentive spirometer as well - 30 breaths in the morning and 30 breaths at night. Please keep your incentive spirometer near your favorite chair so that in between commercials you can remember to use it! Take a slow, deep breath in through your mouth. While the piston rises, the indicator on the right should move upwards. It should stay between the 2 arrows for 2 to 4 seconds with each breath. If theindicator does not stay between the arrows, you are breathing either too fast or too slowly. The incentive spirometer will help you expand your lungs and encourage you to breathe deeply and fully. You will use the incentive spirometer as part of your recovery process and to prevent complications such as pneumonia. You will be having a COVID test prior to your Surgery. You will receive a phone call from the [employer] [phone] prior to your surgery to schedule you an appointment. Please call the [facility] Hotline number with any questions or concerns. Some things to expect during your surgery and while you are in the hospital: You will leave the operating room with a urinary catheter. The catheter is usually removed a day ortwo after surgery. You will have a chest tube placed while you are in surgery. A Chest tube is a flexible tube that isused to drain blood, fluid and air from around your lungs after surgery. The tube enters your body between your ribs and goes into the space where the piece of lung was removed. The chest tube will come out a day after surgery, if there is no air leak in your lung. If there is an air leak, the chest tube will stay in until it stops. The nurse and doctor will be watching for the air leak to clear up regularly throughout the day. Post Surgery Instructions at home: Bowel regimen while at home. Please obtain senna (Senokot) tablets, colace tablets, and Miralax powder. You will need to take senna once a day, colace three times a day and miralax once a day to keepyour bowels moving. If you do not have a bowel movement in 2 days you will need to call the office as you will need to obtain either Milk of Magnesia (MOM), Magnesium citrate, a Fleet's enema or glycerin suppositories. If you are having diarrhea, then you may back off on the bowel medications. If you are taking narcotics, you need to continue the bowel medications while you are taking the narcotics. Post Surgery Instructions at home: Example of what you will be taking for pain control after your surgery. Please make sure that you have Extra strength Tylenol (acetaminophen) and Motrin (ibuprofen) at home before you are discharged : Extra strength acetaminophen 1000 mg alternate with ibuprofen 200 mg (2-3 tabs) every 3 hours : ex. Schedule - Extra strength acetaminophen 1000 mg at 8am, Ibuprofen 200 mg (2-3 tabs) at 11 am, thenExtra strength acetaminophen 1000 mg at 2 pm, then ibuprofen 200 mg (2-3 tabs) at 5 pm. Do not exceed more than 4000 mg of Extra strength acetaminophen in [address] Suarez's team will see you twice per day while you are in the hospital. Two weeks after you leave the hospital, you will be scheduled to see Dr. Suarez in her clinic and will also have a chest x-ray before you see her on this day. Please call the Thoracic Surgery nurse if you have any questionsbefore or after your surgery at . documented in this encounter H&P Notes * Jim Suarez MD - 04/04/2020 10:00 AM ESTSummary: Pre-Operative History and Physical Thoracic Surgery Attending Outpatient Consultation Note Jim Suarez MD [place] [address] FAX: Date of Consultation: 04/06/2020 This consultation has been requested by PCP: Meghana Torres MD Referring Physician: Purpose for Consultation: FDG Pulmonary Nodules, Sarcoid Favored Malignancy HPI: I am seeing Mr. Donald Dean in consultation for multiple lung nodules appreciated on CT scan. In brief Mr. Dean is a 44-year-old male who presents to me with a past medical history of kidneystones and cervical neck fusion who was found [...] full CT scan of the chest. He thengot a PET scan the next week which demonstrated avidity of the nodules and it was in the setting that he was referred for consultation. In regards to his review of symptoms he states that he occasionally has some issues with breathing and has had some shortness of breath. He has not had any nausea or vomiting but does report mild weight loss as he used to be 185 pounds and now weighs 177. He has had no night sweats. In regards to his past medical history, this is just significant for the multiple episodes of kidney stones. He has had a colonoscopy as well because he states they also saw something in his abdomen that was abnormal on his CT scan and removed a polyp from his colon. This was performed at [facility]. They also saw something in his bladder and he had an ultrasound for that done to. An ultrasound of his kidneys just revealed more kidney stones. In regards to his surgical history he has had a neck fusion. In regards to his allergies he states he is allergic to Dilaudid, the reaction being that it stopped my heart at [facility], and he has some food allergies to carrots apples chickpeas and tree nuts. He cannot remember the reaction. He does not take any regularly scheduled medications. In regards to his family history he does have a mother that had lung cancer and his grandfather hadan eye removal for cancer. Of note his mother is alive and well and followed by Dr. Lopez. Also ofnote his [id number] had lung cancer and is followed by me. In regards to his social history he does not smoke, he used to drink heavily however he has stopped. He does report occasionally smoking marijuana at nighttime. Past Medical History: Patient Active Problem List Diagnosis Date Noted ??? Pulmonary nodules 03/19/2020 ??? Nephrolithiasis 03/19/2020 ??? Testicular mass 03/19/2020 ??? Colon polyp 03/19/2020 ??? Allergy to food 04/18/2015 Past Medical History: Diagnosis Date ??? Motion sickness Past Surgical History: No past surgical history on file. Medications: Outpatient Medications Marked as Taking for the 04/04/20 encounter (Office Visit) with Jim Suarez MD Medication Sig Dispense Refill ??? diphenhydrAMINE (BENADRYL) 25 mg Capsule Take 2 capsules by mouth as needed for Itching. 30 capsule 0 ??? EPINEPHrine (EPIPEN) 0.3 mg/0.3 mL (1:1,000) Auto-Injector Inject 0.3 mg into the muscle once. Allergies: Allergies Allergen Reactions ??? Dilaudid [Hydromorphone] It stopped my heart at [facility] ??? Vegetable Derived Carrots, apples, chick peas, tree nuts Family History: As above; Mother with lung cancer, grandfather with eye cancer. Social History: Social History Socioeconomic History ??? Marital status: Spouse name: Not on file ??? Number of children: Not on file ??? Years of education: Not on file ??? Highest education level: Not on file Occupational History ??? Not on file Social Needs ??? Financial resource strain: Not on file ??? Food insecurity Worry: Not on file Inability: Not on file ??? Transportation needs Medical: Not on file Non-medical: Not on file Tobacco Use ??? Smoking status: Never Smoker ??? Smokeless tobacco: Never Used Substance and Sexual Activity ??? Alcohol use: Not Currently Comment: quit drinking 7 years ago ??? Drug use: Not Currently Types: Marijuana ??? Sexual activity: Not on file Lifestyle ??? Physical activity Days per week: Not on file Minutes per session: Not on file ??? Stress: Not on file Relationships ??? Social connections Talks on phone: Not on file Gets together: Not on file Attends scientology service: Not on file Active member of club or organization: Not on file Attends meetings of clubs or organizations: Not on file Relationship status: Not on file ??? Intimate partner violence Fear of current or ex partner: Not on file Emotionally abused: Not on file Physically abused: Not on file Forced sexual activity: Not on file Other Topics Concern ??? Not on file Social History Narrative ??? Not on file REVIEW OF SYSTEMS: General: Denies fatigue, weight loss, chills, night sweats. Neuro: Denies seizure, TIA, CVA, neurologic deficits including tremor, incoordination, paresthesias, difficulties with memory or speech, sensory or motor disturbances, or muscular coordination. Psychiatric: Denies depression, anxiety, thoughts of suicide in the past, PTSD, substance abuse, previous hallucinations, other psychiatric diagnoses Cardiovascular: Denies arrythmias, CAD, HTN, family history of cardiac disease, CHF, hyperlipidemia. Respiratory: Denies asthma, COPD, emphysema, cough, dyspnea, wheezing, stridor, hemoptysis, respiratory infection, TB or exposure to TB. GI: denies ulcer disease, irritable bowel syndrome, denies past GI bleed, jaundice : denies urgency, frequency, dysuria, nocturia, polyuria,denies oliguria, stones, UTI, nephritis, Hematologic: Denies history of DVT, PE, petechiae, bleeding diathesis. Endocrine: denies diabetes mellitus, denies thyroid disease, other endocrine disorder. Musculoskeletal: Denies fractures, arthritis Integument: Denies skin cancer. Physical Exam: BP 124/78 (Patient Position: Sitting) Pulse 63 Temp 36.3 ??C (97.3 ??F) (Temporal) Resp 18 Ht 168.9 cm (5' 6.5) Wt 80.3 kg (177 lb) SpO2 99% BMI 28.14 kg/m?? General Appearance: Alert, cooperative, no distress, [...] intact Musculoskeletal: 5/5 throughout with normal gait Diagnostics: I have independently visualized all relevant imaging studies, including: CT Chest (03/04/2020): Multiple new pulmonary nodule, the findings are suspicious for metastatic disease. Other etiologiesincluding infectious process are not excluded on the basis of this examination. Please correlate clinically. PET (04/06/2020): IMPRESSION Multiple pulmonary nodules are present, several [...] Electronically signed by: Elias Rodriguez MD, [facility] ([phone]), at 03/19/2020 1:53 PM PFT (03/19/2020): FVC 6.28 117%, FEV1 4.10 113%, DLCO 28.86 99% , DLCO/VA 4.06 88% Assessment: This is a 44 y.o. male with a history of kidney stones presenting now with multiple lung nodules seen on CT of the abdomen and pelvis for nephrolithiasis previously. Of note he underwent a PET scan which shows avidity of multiple nodules the most largest of which being in the left upperlobe where he also has a smaller 7 mm nodule that was previously appreciated he does have some mediastinal and hilar lymphadenopathy as well. We discussed his case. These nodules may be an inflammatory etiology, however they may also be something that is inflammatory or neoplastic. The best way to tell would be to sample the lymph nodes but to also sample the lung nodules as well. Of note he has had pulmonary function testing and he has excellent lung function. We would start with a flexible bronchoscopy, proceed with endobronchial ultrasound with biopsy so that we could biopsy both sides, and then proceed with the wedge resection of these left upper lobe lung nodules. Of note he had tumor markers drawn for these lung nodules and his AFP, beta hCG, LDH along with CBCwere all normal. I explained to him the risks, benefits, and alternatives to proceeding. In terms of preoperative work-up, we would need an EKG as well as we have his labs. I will work on getting him an OR date as soon as possible so that we can get these biopsies, we are hopeful for the week of 04/16. I spent the remainder of the appointment answering his questions and concerns. We reviewed the informed consent and he signed this. This will be scanned into his chart. Plan of Management: 1. Obtain EKG 2. Review pre-operative labs 3. Obtain consent (scanned into chart) 4. Schedule OR date It was a pleasure meeting with Mr. Dean today. We will get him scheduled for biopsy as soon as possible. Jim Suarez MD Thoracic Surgery documented in this encounter Plan of Treatment Not on file documented as of this encounter Procedures Procedure Name Priority Date/Time Associated Diagnosis Comments EKG 12-LEAD Routine 04/04/2020 12:07 PM EST Pulmonary nodules Pre-op evaluation documented in this encounter Results * EKG 12 Lead (04/04/2020 12:07 PM EST) Ventricular rate 51 BPM MUSE SYSTEM Atrial Rate 51 BPM MUSE SYSTEM P-R Interval 138 ms MUSE SYSTEM QRS Duration 102 ms MUSE SYSTEM Q-T Interval 416 ms MUSE SYSTEM QTC Calculated (Bezet) 383 ms MUSE SYSTEM Calculated P [place] 67 degrees MUSE SYSTEM Calculated R [place] 78 degrees MUSE SYSTEM Calculated T [place] 64 degrees MUSE SYSTEM INTERPRETATION Sinus bradycardia Otherwise normal ECG No previous ECGs available Confirmed by MD Galeana Daniel ([id number]) on 04/04/2020 5:08:16 PM MUSE SYSTEM 04/04/2020 12:0 7 PM EST 04/04/2020 5:08 PM EST Jim Suarez MD ECG ORDERABLES MUSE SYSTEM documented in this encounter Visit Diagnoses Diagnosis Pulmonary nodules Other nonspecific abnormal finding of lung field Pre-op evaluation Preoperative examination, unspecified documented in this encounter Care Teams Solar Installation Foreman Relationship Specialty Start Date End Date Meghana Torres MD [address] [place] [address] PCP - General Family Medicine 03/04/20 documented as of this encounter
--- OUTSIDE RECORDS SUMMARY | 2024-06-07 11:12 | XMS_ITS | Encounter Summary ---
[place] [address] Care Team Providers Care Dialysis Biomed Technician Name Role Phone Meghana Torres MD Primary Care Provider [phone] Reason for Visit * Auth/Cert Specialty Diagnoses / Procedures Referred By Staurt watkins Referred To Contact Diagnoses Multiple lung nodules Procedures PRO THORACOSCOPY WITH THERAPEUTIC WEDGE RESECTION INITIAL UNILAT PRO THORACOSCOPY WITH THERAPEUTIC WEDGE RESECTION ADDL RESECTION PRO [facility] EBUS GUIDED SAMPL 3/> NODE STATION/STRUX [...] Expiration Date Visits Re quested Visits Authorized [id number] 1 1 Encounter Details Date Type Department Care Team (Late st Contact Info) Description 04/13/2020 10:15 [place] [address] COVID-19 ruled out Social History Tobacco Use Types Packs/Day Years [...] Procedure Name Priority Date/Time Associated Diagnosis Comments COVID-19 PCR Routine 04/13/2020 1:41 PM EST COVID-19 ruled out documented in this encounter Results * COVID-19 PCR (04/13/2020 1:41 PM EST) SARS-CoV-2 RNA Not Detected Not Detected [facility] Comment: This result should be interpreted in [...] diagnosis of COVID-19 is performed using the [employer] m SARS-CoV-2 Assay as authorized by the FDA Emergency Use Authorization (EUA). This EUA assay is intended for In-vitro Diagnostic (IVD) use with respiratory specimens such as nasopharyngeal swabs collected from individuals during the acute phase of infection. This assay is performed based on the instructions for use provided by [employer] and additional guidance provided by CDC and FDA. Testing is performed in the [facility] within the Department of Pathology and Laboratory Medicine at [facility], certified under the Clinical Laboratory Improvement Amendments of 1988 (CLIA), 42 U.S.C. 263a, to perform high complexity tests. Assay performance has been verified according to clinical laboratory regulatory requirements for use with specimens collected from individuals suspected of COVID-19. Test results are provided above. A result of ? Not Detected? indicates that the viral RNA target is [...] be considered in the context of a patient? s recent exposures and the presence of clinical signs and symptoms consistent with COVID-19. A result of ? Detected? indicates that RNA from SARS-CoV-2 was detected and the patient is infected. As required or requested by public health authorities, positive specimens may be sent for additional testing. Positive and negative predictive values for this test are highly dependent on disease prevalence. A result of ? Invalid? indicates that neither the viral RNA targets nor the internal control target was detected. An invalid result suggests the presence of inhibitors. Recollection and re-testing is recommended in the case of an invalid result. CDC COVID-19 criteria for testing on human specimens and clinical management guidance information are available at the CDC Coronavirus Disease 2019 (COVID-19) webpage under ? Information for Healthcare Professionals? (https://www.cdc.gov/coronavirus/2019-ncov/hcp/index.html) Additional information about this and other EUA tests can be found in provider and patient fact sheets at the following FDA website: https://www.fda.gov/medical-devices/gotbudymgaq-ftmdtof-7864-soiuf-05-fdcbogvwe- use-a fdpqvenskrzmc-fovkguu-kdylyuf/rgqxc-fbmjycelcir-hkkt SARS-CoV-2 RNA Source MANAGER LEAN Swab [facility] Nasopharyngeal swab (specimen) 04/13/2020 1:41 PM EST 04/13/2020 1:41 PM EST Comment:Symptoms->Asymptomat ic Narrative Resulting Agency Comment Spec In Lab Jim Suarez MD MOLECULAR ORDERABLES Performing Organization Address City/State/[facility] Co de Phone Number [facility] [place] [address] documented in this encounter Visit Diagnoses Diagnosis COVID-19 ruled out documented in this encounter Care Teams Dialysis Biomed Technician Relationship Specialty Start Date End Date Meghana Torres MD [address] [place] [address] PCP - General Family Medicine 03/04/20 documented as of this encounter
--- OUTSIDE RECORDS SUMMARY | 2024-06-07 11:12 | XMS_ITS | Encounter Summary ---
[place] [address] Care Team Providers Care Lithograph Press Operator Name Role Phone Meghana Torres MD Primary Care Provider [phone] Encounter Details Date Type Department Care Team (Late st Contact Info) Description 04/07/2020 [place] [id number] Krystin Maria V Social History Tobacco Use Types Packs/Day Years [...] encounter Miscellaneous Notes * Telephone Encounter - Krystin Maria V - 04/07/2020 12:49 PM EST 1. ASK: TRAVEL ???Have you travelled outside of [place] ([place], [place], [place], [place], [place], [place]) in the past 14 days??? 2. ASK: EXPOSURE Have you been in contact with anyone suspected or confirmed to have COVID-19 in the past 14 days??? 3. ASK: SYMPTOMS Do you have any new or worsening symptoms on this list that are not related to another medical condition? Fever or chills ?? Cough ?? Shortness of breath or difficulty breathing ?? Fatigue ?? Muscle or body aches ?? Headache ?? Loss of taste or smell ?? Sore throat ?? Congestion or runny nose ?? Nausea or vomiting ?? Diarrhea If 'Yes' to any of the questions above Transfer patient to the Covid-19 Hotline Number ([phone]) for further instructions. If 'No' to all of the questions above Is this the first test for Covid 19 Yes If no, please list date of previous test, result, and type of test (Molecular, Antigen, Antibody orunknown): Resides in [place] [facility], [facility] care or other residential facility No Employee or Household Member of Employee No Healthcare Worker No Schedule appointment: Give directions to testing facility. Please advise patient that all passengers in the vehicle must wear a mask and to please either leave their dogs at home or have them crated/behind a net. Telephone call placed/received to schedule Covid 19 testing with patient. Ordering provider: Dr. Suarez Testing Facility: [facility] Date of Testin/15 Time of Testin:15a Symptoms: none documented in this encounter Plan of Treatment Not on file documented as of this encounter Visit Diagnoses Not on filedocumented in this encounter Care Teams Lithograph Press Operator Relationship Specialty Start Date End Date Meghana Torres MD [address] [place] [address] PCP - General Family Medicine 03/04/20 documented as of this encounter
--- OUTSIDE RECORDS SUMMARY | 2024-06-07 11:12 | XMS_ITS | Encounter Summary ---
[place] [address] Care Team Providers Care Cigar Head Piercer Name Role Phone Meghana Torres MD Primary Care Provider [phone] Encounter Details Date Type Department Care Team (Late st Contact Info) Description 04/14/2020 [place] [id number] APRN [facility] [place] [address] Social History Tobacco Use Types Packs/Day Years [...] encounter Miscellaneous Notes * Telephone Encounter - Mariya Street RN - 04/14/2020 5:53 PM EST Called pt to discuss negative COVID test results. Unable to reach. Left message to call the hotline. documented in this encounter Plan of Treatment Not on file documented as of this encounter Visit Diagnoses Not on filedocumented in this encounter Care Teams Cigar Head Piercer Relationship Specialty Start Date End Date Meghana Torres MD [address] [place] [address] PCP - General Family Medicine 03/04/20 documented as of this encounter
--- OUTSIDE RECORDS SUMMARY | 2024-06-07 11:12 | XMS_ITS | Encounter Summary ---
[place] [address] Care Team Providers Care Iphone Developer Name Role Phone Meghana Torres MD Primary Care Provider [phone] Encounter Details Date Type Department Care Team (Latest Contact Info) Description 03/19/2020 1:59 PM EDT - 03/19/2020 11:59 PM EDT Hospital [place] [address] Pulmonary nodules Discharge Disposition: Home Social History [...] muscle once. documented as of this encounter Procedure Notes * Julian Brand MD - 03/19/2020 11:59 PM EDTAssociated Order(s): PULMONARY FUNCTION TEST Pulmonary Function Test Interpretation Spirometry The FVC is normal. FEV1 is normal. The FEV1/FVC ratio is normal. Diffusion Capacity Unadjusted single-breath diffusion capacity for CO is normal. Oximetry Resting oxyhemoglobin saturation is normal. Resting oximetry was assessed while the patient was breathing room air. Impression: Normal spirometry No diffusion impairment present Normal resting oximetry Julian Brand MD, PhD documented in this encounter Plan of Treatment Not on file documented as of this encounter Procedures Procedure Name Priority Date/Time Associated Diagnosis Comments COMMON PULMONARY FUNCTION TEST Routine 03/19/2020 11:59 PM EDT Pulmonary nodules documented in this encounter Results * Pulmonary Function Testing (03/19/2020 11:59 PM EDT) Narrative COMPAS PFT - 03/19/2020 11:59 PM EDT Julian Brand MD ? 03/20/2020 ??6:56 PM Pulmonary Function Test Interpretation Spirometry The FVC is normal. ??FEV1 is normal. ??The FEV1/FVC ratio is normal. Diffusion Capacity Unadjusted single-breath diffusion capacity for CO is normal. Oximetry Resting oxyhemoglobin saturation is normal. Resting oximetry was assessed while the patient was breathing room air. Impression: Normal spirometry No diffusion impairment present Normal resting oximetry Julian Brand MD, PhD García Zamora MD PFT ORDERABLES COMPAS PFT documented in this encounter Visit Diagnoses Diagnosis Pulmonary nodules Other nonspecific abnormal finding of lung field documented in this encounter Care Teams Iphone Developer Relationship Specialty Start Date End Date Meghana Torres MD [address] [place] [address] PCP - General Family Medicine 03/04/20 documented as of this encounter
--- OUTSIDE RECORDS SUMMARY | 2024-06-07 11:12 | XMS_ITS | Encounter Summary ---
Author Organization [facility] [place] [address] Care Team Providers Care Certified Pedorthotist Name Role Phone Mellissa Christine MD Primary Care Provider [phone] Reason for Visit * Reason Comments Allergic Reaction Encounter Details Date Type Department Care Team (Late st Contact Info) Description 01/20/2015 2:45 PM EDT [place] [address] Anne Vaughan MD Allergic reaction, initial encounter; Food allergy; Oral allergy syndrome, initial encounter Discharge Disposition: Home Social History Tobacco Use Types Packs/Day Years Used Date Smoking Tobacco: Never Sex and Gender Information Value Date Recorded Sex Assigned at Not on file Gender Identity Not on file Sexual Orientation Not on file documented as of this encounter Last Filed Vital Signs Vital Sign Reading Time Taken Comments Blood Pressure 113/77 01/20/2015 2:32 PM EDT Pulse 84 01/20/2015 2:32 PM EDT Temperature - - Respiratory Rate - - Oxygen Saturation - - Inhaled Oxygen Concentration - - Weight 79.4 kg (175 lb) 01/20/2015 2:32 PM EDT Height 167.6 cm (5' 6) 01/20/2015 2:32 PM EDT Body Mass Index 28.25 01/20/2015 2:32 PM EDT documented in this encounter Patient Instructions * Patient Instructions* Anne Vaughan MD - 01/20/2015 3:49 PM EDT -avoid eating all foods that have resulted in allergic symptoms -based on skin testing results, avoid peanut, tree nuts, sesame, garlic; you should also avoid apple, carrot, chickpea/hummus -also, avoid eating 2 hours before and after exercise -have lab drawn today -carry epipens with you at all times; if you use your epipen for a severe allergic reaction, then you must call 911 -schedule a follow-up in 4 weeks and bring in with you the hummus that you ate the evening of your reaction, and also bring in fresh chickpeas documented in this encounter Progress Notes * Anne Vaughan MD - 01/20/2015 3:00 PM EDT ALLERGY AND IMMUNOLOGY CLINIC INITIAL VISIT Date: 01/20/2015 Donald Dean is referred to the [facility] by Dr. Chaitanya Leon for initial consultation regarding an allergic reaction. CHIEF COMPLAINT: Allergic Reaction HISTORY OF PRESENT ILLNESS: Donald Dean is a 39 y.o. year old male who presents to clinic for evaluation of an allergic reaction. -he reports that on November 14, 2014, he experienced an allergic reaction -he arrived home from work, went for a run, and approximately 30- 60 minutes after he finished running, he ate hummus with raw carrots, which he ate numerous times before ([place] [employer] Gluten free hummus); he reports that he did not eat for several hours prior to running, which is why he ate a snack soon after his run, which he does not typically do -he reports that while he was eating the raw carrots with hummus, he developed rhinorrhea, KERRY, swollen face, throat tightness, diffuse erythema, no pruritus, no GI symptoms, no syncope -he reports that he ingested carrots and hummus prior to above described reaction, and reports prior oral symptoms with past raw carrot ingestion, consisting of oral pruritus and tingling -he reports that he was evaluated in [facility] ED; ED note received and reviewed -at [facility] ED, vital signs were noted to be stable, no hypotension, no oxygen desaturation; on exam the following was noted: sclerae and conjunctivae appear edematous, periorbital edema is noted, swelling of the turbinates, as well as the pharyngeal mucosa, uvula is moderately swollen, airway is notcompromised, diffuse peripheral edema -ED exam further mentions bilateral expiratory wheezes are noted, and then goes on to mention, lungs are clear bilaterally -in the ED, he was treated with epinephrine 0.3 cc SC, solumedrol 125 mg IV , benadryl 50 mg IV, pepcid 20 mg IV, to which his symptoms responded well, and he was discharged home -his PCP has equipped him with epipens since that time -he reports no aspirin or NSAID use the day of his reaction -he states that he was not acutely ill that day -he reports no alcohol use that day and states that his last alcoholic beverage was 2 years ago -no hot showers that day -he has not eaten hummus or carrots since that time -he does not have the hummus with him today ([place] [employer] Gluten free hummus); however, he showsme a picture of its label on the internet; specific ingredients consist of: cooked chickpeas, tahini (sesame), canola oil, roasted garlic, citric acid -he thinks that he may have ingested cooked garlic since that time and no reaction that he can recall -he reports that he ingests red meat almost daily, and no delayed reactions after red meat ingestion -he reports that one month ago, after eating mixed nuts, consisting of peanuts and various tree nuts (he cannot recall the specific tree nuts), he developed immediate oral tingling and throat tightness; symptoms self-resolved in 30-60 minutes; he reports that he has avoided ingesting peanut and tree nuts since that time -for the past several years, he reports that ingestion of fresh apples resulted in lip tingling/pruritus; he states that he can tolerate apple in its cooked form without the development of oral symptoms -prior ingestion of raw carrots also resulted in identical oral symptoms -he states that ingestion of no other fresh fruits/ vegetables result in oral symptoms -no history of latex allergy -he reports that he smokes marijuana every few days; however, he states that he did not smoke it the days of his reactions -he reports no history of allergic rhinitis -no history of asthma ROS: A thorough 12-point review of systems was completed. Pertinent positives and negatives are included in the HPI. Other systems are negative. Medications: epinephrine prn PAST MEDICAL HISTORY: food allergy FAMILY HISTORY: sister and paternal grandmother with asthma, no family history of environmental allergies. SOCIAL HISTORY: reviewed, added to chart. Environmental History: Donald lives in an apartment. No obvious infestation with pests or mold. No pets. ALLERGIES:No Known Allergies Vitals: Filed Vitals: 01/20/15 1432 BP: 113/77 Pulse: 84 PHYSICAL EXAM: Donald Dean is a male in no acute distress, breathing comfortably and interactive with the exam. Head: Normocephalic, atraumatic Eyes: Sclera without injection and conjunctiva nonerythematous, pupils equal, no abnormalities of the eyelids. Ears: Pinna normal, auditory canals patent, TMs intact bilaterally with no middle ear effusion noted. Nose: Nasal mucosa pink. Rhinorrhea absent. No epistaxis. No ulcerations noted on anterior exam. Sinuses: No sinus pain or pressure upon palpation over the maxillary, frontal sinuses. Mouth: Oral mucosa moist. No oral ulcerations, No thrush. Neck: Supple, no cervical LAD Cardiovascular: Regular rate and rhythm, no rubs, no murmurs. Respiratory: Clear to auscultation bilaterally, excellent air movement, no wheeze. Musculoskeletal: Normal muscle tone and gait. Dermatologic: Skin reveals no evidence of eczematous changes, urticaria, purpura, or excoriations. 01/20/2015 Allergy skin prick tests # tests: 20 Interpretation: Appropriate histamine, saline and glycerine controls. Positive tests to: orchard grass, chaitanya grass, birch, almond, hazelnut, peanut, pistachio, walnut, sesame, garlic Negative tests to: mugwort, ragweed, brazil nut, cashew, pecan, apple, carrot ASSESSMENT&PLAN: Donald Dean is a 39 y.o. male with : 1) Allergic reaction 2) Food allergy 3) Oral allergy syndrome -SPT positive to peanut, various tree nuts (almond, hazelnut, pistachio, walnut), and specific ingredients contained in the hummus (sesame, garlic); I discussed with him that he should avoid ingestion of these foods -he has a clinical history of a systemic allergic reaction after ingestion of fresh carrots and hummus, and so he should continue to avoid ingestion of carrots, hummus, and chick peas, and he has already been equipped with epipens by his PCP -I did not have skin prick testing available to chick pea, and he did not come in with the hummus that he ingested the evening of his reaction; it is unclear if the culprit of his systemic reaction was the hummus, the carrots, or both; given his systemic reaction, this represents a primary food allergy, for which I agree for him to remain equipped with epipens at all times, and he should continueto avoid ingestion of hummus, chickpeas, and carrots -he develops oral symptoms after ingestion of fresh apple, fresh carrots, peanuts, and various treenuts, and demonstrated pollen sensitization on skin testing today, to tree and grasses (birch, orchard grass, chaitanya grass), and so he may have a combination of primary food allergy and oral allergysyndrome -of note, he does not report clinical symptoms of allergic rhinitis -Oral Allergy Syndrome is a subset of Pollen Food Allergy Syndrome and describes contact urticaria of the oropharynx upon ingestion of fresh/ raw fruits, nuts, and vegetables in individuals who are sensitized to plant pollens. Homology among protein allergens results in patterns of associations among fruits, vegetables, nuts, and pollens. Oropharyngeal symptoms usually resolve promptly when food is swallowed, and cooked forms of the culprit foods are generally tolerated because the responsible allergens are susceptible to gastric acid, digestive enzymes, and heat. -he has also experienced oral symptoms with high-risk foods (peanut and tree nuts) and had positiveskin testing to these today, which cross-sensitize with birch/tree pollens -I recommended dietary avoidance of the specific foods/raw fruits/ vegetables/ nuts that have caused oral and systemic symptoms in the past as the mainstay of management -although skin prick testing to some of the culprit vegetables and fruits today were negative, I explained that commercial extracts of the relevant foods were utilized; I encouraged him to follow-up and bring in with him FRESH, RAW forms of the relevant fruits and vegetables that have resulted in oral symptoms for further skin prick testing, as fresh/ raw foods are more accurate than commercialized extracts of the identical foods for SPT -if he accidentally ingests any culprit food that results in mild oral symptoms, he may place ice chips in his mouth -for more severe allergic symptoms or any systemic reaction, EpiPen is to be administered, such as with dyspnea, throat swelling or loss of consciousness. If EpiPen is administered 911 should be called immediately. The risks, benefits, alternatives, storage methods, indications and administration technique of EpiPen were reviewed with the patient. he was able to demonstrate understanding and ability to administer EpiPen. -in summary, I instructed him to avoid eating all foods that have resulted in any prior allergic symptoms; based on clinical history and skin testing results, he should avoid ingestion of peanut, tree nuts, sesame, garlic, apple, carrot, chickpea/hummus -he should avoid eating 2 hours before and after exercise, as ingestion of food soon after he exercised may have enhanced the severity of his prior allergic reaction -since I do not have chick pea available for skin testing, I instructed him to schedule a follow-upwithin 4 weeks and bring in with him the specific hummus that he ate the evening of his reaction, and also to bring in fresh chickpeas for skin prick testing; I have also extended evaluation by ordering ImmunoCaps to chick pea and carrots, the 2 ingredients that he ingested just prior to his systemic allergic reaction eDH record was reviewed. Written instructions were reviewed and provided to the patient. No learning barriers were identified. The risks, benefits, alternatives and indications for the useof medications prescribed or recommended during today's visit were reviewed with the patient. The patient understood and agreed with what was discussed. All questions were answered. FOLLOW UP: Mr. Dean will return for follow-up in approximately 4 weeks or sooner if necessary. It was a pleasure to see Donald Dean In clinic today and if there are any questions, please do not hesitate to contact Dr. Vaughan at: . Anne Vaughan M.D., M.H.S. [facility] Allergy and Clinical Immunology ADDENDUM: Component Latest Ref Rng 01/20/2015 Carrot IgE <0.35 Chick Pea IgE <0.35 Although ImmunoCaps are negative to both carrot and chick pea, given his systemic allergic reactionafter ingestion of these foods, he should continue to avoid ingestion of carrot and chick pea, as Idiscussed with him during his appointment. He has a history of developing oral pruritus after ingestion of raw carrots. Since skin testing is more sensitive than ImmunoCap testing, I have instructed him to bring in the hummus that he ingested during his prior reaction, as well as chickpeas, for further skin testing, which will be conducted during his follow-up appointment. documented in this encounter Plan of Treatment Not on file documented as of this encounter Procedures Procedure Name Priority Date/Time Associated Diagnosis Comments ALLERGY SCAN 02/06/2015 12:00 AM EDT ALLERGY SCAN 02/06/2015 12:00 AM EDT CHICK PEA IGE Routine 01/20/2015 4:57 PM EDT CARROT IGE Routine 01/20/2015 4:57 PM EDT Allergic reaction, initial encounter documented in this encounter Results * SCAN DOC: ALLERGY (02/06/2015 12:00 AM EDT) Scanning Provider MEDIA MGR SCAN EXT O RDR/RSLT * SCAN DOC: ALLERGY (02/06/2015 12:00 AM EDT) Scanning Provider MEDIA MGR SCAN EXT O RDR/RSLT * Chick Pea IgE (01/20/2015 4:57 PM EDT) Chick Pea IgE <0.35 kU/L [facility] Comment: Class 0 (Negative <0.35) Test Performed by: [place] [address] Haunted History Tour Guide: Shekhar Beckham II, M.D., Ph.D. Blood specimen (specimen) Venous Draw / Unknown 01/20/2015 4:57 PM EDT 01/21/2015 8:31 AM EDT Narrative Resulting Agency Comment Spec In Lab Anne Vaughan MD IMMUNOLOGY ORDERABL ES [facility] * Carrot IgE (01/20/2015 4:57 PM EDT) Carrot, IgE <0.35 kU/L [facility] Comment: Class 0 (Negative <0.35) Test Performed by: [address] [address] Haunted History Tour Guide: Shekhar Beckham II, M.D., Ph.D. Blood specimen (specimen) 01/20/2015 4:57 PM EDT 01/21/2015 8:31 AM EDT Narrative Resulting Agency Comment Spec In Lab Anne Vaughan MD IMMUNOLOGY ORDERABL ES [facility] documented in this encounter Visit Diagnoses Diagnosis Allergic reaction, initial encounter Food allergy Other adverse food reactions, not elsewhere classified Oral allergy syndrome, initial encounter documented in this encounter Care Teams Certified Pedorthotist Relationship Specialty Start Date End Date Mellissa Christine MD [address] [place] [id number] PCP - General 01/20/15 03/03/20 documented as of this encounter
--- OUTSIDE RECORDS SUMMARY | 2024-06-07 11:12 | XMS_ITS | Encounter Summary ---
Author Organization [facility] Address [address] [place] [address] Care Team Providers Care Permit Technician Name Role Phone Unavailable Primary Care Provider Unavailabl e Encounter Details Date Type Department Care Team (Late st Contact Info) Description 10/23/2014 Results Only [facility] [phone] Alejandra Elizabeth MD [address] [place] [id number] Social History Tobacco Use Types Packs/Day Years [...] Procedure Name Priority Date/Time Associated Diagnosis Comments CYTOPATHOLOGY Routine 10/23/2014 0:00 EDT documented in this encounter Results * CYTOPATHOLOGY (10/23/2014 0:00 EDT) Pathology Report: CYTOPATHOLOGY REPORT Reports generated via electronic interface contain original data; however they are lacking the format of the original report. Caution should be taken when reading/interpret ing unformatted reports. Name: ? BRYN DEAN ? Accession #: ? [id number] : ? 1975 (Age: 38) ??M ?Collect Date: ? 10/23/2014 Location: ? [facility] ? Receive Date: ? 10/24/2014 Provider: ? ALEJANDRA ELIZABETH MD Copy to: ?DINORA ELKINS MD ? CYTOLOGIC DIAGNOSIS: URINE, CATHETERIZED, CYTOLOGIC EVALUATION: - ??Negative for malignant cells. Document reviewed and electronically signed by: ? EMY MORA MD Report Date: ??10/25/2014 17:16 By the signature above, the attending physician certifies that he/she has personally conducted a gross and/or microscopic examination of the described specimens and rendered or confirmed the above diagnosis. Specimen Type: ? Urine, Catheterized Clinical History: ? Suprapubic pain; gross hematuria; negative cystoscopy. ??clinical diagnosis code: 599.71 ? Gross Description: ? 30ccs of clear yellow fluid were received and processed by selective cellular enhancement technique. ? End of Report [facility] 10/23/2014 10/24/2014 7:4 8 EDT us Alejandra Elizabeth MD PATHOLOGY ORDERABLES Final R esult [facility] [address] [place] [address] documented in this encounter Visit Diagnoses Not on filedocumented in this encounter
--- OUTSIDE RECORDS SUMMARY | 2024-06-07 11:12 | XMS_ITS | Encounter Summary ---
Author Organization [facility] [place] [address] Care Team Providers Care General House Worker Name Role Phone Meghana Torres MD Primary Care Provider [phone] Encounter Details Date Type Department Care Team (Late st Contact Info) Description 03/19/2020 Orders [place] [address] García Zamora MD [facility] [place] [address] Pulmonary nodules Social History Tobacco Use Types [...] field documented in this encounter Care Teams General House Worker Relationship Specialty Start Date End Date Meghana Torres MD [address] [place] [address] PCP - General Family Medicine 03/04/20 documented as of this encounter
--- OUTSIDE RECORDS SUMMARY | 2024-06-07 11:12 | XMS_ITS | Encounter Summary ---
Author Organization [facility] [place] [place] [address] Care Team Providers Care Interceptor Operator Name Role Phone Mellissa Christine MD Primary Care Provider [phone] Reason for Visit * Reason Comments Allergies Allergy Testing Encounter Details Date Type Department Care Team (Late st Contact Info) Description 02/24/2015 8:30 AM EDT [place] [address] Anne Vaughan MD Food allergy; Oral allergy syndrome, subsequent encounter Discharge Disposition: Home Social History Tobacco Use Types Packs/Day Years Used Date Smoking Tobacco: Never Sex and Gender Information Value Date Recorded Sex Assigned at Not on file Gender Identity Not on file Sexual Orientation Not on file documented as of this encounter Last Filed Vital Signs Vital Sign Reading Time Taken Comments Blood Pressure 117/76 02/24/2015 8:17 AM EDT Pulse 54 02/24/2015 8:17 AM EDT Temperature - - Respiratory Rate - - Oxygen Saturation - - Inhaled Oxygen Concentration - - Weight 77.1 kg (170 lb) 02/24/2015 8:17 AM EDT Height 167.6 cm (5' 6) 02/24/2015 8:17 AM EDT Body Mass Index 27.44 02/24/2015 8:17 AM EDT documented in this encounter Patient Instructions * Patient Instructions* Anne Vaughan MD - 02/24/2015 9:01 AM EDT -avoid eating all foods that have resulted in allergic symptoms -avoid peanut, tree nuts, sesame, garlic; you should also avoid apple, carrot, chickpea/hummus -also, avoid eating 2 hours before and after exercise -carry epipens with you at all times; if you use your epipen for a severe allergic reaction, then you must call 911 -schedule a follow-up as soon as possible and bring in with you the hummus that you ate the eveningof your reaction, and also bring in fresh chickpeas documented in this encounter Progress Notes * Anne Vaughan MD - 02/24/2015 8:38 AM EDT ALLERGY AND IMMUNOLOGY CLINIC FOLLOW UP VISIT Date: 02/24/2015 CHIEF COMPLAINT: Allergies and Allergy Testing HISTORY OF PRESENT ILLNESS: Donald Dean is a 39 y.o. year old male who presents to clinic for SPT to chick peas and to [place] Classic Gluten Free hummus. -he was last seen in Allergy clinic on 01/20/15 -in summary of his last appointment: -he has a clinical history of a systemic allergic reaction (rhinorrhea, KERRY, facial swelling, throat tightness, diffuse erythema) after ingestion of fresh carrots and hummus, and so I recommended that he should continue to avoid ingestion of carrots, hummus, and chick peas, and he has already been equipped with epipens by his PCP -he has a history of developing oral symptoms after ingestion of fresh apple, fresh carrots, peanuts, and various tree nuts, and demonstrated pollen sensitization on skin testing , to tree and grasses (birch, orchard grass, margaret grass), and so he may have a combination of primary food allergy and oral allergy syndrome -SPTs were positive to peanut, various tree nuts (almond, hazelnut, pistachio, walnut), and specific ingredients contained in the hummus (sesame, garlic); I discussed with him that he should avoid ingestion of these foods -I did not have skin prick testing available to chick pea, and during his initial Allergy appointment, he did not come in with the hummus that he ingested the evening of his reaction; it is unclear if the culprit of his systemic reaction was the hummus/chickpeas, the carrots, or both; given his systemic reaction, this represents a primary food allergy, for which he must remain equipped with epipens at all times, and recommended that he should continue to avoid ingestion of hummus, chickpeas, and carrots, as well as the specific ingredients contained in the hummus to which he tested positive on SPT (sesame, garlic) -in summary, I instructed him to avoid eating all foods that have resulted in any prior allergic symptoms; based on clinical history and skin testing results, I instructed for him to avoid ingestion of peanut, tree nuts, sesame, garlic, apple, carrot, chickpea/hummus -I recommended that he should avoid eating 2 hours before and after exercise, as ingestion of food soon after he exercised may have enhanced the severity of his prior allergic reaction -since I did not have chick pea available for skin testing, I instructed him to schedule a follow-up within 4 weeks and bring in with him the specific hummus ([place] Classic Gluten free hummus) thathe ate the evening of his reaction, and also to bring in fresh chickpeas, for skin prick testing; Ihnahed also extended evaluation by ordering ImmunoCaps to chick pea and carrots, the 2 ingredients that he ingested just prior to his systemic allergic reaction, which were both negative -unfortunately, he had forgotten to bring in with him today the specific hummus that he ate the evening of his reaction, and he also forgot to bring in fresh chickpeas for skin prick testing -since his initial Allergy appointment, he reports accidental ingestion of fresh garlic, after which he developed immediate oral itch, rhinorrhea, nasal congestion; symptoms self-resolved in 2 hours,and he states that he did not use his epipen ROS: A thorough 12-point review of systems was completed. Pertinent positives and negatives are included in the HPI. Other systems are negative. Current Outpatient Prescriptions on File Prior to Visit Medication Sig Dispense Refill ??? EPINEPHrine (EPIPEN) 0.3 mg/0.3 mL (1:1,000) Auto-Injector Inject 0.3 mg into the muscle once. No current facility-administered medications on file prior to visit. PAST MEDICAL HISTORY: food allergy SOCIAL HISTORY: reviewed, added to chart. ALLERGIES:No Known Allergies Vitals: Filed Vitals: 02/24/15 0817 BP: 117/76 Pulse: 54 PHYSICAL EXAM: Donald Dean is a male in no acute distress, breathing comfortably and interactive with the exam. Head: Normocephalic, atraumatic Eyes: Sclera without injection and conjunctiva nonerythematous, pupils equal, no abnormalities of the eyelids. Ears: Pinna normal, auditory canals patent, TMs intact bilaterally with no middle ear effusion noted. Nose: Nasal mucosa pink. Rhinorrhea absent. No epistaxis. Sinuses: No sinus pain or pressure upon palpation over the maxillary, frontal sinuses. Mouth: Oral mucosa moist. No oral ulcerations, No thrush. Neck: Supple, no cervical LAD Cardiovascular: Regular rate and rhythm, no rubs, no murmurs. Respiratory: Clear to auscultation bilaterally, excellent air movement, no wheeze. Musculoskeletal: Normal muscle tone and gait. Psych: Appropriate affect. Dermatologic: Skin reveals no evidence of eczematous changes, urticaria, purpura, or excoriations. ASSESSMENT&PLAN: Donald Dean is a 39 y.o. male with : 1) Food allergy 2) Oral allergy syndrome -I instructed him to avoid eating all foods [...] of his prior allergic reaction -since I did not have chick pea available for skin testing, during his initial Allergy appointment,I instructed him to schedule a follow-up and bring in with him the specific hummus that he ate the evening of his reaction, and also to bring in fresh chickpeas, for skin prick testing; unfortunately, he had forgotten to bring in with him today the specific hummus that he ate the evening of his reaction, and he also forgot to bring in fresh chickpeas for skin prick testing, and so he will RTC at his earliest convenience with these items -he will continue to remain equipped with epipens at all times in the event that he accidentally ingests any culprit food that results in severe allergic symptoms or any systemic reaction -food allergy treatment plan reviewed, including the symptoms of anaphylaxis and its treatment withadrenaline, benadryl, and transport to an emergency facility -Epinephrine autoinjector ( ie EpiPen, AuviQ or generic) to be administered if he develops dyspnea,throat swelling or loss of consciousness. If epinephrine autoinjector is administered 911 should becalled immediately. The risks, benefits, alternatives, storage methods, indications and administration technique of epinephrine autoinjector were reviewed with the patient. he was able to demonstrateunderstanding of the use of epinephrine autoinjector. eDH record was reviewed. Written instructions were reviewed and provided to the patient. No learning barriers were identified. The risks, benefits, alternatives and indications for the useof medications prescribed or recommended during today's visit were reviewed with the patient. The patient understood and agreed with what was discussed. All questions were answered. FOLLOW UP: Mr. Dean will return for follow-up in approximately 2 weeks or sooner if necessary. It was a pleasure to see Donald Dean In clinic today and if there are any questions, please do not hesitate to contact Dr. Vaughan at: . Anne Vaughan M.D., [facility] Allergy and Clinical Immunology documented in this encounter Plan of Treatment Not on file documented as of this encounter Visit Diagnoses Diagnosis Food allergy Other adverse food reactions, not elsewhere classified Oral allergy syndrome, subsequent encounter documented in this encounter Care Teams Interceptor Operator Relationship Specialty Start Date End Date Mellissa Christine MD [address] [place] [address] PCP - General 01/20/15 03/03/20 documented as of this encounter
--- OUTSIDE RECORDS SUMMARY | 2024-06-07 11:12 | XMS_ITS | Encounter Summary ---
[place] [address] Care Team Providers Care Paediatric Surgeon Name Role Phone Meghana Torres MD Primary Care Provider [phone] Encounter Details Date Type Department Care Team (Late st Contact Info) Description 04/04/2020 12:00 PM EST Clinical [place] [id number] Social History Tobacco Use Types Packs/Day Years [...] as of this encounter Progress Notes * Jacqui Archuleta RN - 04/04/2020 12:00 PM EST PAT questionnaire reviewed with patient while in Pre Admission testing. Patient reports no problemswith anesthesia in the past. He has had a cervical fusion in the past. Pre-operative instruction booklet reviewed. Patient verbalizes a good understanding of all information. Patient has Hibiclens. PLAN Testing: EKG done Special medication instructions: n/a Procedure date: Not booked - Dr. Suarez documented in this encounter Plan of Treatment Not on file documented as of this encounter Visit Diagnoses Not on filedocumented in this encounter Care Teams Paediatric Surgeon Relationship Specialty Start Date End Date Meghana Torres MD [address] [place] [address] PCP - General Family Medicine 03/04/20 documented as of this encounter
--- OUTSIDE RECORDS SUMMARY | 2024-06-07 11:12 | XMS_ITS | Encounter Summary ---
[place] [address] Care Team Providers Care Shift Foreman Name Role Phone Meghana Torres MD Primary Care Provider [phone] Encounter Details Date Type Department Care Team (Late st Contact Info) Description 03/05/2020 Telephone [place] [id number] Rosanna Ha Social History Tobacco Use Types Packs/Day Years [...] on filedocumented in this encounter Care Teams Shift Foreman Relationship Specialty Start Date End Date Meghana Torres MD [address] [place] [address] PCP - General Family Medicine 03/04/20 documented as of this encounter
--- OUTSIDE RECORDS SUMMARY | 2024-06-07 11:12 | XMS_ITS | Encounter Summary ---
Author Organization [facility] Address [facility] [place] [address] Care Team Providers Care Seat Cover Cutter Name Role Phone Meghana Torres MD Primary Care Provider [phone] Encounter Details Date Type Department Care Team (Late st Contact Info) Description 03/24/2020 Telephone [place] [address] García Zamora MD [facility] [place] [address] Social History Tobacco Use Types Packs/Day Years Used Date Smoking Tobacco: Never Smokeless Tobacco: Never Sex and Gender Information Value Date Recorded Sex Assigned at Not on file Gender Identity Not on file Sexual Orientation Not on file documented as of this encounter Miscellaneous Notes * Telephone Encounter - García Zamora MD - 03/24/2020 5:01 PM EDT Interventional Pulmonology Telephone Encounter: I called the patient at home on 03/24/2020, 5:01 PM. Reviewed unremarkable results from lab work (JUAN CARLOS, CBC, CMP, Calcium, and testicular tumor markers). He knows about his upcoming appointment with Dr. Suarez on 04/04. No other questions/he was appreciative of the call. García Zamora MD, 03/24/2020, 5:01 PM Interventional Pulmonology Section of Pulmonary & Critical Care Pager: [phone] * Telephone Encounter - García Zamora MD - 03/24/2020 5:01 PM EDT ----- Message from KACEY Rangel sent at 03/24/2020 4:17 PM EDT ----- Regarding: lab results Donald Luz called asking about his lab results. He would like a call back when you have a moment. Thank you Leidy documented in this encounter Plan of Treatment Not on file documented as of this encounter Visit Diagnoses Not on filedocumented in this encounter Care Teams Seat Cover Cutter Relationship Specialty Start Date End Date Mgehana Torres MD [address] [place] [address] PCP - General Family Medicine 03/04/20 documented as of this encounter
--- OUTSIDE RECORDS SUMMARY | 2024-06-07 11:12 | XMS_ITS | Encounter Summary ---
Author Organization [facility] Address [address] [place] [address] Care Team Providers Care Manager Customer Name Role Phone Unavailable Primary Care Provider Unavailabl e Encounter Details Date Type Department Care Team (Latest Contact Info) Description 10/23/2014 7:37 EDT - 10/23/2014 23:59 EDT Hospital Encounter [address] [address] Unknown, Provider, MD Discharge Disposition: Home or Self Care Social History Tobacco Use Types Packs/Day Years Used Date Smoking Tobacco: Never Assessed Sex and Gender Information Value Date Recorded Sex Assigned at Not on file Legal Sex Male 18:07 EST Gender Identity Not on file Sexual Orientation Not on file documented as of this encounter Discharge Disposition Disposition Code Departure Means Destination Home or Self Skilled Nursing documented in this encounter Plan of Treatment Not on file documented as of this encounter Visit Diagnoses Not on filedocumented in this encounter
--- OUTSIDE RECORDS SUMMARY | 2024-06-07 11:12 | XMS_ITS | Encounter Summary ---
Author Organization [facility] Address [facility] [place] [address] Care Team Providers Care Quality Analyst/Technical Writer Name Role Phone Mellissa Christine MD Primary Care Provider [phone] Encounter Details Date Type Department Care Team (Late st Contact Info) Description 02/05/2014 Interpretation Only Radiology [address] [place] [address] [place] [address] Unknown None Social History Tobacco Use Types [...] Date/Time Associated Diagnosis Comments XR CERVICAL SPINE 1 VIEW Routine 02/05/2014 10:07 AM EDT documented in this encounter Results * XR Cervical Spine 1 View (02/05/2014 10:07 AM EDT) Anatomical Region Laterality Modality C-spine N/A Radiographic Dee ging 02/05/2014 10:0 7 AM EDT Narrative 02/05/2014 10:07 AM EDT APD Historical Result Principal Therapy Aide: ??ENRIQUE ??JUDI LATERAL CERVICAL SPINE: INDICATION: ??Anterior spinal discectomy and osteophytectomy and cervical interspace microdiscectomy, status post C6-7 ACDF. The November 28, 2013, 5-view cervical spine was used as a comparison (preoperative). C6-7 anterior plate and screws and intervertebral spacer are demonstrated. ??There is slight reversal of the normal lordosis at C6-6, which could be secondary to spasm. ??There is no subluxation. ??There is no hardware fracture. ??There are no findings for loosening or infection. ??Paravertebral soft tissues are within normal limits in this single lateral view. IMPRESSION: Postoperative changes. ??There is some slight reversal of the normal lordosis at C6-7, as described above. Enrique Lau MD [facility]/rina [id number] CC: Procedure Note Unknown - 11/27/2018 APD Historical Result Principal Therapy Aide: ENRIQUE LAU LATERAL CERVICAL SPINE: INDICATION: Anterior spinal discectomy and osteophytectomy and cervicalinterspace microdiscectomy, status post C6-7 ACDF. The November 28, 2013, 5-view cervical spine was used as a comparison(preoperative). C6-7 anterior plate and screws and intervertebral spacer are demonstrated.There is slight reversal of the normal lordosis at C6-6, which could be secondary tospasm. There is no subluxation. There is no hardware fracture. There are no findings for loosening orinfection. Paravertebral soft tissues are within normal limits in this single lateral view. IMPRESSION: Postoperative changes. There is some slight reversal of thenormal lordosis at C6-7, as described above. Enrique Lau MD [facility]/rina [id number] CC: Unknown IMG DX ORDERABLES documented in this encounter Visit Diagnoses Not on filedocumented in this encounter Care Teams Quality Analyst/Technical Writer Relationship Specialty Start Date End Date Mellissa Christine MD [address] [place] [id number] PCP - General 01/20/15 03/03/20 documented as of this encounter
--- OUTSIDE RECORDS SUMMARY | 2024-06-07 11:12 | XMS_ITS | Encounter Summary ---
Author Organization [facility] [place] [address] Care Team Providers Care Director River Restoration Name Role Phone Meghana Torres MD Primary Care Provider [phone] Reason for Referral * Diagnostic Test (Routine) - Closed Specialty Diagnoses / Procedures Referred By Stuart watkins Referred To Contact Radiology Diagnoses Pulmonary nodules Procedures NM PET CT Skull Base to Mid-thigh García Zamora MD [facility] [place] [address] [place] [address] Referral ID Status Reason Start Date Expiration Date V isits Requested Visits Authorized [id number] Closed Specialty Service Requested 03/06/2020 09/01/2020 1 1 Encounter Details Date Type Department Care Team (Late st Contact Info) Description 03/05/2020 Orders [place] [address] García Zamora MD [facility] [place] [place] [address] Pulmonary nodules Social History Tobacco Use Types Packs/Day Years Used Date Smoking Tobacco: Never Smokeless Tobacco: Never Sex and Gender Information Value Date Recorded Sex Assigned at Not on file Gender Identity Not on file Sexual Orientation Not on file documented as of this encounter Plan of Treatment Not on file documented as of this encounter Results * Pulmonary Function Testing [...] García Zamora MD PFT ORDERABLES COMPAS PFT * NM PET CT Skull Base to [...] ? Electronically signed by: Elias Rodriguez MD, [facility] ([phone]), at 03/19/2020 1:53 PM Narrative 03/19/2020 1:53 PM EDT EXAMINATION: NM PET CT SKULL BASE TO MID-THIGH ? CLINICAL HISTORY: Metastatic disease evaluation - Include more detail below enlarging JAIRON nodule with numerous other nodules- differential broad, metastatic process to lung raised as possibility TECHNIQUE: Following IV injection of 97-mrxcqd-6-deoxyglucose (FDG) a standard uptake of approximately 60 [...] as possibility TECHNIQUE: Following IV injection of 38-jreclo-9-deoxyglucose (FDG) astandard uptake of approximately 60 minutes, [...] below. Electronically signed by: Elias Rodriguez MD, [facility]([phone]), at 03/19/2020 1:53 PM García Zamora MD IMG PET ORDERABLES documented in this encounter Visit Diagnoses Diagnosis Pulmonary nodules Other nonspecific abnormal finding of lung field Pulmonary nodules Other nonspecific abnormal finding of lung field Pulmonary nodules Other nonspecific abnormal finding of lung field documented in this encounter Care Teams Director River Restoration Relationship Specialty Start Date End Date Meghana Torres MD [address] [place] [address] PCP - General Family Medicine 03/04/20 documented as of this encounter
--- OUTSIDE RECORDS SUMMARY | 2024-06-07 11:12 | XMS_ITS | Encounter Summary ---
Author Organization [facility] Address [facility] [place] [address] Care Team Providers Care Appliance Mechanic Name Role Phone Mellissa Christine MD Primary Care Provider [phone] Encounter Details Date Type Department Care Team (Late st Contact Info) Description 01/03/2014 Interpretation Only Radiology [address] [place] [address] [place] [address] Unknown None Social History Tobacco Use Types Packs/Day Years Used Date Smoking Tobacco: Never Assessed Sex and Gender Information Value Date Recorded Sex Assigned at Not on file Gender Identity Not on file Sexual Orientation Not on file documented as of this encounter Plan of Treatment Not on file documented as of this encounter Procedures Procedure Name Priority Date/Time Associated Diagnosis Comments XR FLUORO NO RAD <1HR - RADIOLOGY USE Routine 01/03/2014 6:44 AM EDT documented in this encounter Results * XR Fluoro <1Hr - Radiology Use (01/03/2014 6:44 AM EDT) Anatomical Region Laterality Modality N/A Radiographic Dee ging 01/03/2014 6:44 AM EDT Narrative 01/03/2014 6:44 AM EDT APD Historical Result Principal Ballistics Teacher: ?SHERLY ?SADIE C-ARM FLUOROSCOPY: CLINICAL HISTORY: ??C6-7 ACDF with cadaver bone-plated fusion. Three lateral fluoroscopic spot images of the cervical spine are submitted, obtained during a procedure performed by Dr Bender. These demonstrate evidence of ACDF. ??No Radiologist was involved in the procedure. ??Please see operative report. ??Fluoro time 4.6 seconds. Riddhi Beltran MD Miguel A [id number] CC: Procedure Note Unknown - 11/27/2018 APD Historical Result Principal Ballistics Teacher: RIDDHI BELTRAN C-ARM FLUOROSCOPY: CLINICAL HISTORY: C6-7 ACDF with cadaver bone-plated fusion. Three lateral fluoroscopic spot images of the cervical spine aresubmitted, obtained during a procedure performed by Dr Bender. These demonstrate evidence of ACDF.No Radiologist was involved in the procedure. Please see operative report. Fluoro time 4.6 seconds. Riddhi Beltran MD Miguel A [id number] CC: Unknown IMG FLUORO ORDERABLE S documented in this encounter Visit Diagnoses Not on filedocumented in this encounter Care Teams Appliance Mechanic Relationship Specialty Start Date End Date Mellissa Christine MD [address] [place] [id number] PCP - General 01/20/15 03/03/20 documented as of this encounter
--- OUTSIDE RECORDS SUMMARY | 2024-06-07 11:12 | XMS_ITS | Encounter Summary ---
Author Organization [facility] [place] [address] Care Team Providers Care Biopharmaceutical Rep Name Role Phone Meghana Torres MD Primary Care Provider [phone] Encounter Details Date Type Department Care Team (Late st Contact Info) Description 03/04/2020 Ancillary Procedure Radiology Library at [facility] [place] [place] [id number] Meghana Torres MD [address] [place] [phone] Social History Tobacco Use Types Packs/Day Years Used Date Smoking Tobacco: Never Smokeless Tobacco: Never Sex and Gender Information Value Date Recorded Sex Assigned at Not on file Gender Identity Not on file Sexual Orientation Not on file documented as of this encounter Plan of Treatment Not on file documented as of this encounter Procedures Procedure Name Priority Date/Time Associated Diagnosis Comments FILM LIBRARY STORAGE ONLY CT CHEST Routine 03/04/2020 12:00 AM EDT documented in this encounter Results * Film Library- Storage Only CT Chest (03/04/2020 12:00 AM EDT) Narrative PAUL CANELA - 03/05/2020 9:15 AM EDT This exam is auto-finalizing. It's purpose is for storage only. Meghana Torres MD IMG FILM LIBRARY ORD ERABLES [place], [place] documented in this encounter Visit Diagnoses Not on filedocumented in this encounter Care Teams Biopharmaceutical Rep Relationship Specialty Start Date End Date Meghana Torres MD [address] [place] [address] PCP - General Family Medicine 03/04/20 documented as of this encounter
--- OUTSIDE RECORDS SUMMARY | 2024-06-07 11:12 | XMS_ITS | Encounter Summary ---
[place] [address] Care Team Providers Care Surgery Scheduling Coordinator Name Role Phone Meghana Torres MD Primary Care Provider [phone] Reason for Visit * Reason Onset Date Comments Prior Authorization 03/13/2020 PET/CT Skull Thigh Encounter Details Date Type Department Care Team (Late st Contact Info) Description 03/13/2020 Telephone [place] [phone] Tena Daniel RN Prior Authorization (PET/CT Skull Thigh) Social History Tobacco Use Types Packs/Day Years Used Date Smoking Tobacco: Never Smokeless Tobacco: Never Sex and Gender Information Value Date Recorded Sex Assigned at Not on file Gender Identity Not on file Sexual Orientation Not on file documented as of this encounter Miscellaneous Notes * Telephone Encounter - Tena Daniel RN - 03/13/2020 11:05 AM EDT Rec'd faxed copy of letter notifying office of approval for PET/CT Skull-thigh. Approval Reference: [id number] Servicing Provider: [facility] Start Date: 03/06/2020 End Date: 09/01/2020 Copy of letter sent to scanning for inclusion to patient records. documented in this encounter Plan of Treatment Not on file documented as of this encounter Visit Diagnoses Not on filedocumented in this encounter Care Teams Surgery Scheduling Coordinator Relationship Specialty Start Date End Date Meghana Torres MD [address] [place] [address] PCP - General Family Medicine 03/04/20 documented as of this encounter
--- OUTSIDE RECORDS SUMMARY | 2024-06-07 11:12 | XMS_ITS | Encounter Summary ---
Author Organization [facility] [place] [address] Care Team Providers Care Tractor Trailer Moving Van Driver Name Role Phone Mellissa Christine MD Primary Care Provider [phone] Reason for Visit * Reason Comments Allergy Testing Encounter Details Date Type Department Care Team (Late st Contact Info) Description 04/18/2015 9:30 AM EST [place] [address] Michelle Haro MD [facility] [place] [address] Allergic reaction to food; Oral allergy syndrome, subsequent encounter Social History Tobacco Use Types Packs/Day Years Used Date Smoking Tobacco: Never Smokeless Tobacco: Never Sex and Gender Information Value Date Recorded Sex Assigned at Not on file Gender Identity Not on file Sexual Orientation Not on file documented as of this encounter Last Filed Vital Signs Vital Sign Reading Time Taken Comments Blood Pressure 126/83 04/18/2015 9:10 AM EST Pulse 80 04/18/2015 9:10 AM EST Temperature - - Respiratory Rate 20 04/18/2015 9:10 AM EST Oxygen Saturation - - Inhaled Oxygen Concentration - - Weight 77.1 kg (170 lb) 04/18/2015 9:10 AM EST Height 167.6 cm (5' 6) 04/18/2015 9:10 AM EST Body Mass Index 27.44 04/18/2015 9:10 AM EST documented in this encounter Patient Instructions * Patient Instructions* Michelle Haro MD - 04/18/2015 10:20 AM EST avoid eating tree nuts,apples,carrots,chick peas/hummus,garlic,sesame,peanut keep epipens always available-use if you have trouble breathing , throat swelling, loss of conciousness ; 911 should be called and you should go to the ER take Benadry 50 mg fast acting form after using epipen do not eat 2 hrs before and 2 hrs after exercise documented in this encounter Progress Notes * Michelle Haro MD - 04/22/2015 2:39 PM EST Subjective: Patient ID: Donald Dean is a 39 y.o. male. GOLD Bennett has a clinical history of a systemic allergic reaction (rhinorrhea, KERRY, facial swelling,throat tightness, diffuse erythema) after ingestion of fresh carrots and hummus, and it was previously recommended that he should avoid ingestion of carrots, hummus, and chick peas. He has been equipped with epipens by his PCP. 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 were positive to peanut, various tree nuts (almond, hazelnut, pistachio, walnut), andspecific ingredients contained in the hummus (sesame, garlic); it was prev. discussed with him thathe should avoid ingestion of all of these foods. -skin prick testing was not available to chick pea, and during his initial Allergy appointment, he did not come in with the hummus that he ingested the evening of his reaction; it was unclear if the culprit of his systemic reaction was the hummus/chickpeas, the carrots, or both; given his systemic reaction, he was told he should remain equipped with epipens at all times, and it was recommended that he should continue to avoid ingestion of hummus, chickpeas, and carrots, as well as the specific ingredients contained in the hummus to which he tested positive on SPT (sesame, garlic) and also avoid tree nuts and peanuts. -in summary, he was advised to avoid eating all foods that had resulted in any prior allergic symptoms; based on clinical history and skin testing results, he was instructed to avoid ingestion of peanut, tree nuts, sesame, garlic, apple, carrot, and chickpea/hummus . -it was recommended that he should avoid eating 2 hours before and after exercise, as ingestion of food soon after exercise may have enhanced the severity of his prior allergic reaction - chick pea was not available for skin testing, and he was instructed to schedule a follow-up within 4 weeks and bring in the specific hummus ([place] Classic Gluten free hummus) that he ate the evening of his reaction, and also to bring in fresh chickpeas, for skin prick testing; also ImmunoCaps to chick pea and carrots were ordered and were both negative. -unfortunately, for his last visit here, he had forgotten to bring in the specific hummus that he ate the evening of his reaction, and also forgot to bring in fresh chickpeas for skin prick testing. -since his last Allergy appointment, he reports accidental ingestion of fresh garlic and states that no adverse symptoms occurred. Active Ambulatory Problems Diagnosis Date Noted ??? Allergy to food 04/18/2015 Resolved Ambulatory Problems Diagnosis Date Noted ??? No Resolved Ambulatory Problems No Additional Past Medical History Current Outpatient Prescriptions on File Prior to Visit Medication Sig Dispense Refill ??? EPINEPHrine (EPIPEN) 0.3 mg/0.3 mL (1:1,000) Auto-Injector Inject 0.3 mg into the muscle once. No current facility-administered medications on file prior to visit. Review of Systems All other systems reviewed and are negative. Objective: Physical Exam Constitutional: No distress. Skin: No rash noted. Vitals Office Visit from 04/18/2015 in Allergy Weight - Scale 77.111 kg (170 lb) Height 167.6 cm (5' 6) BSA (Calculated - sq m) 1.89 sq meters BMI (Calculated) 27.5 Heart Rate 80 Resp 20 BP 126/83 mmHg Skin prick testing was done with chickpeas and with the [place] Classic gluten free hummus which he had eaten prior to his previous systemic allergic reaction. Results were as follows in mm. wheal/flare : histamine 10/55, saline 2/5, chickpea 2/2,hummus 2/2 4 tests were done. Assessment and Plan: 1) H/o systemic allergic reaction after ingestion of carrots and hummus following exercise -skin testing to chickpea and hummus were negative today. 2) Oral allergy syndrome -he was instructed to avoid eating all foods that have resulted in any prior allergic symptoms; based on clinical history and skin testing results, he should avoid ingestion of peanut, tree nuts, sesame, garlic, apple, carrot, and chickpea/hummus -he should avoid eating 2 hours before and after exercise, as ingestion of food soon after exercisemay have enhanced the severity of his prior allergic reaction --he will continue to remain equipped with epipens at all times in the event that he accidentally ingests any culprit food that results in severe allergic symptoms or any systemic reaction -food allergy treatment plan reviewed, including the symptoms of anaphylaxis and its treatment withepinephrine, and benadryl, and transport to an emergency facility -Epinephrine autoinjector ( ie EpiPen, AuviQ or generic) to be administered if he develops dyspnea,throat swelling or loss of consciousness. If epinephrine autoinjector is administered 911 should becalled immediately. The risks, benefits, alternatives, storage methods, indications and administration technique of epinephrine autoinjector were reviewed with the patient. 40 min visit, 25 min spent in counseling the pt. on treatment of food allergy and answering questions documented in this encounter Plan of Treatment Not on file documented as of this encounter Procedures Procedure Name Priority Date/Time Associated Diagnosis Comments ALLERGY SCAN 05/08/2015 12:00 AM EST documented in this encounter Results * SCAN DOC: ALLERGY (05/08/2015 12:00 AM EST) Narrative 05/08/2015 12:00 AM EST Ordered by an unspecified provider. Scanning Provider MEDIA MGR SCAN EXT O RDR/RSLT documented in this encounter Visit Diagnoses Diagnosis Allergic reaction to food Oral allergy syndrome, subsequent encounter documented in this encounter Care Teams Tractor Trailer Moving Van Driver Relationship Specialty Start Date End Date Mellissa Christine MD [address] [place] [address] PCP - General 01/20/15 03/03/20 documented as of this encounter
--- OUTSIDE RECORDS SUMMARY | 2024-06-07 11:12 | XMS_ITS | Encounter Summary ---
[place] [address] Care Team Providers Care Inspector Subassemblies Name Role Phone Meghana Torres MD Primary Care Provider [phone] Encounter Details Date Type Department Care Team (Late st Contact Info) Description 03/05/2020 Telephone [place] [id number] Leidy Apodaca Social History Tobacco Use Types Packs/Day Years Used Date Smoking Tobacco: Never Smokeless Tobacco: Never Sex and Gender Information Value Date Recorded Sex Assigned at Not on file Gender Identity Not on file Sexual Orientation Not on file documented as of this encounter Miscellaneous Notes * Telephone Encounter - Leidy Apodaca LNA - 03/05/2020 3:07 PM EDT Pt returning call, got disconnected. Scheduled PET scan, PFT and Dr. Zamora on 03/19. Pt aware date, time, location. documented in this encounter Plan of Treatment Not on file documented as of this encounter Visit Diagnoses Not on filedocumented in this encounter Care Teams Inspector Subassemblies Relationship Specialty Start Date End Date Meghana Torres MD [address] [place] [address] PCP - General Family Medicine 03/04/20 documented as of this encounter
--- OUTSIDE RECORDS SUMMARY | 2024-06-07 11:12 | XMS_ITS | Encounter Summary ---
Author Organization [facility] [place] [address] Care Team Providers Care Clinical Quality Assurance Specialist Name Role Phone Mellissa Christine MD Primary Care Provider [phone] Encounter Details Date Type Department Care Team (Late st Contact Info) Description 02/24/2020 Ancillary Procedure Radiology Library at [facility] [place] [address] Meghana Torres MD [address] [place] [id number] Social History Tobacco Use Types Packs/Day Years [...] Diagnosis Comments FILM LIBRARY STORAGE ONLY CT ABDOMEN Routine 02/24/2020 12:00 AM EDT documented in this encounter Results * Film Library- Storage Only CT Abdomen (02/24/2020 12:00 AM EDT) Narrative [facility] - 03/05/2020 9:04 AM EDT This exam is auto-finalizing. It's purpose is for storage only. Meghana Torres MD IMG FILM LIBRARY ORD ERABLES [place], [place] documented in this encounter Visit Diagnoses Not on filedocumented in this encounter Care Teams Clinical Quality Assurance Specialist Relationship Specialty Start Date End Date Mellissa Christine MD [address] [place] [address] PCP - General 01/20/15 03/03/20 documented as of this encounter
--- OUTSIDE RECORDS SUMMARY | 2024-06-07 11:12 | XMS_ITS | Encounter Summary ---
Author Organization [facility] Address [address] [place] [address] Care Team Providers Care Medical Insurance Claims Specialist Name Role Phone Unavailable Primary Care Provider Unavailabl e Encounter Details Date Type Department Care Team (Late st Contact Info) Description 05/22/2001 Results Only [facility] [address] [place] [address] Farhan Ashby MD [address] [place] [address] Social History Tobacco Use Types Packs/Day Years [...] Procedure Name Priority Date/Time Associated Diagnosis Comments SURGICAL PATHOLOGY Routine 05/22/2001 0:00 EST documented in this encounter Results * SURGICAL PATHOLOGY (05/22/2001 0:00 EST) Pathology Report: SURGICAL PATHOLOGY REPORT Reports generated via electronic interface contain original data; however they are lacking the format of the original report. Caution should be taken when reading/interpreti ng unformatted reports. Name: ? DONALD DEAN ? Accession #: ? [id number] ? : ? 1975 (Age: 25) ??M ? Collect Date: ? 05/22/2001 ? Location: ? [facility] ? Receive Date: ? 05/24/2001 ? Provider: FARHAN ASHBY MD Copy to: [employer]EL [employer] OPERATIONS MANAGER ? Final Pathologic Diagnosis: A. ?Vas deferens, left, vasectomy: 1. ?No pathologic features, full cross sections identified. B. ?Vas deferens, right, vasectomy: 1. ?No pathologic features, full cross sections identified. Document reviewed and electronically signed by: Stephanie Farias MD Report ??Date: 05/26/2001 16:56 By the signature above, the attending physician certifies that he/she has personally conducted a gross and/or microscopic examination of the described specimens and rendered or confirmed the above diagnosis. Specimen(s) Received: A. ?L vas deferens B. ?R vas deferens Clinical History: ? L vas deferens, R vas deferens; clinical diagnosis code: V25.2 Gross Description: ? Received in formalin labelled Dean and L deferens #1 is a lockwood-white tubular 1.5 cm in length, 0.2 cm in diameter soft tissue. ??Upon sectioning, the cut surfaces are lockwood-white with a central pinpoint lumen. ??No discrete nodules identified. ??Two surgical sales representative sections are submitted as (A). Received in formalin labelled Dean and R deferens #2 is a stevenson-white tubular 1.6 cm in length, 0.2 cm in diameter soft tissue. ??Upon sectioning, the cut surfaces are stevenson-white with a central pinpoint lumen. ??No discrete nodules identified. ??Two surgical sales representative sections are submitted as (B). ??([facility])/[facility] End of Report [facility] 05/22/2001 05/24/2001 10: 16 EST us Farhan Ashby MD PATHOLOGY ORDERABLES Final Result [facility] [address] [place] [address] documented in this encounter Visit Diagnoses Not on filedocumented in this encounter
--- OUTSIDE RECORDS SUMMARY | 2024-06-07 11:12 | XMS_ITS | Encounter Summary ---
[place] [address] Care Team Providers Care Japanese Interpreter Name Role Phone Meghana Torres MD Primary Care Provider [phone] Encounter Details Date Type Department Care Team (Late st Contact Info) Description 03/24/2020 Tele[place] [phone] Leidy Apodaca Social History Tobacco Use Types Packs/Day Years Used Date Smoking Tobacco: Never Smokeless Tobacco: Never Sex and Gender Information Value Date Recorded Sex Assigned at Not on file Gender Identity Not on file Sexual Orientation Not on file documented as of this encounter Miscellaneous Notes * Telephone Encounter - Leidy Apodaca LNA - 03/24/2020 4:16 PM EDT Call from pt, looking for lab results and asking about seeing the surgeons. Let pt know I will senda message to Dr. Zamora asking him to call the pt with results and connected the pt with Thoracic to schedule appt. documented in this encounter Plan of Treatment Not on file documented as of this encounter Visit Diagnoses Not on filedocumented in this encounter Care Teams Japanese Interpreter Relationship Specialty Start Date End Date Meghana Torres MD [address] [place] [address] PCP - General Family Medicine 03/04/20 documented as of this encounter
--- OUTSIDE RECORDS SUMMARY | 2024-06-07 11:12 | XMS_ITS | Encounter Summary ---
Author Organization [facility] Address [facility] [place] [address] Care Team Providers Care Livestock Judging Coach Name Role Phone Meghana Torres MD Primary Care Provider [phone] Reason for Referral * Consultation (Routine) - Closed Specialty Diagnoses / Procedures Referred By Stuart watkins Referred To Contact Thoracic Surgery Diagnoses Pulmonary nodules Pulmonary nodules García Zamora MD [facility] [place] [address] [facility] [address] [place] [address] Referral ID Status Reason Start Date Expiration Date V isits Requested Visits Authorized [id number] Closed Consult, Test & Treat 03/19/2020 03/19/2021 1 1 Encounter Details Date Type Department Care Team (Late st Contact Info) Description 03/19/2020 [place] [address] García Zamora MD [facility] [place] [address] Pulmonary nodules Social History Tobacco Use Types Packs/Day Years Used Date Smoking Tobacco: Never Smokeless Tobacco: Never Sex and Gender Information Value Date Recorded Sex Assigned at Not on file Gender Identity Not on file Sexual Orientation Not on file documented as of this encounter Plan of Treatment Scheduled Referrals Name Type Priority Associated Diagnoses Orde r Schedule Referral to Thoracic Surgery Outpatient Referral Routine Pulmonary nodules Ordered: 03/19/2020 documented as of this encounter Visit Diagnoses Diagnosis Pulmonary nodules Other nonspecific abnormal finding of lung field documented in this encounter Care Teams Livestock Judging Coach Relationship Specialty Start Date End Date Meghana Torres MD [address] [place] [id number] PCP - General Family Medicine 03/04/20 documented as of this encounter
[2024-06-07 16:01] LABS: ALT 73 U/L (16-63); AST 21 U/L (15-37); Albumin 4.4 g/dL (3.4-5.0); Alkaline Phosphatase 87 U/L (46-116); BUN 22 mg/dL (7-18); Bilirubin, Total 0.49 mg/dL (0.2-1.0); CREATININE 1.1 mg/dL (0.70-1.30); Calcium 9.6 mg/dL (8.5-10.1); Calculated LDL 150 mg/dL (<100); Chloride 106 mmol/L (98-107); Cholesterol 245 mg/dL (<200); Estimated GFR 82.29 (mL/min/1.73m2); Glucose 92 mg/dL (74-106); HDL Cholesterol 40 mg/dL (40-60); Potassium 4.8 mmol/L (3.5-5.1); Sodium 142 mmol/L (136-145); Total Protein 7.3 g/dL (6.4-8.2); Triglyceride 277 mg/dL (<150)
== END 2024-06-07 11:09 | disposition home or self-care (01) ==
LOC: NCHCN 11:08
PROVIDERS: PCP Physician Assistant; Visit Provider Physician Assistant
DX: E78.5 Hyperlipidemia, unspecified (principal)
CPT/HCPCS: 80053; 80061

== ENCOUNTER 2024-07-20 08:07 | Day surgery (SDC) | payer BC, SELFPAY ==
[2024-07-20 08:26] VITALS: BP 121/84; PULSE 73; RESP 19; TEMP 36.4; O2SAT 96
--- NOTE | 2024-07-20 08:31 | W.ANESPRE ---
General Info Date of Service Date Performed: 07/20/24 Height: 5 ft 6 in Weight: 88.6 kg Body Mass Index (BMI): 31.5 Surgical Procedure: Operation Date: 07/20/24 09:05 Proposed Procedure Side Surgeon p Colonoscopy Michelle Barriga MD Meds Allergies and Home Medications Allergies Allergy/AdvReac Type Severity Reaction Status Date / Time chickpea Allergy Severe Anaphylaxis Verified 07/20/24 08:30 hydromorphone (From Dilaudid) Allergy Intermediate Cardiac Verified 07/20/24 08:30 Dysrythmia Home Medication ?Medication ?Instructions ?Recorded epinephrine 0.3 mg/0.3 mL 0.3 mg IM Q5-15M PRN 06/20/24 injection, auto-injector loratadine 10 mg tablet (Claritin) 10 mg PO DAILY PRN 06/20/24 polyethylene glycol 3350 17 238 g PO ONCE colonoscopy prep 06/28/24 gram/dose oral powder #238 grams Current Visit Medications: Current Medications Generic Name Dose Route Start Last Admin Trade Name Freq PRN Reason Stop Dose Admin Ringer's Solution 1,000 mls @ 80 mls/hr 07/20/24 06:00 IV 07/20/24 23:59 INFUSION CARMITA IV Miscellaneous Supplies 1 each 07/20/24 06:00 Iv Access IV 07/20/24 23:59 DIRECTED CARMITA Sodium Chloride 0 ml 07/20/24 06:00 Normal Saline Flush 10 Ml Syr IV 07/20/24 23:59 PRN PRN Sodium Chloride 0 ml 07/20/24 06:00 Normal Saline 10 Ml Vial IJ 07/20/24 23:59 DIRECTED PRN Sterile Water 0 ml 07/20/24 06:00 Water,Injection,Sterile 10 Ml Vial IJ 07/20/24 23:59 DIRECTED PRN PFS Active Problems Active Problems: Problem Status Onset Code Pain in scrotum Acute ~06/08/24 N50.82 Sprain of right index finger Acute S63.610A Medical History Medical History Kidney stone Meniere disease Hyperlipidemia Histoplasmosis Surgical History Surgical History (Updated 07/20/24 @ 08:59 by Michelle Barriga MD) History of lung surgery H/O excision of mass Hx of fusion of cervical spine History of colonoscopy (~2014) Per Pt done at [facility], nothing sent with referral. Tobacco Smoking/Tobacco Use Status: Never Alcohol Alcohol Intake: never Substance Use Substance use: Never Substance use type: does not use Vital Signs and Lab Results Vital Signs Most Recent Vital Signs in EMR: Most Recent Vital Signs Temp Pulse Resp BP Pulse Ox 36.4 C L 73 19 121/84 96 07/20/24 08:26 07/20/24 08:26 07/20/24 08:26 07/20/24 08:26 07/20/24 08:26 Lab Results Blood Type / Crossmatch: No Data to Display Complete Blood Count: No Data to Display Complete Metabolic Panel: No Data to Display Liver Function Panel: No Data to Display Coagulation Panel: No Data to Display Cardiac Panel: No Data to Display Arterial Blood Gas: No Data to Display Venous Blood Gas: No Data to Display Pancreas Panel: No Data to Display Thyroid Panel: No Data to Display Infectious Disease: No Data to Display Blood Cultures: No Data to Display Toxicology Panel: No Data to Display Imaging and Studies Imaging and Studies Study information below may be from another EMR and interpreted by another provider. Please see original notes in EMR for more complete details. Stress Test Summary: 06/2022: normal Anesthesia Assessment and Plan Anesthesia History Personal History: No History of Anesthesia Complications Family History: No Family History of Anesthesia Complications Exercise Tolerance Exercise Tolerance: Metabolic Equivalents>4 Pertinent Negatives Pertinent Negatives: No Symptoms of GERD Cardiac & Pulmonary Exam Cardiac Exam: Normal S1/S2 Heart Sounds Pulmonary Exam: Clear Bilateral Breath Sounds Implantable Cardiac Device Does patient have a Pacemaker or an ICD?: No Airway Exam Known Difficult Airway: No Mallampati Class: 1 Mouth Opening: Normal (> 3cm) Thyromental Distance: Greater than 3 cm Facial Hair: Full [place] Range of Motion: Limited ROM and History of Cervical Fusion Neck Circumference: Normal Teeth Condition: Normal Dentition ASA Classification ASA Score: ASA 2 Emergency Case?: No NPO Status NPO Status: NPO Clears >2 hours, Solids >8 hours Anesthesia Plan Resuscitation Status: Full Code Anesthesia Technique: General Anesthesia Airway Planned: Natural Airway Monitors Used: Standard Monitors
[2024-07-20 08:32] VITALS: BMI 31.5
[2024-07-20] MEDS: Lactated Ringers 1,000 ML 80 ML IV (08:41)
--- NOTE | 2024-07-20 08:58 | W.PM.HP.N ---
Date of service: 07/20/24 Time of Service: 08:58 Assessment and Plan Assessment and plan (1) History of colon polyps: Status: Acute Assessment and plan: I have explained the procedure of colonoscopy. I have outlined the risks of the procedure including those of bowel perforation, bleeding after a polypectomy, oversedation, and inability to complete the exam. The patient agrees to proceed and signed the consent form. History of Present Illness Narrative: This patient presents for his screening colonoscopy. He has a history of polyps removed in the past and diverticulosis. He denies any recent change in bowel habits. He does not have family history of colorectal cancer. His only previous abdominal surgery was an umbilical hernia repair. Review of Systems All systems reviewed & are unremarkable except as noted in HPI and below PFSH All Active Problems (Updated 07/20/24 @ 09:03 by Michelle Barriga MD) History of colon polyps (Acute) Pain in scrotum (Acute ~06/08/24) Sprain of right index finger (Acute) UCL of MCP joint Medical History Kidney stone Meniere disease Hyperlipidemia Histoplasmosis Surgical History History of lung surgery H/O excision of mass Hx of fusion of cervical spine History of colonoscopy (~2014) Per Pt done at [facility], nothing sent with referral. Social History Smoking/Tobacco Use Status: Never Smoking risk assessment performed?: Yes Alcohol Intake: never Drug use: Never Substance use type: does not use Housing: house Do you feel safe at home: Yes Do you feel safe in your relationship?: Yes Meds Allergies and Home Medications Allergies Allergy/AdvReac Type Severity Reaction Status Date / Time chickpea Allergy Severe Anaphylaxis Verified 07/20/24 08:30 hydromorphone (From Dilaudid) Allergy Intermediate Cardiac Verified 07/20/24 08:30 Dysrythmia Home Medications ?Medication ?Instructions ?Recorded ?Confirmed ?Type epinephrine 0.3 mg/0.3 mL 0.3 mg IM Q5-15M PRN 06/20/24 07/20/24 History injection, auto-injector loratadine 10 mg tablet (Claritin) 10 mg PO DAILY PRN 06/20/24 07/20/24 History polyethylene glycol 3350 17 238 g PO ONCE colonoscopy prep 06/28/24 07/20/24 Rx gram/dose oral powder #238 grams Exam Narrative Exam Narrative: Constitutional: Alert and oriented x3. Appears stated age. Normal body habitus. Head: Normocephalic, no trauma. Eyes: Pupils PERRLA Chest: RRR, Normal S1, S2, Resp: Lungs clear to auscultation bilaterally, no wheezes, rales, or rhonchi. Musculoskeletal: grossly normal Skin: warm Neurologic: grossly normal. Alert and oriented x 3. Psych Mood: congruent mood Affect: normal affect Results Last Vital Signs Temp 36.4 C L 07/20/24 08:26 Pulse 73 07/20/24 08:26 Resp 19 07/20/24 08:26 BP 121/84 07/20/24 08:26 Pulse Ox 96 07/20/24 08:26 Time Spent Time spent with Patient: <40 minutes Time was spent: preparing to see the patient(eg.review tests), obtaining and/or reviewing separately otained hiistory and counseling the patient
[2024-07-20 09:35] VITALS: BP 94/61; PULSE 67; RESP 16; TEMP 36.2; O2SAT 95
--- NOTE | 2024-07-20 09:46 | W.COLOREPORT ---
Date of service: 07/20/24 Time of Service: 09:46 Colonoscopy Report Date of procedure: 07/20/24 Pre-op diagnosis general: History of colon polyps and diverticulosis Post-op diagnosis procedure note: other (Moderate diverticulosis and cecal polyp) Procedure: Colonoscopy with cold polypectomy Surgeon: Michelle Barriga Anesthesia Type: General:No Airway Estimated blood loss (mL): 0 Pathology: other (Cecal polyp) Complications: None Disposition: same day Indications: History of colon polyp Findings: 3 mm cecal polyp. Excellent bowel prep. Moderate sigmoid diverticulosis with muscular hypertrophy and tortuosity Procedure Description: After the risks, benefits, and alternatives of the procedure were thoroughly explained, informed consent was obtained. The Patient is brought to the procedure room and time out is performed confirming patient identity, nature of procedure. Patient is connected to monitoring devices including O2 sat, EKG and given supplemental oxygen per anesthesia. After appropriate anesthetic is obtained, patient is placed in the left lateral decubitus position and digital rectal exam performed with the findings noted . The colonoscope is inserted through the anus and guided under direct vision to the proximal colon as confirmed by presence of the appendiceal orifice and the ileocecal valve. The colonoscope is then slowly withdrawn , inspecting all aspects of the mucosa completely. Findings and any associated intervention, are noted above. The colonoscope was then completely withdrawn from the patient and the procedure terminated. The patient tolerated the procedure well and is transferred back to the Day surgery unit in stable condition.
[2024-07-20 10:10] VITALS: BP 118/69; PULSE 69; RESP 17; TEMP 36.2; O2SAT 95
--- NOTE | 2024-07-20 10:28 | W.ANESPOSTOP ---
Postoperative Evaluation Date, Time and Location Date Performed: 07/20/24 Time Performed: 09:45 Patient Location: Day Surgery Unit Vital Signs Most Recent Imported Vital Signs: Most Recent Vital Signs Temp Pulse Resp BP Pulse Ox 36.2 C L 67 16 94/61 L 95 07/20/24 09:35 07/20/24 09:35 07/20/24 09:35 07/20/24 09:35 07/20/24 09:35 Pain Score Most Recent Pain Score: Most Recent Pain Score Pain Level 0 07/20/24 09:35 Assessment Mental Status: Awake (Alert & Oriented to Patient Baseline) Airway and Respiratory Function: Patent airway with normal (patient baseline) respiratory exam Cardiovascular Function: Hemodynamically Stable Hydration Status: Adequately Hydrated Nausea & Vomiting: No Nausea or Vomiting Pain: Pt. Denies Any Pain Peripheral Nerve Block: Patient did not receive a nerve block
== END 2024-07-20 10:20 | disposition home or self-care (01) ==
PROVIDERS: PCP Physician Assistant; Visit Provider Surgery
PROC: 0DJD8ZZ Inspection of Lower Intestinal Tract, Via Natural or Artificial Opening Endoscopic (ICD-10-PCS; CPT 45378; principal; 2024-07-20 09:00)
DX: Z12.11 Encounter for screening for malignant neoplasm of colon; K57.30 Diverticulosis of large intestine without perforation or abscess without bleeding; D12.0 Benign neoplasm of cecum; K63.89 Other specified diseases of intestine
CPT/HCPCS: 45380; 88305; J2704

== ENCOUNTER 2024-12-19 15:00 | Outpatient (REF) | payer BC, SELFPAY ==
[2024-12-19 17:36] LABS: ALT 54 U/L (16-63); AST 21 U/L (15-37); Albumin 4.2 g/dL (3.4-5.0); Alkaline Phosphatase 81 U/L (46-116); Anion Gap 5.1 mmol/L (3-11); BUN 22 mg/dL (7-18); Bilirubin, Total 0.4 mg/dL (0.2-1.0); CO2 30.9 mmol/L (21.0-32.0); Calcium 9.2 mg/dL (8.5-10.1); Calculated LDL 157 mg/dL (<100); Chloride 105 mmol/L (98-107); Cholesterol 224 mg/dL (<200); Estimated GFR 104.70 (mL/min/1.73m2); Glucose 99 mg/dL (74-106); HDL Cholesterol 39 mg/dL (>or=40); Hemoglobin A1C 5.3 % (<5.7); Potassium 4.6 mmol/L (3.5-5.1); Sodium 141 mmol/L (136-145); Total Protein 7.0 g/dL (6.4-8.2); Triglyceride 141 mg/dL (<150)
== END 2024-12-19 15:01 | disposition home or self-care (01) ==
LOC: NCHCN 15:00
PROVIDERS: PCP Physician Assistant; Visit Provider Physician Assistant
DX: E78.5 Hyperlipidemia, unspecified (principal); Z13.1 Encounter for screening for diabetes mellitus
CPT/HCPCS: 80053; 80061; 83036